=== PATIENT | male | born 1980 | race Caucasian/White ===

== ENCOUNTER 2021-11-03 15:50 | Outpatient (CLI) | payer MEDICAID, SELFPAY ==
[2021-11-03 17:25] LABS: Chloride* 104 mmol/L (96-114); Potassium* 3.9 mmol/L (3.6-5.1); Sodium* 137 mmol/L (135-149)
[2021-11-03 17:27] LABS: Creatinine* 0.7 mg/dL (0.5-1.5); Estimated Glomerular Filt Rate 119 ml/min
[2021-11-03 17:28] LABS: Blood Urea Nitrogen* 12 mg/dL (5-24); Calcium* 9.1 mg/dL (8.4-10.6); Carbon Dioxide* 26 mmol/L (20-32); Glucose* 99 mg/dL (60-115)
== END 2021-11-03 15:51 | disposition home or self-care (01) ==
LOC: LONREF 15:50
PROVIDERS: PCP Family Medicine; Visit Provider Family Medicine
DX: I10 Essential (primary) hypertension (principal)
CPT/HCPCS: 80048

== ENCOUNTER 2022-08-22 09:55 | Outpatient (CLI) | payer MEDICAID, SELFPAY | END 2022-08-22 09:56 | disposition home or self-care (01) | LOC: NFLDREF 08-23 07:57 | PROVIDERS: PCP Family Medicine; Referring Provider Family Medicine; Visit Provider Family Medicine | DX: R10.9 Unspecified abdominal pain (principal); R97.20 Elevated prostate specific antigen [PSA] | CPT/HCPCS: 80048; 84153 ==

== ENCOUNTER 2023-03-18 15:23 | Outpatient (CLI) | payer OTHER, SELFPAY ==
--- OUTSIDE RECORDS SUMMARY | 2023-03-18 15:28 | XMS_ITS | Clinical Summary ---
Author Name Unknown Organization [facility] Address [address] [place] [id number] Care Team Providers Care Systems Design Engineer Name Role Phone No Ref-Primary, Physician Primary Care Provider Allergies No known active allergies Medications Medication Sig Dispensed Refills Start Date End Date Status lisinopril (ZESTRIL) 40 MG tablet Take 40 mg by mouth daily 0 Active ALPRAZolam (XANAX) 0.5 MG tablet Take 0.5 mg by mouth 3 times daily as needed 0 Active testosterone cypionate (DEPOTESTOSTERONE) 200 MG/ML injection Inject 200 mg into the muscle once a week 0 Active acetaminophen (TYLENOL) 500 MG tablet Take 1,000 mg by mouth every 6 hours as needed for mild pain 0 Active ibuprofen (ADVIL/MOTRIN) 200 MG tablet Take 400 mg by mouth every 6 hours as needed for pain 0 Active nicotine (NICODERM CQ) 21 MG/24HR [address] 1 patch onto the skin every 24 hours 0 Active metoprolol succinate ER (TOPROL XL) 25 MG 24 hr tabletIndications:Nile gn essential hypertension Take 1 tablet (25 mg) by mouth daily 30 tablet 0 08/18/2022 Active amoxicillin-clavulanat e (AUGMENTIN) 875-125 MG tabletIndications:Hume vesical fistula Take 1 tablet by mouth 2 times daily 20 tablet 0 08/18/2022 Active Active Problems Problem Noted Date Diagnosed Date SBO (small bowel obstruction) 08/14/2022 Fever postop 08/14/2022 Nausea and vomiting, unspecified vomiting type 0 08/14/2022 Colovesical fistula 08/08/2022 Family History Medical History Relation Comments Colon Cancer No family hx of Social History Tobacco Use Types Packs/Day Years Used Date Smoking Tobacco: Every Day Cigarettes 1 Smokeless Tobacco: Never Tobacco Cessation:Ready to Q uit: Not Asked; Counseling Given: Not Answered Alcohol Use Standard Drinks/Week Comments Yes 0 (1 standard drink = 0.6 oz pur e alcohol) 4 per night Adolescent Education Answer Date Record ed Getting School Help Needed Not on file 11/10 Sex and Gender Information Value Date Recorded Sex Assigned at Not on file Gender Identity Not on file Sexual Orientation Not on file Last Filed Vital Signs Vital Sign Reading Time Taken Comments Blood Pressure 145/85 08/19/2022 7:32 AM CDT Pulse 92 08/19/2022 7:32 AM CDT Temperature 36.8 ??C (98.2 ??F) 08/19/2022 7:32 AM CD T Respiratory Rate 18 08/19/2022 12:03 AM CDT Oxygen Saturation 98% 08/19/2022 7:32 AM CDT Inhaled Oxygen Concentration - - Weight 102 kg (224 lb 12.8 oz) 08/19/2022 5:51 A M CDT Height 188 cm (6' 2) 08/15/2022 11:38 AM CDT Body Mass Index 28.86 08/15/2022 11:38 AM CDT Plan of Treatment Health Maintenance Due Date Last Done Comments ADVANCE CARE PLANNING 1980 ANNUAL REVIEW OF HM ORDERS 1980 CT COLONOGRAPHY 1980 FIT 1980 FLEX SIG 1980 NICOTINE/TOBACCO CESSATION COUNSELING Q 1 YR 1980 YEARLY PREVENTIVE VISIT 1980 sDNA (Cologuard) 1980 Pneumococcal Vaccine: Pediatrics (0 to 5 Years) and At-Risk Patients (6 to 64 Years) (1 of 2 - PCV) 1986 HIV SCREENING 04/12/1995 HEPATITIS C SCREENING 1998 HEPATITIS B IMMUNIZATION (4 of 4 - 4-dose series) 07/29/1998 06/03/1998, 06/03/1998, 04/16/1997, Additional history exists LIPID 2020 COVID-19 Vaccine ( season) 2022 07/25/2020, 06/28/2020 INFLUENZA VACCINE (#1) 2022 12/09/2013 PHQ-2 (once per calendar year) 2023 DTAP/TDAP/TD IMMUNIZATION (5 - Td or Tdap) 12/10/2023 12/09/2013, 05/08/2006, 05/08/2006, Additional history exists GLUCOSE 08/19/2025 08/19/2022, 07/0 09/2022, 08/18/2022, Additional history exists COLONOSCOPY 08/08/2027 08/07/2022, 08/07/2022 COLORECTAL CANCER SCREENING 08/08/2027 HPV IMMUNIZATION Aged Out No longer e ligible based on patient's age to complete this topic IPV IMMUNIZATION Aged Out No longer e ligible based on patient's age to complete this topic MENINGITIS IMMUNIZATION Aged Out No l onger eligible based on patient's age to complete this topic RSV MONOCLONAL ANTIBODY Aged Out No l onger eligible based on patient's age to complete this topic Advance Directives For more information, please contact: [phone] Latest Code Status on File Code Status Date Activated Date Inactivated Comments Full Code 08/14/2022 6:20 AM 08/19/2022 1:23 PM All bas ic and advanced life-sustaining interventions are performed as appropriate Question Answer Comments Code status determined by: Discussion with patient/ legal decision maker Code Status History Code Status Date Activated Date Inactivated Comments Full Code 08/08/2022 10:29 PM 08/12/2022 1:54 PM All b asic and advanced life-sustaining interventions are performed as appropriate Question Answer Comments Code status determined by: Discussion with patient/ legal decision maker Care Teams Systems Design Engineer Relationship Specialty Start Date End Date No Ref-Primary, Physician PCP - General 08/07/22
--- OUTSIDE RECORDS SUMMARY | 2023-03-18 15:28 | XMS_ITS | Encounter Summary ---
Author Name Unknown Organization [facility] Address [address] [place] [id number] Care Team Providers [employer] Safety Program Coordinator Name Role Phone No Ref-Primary, Physician Primary Care Provider Reason for Visit * Reason Comments Post-op Problem * Auth/Cert (Routine) Specialty Diagnoses / Procedures Referred By Luis Eduardo lao Referred To Contact Med Surg Diagnoses SBO (small bowel obstruction) (H) Fever postop Nausea and vomiting, unspecified vomiting type SBO (small bowel obstruction) (H) Fever postop Nausea and vomiting, unspecified vomiting type 5 [facility] [address] [place] [address] Referral ID Status Reason Start Date Expiration Date Visits Re quested Visits Authorized 1 1 Encounter Details Date Type Department Care Team (Late st Contact Info) Description 08/14/2022 1:27 AM CDT - 08/19/2022 11:20 AM CDT Hospital Encounter [place] [id number] [facility] [address] [place] [address] Mynor Bro MD [facility] [address] [place] [address] Vishal Smith MD, [address] [place] [id number] Tevin Kelley MD [facility] [address] [place], [place] [id number] Colovesical fistula (Primary Dx); SBO (small bowel obstruction) (H); Fever postop; Nausea and vomiting, unspecified vomiting type; Benign essential hypertension Discharge Disposition: Home or Self Care Social History Tobacco Use Types Packs/Day Years Used Date Smoking Tobacco: Every Day Cigarettes 1 Smokeless Tobacco: Never Alcohol Use Standard Drinks/Week Comments Yes 0 (1 standard drink = 0.6 oz pur e alcohol) 4 per night Sex and Gender Information Value Date Recorded Sex Assigned at Not on file Gender Identity Not on file Sexual Orientation Not on file COVID-19 Exposure Response Date Recorded In the last 10 days, have yo u been in contact with someone who was confirmed or suspected to have Coronavirus/COVID-19? No / Unsure 08/14/2022 1:21 AM CDT documented as of this encounter Last Filed Vital Signs Vital Sign Reading [...] Mass Index 28.86 08/15/2022 11:38 AM CDT documented in this encounter Discharge Summaries * Loy Dunne MD - 08/19/2022 11:20 AM CDT [facility] Hospitalist Discharge Summary Date of Admission: 08/14/2022 Date of Discharge: 08/19/2022 11:20 AM Discharging Provider: Loy Dunne MD Discharge Service: Hospitalist Service Discharge Diagnoses N/V Partial mechanical small bowel obstruction Fever Possible small anastomotic leak LGIB Acute blood loss anemia Hypokalemia Hypertension Clinically Significant Risk Factors # Overweight: Estimated body mass index is 28.86 kg/m?? as calculated from the following: Height as of this encounter: 1.88 m (6' 2). Weight as of this encounter: 102 kg (224 lb 12.8 oz). # Moderate Malnutrition: based on nutrition assessment Follow-ups Needed After Discharge Follow-up Appointments Follow-up and recommended labs and tests Follow up with colorectal surgery clinic. Discharge Disposition Discharged to home Condition at discharge: Stable Hospital Course Judith Guajardo is a 42 year old male??with PMH significant for recurrent and severe diverticulitis (requiring 2 separate intraabdominal surgeries from my understanding), hypogonadism, HTN who recently underwent robotic assisted sigmoid colectomy s/p re-anastamosis, small bowel resection &??re-anastomosis, and intraabdominal abscess drainage on 08/08/2022 and discharged on 08/12/2022. ??He reported that he was doing well at home up until when he developed N/V, hiccups. Imaging admission showspartial mechanical small bowel obstruction. NGT was placed in the emergency department and set to LIS. Patient with improvement in symptoms with this, stating that he does feel as if the blockage is i mproving. Had small bowel movement morning of 08/16/2022 and is passing flatus. NGT clamped 08/17/2022 and was later successfully removed. Successfully advanced to low fiber diet and stable to discharge home. Consultations This Hospital Stay COLORECTAL SURGERY IP CONSULT VASCULAR ACCESS ADULT IP CONSULT PHARMACY IP CONSULT PHARMACY IP CONSULT PHARMACY IP CONSULT PHARMACY/NUTRITION TO START AND MANAGE TPN PHARMACY IP CONSULT PHARMACY IP CONSULT PHARMACY IP CONSULT PHARMACY IP CONSULT Code Status Prior Time Spent on this Encounter I, Loy Dunne MD, personally saw the patient today and spent less than or equal to 30 minutes discharging this patient. Loy Dunne MD [address] SURG[facility] [address] [facility] [address] Physical Exam Vital Signs: Temp: 98.2 ??F (36.8 ??C) Temp src: Oral BP: (!) 145/85 Pulse: 92 Resp: 18 SpO2: 98 % O2 Device: None (Room air) Weight: 224 lbs 12.8 oz General: Very pleasant male resting comfortably in hospital bed. Awake, alert, interactive. SO at bedside. HEENT: Normocephalic, atraumatic. PERRL, EOMI. Conjunctiva clear, sclerae anicteric. Mucous membranes moist. Cardiac: Regular rate and rhythm without murmur, gallop, or rub. No peripheral edema. Respiratory: Normal work of breathing. Clear to auscultation bilaterally without wheezing, rales, or rhonchi. GI: Normal, active bowel sounds. : Deferred. Musculoskeletal: Moving all extremities appropriately. Skin: No rashes or abrasions on exposed skin. Neurologic: Alert and oriented x4. Cranial nerves II through XII grossly intact. Psychologic: Appropriate mood and affect. Primary Care Physician Physician No Ref-Primary Discharge Orders Reason for your hospital stay You were admitted to the hospital for post-operative obstruction or illeus, which is when the colondoes not move stool through properly. You also had a suspected leak from the surgical site in your colon. You were treated with bowel rest, nasal gastric tube decompression, and slow advancement of your diet. You also required antibiotics, which will be continued on discharge. Follow-up and recommended labs and tests Follow up with colorectal surgery clinic. Activity Your activity upon discharge: activity as tolerated Diet Follow this diet upon discharge: Orders Placed This Encounter Clear Liquid Diet Significant Results and Procedures Most Recent 3 CBC's:Recent Labs Lab Test 08/19/22 0534 08/18/22 0603 08/17/22 0624 WBC 13.4* 14.5* 14.2* HGB 9.2* 9.1* 9.6* MCV 94 94 94 PLT 651* 656* 627* Most Recent 3 BMP's:Recent Labs Lab Test 08/19/22 0534 08/18/22 2057 08/18/22 1711 08/18/22 0844 08/18/22 0603 08/17/22 1158 08/17/22 0624 NA 137 -- -- -- 138 -- 140 POTASSIUM 3.8 3.8 -- -- -- 3.7 -- 3.3* CHLORIDE 105 -- -- -- 105 -- 103 CO2 22 -- -- -- 24 -- 25 BUN 8.2 -- -- -- 10.6 -- 16.6 CR 0.73 -- -- -- 0.67 -- 0.73 ANIONGAP 10 -- -- -- 9 -- 12 GALLO 8.6 -- -- -- 8.4* -- 8.5* GLC 103* 112* 103* < > 129* < > 121* < > = values in this interval not displayed. Most Recent 2 LFT's:Recent Labs Lab Test 08/17/22 0608/14/22 0135 AST 17 18 ALT 12 15 ALKPHOS 63 51 BILITOTAL 0.3 0.4 , Results for orders placed or performed during the hospital encounter of 08/14/22 Abd/pelvis CT, IV contrast only TRAUMA / AAA Narrative EXAM: CT ABDOMEN PELVIS W CONTRAST LOCATION: [facility] DATE: 08/14/2022 INDICATION: Recent complicated surgery for colovesicular fistula. Fever, abdominal distention. Concern for ileus versus obstruction. Patient also had abscess recently drained. COMPARISON: CT pelvis cystogram 08/11/2022. TECHNIQUE: CT scan of the abdomen and pelvis was performed following injection of IV contrast. Multiplanar reformats were obtained. Dose reduction techniques were used. CONTRAST: 99 mL Isovue 370. FINDINGS: LOWER CHEST: Slight dependent atelectasis in the posterior costophrenic angles. No pleural effusionon either side. Normal cardiac size. No pericardial effusion. HEPATOBILIARY: Diffusely fatty infiltrated moderately enlarged liver, length of the right lobe measures approximately 20 cm (image 58, series 5). No discrete lesion, calcified gallstones or biliary dilatation. Patent hepatic and portal veins. PANCREAS: Normal. SPLEEN: Normal. ADRENAL GLANDS: Normal. KIDNEYS/BLADDER: No urinary tract calculi. Minor cortical simple cyst in each kidney, no specific follow-up required. Both kidneys are well perfused without hydronephrosis or hydroureter. Partially distended normal urinary bladder. BOWEL: Postoperative changes in the abdomen and pelvis. Foci of soft tissue gas in the abdomen and pelvis, likely on a postoperative basis. Sigmoid anastomotic christy with adjacent soft tissue gas and a small mesenteric hematoma measuring 3.2 x 2.0 cm (image 186, series 4; image 73, series 7; image 64, series 5). No ongoing active extravasation. Several loops of small bowel are asymmetrically distended to the level of the anastomotic christy in the left lower quadrant (images 25-45, series 5; image 164, series 4; image 92, series 7), representing partial mechanical small bowel obstruction. Stomach is distended with fluid and gas. Surgical drain in the pelvis seen previously has been removed. LYMPH NODES: No suspicious abdominopelvic adenopathy. VASCULATURE: Atherosclerotic normal caliber distal abdominal aorta measuring 1.9 x 1.9 cm (image 120, series 4). Normal caliber IVC. PELVIC ORGANS: Anastomotic christy in the mid/distal sigmoid with adjacent small foci of gas and a small mesenteric hematoma without ongoing active extravasation. Asymmetric gas and fluid distended small bowel loops to the level of the anastomotic christy in the left lower quadrant representing partial mechanical obstruction. MUSCULOSKELETAL: Postoperative changes of recent surgery with foci of soft tissue gas in the body wall. Foci of linear density in the subcutaneous fat likely representing laparoscopic access ports. Mild degenerative changes involving the spine and joints of the pelvis. Impression IMPRESSION: 1. Postoperative changes in the abdomen and pelvis, with foci of gas, more apparent in the pelvis. Sigmoid anastomotic christy with adjacent foci of soft tissue gas and a small mesenteric hematoma, without ongoing active extravasation. 2. Asymmetric gas and fluid distended small bowel loops to the level of the anastomotic christy in the left lower quadrant, representing partial mechanical small bowel obstruction. Stomach is distended with fluid and gas. Surgical drain in the pelvis seen previously has been removed. 3. Diffusely fatty infiltrated moderately enlarged liver without discrete lesion, calcified gallstones or biliary dilatation. 4. Postoperative changes of recent surgery with foci of soft tissue gas in the body wall. Foci of linear density in the subcutaneous fat likely representing laparoscopic access ports. Mild degenerative changes involving the spine and joints of the pelvis. CT Abdomen Pelvis w Contrast Narrative CT ABDOMEN AND PELVIS WITH CONTRAST 08/16/2022 12:04 PM CLINICAL HISTORY: Continued elevated white blood cell count. TECHNIQUE: CT scan of the abdomen and pelvis was performed following injection of IV contrast. Multiplanar reformats were obtained. Dose reduction techniques were used. CONTRAST: 100mL Isovue-370 COMPARISON: CT abdomen and pelvis 08/14/2022. FINDINGS: LOWER CHEST: Normal. HEPATOBILIARY: Contracted gallbladder. No acute liver abnormality. PANCREAS: Normal. SPLEEN: Normal. ADRENAL GLANDS: Normal. KIDNEYS/BLADDER: No hydronephrosis or stone. Symmetric enhancement of the kidneys. Bladder is grossly unremarkable. BOWEL: Postoperative bowel again noted with sigmoid colectomy, and small bowel postoperative changes. Bubbles of gas at the left posterior pelvis again noted, stable versus slightly smaller. Bubbles of gas in the abdominal wall, and posterior to the colonic anastomosis site at the upper pelvis series 3 image 166 also appears similar to prior with some adjacent stable small fluid that is approximately 2.8 cm series 3 image 179. The previously noted dilated small bowel at the left proximal to mid abdomen again noted, but positive oral contrast appears to extend to the colon excluding complete small bowel obstruction. There is still some mild wall thickening of the small bowel near its anastomosis at the left midabdomen level series 3 image 152 through 176. There is increased density fluid that suggests hematoma deep to the rectus musculature measuring approximately 5.4 x 3.0 cm, stable to slightly smaller series 3 image 181. A small collection of fluid at the mesentery is approximately 4.1 x 2.0 cm, stable image 143. No new focal fluid collection identified. PELVIC ORGANS: Prostate is 5.4 cm. ADDITIONAL FINDINGS: A few likely reactive mesenteric lymph nodes noted that are mildly prominent. MUSCULOSKELETAL: Unremarkable. Impression IMPRESSION: 1. Postoperative changes of the bowel again identified. A few extraluminal collections of gas and small collections of fluid appear stable versus slightly smaller as compared to 08/14/2022. There is also a probable hematoma deep to the abdominal wall that is stable versus slightly smaller. 2. Dilated small bowel loops leading to a small bowel anastomosis again noted. However, oral contrast material is demonstrated to extend to the colon, excluding complete small bowel obstruction. A partial obstruction is possible. 3. No new fluid collection identified. NICOLÁS CAMPBELL MD SYSTEM ID: [id number] Discharge Medications Discharge Medication List as of 08/19/2022 10:37 AM START taking these medications Details amoxicillin-clavulanate (AUGMENTIN) 875-125 MG tablet Take 1 tablet by mouth 2 times daily, Disp-20tablet, R-0, E-Prescribe CONTINUE these medications which have CHANGED Details metoprolol succinate ER (TOPROL XL) 25 MG 24 hr tablet Take 1 tablet (25 mg) by mouth daily, Disp-30 tablet, R-0, E-Prescribe CONTINUE these medications which have NOT CHANGED Details acetaminophen (TYLENOL) 500 MG tablet Take 1,000 mg by mouth every 6 hours as needed for mild pain,Historical ALPRAZolam (XANAX) 0.5 MG tablet Take 0.5 mg by mouth 3 times daily as needed, Historical ibuprofen (ADVIL/MOTRIN) 200 MG tablet Take 400 mg by mouth every 6 hours as needed for pain, Historical lisinopril (ZESTRIL) 40 MG tablet Take 40 mg by mouth daily, Historical nicotine (NICODERM CQ) 21 MG/24HR [address] 1 patch onto the skin every 24 hours, Historical testosterone cypionate (DEPOTESTOSTERONE) 200 MG/ML injection Inject 200 mg into the muscle once a week, Historical STOP taking these medications indapamide (LOZOL) 1.25 MG tablet Comments: Reason for Stopping: methocarbamol (ROBAXIN) 750 MG tablet Comments: Reason for Stopping: oxyCODONE (ROXICODONE) 5 MG tablet Comments: Reason for Stopping: Allergies No Known Allergies documented in this encounter Medications at Time of Discharge Medication Sig Dispensed Refills Start Date End Date acetaminophen (TYLENOL) 500 MG tablet Take 1,000 mg by mouth every 6 hours as needed for mild pain 0 ALPRAZolam (XANAX) 0.5 MG tablet Take 0.5 mg by mouth 3 times daily as needed 0 amoxicillin-clavulanate (AUGMENTIN) 875-125 MG tabletIndications:Colovesi gallo fistula Take 1 tablet by mouth 2 times daily 20 tablet 0 08/18/2022 ibuprofen (ADVIL/MOTRIN) 200 MG tablet Take 400 mg by mouth every 6 hours as needed for pain 0 lisinopril (ZESTRIL) 40 MG tablet Take 40 mg by mouth daily 0 metoprolol succinate ER (TOPROL XL) 25 MG 24 hr tabletIndications:Benign essential hypertension Take 1 tablet (25 mg) by mouth daily 30 tablet 0 08/18/2022 nicotine (NICODERM CQ) 21 MG/24HR [address] 1 patch onto the skin every 24 hours 0 testosterone cypionate (DEPOTESTOSTERONE) 200 MG/ML injection Inject 200 mg into the muscle once a week 0 documented as of this encounter Progress Notes * Jessica Villanueva RD, LD - 08/19/2022 10:38 AM CDT Clinical Nutrition Brief Note Chart check on nutrition support patient, please refer to previous RD notes for more information. Per note on 08/18: d/c TPN and fluids Plan to discontinue TPN per MD note. Spoke with PharmD Jessica Manuel. DAVINA Villanueva, EVELIN Clinical Dietitian 3rd floor/ICU: [phone] All other floors: [phone] Weekend/holiday: [phone] Office: [phone] * Loy Dunne MD - 08/18/2022 5:05 PM CDT [facility] Medicine Progress Note - Hospitalist Service Date of Admission: 08/14/2022 Assessment & Plan Judith Guajardo is a 42 year old male with PMH significant for recurrent and severe diverticulitis(requiring 2 separate intraabdominal surgeries from my understanding), hypogonadism, HTN who recently underwent robotic assisted sigmoid colectomy s/p re-anastamosis, small bowel resection & re-anastomosis, and intraabdominal abscess drainage on 08/08/2022 and discharged on 08/12/2022. He reportedthat he was doing well at home up until when he developed N/V, hiccups. N/V Partial mechanical small bowel obstruction: Recent significant intra-abdominal surgery with small bowel and large bowel resection. Patient was eating well and stooling well prior to discharge. Soon after returning home he had development of nausea vomiting of green bilious vomit. Imaging admission shows partial mechanical small bowel obstruction. NGT was placed in the emergency department and set to LIS. Patient with improvement in symptoms with this, stating that he does feel as if the blockage is improving. Had small bowel movement morning of 08/16/2022 and is passing flatus. NGT clamped 08/17/2022 and was later successfully removed. Plan to start CLD and ADAT. -CRS following, appreciate recommendations -Tolerated CLD and FLD. Advancing to low fiber this evening -Dilaudid for pain -d/c TPN and fluids Fever Possible small anastomotic leak: Recent extensive surgery to include robotic assisted sigmoid colectomy, takedown of colovesical fistula, small bowel resection and drainage of abdominal wall abscess. Patient was just discharged on 08/12. Fevers up to 103 Fahrenheit at home. CRS now at small fluid collection in area near the anastomosis concerning for possible small anastomotic leak. No obvious abscess on imaging. No obvious surgical wound infection. Fevers have since resolved. Follow up repeat CT scan. -Continue IV Zosyn -Defer duration of antibiotics to CRS LGIB Acute blood loss anemia: Patient with hemoglobin drop from 14.6-9.9 on presentation. Has since down trended to 8.7. Patient did not have hematochezia on presentation but did develop bloody stool on the a.m. of 08/15. Hemoglobin has remained stable since. -CRS already following -Recheck hemoglobin this afternoon is stable at 8.4. -Repeat hemoglobin in a.m. -Avoid anticoagulation use Hypokalemia: Likely related to recurrent emesis and tube set to suction. 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 until tolerating oral intake Diet: parenteral nutrition - Clinimix E Diet parenteral nutrition - Clinimix E Low Fiber Diet DVT Prophylaxis: Pneumatic Compression Devices Allan Catheter: Not present Lines: PRESENT PICC 08/16/22 Double Lumen Left Basilic TPN-Site Assessment: WDL Cardiac Monitoring: None Code Status: Full Code Clinically Significant Risk Factors # Hypokalemia: Lowest K = 3.3 mmol/L in last 2 days, will replace as needed # Hypocalcemia: Lowest Ca = 8.4 mg/dL in last 2 days, will monitor and replace as appropriate # Hypoalbuminemia: Lowest albumin = 3.3 g/dL at 08/17/2022 6:24 AM, will monitor as appropriate # Coagulation Defect: INR = 1.21 (Ref range: 0.85 - 1.15) and/or PTT = N/A, will monitor for bleeding # Overweight: Estimated body mass index is 29.55 kg/m?? as calculated from the following: Height as of this encounter: 1.88 m (6' 2). Weight as of this encounter: 104.4 kg (230 lb 2.6 oz). # Moderate Malnutrition: based on nutrition assessment Disposition Plan Expected Discharge Date: 08/19/2022 Likely tomorrow if tolerates low fiber diet. Loy Dunne MD Hospitalist Service [facility] Securely message with [employer] (more info) Text page via [facility] Paging/Directory Interval History Feeling better. No pain. Having bowel movements. Tolerating CLD and FLD. Eager to discharge. Physical Exam Temp: 98 ??F (36.7 ??C) Temp src: Oral BP: 129/79 Pulse: 86 Resp: 18 SpO2: 100 % O2 Device: None (Room air) Height: 188 cm (6' 2) Weight: 104.4 kg (230 lb 2.6 oz) Estimated body mass index is 29.55 kg/m?? as calculated from the following: Height as of this encounter: 1.88 m (6' 2). Weight as of this encounter: 104.4 kg (230 lb 2.6 oz). General: Very pleasant male resting comfortably in hospital bed. Awake, alert, interactive. SO at bedside. HEENT: Normocephalic, atraumatic. PERRL, EOMI. Conjunctiva clear, sclerae anicteric. Mucous membranes moist. Cardiac: Regular rate and rhythm without murmur, gallop, or rub. No peripheral edema. Respiratory: Normal work of breathing. Clear to auscultation bilaterally without wheezing, rales, or rhonchi. GI: Normal, active bowel sounds. Abdominal binder in place. NGT. : Deferred. Musculoskeletal: Moving all extremities appropriately. Skin: No rashes or abrasions on exposed skin. Neurologic: Alert and oriented x4. Cranial nerves II through XII grossly intact. Psychologic: Appropriate mood and affect. Medical Decision Making 45 MINUTES SPENT BY ME on the date of service doing chart review, history, exam, documentation & further activities per the note. Data PAST 24 HR DATA REVIEWED I have personally reviewed the following data over the past 24 hrs: 14.5 (H) \ 9.1 (L) / 656 (H) 138 105 10.6 / 131 (H) 3.7 24 0.67 \ Imaging results reviewed over the past 24 hrs: No results found for this or any previous visit (from the past 24 hour(s)). * Jessica Villanueva, RD, LD - 08/18/2022 11:24 AM CDT Clinical Nutrition Brief Note Chart check on nutrition support patient, please refer to previous RD notes for more information. NGT removed? and per CRS diet advanced to full liquids with plans to advance to low fiber this evening. Per CRS note Will ween TPN tomorrow if tolerating a diet. Per RN note on 08/18: Pt & girlfriend refused increased TPN dose. Currently infusing at 30ml/hr.Pt & girlfriend state he is discharging tomorrow, doesn't matter what the MDs tell him. Confirmed with RN that the TPN is currently running at 30 mL/hr. Labs: Labs: Electrolytes Potassium (mmol/L) Date Value 08/18/2022 3.7 08/17/2022 3.3 (L) 08/16/2022 3.5 Phosphorus (mg/dL) Date Value 08/18/2022 2.5 08/17/2022 2.6 08/16/2022 3.1 08/09/2022 3.7 Blood Glucose Glucose (mg/dL) Date Value 08/18/2022 129 (H) 08/17/2022 121 (H) GLUCOSE BY METER POCT (mg/dL) Date Value 08/18/2022 121 (H) 08/18/2022 127 (H) 08/17/2022 166 (H) 08/17/2022 103 (H) 08/17/2022 127 (H) Inflammatory Markers WBC Count (10e3/uL) Date Value 08/18/2022 14.5 (H) 08/17/2022 14.2 (H) 08/16/2022 16.7 (H) Albumin (g/dL) Date Value 08/17/2022 3.3 (L) 08/14/2022 3.5 Magnesium (mg/dL) Date Value 08/18/2022 2.1 08/17/2022 2.2 08/16/2022 2.3 Sodium (mmol/L) Date Value 08/18/2022 138 08/17/2022 140 08/16/2022 141 Renal Urea Nitrogen (mg/dL) Date Value 08/18/2022 10.6 08/17/2022 16.6 08/16/2022 19.2 Creatinine (mg/dL) Date Value 08/18/2022 0.67 08/17/2022 0.73 08/16/2022 0.72 Additional Triglycerides (mg/dL) Date Value 08/16/2022 138 Medications: ??? lidocaine 1 patch Transdermal Q24H And ??? lidocaine Transdermal Q8H TAMIKA ??? lipids plant base 250 mL Intravenous Q24H ??? metoprolol succinate ER 25 mg Oral Daily ??? nicotine 1 patch Transdermal Daily ??? nicotine Transdermal Q8H ??? pantoprazole 40 mg Intravenous Q24H ??? piperacillin-tazobactam 3.375 g Intravenous Q6H ??? 0.9% sodium chloride + KCl 20 mEq/L 70 mL/hr at 08/17/22 2212 ??? dextrose ??? parenteral nutrition - Clinimix E 30 mL/hr at 08/17/222005 ALPRAZolam, dextrose, HYDROmorphone OR HYDROmorphone, lidocaine 4%, lidocaine (viscous), lidocaine (buffered or not buffered), LORazepam, melatonin, naloxone OR naloxone OR naloxone OR naloxone, ondansetron OR ondansetron, oxyCODONE, phenol MT, prochlorperazine OR prochlorperazine OR prochlorperazine, sodium chloride (PF) Recommendations: Plan to increase to 60 mL/hr this evening as pt refused increase in rate last evening -- - Access: PICC - Frequency: Continuous - Central Clinimix (D15, AA5) at goal rate of 90 mL/hr x 24 hrs (2160 mL) w/ advancement schedule outlined below - Provides 1534 kcal, 108 g AA (1.1 g protein/kg), 324 g dextrose (GIR: 2.2), 0% kcal from fat. - Total fluids: 100 mL/hr or per MD - DW: 101 kg Day 3: Increase to 60 mL/hr x 24 hrs, discontinue lipids given diet advancement Jessica Villanueva RD, LD Clinical Dietitian 3rd floor/ICU: [phone] All other floors: [phone] Weekend/holiday: [phone] Office: [phone] * Andrzej Reagan MD - 08/18/2022 10:01 AM CDT Images from the original note were not included. COLON & RECTAL SURGERY PROGRESS NOTE August 18, 2022 Post-op Day # 10 SUBJECTIVE: Feeling well today. No nausea or vomiting. Having BM's without further bleeding. Pain is controlled. Up walking the halls. Wants food and to be off of TPN soon. OBJECTIVE: Temp: [98 ??F (36.7 ??C)-98.3 ??F (36.8 ??C)] 98.3 ??F (36.8 ??C) Pulse: [69-86] 86 Resp: [18-20] 18 BP: (123-145)/(63-84) 145/84 SpO2: [96 %-100 %] 100 % Intake/Output Summary (Last 24 hours) at 08/17/2022 0857 Last data filed at 08/17/2022 0557 Gross per 24 hour Intake 280 ml Output 2600 ml Net -2320 ml GENERAL: Awake, alert, no acute distress, sitting up in bed HEAD: Nomocephalic atraumatic SCLERA: anicteric EXTREMITIES: warm and well perfused ABDOMEN: Soft, non-tender, non-distended, no rebound or guarding, no peritoneal signs INCISION: C/d/i. Glue intact LABS: Lab Results Component Value Date WBC 14.2 08/17/2022 Lab Results Component Value Date HGB 9.6 08/17/2022 Lab Results Component Value Date HCT 29.0 08/17/2022 Lab Results Component Value Date PLT 627 08/17/2022 Last Basic Metabolic Panel: Lab Results Component Value Date NA 140 08/17/2022 Lab Results Component Value Date POTASSIUM 3.3 08/17/2022 Lab Results Component Value Date CHLORIDE 103 08/17/2022 Lab Results Component Value Date GALLO 8.5 08/17/2022 Lab Results Component Value Date CO2 25 08/17/2022 Lab Results Component Value Date BUN 16.6 08/17/2022 Lab Results Component Value Date CR 0.73 08/17/2022 Lab Results Component Value Date GLC 121 08/17/2022 GLC 127 08/17/2022 ASSESSMENT/PLAN: Hernandez is a 42 year old man who is s/p robotic assisted sigmoid colectomy, takedown of colovesical fistula, small bowel resection, and drainage of an abdominal wall abscess on 08/08.He is now admitted due to emesis and fever. CT scan revealed a partial SBO vs ileus at small bowel anastomosis and a small collection next to colorectal anastomosis concerning for a small leak. He is clinically improving, his NGT is now out and is requesting food. He is quite assertive that he wants to leave soon due to family matters to attend to. His WBC is 14, and we need to continue to monitor that as he may radiologically have a small leak or developing abscess. Clinically however, he has no symptoms. ?? - Advanced to fulls, Low Fiber tonight if feels well. \ - Will ween TPN tomorrow if tolerating a diet. - Continue IV antibiotics - Pain management as needed - Encourage ambulation - No current plans for further surgery - Dispo: pending normalization of WBC, no further clinical symptoms, and toelrating a diet. For questions/paging, please contact the CRS office at [phone]. Andrzej Reagan MD, MPH Fellow in Colon and Rectal Surgery [facility] [address] [place] [address] T: [phone] F: [phone] * Loy Dunne MD - 08/17/2022 5:49 PM CDT [facility] Medicine Progress Note - Hospitalist Service Date of Admission: 08/14/2022 Assessment & Plan Judith Guajardo is a 42 year old male with PMH significant for recurrent and severe diverticulitis(requiring 2 separate intraabdominal surgeries from my understanding), hypogonadism, HTN who recently underwent robotic assisted sigmoid colectomy s/p re-anastamosis, small bowel resection & re-anastomosis, and intraabdominal abscess drainage on 08/08/2022 and discharged on 08/12/2022. He reportedthat he was doing well at home up until when he developed N/V, hiccups. N/V Partial mechanical small bowel obstruction: Recent significant intra-abdominal surgery with small bowel and large bowel resection. Patient was eating well and stooling well prior to discharge. Soon after returning home he had development of nausea vomiting of green bilious vomit. Imaging admission shows partial mechanical small bowel obstruction. NGT was placed in the emergency department and set to LIS. Patient with improvement in symptoms with this, stating that he does feel as if the blockage is improving. Had small bowel movement morning of 08/16/2022 and is passing flatus. NGT clamped 08/17/2022 and was later successfully removed. Plan to start CLD and ADAT. -CRS following, appreciate recommendations -CLD advance as tolerated -Dilaudid for pain Fever Possible small anastomotic leak: Recent extensive surgery to include robotic assisted sigmoid colectomy, takedown of colovesical fistula, small bowel resection and drainage of abdominal wall abscess. Patient was just discharged on 08/12. Fevers up to 103 Fahrenheit at home. CRS now at small fluid collection in area near the anastomosis concerning for possible small anastomotic leak. No obvious abscess on imaging. No obvious surgical wound infection. Fevers have since resolved. Follow up repeat CT scan. -Continue IV Zosyn -Defer duration of antibiotics to CRS LGIB Acute blood loss anemia: Patient with hemoglobin drop from 14.6-9.9 on presentation. Has since down trended to 8.7. Patient did not have hematochezia on presentation but did develop bloody stool on the a.m. of 08/15. Hemoglobin has remained stable since. -CRS already following -Recheck hemoglobin this afternoon is stable at 8.4. -Repeat hemoglobin in a.m. -Avoid anticoagulation use Hypokalemia: Likely related to recurrent emesis and tube set to suction. 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 until tolerating oral intake Diet: parenteral nutrition - Clinimix E parenteral nutrition - Clinimix E Clear Liquid Diet DVT Prophylaxis: Pneumatic Compression Devices Allan Catheter: Not present Lines: PRESENT PICC 08/16/22 Double Lumen Left Basilic TPN-Site Assessment: WDL Cardiac Monitoring: None Code Status: Full Code Clinically Significant Risk Factors # Hypokalemia: Lowest K = 3.3 mmol/L in last 2 days, will replace as needed # Hypocalcemia: Lowest Ca = 8.4 mg/dL in last 2 days, will monitor and replace as appropriate # Hypoalbuminemia: Lowest albumin = 3.3 g/dL at 08/17/2022 6:24 AM, will monitor as appropriate # Coagulation Defect: INR = 1.21 (Ref range: 0.85 - 1.15) and/or PTT = N/A, will monitor for bleeding # Overweight: Estimated body mass index is 28.12 kg/m?? as calculated from the following: Height as of this encounter: 1.88 m (6' 2). Weight as of this encounter: 99.3 kg (219 lb)., PRESENT ON ADMISSION # Moderate Malnutrition: based on nutrition assessment, PRESENT ON ADMISSION Disposition Plan Expected Discharge Date: 08/19/2022 Loy Dunne MD Hospitalist Service [facility] Securely message with Nafisa (more info) Text page via [facility] Paging/Directory Interval History Nursing notes reviewed; no acute events overnight. Patient feeling somewhat improved. Eager to removed NGT and start advancing diet. Eager to discharge and plans to do so tomorrow. Physical Exam Temp: 98.2 ??F (36.8 ??C) Temp src: Oral BP: 136/81 Pulse: 86 Resp: 18 SpO2: 96 % O2 Device: None (Room air) Height: 188 cm (6' 2) Weight: 99.3 kg (219 lb) Estimated body mass index is 28.12 kg/m?? as calculated from the following: Height as of this encounter: 1.88 m (6' 2). Weight as of this encounter: 99.3 kg (219 lb). General: Very pleasant male resting comfortably in hospital bed. Awake, alert, interactive. HEENT: Normocephalic, atraumatic. PERRL, EOMI. Conjunctiva clear, sclerae anicteric. Mucous membranes moist. Cardiac: Regular rate and rhythm without murmur, gallop, or rub. No peripheral edema. Respiratory: Normal work of breathing. Clear to auscultation bilaterally without wheezing, rales, or rhonchi. GI: Normal, active bowel sounds. Abdominal binder in place. NGT. : Deferred. Musculoskeletal: Moving all extremities appropriately. Skin: No rashes or abrasions on exposed skin. Neurologic: Alert and oriented x4. Cranial nerves II through XII grossly intact. Psychologic: Appropriate mood and affect. Medical Decision Making 45 MINUTES SPENT BY ME on the date of service doing chart review, history, exam, documentation & further activities per the note. Data PAST 24 HR DATA REVIEWED I have personally reviewed the following data over the past 24 hrs: 14.2 (H) \ 9.6 (L) / 627 (H) 140 103 16.6 / 166 (H) 3.3 (L) 25 0.73 \ ALT: 12 AST: 17 AP: 63 TBILI: 0.3 ALB: 3.3 (L) TOT PROTEIN: 6.7 LIPASE: N/A INR: 1.21 (H) PTT: N/A D-dimer: N/A Fibrinogen: N/A Imaging results reviewed over the past 24 hrs: No results found for this or any previous visit (from the past 24 hour(s)). * Andrzej Reagan MD - 08/17/2022 8:57 AM CDT Images from the original note were not included. COLON & RECTAL SURGERY PROGRESS NOTE August 18, 2022 Post-op Day # 10 SUBJECTIVE: Feeling well today. No nausea or vomiting. Having BM's without further bleeding. Pain is controlled. Up walking the halls. Wants food and to be off of TPN soon. OBJECTIVE: Temp: [97.8 ??F (36.6 ??C)-98.4 ??F (36.9 ??C)] 97.8 ??F (36.6 ??C) Pulse: [82-85] 84 Resp: [12-18] 12 BP: (135-161)/(73-86) 161/86 SpO2: [96 %-98 %] 98 % Intake/Output Summary (Last 24 hours) at 08/17/2022 0857 Last data filed at 08/17/2022 0557 Gross per 24 hour Intake 280 ml Output 2600 ml Net -2320 ml GENERAL: Awake, alert, no acute distress, sitting up in bed HEAD: Nomocephalic atraumatic SCLERA: anicteric EXTREMITIES: warm and well perfused ABDOMEN: Soft, non-tender, non-distended, no rebound or guarding, no peritoneal signs INCISION: C/d/i. Glue intact LABS: Lab Results Component Value Date WBC 14.2 08/17/2022 Lab Results Component Value Date HGB 9.6 08/17/2022 Lab Results Component Value Date HCT 29.0 08/17/2022 Lab Results Component Value Date PLT 627 08/17/2022 Last Basic Metabolic Panel: Lab Results Component Value Date NA 140 08/17/2022 Lab Results Component Value Date POTASSIUM 3.3 08/17/2022 Lab Results Component Value Date CHLORIDE 103 08/17/2022 Lab Results Component Value Date GALLO 8.5 08/17/2022 Lab Results Component Value Date CO2 25 08/17/2022 Lab Results Component Value Date BUN 16.6 08/17/2022 Lab Results Component Value Date CR 0.73 08/17/2022 Lab Results Component Value Date GLC 121 08/17/2022 GLC 127 08/17/2022 ASSESSMENT/PLAN: Hernandez is a 42 year old man who is s/p robotic assisted sigmoid colectomy, takedown of colovesical fistula, small bowel resection, and drainage of an abdominal wall abscess on 08/08.He is now admitted due to emesis and fever. CT scan revealed a partial SBO vs ileus at small bowel anastomosis and a small collection next to colorectal anastomosis concerning for a small leak. He is clinically improving, his NGT is now out and is requesting food. He is quite assertive that he wants to leave soon due to family matters to attend to. His WBC is 14, and we need to continue to monitor that as he may radiologically have a small leak or developing abscess. Clinically however, he has no symptoms. ?? - Advanced to fulls, Low Fiber tonight if feels well. \ - Will ween TPN tomorrow if tolerating a diet. - Continue IV antibiotics - Pain management as needed - Encourage ambulation - No current plans for further surgery - Dispo: pending normalization of WBC, no further clinical symptoms, and toelrating a diet. For questions/paging, please contact the CRS office at [phone]. Andrzej Reagan MD, MPH Fellow in Colon and Rectal Surgery [facility] [address] [address] T: [phone] F: [phone] * Renetta Wu, RD - 08/17/2022 8:06 AM CDT CLINICAL NUTRITION SERVICES - BRIEF NOTE - Refer to previous RD notes. Chart check for nutrition support patient. - Patient initiated on central Clinimix at 30 mL/hr yesterday. - Labs from this AM reviewed: Na, magnesium, and phosphorus WNL K slightly low at 3.3 - Medications reviewed: Remains on NaCl + KCl. - Entered formal order for step 2 in regimen/rate advancement: - Access: PICC - Frequency: Continuous - Central Clinimix (D15, AA5) at goal rate of 90 mL/hr x 24 hrs (2160 mL) w/ advancement schedule outlined below + 250 mL 20% Clinolipids daily - Provides 2034 kcal (20 kcal/kg), 108 g AA (1.1 g protein/kg), 324 g dextrose (GIR: 2.2), 25% kcalfrom fat. - Total fluids: 100 mL/hr or per MD - DW: 101 kg Day 2: Increase to 60 mL/hr x 24 hrs, lipids as outlined - Discussed w/ PharmD. - Will continue following. Renetta Wu RDN, LD Clinical Dietitian 3rd floor/ICU: [phone] All other floors: [phone] Weekend/holiday: [phone] Office: [phone] * Loy Dunne MD - 08/16/2022 4:41 PM CDT [facility] Medicine Progress Note - Hospitalist Service Date of Admission: 08/14/2022 Assessment & Plan Judith Guajardo is a 42 year old male with PMH significant for recurrent and severe diverticulitis(requiring 2 separate intraabdominal surgeries from my understanding), hypogonadism, HTN who recently underwent robotic assisted sigmoid colectomy s/p re-anastamosis, small bowel resection & re-anastomosis, and intraabdominal abscess drainage on 08/08/2022 and discharged on 08/12/2022. He reportedthat he was doing well at home up until yesterday evening when he developed N/V, hiccups. N/V Partial mechanical small bowel obstruction: Recent significant intra-abdominal surgery with small bowel and large bowel resection. Patient was eating well and stooling well prior to discharge. Soon after returning home he had development of nausea vomiting of green bilious vomit. Imaging admission shows partial mechanical small bowel obstruction. NGT was placed in the emergency department and set to LIS. Patient with improvement in symptoms with this, stating that he does feel as if the blockage is improving. Had small bowel movement morning of 08/16/2022 and is passing flatus. -CRS following, appreciate recommendations -NGT to LIS PRN -N.p.o. -Dilaudid for pain Fever Possible small anastomotic leak: Recent extensive surgery to include robotic assisted sigmoid colectomy, takedown of colovesical fistula, small bowel resection and drainage of abdominal wall abscess. Patient was just discharged on 08/12. Fevers up to 103 Fahrenheit at home. CRS now at small fluid collection in area near the anastomosis concerning for possible small anastomotic leak. No obvious abscess on imaging. No obvious surgical wound infection. Fevers have since resolved. Follow up repeat CT scan. -Continue IV Zosyn -Defer duration of antibiotics to CRS LGIB Acute blood loss anemia: Patient with hemoglobin drop from 14.6-9.9 on presentation. Has since down trended to 8.7. Patient did not have hematochezia on presentation but did develop bloody stool on the a.m. of 08/15. Hemoglobin has remained stable since. -CRS already following -Recheck hemoglobin this afternoon is stable at 8.4. -Repeat hemoglobin in a.m. -Avoid anticoagulation use Hypokalemia: Likely related to recurrent emesis and tube set to suction. 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 as calculated from the following: Height as of this encounter: 1.88 m (6' 2). Weight as of this encounter: 101.3 kg (223 lb 6.4 oz)., PRESENT ON ADMISSION # Moderate Malnutrition: based on nutrition assessment, PRESENT ON ADMISSION Disposition Plan Expected Discharge Date: 08/19/2022 Loy Dunne MD Hospitalist Service [facility] Securely message with Nafisa (more info) Text page via [facility] Paging/Directory Interval History Nursing notes reviewed; no acute events overnight. Patient stating that he is starting to feel as if things are moving through. Had small BM this morning and is passing flatus. Abdominal pain improved. Physical Exam Temp: 98 ??F (36.7 ??C) Temp src: Oral BP: (!) 148/75 Pulse: 85 Resp: 20 SpO2: 97 % O2 Device: None(Room air) Height: 188 cm (6' 2) Weight: 101.3 kg (223 lb 6.4 oz) Estimated body mass index is 28.68 kg/m?? as calculated from the following: Height as of this encounter: 1.88 m (6' 2). Weight as of this encounter: 101.3 kg (223 lb 6.4 oz). General: Very pleasant male resting comfortably in hospital bed. Awake, alert, interactive. HEENT: Normocephalic, atraumatic. PERRL, EOMI. Conjunctiva clear, sclerae anicteric. Mucous membranes moist. Cardiac: Regular rate and rhythm without murmur, gallop, or rub. No peripheral edema. Respiratory: Normal work of breathing. Clear to auscultation bilaterally without wheezing, rales, or rhonchi. GI: Normal, active bowel sounds. Abdominal binder in place. NGT. : Deferred. Musculoskeletal: Moving all extremities appropriately. Skin: No rashes or abrasions on exposed skin. Neurologic: Alert and oriented x4. Cranial nerves II through XII grossly intact. Psychologic: Appropriate mood and affect. Medical Decision Making 45 MINUTES SPENT BY ME on the date of service doing chart review, history, exam, documentation & further activities per the note. Data PAST 24 HR DATA REVIEWED I have personally reviewed the following data over the past 24 hrs: 16.7 (H) \ 8.8 (L) / 548 (H) 141 104 19.2 / 85 3.5 24 0.72 \ Imaging results reviewed over the past 24 hrs: Recent Results (from the past 24 hour(s)) CT Abdomen Pelvis w Contrast Narrative CT ABDOMEN AND PELVIS WITH CONTRAST 08/16/2022 12:04 PM CLINICAL HISTORY: Continued elevated white blood cell count. TECHNIQUE: CT scan of the abdomen and pelvis was performed following injection of IV contrast. Multiplanar reformats were obtained. Dose reduction techniques were used. CONTRAST: 100mL [id number] COMPARISON: CT abdomen and pelvis 08/14/2022. FINDINGS: LOWER CHEST: Normal. HEPATOBILIARY: Contracted gallbladder. No acute liver abnormality. PANCREAS: Normal. SPLEEN: Normal. ADRENAL GLANDS: Normal. KIDNEYS/BLADDER: No hydronephrosis or stone. Symmetric enhancement of the kidneys. Bladder is grossly unremarkable. BOWEL: Postoperative bowel again noted with sigmoid colectomy, and small bowel postoperative changes. Bubbles of gas at the left posterior pelvis again noted, stable versus slightly smaller. Bubbles of gas in the abdominal wall, and posterior to the colonic anastomosis site at the upper pelvis series 3 image 166 also appears similar to prior with some adjacent stable small fluid that is approximately 2.8 cm series 3 image 179. The previously noted dilated small bowel at the left proximal to mid abdomen again noted, but positive oral contrast appears to extend to the colon excluding complete small bowel obstruction. There is still some mild wall thickening of the small bowel near its anastomosis at the left midabdomen level series 3 image 152 through 176. There is increased density fluid that suggests hematoma deep to the rectus musculature measuring approximately 5.4 x 3.0 cm, stable to slightly smaller series 3 image 181. A small collection of fluid at the mesentery is approximately 4.1 x 2.0 cm, stable image 143. No new focal fluid collection identified. PELVIC ORGANS: Prostate is 5.4 cm. ADDITIONAL FINDINGS: A few likely reactive mesenteric lymph nodes noted that are mildly prominent. MUSCULOSKELETAL: Unremarkable. Impression IMPRESSION: 1. Postoperative changes of the bowel again identified. A few extraluminal collections of gas and small collections of fluid appear stable versus slightly smaller as compared to 08/14/2022. There is also a probable hematoma deep to the abdominal wall that is stable versus slightly smaller. 2. Dilated small bowel loops leading to a small bowel anastomosis again noted. However, oral contrast material is demonstrated to extend to the colon, excluding complete small bowel obstruction. A partial obstruction is possible. 3. No new fluid collection identified. NICOLÁS CAMPBELL MD SYSTEM ID: [id number] * Freida Bennett PA-C - 08/16/2022 1:30 PM CDT COLON & RECTAL SURGERY PROGRESS NOTE August 16, 2022 Post-op Day # 8 SUBJECTIVE: Patient feels like he has been improving. Pain is controlled. No nausea or vomiting. Has had a few loose bowel movements yesterday. No further bleeding. Feels like bowels have been moving/rumbling. NGT with 1400 out overnight. OBJECTIVE: Temp: [98 ??F (36.7 ??C)-98.3 ??F (36.8 ??C)] 98 ??F (36.7 ??C) Pulse: [80-93] 85 Resp: [18-20] 20 BP: (133-161)/(59-79) 148/75 SpO2: [95 %-97 %] 97 % Intake/Output Summary (Last 24 hours) at 08/16/2022 1330 Last data filed at 08/16/2022 0328 Gross per 24 hour Intake 2356 ml Output 1200 ml Net 1156 ml GENERAL: Awake, alert, no acute distress, sitting up in bed HEAD: Nomocephalic atraumatic SCLERA: anicteric EXTREMITIES: warm and well perfused ABDOMEN: Soft, appropriately tender, non-distended, no rebound or guarding, no peritoneal signs. INCISION: C/d/i LABS: Lab Results Component Value Date WBC 16.7 08/16/2022 Lab Results Component Value Date HGB 8.8 08/16/2022 Lab Results Component Value Date HCT 27.1 08/16/2022 Lab Results Component Value Date PLT 548 08/16/2022 Last Basic Metabolic Panel: Lab Results Component Value Date NA 141 08/16/2022 Lab Results Component Value Date POTASSIUM 3.5 08/16/2022 Lab Results Component Value Date CHLORIDE 104 08/16/2022 Lab Results Component Value Date GALLO 8.4 08/16/2022 Lab Results Component Value Date CO2 24 08/16/2022 Lab Results Component Value Date BUN 19.2 08/16/2022 Lab Results Component Value Date CR 0.72 08/16/2022 Lab Results Component Value Date GLC 85 08/16/2022 GLC 113 08/11/2022 ASSESSMENT/PLAN: Hernandez is a 42 year old man who is s/p robotic assisted sigmoid colectomy, takedown of colovesical fistula, small bowel resection, and drainage of an abdominal wall abscess on 08/08.He is now admitted due to emesis and fever. CT scan revealed a partial SBO vs ileus at small bowel anastomosis and a small collection next to colorectal anastomosis concerning for a small leak. - NPO. Continue NGT - Start TPN today - CT scan of the abdomen/pelvis with oral contrast today - Continue IV antibiotics - Pain management as needed - Encourage ambulation - No current plans for further surgery. For questions/paging, please contact the CRS office at [phone]. Freida Bennett PA-C [facility] * Erick Silva, - 08/15/2022 4:05 PM CDT [facility] Medicine Progress Note - Hospitalist Service Date of Admission: 08/14/2022 Assessment & Plan Judith Guajardo is a 42 year old male with PMH significant for recurrent and severe diverticulitis(requiring 2 separate intraabdominal surgeries from my understanding), hypogonadism, HTN who recently underwent robotic assisted sigmoid colectomy s/p re-anastamosis, small bowel resection & re-anastomosis, and intraabdominal abscess drainage on 08/08/2022 and discharged on 08/12/2022. He reportedthat he was doing well at home up until yesterday evening when he developed N/V, hiccups. N/V Partial mechanical small bowel obstruction: Recent significant intra-abdominal surgery with small bowel and large bowel resection. Patient was eating well and stooling well prior to discharge. Soon after returning home he had development of nausea vomiting of green bilious vomit. Imaging admission shows partial mechanical small bowel obstruction. NGT was placed in the emergency department and set to LIS. Patient with improvement in symptoms with this. -CRS following, appreciate recommendations -Continue NGT with settings to LIS, so far with greater than 2 L output -N.p.o. -Dilaudid for pain Fever Possible small anastomotic leak: Recent extensive surgery to include robotic assisted sigmoid colectomy, takedown of colovesical fistula, small bowel resection and drainage of abdominal wall abscess. Patient was just discharged on 08/12. Fevers up to 103 Fahrenheit at home. CRS now at small fluid collection in area near the anastomosis concerning for possible small anastomotic leak. No obvious abscess on imaging. No obvious surgical wound infection. Fevers have since resolved. -Continue IV Zosyn -Defer duration of antibiotics to CRS LGIB Acute blood loss anemia: Patient with hemoglobin drop from 14.6-9.9 on presentation. Has since down trended to 8.7. Patient did not have hematochezia on presentation but did develop bloody stool on the a.m. of 08/15. Hemoglobin has remained stable since. -CRS already following -Recheck hemoglobin this afternoon is stable at 8.4. -Repeat hemoglobin in a.m. -Avoid anticoagulation use Hypokalemia: Likely related to recurrent emesis and tube set to suction. 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 until tolerating oral intake Diet: NPO for Medical/Clinical Reasons Except for: Meds DVT Prophylaxis: Pneumatic Compression Devices Allan Catheter: Not present Lines: None Cardiac Monitoring: None Code Status: Full Code Clinically Significant Risk Factors # Hypokalemia: Lowest K = 3.2 mmol/L in last 2 days, will replace as needed # Overweight: Estimated body mass index is 28.68 kg/m?? as calculated from the following: Height as of this encounter: 1.88 m (6' 2). Weight as of this encounter: 101.3 kg (223 lb 6.4 oz)., PRESENT ON ADMISSION Disposition Plan Expected Discharge Date: 08/17/2022 Erick Silva DO Hospitalist Service [facility] Securely message with [employer] (more info) Text page via [employer] Paging/Directory Interval History Bright red blood in the stool this morning. No other acute events overnight. Patient feels improved. Throat spray is helping with NG tube related pain. Physical Exam Vital Signs: Temp: 98.3 ??F (36.8 ??C) Temp src: Oral BP: (!) 141/61 Pulse: 92 Resp: 18 SpO2: 95 % O2 Device: None (Room air) Weight: 223 lbs 6.4 oz General Appearance: Sitting up in recliner. Appears well. No apparent distress. NG tube in place. Respiratory: Clear to auscultation bilaterally. Work of breathing. Cardiovascular: Regular rate and rhythm. No murmurs rubs or gallops. GI: No significant tenderness to palpation. Positive bowel sounds. Mildly distended. Skin: No rashes or lesions on exposed skin. Other: Mildly diaphoretic. No peripheral edema. Medical Decision Making 45 MINUTES SPENT BY ME on the date of service doing chart review, history, exam, documentation & further activities per the note. Data PAST 24 HR DATA REVIEWED I have personally reviewed the following data over the past 24 hrs: 16.7 (H) \ 8.4 (L) / 469 (H) 139 99 18.6 / 95 3.2 (L) 30 (H) 0.73 \ Imaging results reviewed over the past 24 hrs: No results found for this or any previous visit (from the past 24 hour(s)). * Berenice Odom MD - 08/15/2022 3:28 PM CDT Colon & Rectal Surgery Progress Note Interval History: Postop Day #: 7 seen at [address] with SBO Vs ileus an small and air and fluid near the anastomosis. NGT with 2 L output. Dark green, pain is minimal bothered by NGT, no nausea at this time. + stool with blood over night. NPO on IV ABX. Low UOP bolus just started. Medications: I have reviewed this patient's current medications Physical Exam: Blood pressure (!) 146/75, pulse 92, temperature 98.3 ??F (36.8 ??C), temperature source Oral, resp. rate 18, height 1.88 m (6' 2), weight 101.3 kg (223 lb 6.4 oz), SpO2 91 %. Intake/Output Summary (Last 24 hours) at 08/15/2022 1528 Last data filed at 08/15/2022 1406 Gross per 24 hour Intake 2158 ml Output 2825 ml Net -667 ml GEN: alert ABD: NGT functioning, abd soft, incisions CDI without signs of infection. Data: Lab Results Component Value Date NA 139 08/15/2022 Lab Results Component Value Date CHLORIDE 99 08/15/2022 Lab Results Component Value Date BUN 18.6 08/15/2022 Lab Results Component Value Date POTASSIUM 3.2 08/15/2022 Lab Results Component Value Date CO2 30 08/15/2022 Lab Results Component Value Date CR 0.73 08/15/2022 CR 0.72 08/14/2022 Lab Results Component Value Date HGB 8.4 (L) 08/15/2022 HGB 8.7 (L) 08/15/2022 Lab Results Component Value Date PLT 469 (H) 08/15/2022 PLT 407 08/14/2022 Lab Results Component Value Date WBC 16.7 (H) 08/15/2022 WBC 19.6 (H) 08/14/2022 Assessment and Plan: Stable but possible anastomotic disruption and ileus vs SBO Continue NGT, NPO, IV abx and supportive care. hbg was 14 on the 08/09 now stable near 9, may be clearing out old blood. Continue to monitor. We reviewed the CT scan findings and possible need for further surgery. Berenice Odom MD [facility] Office * Erick Silva DO - 08/14/2022 1:28 PM CDT Brief update: Judith Guajardo is a 42 year old male with PMH significant for recurrent and severe diverticulitis(requiring 2 separate intraabdominal surgeries from my understanding), hypogonadism, HTN who recently underwent robotic assisted sigmoid colectomy s/p re-anastamosis, small bowel resection & re-anastomosis, and intraabdominal abscess drainage on 08/08/2022 and discharged on 08/12/2022. He reportedthat he was doing well at home up until yesterday evening when he developed N/V, hiccups. Imaging on arrival shows various post-operative changes as well as SBO. There is concern for possible small anastomotic leak near colorectal anastomosis given small collection. He was initiated on antibiotics for fever. Plan: -Reviewed CRS plan -NPO -NGT to LIS -No indication for surgery -If any decompensation, CRS should be contacted RITO -Continue zosyn -I have ordered lidocaine and throat spray for hopeful better tolerance of NG -PPI for GI protection & hiccups Erick Silva DO documented in this encounter H&P Notes * Vishal Smith MD, - 08/14/2022 4:23 AM CDT [facility] History and Physical - Hospitalist Service Date of Admission: 08/14/2022 Assessment & Plan Judith Guajardo is a 42 year old male admitted on 08/14/2022. He has hx of hypogonadism, HTN, diverticulitis who is s/p robotic assisted sigmoid colectomy, takedown of colovesical fistula, small bowelresection and drainage of abdominal wall abscess this was accomplished on his recent hospitalization on 08 August to 12 August. He has had a fever as high as 102 last night. He is feeling bloated and has decreased appetite. He has had multiple episodes emesis which is bilious and has been passing somegas. He has also noted increased pressure on his abdomen. He denies any shortness of breath or chest pain. He is seen by Dr. Bro here in the ED and is noted to have postoperative changes in the abdomen and pelvis with foci of gas more apparent in the pelvis along with sigmoid anastomotic stapleswith adjacent foci of soft tissue gas and a small mesenteric hematoma without ongoing active extravasation. He is also noted to have fluid distended small bowel loops representing mechanical small bowel obstruction. I am asked to admit him for further evaluation. 1. Fever, abdominal pain and emesis in setting of recent extensive surgery to include robotic assisted sigmoid colectomy, takedown of colovesical fistula, small bowel resection and drainage of abdominal wall abscess. - NG to LIS. - start IV zosyn to cover gut josé miguel. - CRS consult. - NPO with IVF's. 2. ABL anemia with drop in Hb from 14.6 to 9.9 - monitor H/H. 3. Chronic medical issues. - resume meds when reconciled. Diet: DVT Prophylaxis: Pneumatic Compression Devices Allan Catheter: Not present Lines: None Cardiac Monitoring: None Code Status: Full Code. Clinically Significant Risk Factors Present on Admission # Hypokalemia: Lowest K = 3.3 mmol/L in last 2 days, will replace as needed # Hypertension: Home medication list includes antihypertensive(s) # Overweight: Estimated body mass index is 29.57 kg/m?? as calculated from the following: Height as of 08/08/22: 1.88 m (6' 2). Weight as of 08/08/22: 104.5 kg (230 lb 4.8 oz). Disposition Plan Expected Discharge Date: 08/16/2022 Belle Smith MD Hospitalist Service [facility] Securely message with [employer] (more info) Text page via [facility] Paging/Directory Chief Complaint N/V/fever. History is obtained from the patient History of Present Illness Judith Guajardo is a 42 year old male who has hx of hypogonadism, HTN, diverticulitis who is s/p robotic assisted sigmoid colectomy, takedown of colovesical fistula, small bowel resection and drainage of abdominal wall abscess this was accomplished on his recent hospitalization on 08 August to 2 ly. He has had a fever as high as 102 last night. He is feeling bloated and has decreased appetite.His emesis which is bilious and has been passing some gas. He denies any shortness of breath or chest pain. He is seen by Dr. Bro here in the ED and is noted to have postoperative changes in the abdomen and pelvis with foci of gas more apparent in the pelvis along with sigmoid anastomotic christy with adjacent foci of soft tissue gas and a small mesenteric hematoma without ongoing active extravasation. He is also noted to have fluid distended small bowel loops representing mechanical small bowel obstruction. I am asked to admit him for further evaluation. Past Medical History Past Medical History: Diagnosis Date ??? Anxiety ??? Colovesical fistula ??? Depressive disorder ??? 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 Hypertension ??? PTSD (post-traumatic stress disorder) Past Surgical History Past Surgical History: Procedure Laterality Date ??? APPENDECTOMY ??? COLONOSCOPY N/A 08/07/2022 Procedure: Colonoscopy; Surgeon: Berenice Odom MD; Location: [facility] ??? DAVINCI COLECTOMY N/A 08/08/2022 Procedure: Xi Robotic Assisted Sigmoid Colectomy, take down of colovesical fistula, mobilization ofsplenetic flexure, small bowel resection, drainage of abdominal wall abscess; Surgeon: Kylah Arndt MD; Location: [facility] OR ??? INSERT STENT URETER 08/08/2022 Procedure: Cystoscopy, insertion of bilateral ureteral stents; Surgeon: Valentin Whitaker MD; Location: [facility] OR ??? Lumbar spine surgery x 2 ??? TONSILLECTOMY ??? VASECTOMY Prior to Admission Medications Prior to Admission Medications Prescriptions Last Dose Informant Patient Reported? Taking? ALPRAZolam (XANAX) 0.5 MG tablet Yes No Sig: Take 0.5 mg by mouth as needed indapamide (LOZOL) 1.25 MG tablet Yes No Sig: Take 1.25 mg by mouth daily lisinopril (ZESTRIL) 20 MG tablet Yes No Sig: Take 40 mg by mouth daily methocarbamol (ROBAXIN) 750 MG tablet No No Sig: Take 1 tablet (750 mg) by mouth 3 times daily for 5 days metoprolol succinate ER (TOPROL XL) 50 MG 24 hr tablet Yes No Sig: Take 50 mg by mouth daily oxyCODONE (ROXICODONE) 5 MG tablet No No Sig: Take 1-2 tablets (5-10 mg) by mouth every 4 hours as needed for pain testosterone cypionate (DEPOTESTOSTERONE) 200 MG/ML injection Yes No Sig: Inject 200 mg into the muscle once a week Facility-Administered Medications: None Review of Systems The 10 point Review of Systems is negative other than noted in the HPI or here. No chest pain/SOB/urinary symptoms. Social History I have reviewed this patient's social history and updated it with pertinent information if needed. Social History Tobacco Use ??? Smoking status: Every Day Packs/day: 1.00 Types: Cigarettes ??? Smokeless tobacco: Never Vaping Use ??? Vaping Use: Never used Substance Use Topics ??? Alcohol use: Yes Comment: 4 per night ??? Drug use: Not Currently Family History Reviewed. Allergies No Known Allergies Physical Exam Vital Signs: Temp: 97.7 ??F (36.5 ??C) Temp src: Oral BP: (!) 154/92 Pulse: 108 Resp: 20 SpO2: 98 %O2 Device: None (Room air) Weight: 0 lbs 0 oz Gen - AAO x 3 in NAD. Lungs - CTA B. Heart - tachycardic, S1+S2 nml, no m/g/r. Abd - soft, minimally tender in LLQ, mild distention, + BS. Ext - no edema. Medical Decision Making 80 MINUTES SPENT BY ME on the date of service doing chart review, history, exam, documentation & further activities per the note. Data I have personally reviewed the following data over the past 24 hrs: 19.6 (H) \ 9.9 (L) / 407 136 91 (L) 13.6 / 134 (H) 3.3 (L) 30 (H) 0.72 \ ALT: 15 AST: 18 AP: 51 TBILI: 0.4 ALB: 3.5 TOT PROTEIN: 7.4 LIPASE: N/A Procal: N/A CRP: N/A Lactic Acid: 0.8 Imaging results reviewed over the past 24 hrs: Recent Results (from the past 24 hour(s)) Abd/pelvis CT, IV contrast only TRAUMA / AAA Narrative EXAM: CT ABDOMEN PELVIS W CONTRAST LOCATION: [facility] DATE: 08/14/2022 INDICATION: Recent complicated surgery for colovesicular fistula. Fever, abdominal distention. Concern for ileus versus obstruction. Patient also had abscess recently drained. COMPARISON: CT pelvis cystogram 08/11/2022. TECHNIQUE: CT scan of the abdomen and pelvis was performed following injection of IV contrast. Multiplanar reformats were obtained. Dose reduction techniques were used. CONTRAST: 99 mL Isovue 370. FINDINGS: LOWER CHEST: Slight dependent atelectasis in the posterior costophrenic angles. No pleural effusionon either side. Normal cardiac size. No pericardial effusion. HEPATOBILIARY: Diffusely fatty infiltrated moderately enlarged liver, length of the right lobe measures approximately 20 cm (image 58, series 5). No discrete lesion, calcified gallstones or biliary dilatation. Patent hepatic and portal veins. PANCREAS: Normal. SPLEEN: Normal. ADRENAL GLANDS: Normal. KIDNEYS/BLADDER: No urinary tract calculi. Minor cortical simple cyst in each kidney, no specific follow-up required. Both kidneys are well perfused without hydronephrosis or hydroureter. Partially distended normal urinary bladder. BOWEL: Postoperative changes in the abdomen and pelvis. Foci of soft tissue gas in the abdomen and pelvis, likely on a postoperative basis. Sigmoid anastomotic christy with adjacent soft tissue gas and a small mesenteric hematoma measuring 3.2 x 2.0 cm (image 186, series 4; image 73, series 7; image 64, series 5). No ongoing active extravasation. Several loops of small bowel are asymmetrically distended to the level of the anastomotic christy in the left lower quadrant (images 25-45, series 5; image 164, series 4; image 92, series 7), representing partial mechanical small bowel obstruction. Stomach is distended with fluid and gas. Surgical drain in the pelvis seen previously has been removed. LYMPH NODES: No suspicious abdominopelvic adenopathy. VASCULATURE: Atherosclerotic normal caliber distal abdominal aorta measuring 1.9 x 1.9 cm (image 120, series 4). Normal caliber IVC. PELVIC ORGANS: Anastomotic christy in the mid/distal sigmoid with adjacent small foci of gas and a small mesenteric hematoma without ongoing active extravasation. Asymmetric gas and fluid distended small bowel loops to the level of the anastomotic christy in the left lower quadrant representing partial mechanical obstruction. MUSCULOSKELETAL: Postoperative changes of recent surgery with foci of soft tissue gas in the body wall. Foci of linear density in the subcutaneous fat likely representing laparoscopic access ports. Mild degenerative changes involving the spine and joints of the pelvis. Impression IMPRESSION: 1. Postoperative changes in the abdomen and pelvis, with foci of gas, more apparent in the pelvis. Sigmoid anastomotic christy with adjacent foci of soft tissue gas and a small mesenteric hematoma, without ongoing active extravasation. 2. Asymmetric gas and fluid distended small bowel loops to the level of the anastomotic christy in the left lower quadrant, representing partial mechanical small bowel obstruction. Stomach is distended with fluid and gas. Surgical drain in the pelvis seen previously has been removed. 3. Diffusely fatty infiltrated moderately enlarged liver without discrete lesion, calcified gallstones or biliary dilatation. 4. Postoperative changes of recent surgery with foci of soft tissue gas in the body wall. Foci of linear density in the subcutaneous fat likely representing laparoscopic access ports. Mild degenerative changes involving the spine and joints of the pelvis. documented in this encounter Procedure Notes * Megan Pena RN - 08/16/2022 5:31 PM CDTAssociated Order(s): PATIENT CARE ORDER Images from the original note were not included. * Megan Pena RN - 08/16/2022 5:30 PM CDTAssociated Order(s): Double Lumen PICC Placement [facility] Double Lumen PICC Placement Date/Time: 08/16/2022 5:26 PM Performed by: Megan Pena RN Authorized by: Susie Mascorro MD Indications: vascular access UNIVERSAL PROTOCOL Site Marked: Yes Prior Images Obtained and Reviewed: Yes Required items: Required blood products, implants, devices and special equipment available Patient identity confirmed: Verbally with patient, arm band, provided demographic data and hospital-assigned identification number NA - No sedation, light sedation, or local anesthesia Confirmation Checklist: Patient's identity using two indicators, relevant allergies, procedure was appropriate and matched the consent or emergent situation and correct equipment/implants were available Time out: Immediately prior to the procedure a time out was called Hart[place]orn Protocol: the Joint Commission [place] Protocol was followed Preparation: Patient was prepped and draped in usual sterile fashion ANESTHESIA Anesthesia: Local infiltration Local Anesthetic: Lidocaine 1% without epinephrine Anesthetic Total (mL): 2 SEDATION Patient Sedated: No Preparation: skin prepped with ChloraPrep Skin prep agent: skin prep agent completely dried prior to procedure Sterile barriers: maximum sterile barriers were used: cap, mask, sterile gown, sterile gloves, and large sterile sheet Hand hygiene: hand hygiene performed prior to central venous catheter insertion Type of line used: PICC Catheter type: double lumen Lumen type: valved Lumen Identification: Purple and Red Catheter size: 5 Fr Brand: 5th Finger Lot number: [id number] Placement method: MST, venipuncture, ultrasound and tip navigation system Number of attempts: 1 Difficulty threading catheter: no Successful placement: yes Orientation: left Location: basilic vein Tip Location: SVC/RA Junction Arm circumference: adults 10 cm Extremity circumference: 32 Visible catheter length: 2 Total catheter length: 50 Dressing and securement: alcohol impregnated caps, chlorhexidine patch applied, dressing applied, gloves changed prior to final dressing, blood cleaned with CHG, blood removed, transparent dressing, subcutaneous anchor securement system, site cleansed and secure lock Post procedure assessment: blood return through all ports, free fluid flow and placement verified by 3CG technology PROCEDURE Patient Tolerance: Patient tolerated the procedure well with no immediate complications PICC ok to use as verified by 3CG technology. [place]ont PLUMMER updated Disposal: sharps and needle count correct at the end of procedure, needles and guidewire disposed in sharps container documented in this encounter Consult Notes * Renetta Wu RD - 08/16/2022 11:58 AM CDTAssociated Order(s): PHARMACY/NUTRITION TO START AND MANAGE TPN CLINICAL NUTRITION SERVICES - ASSESSMENT NOTE Recommendations: - Diet per CRS team. - Initiation of PN per CRS/MD order: - Access: PICC pending - Frequency: Continuous - Central Clinimix (D15, AA5) at goal rate of 90 mL/hr x 24 hrs (2160 mL) w/ advancement schedule outlined below + 250 mL 20% Clinolipids daily - Provides 2034 kcal (20 kcal/kg), 108 g AA (1.1 g protein/kg), 324 g dextrose (GIR: 2.2), 25% kcalfrom fat. - Total fluids: 100 mL/hr or per MD - DW: 101 kg Day 1: Initiate at 30 mL/hr x 24 hrs, lipids as outlined Day 2: Increase to 60 mL/hr x 24 hrs, lipids as outlined Day 3: Increase to goal rate of 90 mL/hr x 24 hrs, lipids as outlined - Magnesium currently in process, added on phosphorus and TG. Will need daily electrolyte checks while advancing to goal rate. MALNUTRITION: % Weight Loss: Up to 1-2% in 1 week (moderate malnutrition) % Intake: <75% for > 7 days (moderate malnutrition) Subcutaneous Fat Loss: None observed Muscle Loss: None observed Fluid Retention: None documented or observed Malnutrition Diagnosis: Moderate malnutrition In Context of: Acute illness or injury REASON FOR ASSESSMENT Judith Guajardo is a 42 year old male seen by Registered Dietitian for Pharmacy/Nutrition to Startand Manage PN. PMH of: Diverticulitis w/ colectomy, fistula takedown, small bowel resection, drainage of abdominalwall during recent admit (discharged 08/12/22). Admit 2: Abdominal pain, vomiting, partial SBO. NUTRITION HISTORY - Information obtained from patient, family in room, and chart. - Reviewed chart from recent admit, RD not following at that time. Diet was advanced to solids/low fiber on 08/10 and patient was consuming 25-75% of meals prior to discharge. - Diet at home: Patient confirms following low fiber at home but really not able to eat much in thedays after discharge. Became limited by low appetite then N/V. - At baseline he is described as a good eater. He had a colonoscopy/bowel prep prior to last admit, but other than this, feels he was eating at baseline. So now it has been a few weeks. - In terms of oral supplements he was trying to take Muscle Milk as able at home. - Allergies: NKFA. CURRENT NUTRITION ORDERS Diet Order: NPO Current Intake/Tolerance: NPO since admit w/ NGT. Obtained from Chart/Interdisciplinary Team: - NGT output reviewed, >3 L yesterday - No documentation of PI - Stooling patterns reviewed ANTHROPOMETRICS Height: 6' 2 Weight: 223 lbs 6.4 oz Body mass index is 28.68 kg/m??. Weight Status: Overweight BMI 25-29.9 Weight History: Wt Readings from Last 10 Encounters: 08/15/22 101.3 kg (223 lb 6.4 oz) 08/08/22 104.5 kg (230 lb 4.8 oz) 08/07/22 104.3 kg (230 lb) - Noted patient 230# at recent admit and no documentation of fluid at that time. No care everywherewt trending available. - Wt this admit was taken via standing scale and no current documentation of edema. - Patient himself reports he weighs 230# and feels he lost from this weight in the past few weeks. Would indicate 3% in 1-2 weeks. LABS Labs reviewed: - Na, K WNL this AM - No phosphorus or magnesium today MEDICATIONS Medications reviewed: - On NaCl + KCl at 100 mL/hr ASSESSED NUTRITION NEEDS PER APPROVED PRACTICE GUIDELINES: Dosing Weight 101 kg - standing scale wt Estimated Energy Needs: >/=2020 kcals - 15-20 Kcal/Kg Justification: minimum maintenance w/ consideration of PN use Estimated Protein Needs: >/=101 grams protein - >/=1 g pro/Kg Justification: preservation of lean body mass, recent post-op Estimated Fluid Needs: per MD NUTRITION DIAGNOSIS: Inadequate protein-energy intake related to recent acute admit w/ slow diet advancement, altered GIfunction in the interim and now again NPO as evidenced by meeting <75% nutrition needs over the past 1-2 weeks, reported wt loss. NUTRITION INTERVENTIONS Recommendations / Nutrition Prescription See above. Implementation Nutrition education: Provided education on IV nutrition start per CRS team, RD following for ordersand nutrition hx. PN Composition and PN Schedule: As above. Nutrition Goals PN to reach goal rate w/in 72 hrs of initiation. PN at goal to meet 90-100% daily nutrition needs. MONITORING AND EVALUATION: Progress towards goals will be monitored and evaluated per protocol and Practice Guidelines Renetta Wu RDN, LD Clinical Dietitian 3rd floor/ICU: [phone] All other floors: [phone] Weekend/holiday: [phone] Office: [phone] * Susie Mascorro MD - 08/14/2022 12:04 PM CDTAssociated Order(s): COLORECTAL SURGERY IP CONSULT Images from the original note were not included. [facility] Colon and Rectal Surgery Consult Note Name: Judith Guajardo Date of : 1980 Age: [id number] year old Date of admission: 08/14/2022 Primary care provider: No Ref-Primary, Physician Requesting Physician: Luis Reason for consult: Fevers, SBO History of Present Illness: Judith Guajardo is a 42 year old male, seen at the request of Dr. Smith, who presents with emesisand fever. He underwent robotic assisted sigmoid colectomy, takedown of colovesical fistula, small bowel resection and drainage of abdominal wall abscess on 08/08/[address] Arndt. patient's hospital course was remarkable for poorly controlled pain initially, which improved with pain meds optimization. He was tolerating a low fiber diet with return of bowel function. He also received antibioticsfor 4 days given intra-operative findings of abdominal wall abscess. CT cystogram was completed on POD#3, which was negative and his allan and surgical drain were removed. He was discharged on POD#4. However, evening of POD#4, he became experiencing fevers to 101-102F, which he contacted the CRS office for. He was informed that if fever persisted, to present to ED for evaluation. Fever had resolved by morning of POD#5 but he developed large volume emesis by the evening, along with abdominal pain and feeling unwell. He was passing flatus and had a small BM yesterday. He reports urinating without issues. He hasnt had anymore fevers since POD#4. 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 IN the ED, he was tachy to low 100s with stable BP and was afebrile. Workup was significant for WBCof 19, H/H down to 10 from 14.6 post-op. His cr was normal. CT A/P Postoperative changes in the abdomen and pelvis, with foci of gas, more apparent in the pelvis. Sigmoid anastomotic christy with adjacent foci of soft tissue gas and a small mesenteric hematoma, without ongoing active extravasation.Asymmetric gas and fluid distended small bowel loops to the level of the anastomotic christy in theleft lower quadrant, representing partial mechanical small bowel obstruction. Patient was admitted to medicine, NGT placed and started on abx. Patient reports that he is feeling a lot better since NGT decompression. Still passing flatus. Denied abdominal pain now, rectal pain or pelvic pressure. Colonoscopy History: 07/2022 Past abdominal surgery: as above Past Medical History: Past Medical History: Diagnosis Date ??? Anxiety ??? Colovesical fistula ??? Depressive disorder ??? 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 Hypertension ??? PTSD (post-traumatic stress disorder) Past Surgical History: Past Surgical History: Procedure Laterality Date ??? APPENDECTOMY ??? COLONOSCOPY N/A 08/07/2022 Procedure: Colonoscopy; Surgeon: Berenice Odom MD; Location: [facility] ??? DAVINCI COLECTOMY N/A 08/08/2022 Procedure: Xi Robotic Assisted Sigmoid Colectomy, take down of colovesical fistula, mobilization ofsplenetic flexure, small bowel resection, drainage of abdominal wall abscess; Surgeon: Kylah Arndt MD; Location: [facility] ??? INSERT STENT URETER 08/08/2022 Procedure: Cystoscopy, insertion of bilateral ureteral stents; Surgeon: Valentin Whitaker MD; Location: [facility] OR ??? Lumbar spine surgery x 2 ??? TONSILLECTOMY ??? VASECTOMY Social History: Social History Tobacco Use ??? Smoking status: Every Day Packs/day: 1.00 Types: Cigarettes ??? Smokeless tobacco: Never Substance Use Topics ??? Alcohol use: Yes Comment: 4 per night Family History: Family History Problem Relation Age of Onset ??? Colon Cancer No family hx of Allergies: No Known Allergies Medications: ??? methocarbamol 1,000 mg Intravenous Q8H ??? metoprolol 5 mg Intravenous Q6H ??? nicotine 1 patch Transdermal Daily ??? nicotine Transdermal Q8H ??? piperacillin-tazobactam 3.375 g Intravenous Q6H ??? sodium chloride (PF) 3 mL Intracatheter Q8H Review of Systems: A comprehensive greater than 10 system review of systems was carried out. Pertinent positives and negatives are noted above. Otherwise negative for contributory info. Physical Exam: Blood pressure (!) 154/67, pulse 108, temperature 98.1 ??F (36.7 ??C), temperature source Oral, resp. rate 18, SpO2 93 %. Intake/Output Summary (Last 24 hours) at 08/14/2022 1139 Last data filed at 08/14/2022 0427 Gross per 24 hour Intake 1300 ml Output -- Net 1300 ml Exam: General - Awake alert and oriented, appears stated age Pulm - Non-labored breathing with normal respiratory effort CVS - reg rate and rhythm, no peripheral edema Abd - Soft, non distended, minimal ttp. No guarding, rigidity or peritoneal signs. Incision sites -c/d/i Data Reviewed: Recent Results (from the past 24 hour(s)) Abd/pelvis CT, IV contrast only TRAUMA / AAA Narrative EXAM: CT ABDOMEN PELVIS W CONTRAST LOCATION: [facility] DATE: 08/14/2022 INDICATION: Recent complicated surgery for colovesicular fistula. Fever, abdominal distention. Concern for ileus versus obstruction. Patient also had abscess recently drained. COMPARISON: CT pelvis cystogram 08/11/2022. TECHNIQUE: CT scan of the abdomen and pelvis was performed following injection of IV contrast. Multiplanar reformats were obtained. Dose reduction techniques were used. CONTRAST: 99 mL Isovue 370. FINDINGS: LOWER CHEST: Slight dependent atelectasis in the posterior costophrenic angles. No pleural effusionon either side. Normal cardiac size. No pericardial effusion. HEPATOBILIARY: Diffusely fatty infiltrated moderately enlarged liver, length of the right lobe measures approximately 20 cm (image 58, series 5). No discrete lesion, calcified gallstones or biliary dilatation. Patent hepatic and portal veins. PANCREAS: Normal. SPLEEN: Normal. ADRENAL GLANDS: Normal. KIDNEYS/BLADDER: No urinary tract calculi. Minor cortical simple cyst in each kidney, no specific follow-up required. Both kidneys are well perfused without hydronephrosis or hydroureter. Partially distended normal urinary bladder. BOWEL: Postoperative changes in the abdomen and pelvis. Foci of soft tissue gas in the abdomen and pelvis, likely on a postoperative basis. Sigmoid anastomotic christy with adjacent soft tissue gas and a small mesenteric hematoma measuring 3.2 x 2.0 cm (image 186, series 4; image 73, series 7; image 64, series 5). No ongoing active extravasation. Several loops of small bowel are asymmetrically distended to the level of the anastomotic christy in the left lower quadrant (images 25-45, series 5; image 164, series 4; image 92, series 7), representing partial mechanical small bowel obstruction. Stomach is distended with fluid and gas. Surgical drain in the pelvis seen previously has been removed. LYMPH NODES: No suspicious abdominopelvic adenopathy. VASCULATURE: Atherosclerotic normal caliber distal abdominal aorta measuring 1.9 x 1.9 cm (image 120, series 4). Normal caliber IVC. PELVIC ORGANS: Anastomotic christy in the mid/distal sigmoid with adjacent small foci of gas and a small mesenteric hematoma without ongoing active extravasation. Asymmetric gas and fluid distended small bowel loops to the level of the anastomotic christy in the left lower quadrant representing partial mechanical obstruction. MUSCULOSKELETAL: Postoperative changes of recent surgery with foci of soft tissue gas in the body wall. Foci of linear density in the subcutaneous fat likely representing laparoscopic access ports. Mild degenerative changes involving the spine and joints of the pelvis. Impression IMPRESSION: 1. Postoperative changes in the abdomen and pelvis, with foci of gas, more apparent in the pelvis. Sigmoid anastomotic christy with adjacent foci of soft tissue gas and a small mesenteric hematoma, without ongoing active extravasation. 2. Asymmetric gas and fluid distended small bowel loops to the level of the anastomotic christy in the left lower quadrant, representing partial mechanical small bowel obstruction. Stomach is distended with fluid and gas. Surgical drain in the pelvis seen previously has been removed. 3. Diffusely fatty infiltrated moderately enlarged liver without discrete lesion, calcified gallstones or biliary dilatation. 4. Postoperative changes of recent surgery with foci of soft tissue gas in the body wall. Foci of linear density in the subcutaneous fat likely representing laparoscopic access ports. Mild degenerative changes involving the spine and joints of the pelvis. Recent Labs Lab 08/14/22 0135 08/12/22 0712 08/09/22 0637 WBC 19.6* -- 14.0* HGB 9.9* -- 14.6 HCT 29.3* -- 42.5 MCV 92 -- 90 PLT 407 284 328 Lab Results Component Value Date NA 136 08/14/2022 NA 133 08/09/2022 Lab Results Component Value Date CHLORIDE 91 08/14/2022 CHLORIDE 98 08/09/2022 Lab Results Component Value Date BUN 13.6 08/14/2022 BUN 14.6 08/09/2022 Lab Results Component Value Date POTASSIUM 3.3 08/14/2022 POTASSIUM 3.6 08/09/2022 Lab Results Component Value Date CO2 30 08/14/2022 CO2 21 08/09/2022 Lab Results Component Value Date CR 0.72 08/14/2022 CR 1.14 08/10/2022 CR 1.00 08/09/2022 Assessment and Plan: 42 y/o man s/p robotic assisted sigmoid colectomy, takedown of colovesical fistula, small bowel resection and drainage of abdominal wall abscess on 08/08/2022. He is now readmitted with a partial SBO at small bowel anastomosis and small collection next to colorectal anastomosis concerning for a small leak. Patient's symptoms are already improving and appears clinically well, will manage conservatively with NGT decompression for small bowel and abx for possible leak. If patient clinically decompensates (fevers, tachy, change in hemodynamics or abd exam), please notify the colorectal team rito as he will need intervention at that point Plan: 1. Admit to Medicine 2. Surgery: No indication for urgent surgery at this time. 3. Diet: NPO/ NGT to LIS 4. IV Fluids: Requires resuscitation. Cont IVF at 100cc. If requires NGT for >24hrs, will consider PICC/TPN at that point 5. Antibiotics: Zosyn 6. Medications: Cont home metoprolol- 5mg q6hrs IV. IV formulation as likely will not absorb by enteral route. Patient advised to minimize use of narcotics. Avoid NSAIDs for now 7. I&O? s: strict I&O? s 8. Labs: - Reviewed: Yes. If repeat hgb stable, can just repeat in am with rest of the labs. No need to trend q6hrs 9. Imaging: - Dr. Short and myself have personally viewed: CT abd/pelvis 10. Activity: OOB, ambulate as able 11. DVT prophylaxis: SCD???s, if hgb stable, start lovenox for DVT ppx 12. This plan has been discussed with Dr. Short Patient specific identified risk factors considered as part of today???s evaluation include: Recentsurgery, obesity, possible anastomotic leak. Additional history obtained from patient. Time spent on consultation: 45 minutes, greater than 50% spent on counseling and/or coordination of care. Susie Mascorro MD Colon and Rectal Surgery Fellow Please page the colon and rectal Surgery provider rn practitioner if further questions. [facility] [address] [address] T: [phone] F: [phone] Associated attestation - Gustabo Short MD - 08/17/2022 2:11 PM CDT Physician Attestation I agree with the information in this note. Discussed with Dr. Mascorro. Imaging reviewed. Gustabo Short MD documented in this encounter ED Notes * Marla Florian RN - 08/14/2022 5:43 AM CDT [facility] ED Nurse Handoff Report ED Chief complaint: Post-op Problem . ED Diagnosis: Final diagnoses: SBO (small bowel obstruction) (H) Fever postop Nausea and vomiting, unspecified vomiting type Allergies: No Known Allergies Code Status: Full Code Activity level - Baseline/Home: independent. Activity Level - Current: assist of 1. Lift room needed: No. Bariatric: No Campus Safety Officer Needed: No Isolation: No. Infection: Not Applicable. Respiratory status: Room air Vital Signs (within 30 minutes): Vitals: 08/14/22 0539 08/14/22 0540 08/14/22 0541 08/14/22 0542 BP: Pulse: Resp: Temp: TempSrc: SpO2: 94% 93% 96% 97% Cardiac Rhythm: , Pain level: Patient confused: No. Patient Falls Risk: patient and family education. Elimination Status: Has voided Patient Report - Initial Complaint: Post-op problem. Focused Assessment: Chief Complaint: Post-op Problem SOPHIA Guajardo is a 42 year old male who presents with a fever which onset last night around 1700as high as 102. His fever broke after sleeping, but today he is feeling bloated and poor. He has low appetite and has not eaten much. He has been able to tolerate fluids well however. He also has been vomiting dark, green, bilious vomiting. He has been passing some gas. He is urinating normal. He had a colon resection on 08/08 for diverticulitis and a colovesical fistula and an abscess drainage. He was given Zosyn but is no longer taking any antibiotics. He no longer has a Allan catheter or drain in place. No shortness of breath. He did take some Zofran GMAT INSTRUCTOR which has helped his nausea. Abnormal Results: Labs Ordered and Resulted from Time of ED Arrival to Time of ED Departure COMPREHENSIVE METABOLIC PANEL - Abnormal Result Value Sodium 136 Potassium 3.3 (*) Chloride 91 (*) Carbon Dioxide (CO2) 30 (*) Anion Gap 15 Urea Nitrogen 13.6 Creatinine 0.72 Calcium 9.6 Glucose 134 (*) Alkaline Phosphatase 51 AST 18 ALT 15 Protein Total 7.4 Albumin 3.5 Bilirubin Total 0.4 GFR Estimate >90 CBC WITH PLATELETS AND DIFFERENTIAL - Abnormal WBC Count 19.6 (*) RBC Count 3.18 (*) Hemoglobin 9.9 (*) Hematocrit 29.3 (*) MCV 92 MCH 31.1 MCHC 33.8 RDW 13.4 Platelet Count 407 % Neutrophils 85 % Lymphocytes 6 % Monocytes 7 % Eosinophils 1 % Basophils 0 % Immature Granulocytes 1 NRBCs per 100 WBC 0 Absolute Neutrophils 16.7 (*) Absolute Lymphocytes 1.1 Absolute Monocytes 1.4 (*) Absolute Eosinophils 0.2 Absolute Basophils 0.1 Absolute Immature Granulocytes 0.1 Absolute NRBCs 0.0 LACTIC ACID WHOLE BLOOD - Normal Lactic Acid 0.8 ROUTINE UA WITH MICROSCOPIC BLOOD CULTURE BLOOD CULTURE Abd/pelvis CT, IV contrast only TRAUMA / AAA Final Result IMPRESSION: 1. Postoperative changes in the abdomen and pelvis, with foci of gas, more apparent in the pelvis. Sigmoid anastomotic christy with adjacent foci of soft tissue gas and a small mesenteric hematoma, without ongoing active extravasation. 2. Asymmetric gas and fluid distended small bowel loops to the level of the anastomotic christy in the left lower quadrant, representing partial mechanical small bowel obstruction. Stomach is distended with fluid and gas. Surgical drain in the pelvis seen previously has been removed. 3. Diffusely fatty infiltrated moderately enlarged liver without discrete lesion, calcified gallstones or biliary dilatation. 4. Postoperative changes of recent surgery with foci of soft tissue gas in the body wall. Foci of linear density in the subcutaneous fat likely representing laparoscopic access ports. Mild degenerative changes involving the spine and joints of the pelvis. Treatments provided: See MAR. NG tube placed for decompression. Frequent monitoring of pt. Family Comments: present at bedside. Involved and supportive in pt plan of care. OBS brochure/video discussed/provided to patient: No ED Medications: Medications HYDROmorphone (PF) (DILAUDID) injection 0.5 mg (0.5 mg Intravenous $Given 08/14/22 0407) 0.9% sodium chloride BOLUS (0 mLs Intravenous Stopped 08/14/22 0401) ondansetron (ZOFRAN) injection 4 mg (4 mg Intravenous $Given 08/14/22 0218) sodium chloride (PF) 0.9% PF flush 100 mL (65 mLs Intravenous $Given 08/14/22 0307) iopamidol (ISOVUE-370) solution 500 mL (99 mLs Intravenous $Given 08/14/22 0307) ketorolac (TORADOL) injection 15 mg (15 mg Intravenous $Given 08/14/22 0406) benzocaine 20% (HURRICAINE/TOPEX) 20 % spray 1 mL (1 mL Mouth/Throat $Given 08/14/22 0424) Drips infusing: No For the majority of the shift this patient was Green. Interventions performed were N/a. Sepsis treatment initiated: No Cares/treatment/interventions/medications to be completed following ED care: N/a ED Nurse Name: Anais Butcher RN 5:43 AM RECEIVING UNIT ED HANDOFF REVIEW Above ED Nurse Handoff Report was reviewed: Yes Reviewed by: Marla Florian RN on August 14, 2022 at 9:06 AM * Nohemi Resendez RN - 08/14/2022 1:23 AM CDT 08/08 colon resection Fever last night, was told to wait at home. Pt now vomiting as well. ER presentation for SBO rule out. Triage Assessment Row Name 08/14/22 0123 Triage Assessment (Adult) Airway WDL WDL Cognitive/Neuro/Behavioral WDL Cognitive/Neuro/Behavioral WDL WDL * Mynor Bro MD - 08/14/2022 1:21 AM CDT History Chief Complaint: Post-op Problem SOPHIA Guajardo is a 42 year old male who presents with a fever which onset last night around 1700as high as 102. His fever broke after sleeping, but today he is feeling bloated and poor. He has low appetite and has not eaten much. He has been able to tolerate fluids well however. He also has been vomiting dark, green, bilious vomiting. He has been passing some gas. He is urinating normal. He had a colon resection on 08/08 for diverticulitis and a colovesical fistula and an abscess drainage. He was given Zosyn but is no longer taking any antibiotics. He no longer has a Allan catheter or drain in place. No shortness of breath. He did take some Zofran GMAT INSTRUCTOR which has helped his nausea. Independent Historian: None - Patient Only Review of External Notes: Care everywhere reviewed in [facility] updated. Operative note from 08/08 reviewed Medications: ALPRAZolam (XANAX) 0.5 MG tablet indapamide (LOZOL) 1.25 MG tablet lisinopril (ZESTRIL) 20 MG tablet methocarbamol (ROBAXIN) 750 MG tablet metoprolol succinate ER (TOPROL XL) 50 MG 24 hr tablet oxyCODONE (ROXICODONE) 5 MG tablet testosterone cypionate (DEPOTESTOSTERONE) 200 MG/ML injection Past Medical History: Past Medical History: Diagnosis Date ??? Anxiety ??? Colovesical fistula ??? Depressive disorder ??? Diverticulitis of colon 07/2022 ??? Hypertension ??? PTSD (post-traumatic stress disorder) Past Surgical History: Past Surgical History: Procedure Laterality Date ??? APPENDECTOMY ??? COLONOSCOPY N/A 08/07/2022 Procedure: Colonoscopy; Surgeon: Berenice Odom MD; Location: [facility] ??? DAVINCI COLECTOMY N/A 08/08/2022 Procedure: Xi Robotic Assisted Sigmoid Colectomy, take down of colovesical fistula, mobilization ofsplenetic flexure, small bowel resection, drainage of abdominal wall abscess; Surgeon: Kylah Arndt MD; Location: [facility] OR ??? INSERT STENT URETER 08/08/2022 Procedure: Cystoscopy, insertion of bilateral ureteral stents; Surgeon: Valentin Whitaker MD; Location: [facility] OR ??? Lumbar spine surgery x 2 ??? TONSILLECTOMY ??? VASECTOMY Physical Exam Patient Vitals for the past 24 hrs: BP Temp Temp src Pulse Resp SpO2 08/14/22 0126 -- 97.7 ??F (36.5 ??C) Oral -- -- -- 08/14/22 0125 154/92 -- -- 108 20 98 % Physical Exam Nursing note and vitals reviewed. Constitutional: Cooperative. Uncomfortable appearing HENT: Mouth/Throat: Mucous membranes are normal. Cardiovascular: Tachycardic rate, regular rhythm and normal heart sounds. No murmur. Pulmonary/Chest: Effort normal and breath sounds normal. No respiratory distress. No wheezes. No rales. Abdominal: . Diffuse abdomen distension and tenderness. Neurological: Alert. Oriented x3 Skin: Skin is warm and dry. Surgical incisions and drainage tube incision clean, dry and intact without evidence of infection. Psychiatric: Normal mood and affect. Emergency Department Course Imaging: Abd/pelvis CT, IV contrast only TRAUMA / AAA Final Result IMPRESSION: 1. Postoperative changes in the abdomen and pelvis, with foci of gas, more apparent in the pelvis. Sigmoid anastomotic christy with adjacent foci of soft tissue gas and a small mesenteric hematoma, without ongoing active extravasation. 2. Asymmetric gas and fluid distended small bowel loops to the level of the anastomotic christy in the left lower quadrant, representing partial mechanical small bowel obstruction. Stomach is distended with fluid and gas. Surgical drain in the pelvis seen previously has been removed. 3. Diffusely fatty infiltrated moderately enlarged liver without discrete lesion, calcified gallstones or biliary dilatation. 4. Postoperative changes of recent surgery with foci of soft tissue gas in the body wall. Foci of linear density in the subcutaneous fat likely representing laparoscopic access ports. Mild degenerative changes involving the spine and joints of the pelvis. Report per radiology Laboratory: Labs Ordered and Resulted from Time of ED Arrival to Time of ED Departure COMPREHENSIVE METABOLIC PANEL - Abnormal Result Value Sodium 136 Potassium 3.3 (*) Chloride 91 (*) Carbon Dioxide (CO2) 30 (*) Anion Gap 15 Urea Nitrogen 13.6 Creatinine 0.72 Calcium 9.6 Glucose 134 (*) Alkaline Phosphatase 51 AST 18 ALT 15 Protein Total 7.4 Albumin 3.5 Bilirubin Total 0.4 GFR Estimate >90 CBC WITH PLATELETS AND DIFFERENTIAL - Abnormal WBC Count 19.6 (*) RBC Count 3.18 (*) Hemoglobin 9.9 (*) Hematocrit 29.3 (*) MCV 92 MCH 31.1 MCHC 33.8 RDW 13.4 Platelet Count 407 % Neutrophils 85 % Lymphocytes 6 % Monocytes 7 % Eosinophils 1 % Basophils 0 % Immature Granulocytes 1 NRBCs per 100 WBC 0 Absolute Neutrophils 16.7 (*) Absolute Lymphocytes 1.1 Absolute Monocytes 1.4 (*) Absolute Eosinophils 0.2 Absolute Basophils 0.1 Absolute Immature Granulocytes 0.1 Absolute NRBCs 0.0 LACTIC ACID WHOLE BLOOD - Normal Lactic Acid 0.8 ROUTINE UA WITH MICROSCOPIC: Pending collection BLOOD CULTURE: Pending BLOOD CULTURE: Pending Interventions: Medications HYDROmorphone (PF) (DILAUDID) injection 0.5 mg (0.5 mg Intravenous $Given 08/14/22217) ketorolac (TORADOL) injection 15 mg (has no administration in time range) 0.9% sodium chloride BOLUS (1000 mLs Intravenous Stopped 08/14/22400) ondansetron (ZOFRAN) injection 4 mg (4 mg Intravenous $Given 08/14/22217) Assessments: 0200 I obtained the history and examined the patient as noted above. 0351 I rechecked the patient and findings and plan for admission. Plan for nursing to place nasogastric tube for decompression Independent Interpretation (X-rays, CTs, rhythm strip): None Consultations/Discussion of Management or Tests: 0406 I spoke with the hospitalist Dr. Smith regarding admission. Social Determinants of Health affecting care: None Disposition: The patient was admitted to the hospital under the care of Dr. Smith. Impression & Plan Medical Decision Makin-year-old gentleman postoperative day 6 from colon resection with drainage of abscess related to colovesicular fistula. He presents with abdominal distention and vomiting. CT scan shows a bowel obstruction near the anastomosis. There is a small hematoma near the anastomosis but no active extravasation. His lactic acid is reassuring speaking against bowel ischemia. His pain is well controlled with the above measures. Nasogastric tube will be placed for proximal decompression. Plan for admission for bowel rest, medical management and colorectal consultation Diagnosis: ICD-10-CM 1. SBO (small bowel obstruction) (H) K56.609 2. Fever postop R50.82 3. Nausea and vomiting, unspecified vomiting type R11.2 Scribe Disclosure: Reginald Gee, am serving as a scribe at 2:00 AM on 08/14/2022 to document services personally performed by Mynor Bro MD based on my observations and the provider's statements to me. 08/14/2022 Mynor Bro MD Amdahl, John, MD 08/14/22 0411 documented in this encounter Miscellaneous Notes * Plan of Care - Perri Linda RN - 08/19/2022 10:54 AM CDT Patient's After Visit Summary was reviewed with patient and/or significant other. Patient verbalized understanding of After Visit Summary, recommended follow up and was given an opportunity to ask questions. Discharge medications sent home with patient/family: YES, Sent to pt's preferred pharmacy Discharged with significant other * Plan of Care - Jeanne Hall RN - 08/19/2022 6:45 AM CDT Pertinent assessments: A&Ox4. Up ind. VSS. RA. Denies pain/nausea. Only some abd pain with movement. Passing gas & stool. Tolerating low fiber diet. PICC saline locked. BGs stable Major Shift Events: Diet advanced to low fiber. TPN & IVF stopped her Dr Dunne. Treatment Plan: TPN, PICC line, pain management, nausea management, IV Zosyn, and discharge pending. Bedside Nurse: Jeanne Hall RN * Plan of Care - Ana Tony RN - 08/18/2022 2:43 PM CDT Goal Outcome Evaluation: Plan of Care Reviewed With: patient End of Shift Summary For vital signs and complete assessments, please see documentation flowsheets. Pertinent assessments: A&Ox4. Up ind. VSS. RA. Denies pain/nausea. Only some abd pain with movement. Pt reported tolerating full liquids and wants to move up to low fiber, BS audible, Bm x2, withno blood. Went outside with Girlfriend for a walk. Lipids discontinues for tonight. TPN wean by tomorrow if tolerating diet. Major Shift Events: pt & girlfriend requesting to go on to low fiber diet now Treatment Plan: TPN, PICC line, pain management, nausea management, IV Zosyn, and discharge pending. * Plan of Care - Jeanne Hall RN - 08/18/2022 5:55 AM CDT Pertinent assessments: A&Ox4. Up ind. VSS. RA. Denies pain/nausea. Only some abd pain with movement. Oxy given x1. Tolerating clear. BS hyper, passing gas & stool, no bleeding. Up walking thehalls. Girlfriend at bedside. Major Shift Events: Pt & girlfriend refused increased TPN dose. Currently infusing at 30ml/hr. Pt & girlfriend state he is discharging tomorrow, doesn't matter what the MDs tell him. Treatment Plan: TPN + lipids, PICC line, NGT, pain management, nausea management, IV Zosyn, and discharge pending. Bedside Nurse: Jeanne Hall RN * Plan of Care - Ana Tony RN - 08/17/2022 3:39 PM CDT Goal Outcome Evaluation: Plan of Care Reviewed With: patient For vital signs and complete assessments, please see documentation flowsheets. Pertinent assessments: VSS on room air. A&Ox4. Up independently. Advanced diet to clear liquids, PRN IV Dilaudid given 2x, nicotine patches in place. Had 1Bm this shift no blood,pt is going outside to get fresh air with his girlfriend, notified the MD, doctor is ok with him going outside. Major Shift Events: NG tube out Treatment Plan: TPN + lipids, PICC line, NGT, pain management, nausea management, IV Zosyn, and discharge pending. * Plan of Care - Patricio Medrano RN - 08/16/2022 10:34 PM CDT Pertinent assessments: VSS on room air. Afebrile. A&Ox4. Up independently. NGT to LIWS, green colored output. NPO except ice chips. PRN IV Dilaudid given. Lidocaine and nicotine patches in place. Major Shift Events: PICC placed. Treatment Plan: TPN + lipids, PICC line, NGT, pain management, nausea management, IV Zosyn, and discharge pending. Bedside Nurse: Patricio Medrano RN * Plan of Care - Ana Tony RN - 08/16/2022 4:12 PM CDT Goal Outcome Evaluation: Plan of Care Reviewed With: patient End of Shift Summary For vital signs and complete assessments, please see documentation flowsheets. Pertinent assessments: alert & oriented x4, on room air, complained of nausea & pain, gave dilaudid & Zofran, Ng to low intermediate suctioning 650 out, GI ask to pull back NG tube 8 to 10 cm, pt refused while I was in the middle of pulling out, He also refused PICC line, the nurses will try again, pt had Bm twice. Major Shift Events: None Treatment Plan: Zosyn, IVF, pain control * Plan of Care - Jackelyn Leos RN - 08/16/2022 7:05 AM CDT For vital signs and complete assessments, please see documentation flowsheets. Pertinent assessments: Clear lung sounds VSS, afebrile on RA. C/o moderate pain in lower abd, scheduled Robaxin & IV dilaudid x3 with adequate pain control and Ativan given x1 for anxiety. BS audible, No bleeding & loose on this shift, Voiding adequately. Denies nausea and vomiting. NG [id number] bright green output this shift. Abd incisions open to air. clean dry and intact Major Shift Events: K replaced per protocol, lab result for K has improved to 3.5 Treatment Plan: Maria Gsyluther, IVF, pain control Bedside Nurse: Jackelyn Leos RN * Plan of Care - Paige Kelsey RN - 08/15/2022 7:55 PM CDT Goal Outcome Evaluation: End of Shift Summary For vital signs and complete assessments, please see documentation flowsheets. Pertinent assessments: VSS, afebrile & sats maintained on RA. C/o moderate pain in lower abd, scheduled Robaxin & IV dilaudid x2 with adequate pain control. BS hypo, +gas & loose, bloody BM x4 this shift - MDs aware. Voiding adequately. Minimal complaints on nausea, zofran x1. NG with 1800cc bright green output this shift. Abd incisions FRANCIS. Major Shift Events: K replaced per protocol, recheck on following shift. Treatment Plan: Zosyn, IVF, pain control Bedside Nurse: Paige Kelsey RN * Provider Notification - Paige Kelsey RN - 08/15/2022 6:56 AM CDT Notified provider of new onset of bloody stool. Addendum: Received a return call from PA. Above information re-paged to Dr. Silva. Addendum: Hgb recheck ordered for 2pm today by Dr. Silva. Bloody stool addressed with Dr. Odom during bedside rounding. Will continue to monitor. * Plan of Care - Janae Ward RN - 08/15/2022 1:36 AM CDT Plan of care reviewed with: Patient Overall patient progress: progressing Assumed care of patient around 11pm Isolation: none Orientation: A&Ox4 Pain: 04/20, maintained with PRN dilaudid Diet: NPO Activity: SBA, pt remained in bed during shift LDA's: Infusing NS@100mL/hr GI/: Ambulated to bathroom, blood present in stool Resp: Stable on RA Labs: K+ 3.2, replaced with oral meds, Hemoglobin 8.6 Current plan of care: NG to LIS, pain management, IV Abx therapy BP 139/72 (BP Location: Left arm) Pulse 96 Temp 98.6 ??F (37 ??C) (Oral) Resp 18 SpO2 93% * Plan of Care - Wendi Monsivais RN - 08/14/2022 11:20 PM CDT Goal Outcome Evaluation: End of Shift Summary For vital signs and complete assessments, please see documentation flowsheets. Pertinent assessments: Pt A&OX4. Vss and on RA. Ls clear and no sob noted. Had abd pain and dilaudid given x3. Ambulated to the BR and hallway. NG to LIS with 400ml green output. K replaced and recheck for 0040. Abd non distended and had a formed BM this shift. Major Shift Events :Admitted to the unit Treatment Plan: Pain management, IVF, IV zosyn, NG LIS. * Plan of Care - Marla Florian RN - 08/14/2022 3:47 PM CDT To Do: End of Shift Summary For vital signs and complete assessments, please see documentation flowsheets. Pertinent assessments: A/Ox4, VSS, on RA. NPO. Pain 8/10 in his abdomen. Dilaudid x2, ativan w/ effect. NG to low intermittent suction. Green output= 675 ml. SBA. Major Shift Events: none Treatment Plan: Low intermitted suction, pain control, IV abx Bedside Nurse: Marla Florian RN * Pharmacy-Admission Medication History - Ayse Johns RPH - 08/14/2022 12:23 PM CDT Pharmacist Admission Medication History Admission medication history is complete. The information provided in this note is only as accurateas the sources available at the time of the update. Medication reconciliation/reorder completed by provider prior to medication history? No Information Source(s): Patient, Family member and CareEverywhere/SureScripts via in-person Pertinent Information: Patient states that he was told to hold indapamide after surgery and he hasn't restarted it yet. The patient is not sure if he is supposed to restart the indapamide. Changes made to [employer] medication list: ??? Added: nicotine patch, Tylenol and ibuprofen ??? Deleted: None ??? Changed: Xanax Medication Affordability: Not including over the counter (OTC) medications, was there a time in the past 3 months when you did not take your medications as prescribed because of cost?: No Allergies reviewed with patient and updates made in EHR: yes Medication History Completed By: Ayse Johns RPH 08/14/2022 12:23 PM Prior to Admission medications Medication Sig Last Dose Taking? Auth Provider [facility] Date acetaminophen (TYLENOL) 500 MG tablet Take 1,000 mg by mouth every 6 hours as needed for mild pain prn at prn Yes Unknown, Entered By History ALPRAZolam (XANAX) 0.5 MG tablet Take 0.5 mg by mouth 3 times daily as needed prn at prn Yes Reported, Patient ibuprofen (ADVIL/MOTRIN) 200 MG tablet Take 400 mg by mouth every 6 hours as needed for pain prn atprn Yes Unknown, Entered By History lisinopril (ZESTRIL) 40 MG tablet Take 40 mg by mouth daily 08/13/2022 Yes Reported, Patient Yes methocarbamol (ROBAXIN) 750 MG tablet Take 1 tablet (750 mg) by mouth 3 times daily for 5 days 08/13/2022 Yes Susie Mascorro MD 08/17/22 metoprolol succinate ER (TOPROL XL) 50 MG 24 hr tablet Take 50 mg by mouth daily 08/13/2022 Yes Reported, Patient Yes nicotine (NICODERM CQ) 21 MG/24HR [address] 1 patch onto the skin every 24 hours Yes Unknown, Entered By History oxyCODONE (ROXICODONE) 5 MG tablet Take 1-2 tablets (5-10 mg) by mouth every 4 hours as needed for pain prn at prn Yes Susie Mascorro MD 08/17/22 testosterone cypionate (DEPOTESTOSTERONE) 200 MG/ML injection Inject 200 mg into the muscle once a week 08/05/2022 Yes Reported, Patient Yes indapamide (LOZOL) 1.25 MG tablet Take 1.25 mg by mouth daily Patient not taking: Reported on 08/14/2022 Not Taking Reported, Patient Yes documented in this encounter Plan of Treatment Not on file documented as of this encounter Procedures Procedure Name Priority Date/Time Associated Diagnosis Comments CBC WITH PLATELETS AND DIFFERENTIAL Routine 08/19/2022 5:34 AM CDT CBC WITH PLATELETS & DIFFERENTIAL Routine 08/19/2022 5:34 AM CDT POTASSIUM Timed 08/19/2022 5:34 AM CDT PHOSPHORUS Routine 08/19/2022 5:34 AM CDT MAGNESIUM Routine 08/19/2022 5:34 AM CDT DIFFERENTIAL Routine 08/19/2022 5:34 AM CDT BASIC METABOLIC PANEL Routine 08/19/2022 5:34 AM CDT GLUCOSE BY METER Routine 08/18/2022 8:57 PM CDT GLUCOSE BY METER Routine 08/18/2022 5:11 PM CDT GLUCOSE BY METER Routine 08/18/2022 12:1 2 PM CDT GLUCOSE BY METER Routine 08/18/2022 8:44 AM CDT PHOSPHORUS Routine 08/18/2022 6:03 AM CDT MAGNESIUM Routine 08/18/2022 6:03 AM CDT BASIC METABOLIC PANEL Routine 08/18/2022 6:03 AM CDT CBC WITH PLATELETS Routine 08/18/2022 6: 03 AM CDT GLUCOSE BY METER Routine 08/18/2022 12:4 1 AM CDT GLUCOSE BY METER Routine 08/17/2022 5:22 PM CDT GLUCOSE BY METER Routine 08/17/2022 11:5 8 AM CDT INR Routine 08/17/2022 6:24 AM CDT PREALBUMIN Routine 08/17/2022 6:24 AM CDT PHOSPHORUS Routine 08/17/2022 6:24 AM CDT MAGNESIUM Routine 08/17/2022 6:24 AM CDT COMPREHENSIVE METABOLIC PANEL Routine 08/17/2022 6:24 AM CDT BILIRUBIN DIRECT Routine 08/17/2022 6:24 AM CDT CBC WITH PLATELETS Routine 08/17/2022 6: 24 AM CDT GLUCOSE BY METER Routine 08/17/2022 6:22 AM CDT GLUCOSE BY METER Routine 08/17/2022 1:43 AM CDT PATIENT CARE ORDER Routine 08/16/2022 5: 31 PM CDT PICC DOUBLE LUMEN PLACEMENT Routine 08/16/2022 5:[address] ABDOMEN PELVIS W CONTRAST Routine 08/16/2022 12:04 PM CDT TRIGLYCERIDES Add-On 08/16/2022 6:34 AM CDT PHOSPHORUS Add-On 08/16/2022 6:34 AM CDT MAGNESIUM Routine 08/16/2022 6:34 AM CDT BASIC METABOLIC PANEL Routine 08/16/2022 6:34 AM CDT CBC WITH PLATELETS Routine 08/16/2022 6: 34 AM CDT POTASSIUM Timed 08/15/2022 10:44 PM CDT HEMOGLOBIN Timed 08/15/2022 2:13 PM CDT POTASSIUM Timed 08/15/2022 9:57 AM CDT CBC WITH PLATELETS AND DIFFERENTIAL STAT 08/15/2022 5:58 AM CDT CBC WITH PLATELETS & DIFFERENTIAL STAT 08/15/2022 5:58 AM CDT MAGNESIUM Add-On 08/15/2022 5:58 AM CDT BASIC METABOLIC PANEL Routine 08/15/2022 5:58 AM CDT POTASSIUM Timed 08/15/2022 3:49 AM CDT HEMOGLOBIN Timed 08/15/2022 3:49 AM CDT HEMOGLOBIN Timed 08/14/2022 1:57 PM CDT COVID-19 VIRUS (CORONAVIRUS) BY PCR STAT 08/14/2022 1:[address] ABDOMEN PELVIS W CONTRAST STAT 08/14/2022 3:11 AM CDT BLOOD CULTURE STAT 08/14/2022 2:49 AM CDT LACTIC ACID WHOLE BLOOD STAT 08/14/2022 2:17 AM CDT BLOOD CULTURE STAT 08/14/2022 2:17 AM CDT EXTRA TUBE STAT 08/14/2022 1:35 AM CDT EXTRA RED TOP TUBE STAT 08/14/2022 1: 35 AM CDT EXTRA BLUE TOP TUBE STAT 08/14/2022 1 :35 AM CDT CBC WITH PLATELETS AND DIFFERENTIAL STAT 08/14/2022 1:35 AM CDT CBC WITH PLATELETS & DIFFERENTIAL STAT 08/14/2022 1:35 AM CDT MAGNESIUM Add-On 08/14/2022 1:35 AM CDT COMPREHENSIVE METABOLIC PANEL STAT 08/14/2022 1:35 AM CDT documented in this encounter Results * (ABNORMAL) Manual Differential (08/19/2022 5:34 AM CDT) % Neutrophils 55 % 08/19/2022 6:38 AM CDT [facility] % Lymphocytes 29 % 08/19/2022 6:38 AM CDT [facility] % Monocytes 12 % 08/19/2022 6:38 AM CDT [facility] % Eosinophils 4 % 08/19/2022 6:38 AM CDT [facility] % Basophils 0 % 08/19/2022 6:38 AM CDT [facility] Absolute Neutrophils 7.4 1.6 - 8.3 10e3/uL 08/19/2022 6:38 AM CDT [facility] Absolute Lymphocytes 3.9 0.8 - 5.3 10e3/uL 08/19/2022 6:38 AM CDT [facility] Absolute Monocytes 1.6(H) 0.0 - 1.3 10e3/uL 08/19/2022 6:38 AM CDT [facility] Absolute Eosinophils 0.5 0.0 - 0.7 10e3/uL 08/19/2022 6:38 AM CDT [facility] Absolute Basophils 0.0 0.0 - 0.2 10e3/uL 08/19/2022 6:38 AM CDT [facility] RBC Morphology Confirmed RBC Indices 08/19/2022 6:38 AM CDT [facility] Platelet Assessment Automated Count Confirmed. Platelet morphology is normal. Automated Count Confirmed. Platelet morphology is normal. 08/19/2022 6:38 AM CDT [facility] Blood CENTRAL VENOUS CATHETER / Unknown Venipuncture / Unknown 08/19/2022 5:34 AM CDT 08/19/2022 5:52 AM CDT Andrzej Reagan MD LAB - BLOOD ORDERAB LES [facility] [address] Lab (1st floor, no room number) [place] [address], [facility] [phone] * (ABNORMAL) CBC with platelets and differential (08/19/2022 5:34 AM CDT) WBC Count 13.4(H) 4.0 - 11.0 10e3/uL 08/19/2022 6:38 AM CDT [facility] RBC Count 2.95(L) 4.40 - 5.90 10e6/uL 08/19/2022 6:38 AM CDT [facility] Hemoglobin 9.2(L) 13.3 - 17.7 g/dL 08/19/2022 6:38 AM CDT [facility] Hematocrit 27.8(L) 40.0 - 53.0 % 08/19/2022 6:38 AM CDT [facility] MCV 94 78 - 100 fL 08/19/2022 6:38 AM CDT [facility] MCH 31.2 26.5 - 33.0 pg 08/19/2022 6:38 AM CDT [facility] MCHC 33.1 31.5 - 36.5 g/dL 08/19/2022 6:38 AM CDT [facility] RDW 14.1 10.0 - 15.0 % 08/19/2022 6:38 AM CDT [facility] Platelet Count 651(H) 150 - 450 10e3/uL 08/19/2022 6:38 AM CDT [facility] Blood CENTRAL VENOUS CATHETER / Unknown Venipuncture / Unknown 08/19/2022 5:34 AM CDT 08/19/2022 5:52 AM CDT Andrzej Reagan MD LAB - BLOOD ORDERAB LES [facility] [address] Lab (1st floor, no room number) [place] [address], [facility] [phone] * Potassium (08/19/2022 5:34 AM CDT) Potassium 3.8 3.4 - 5.3 mmol/L 08/19/2022 6:11 AM CDT [facility] Blood CENTRAL VENOUS CATHETER / Unknown Venipuncture / Unknown 08/19/2022 5:34 AM CDT 08/19/2022 5:52 AM CDT Loy Dunne MD LAB - BLOOD ORDERABL ES [facility] [address] Lab (1st floor, no room number) [place] [address], [facility] [phone] * Phosphorus (08/19/2022 5:34 AM CDT) Phosphorus 3.5 2.5 - 4.5 mg/dL 08/19/2022 6:11 AM CDT [facility] Blood CENTRAL VENOUS CATHETER / Unknown Venipuncture / Unknown 08/19/2022 5:34 AM CDT 08/19/2022 5:52 AM CDT Susie Mascorro MD LAB - BLOOD ORDERABL ES LABORATORY [facility] Lab [address] Lab (1st floor, no room number) [place] [phone], [facility] [phone] * Magnesium (08/19/2022 5:34 AM CDT) Pathologist [facility] Magnesium 2.1 1.7 - 2.3 mg/dL 08/19/2022 6:11 AM CDT [facility] Blood CENTRAL VENOUS CATHETER / Unknown Venipuncture / Unknown 08/19/2022 5:34 AM CDT 08/19/2022 5:52 AM CDT Susie Mascorro MD LAB - BLOOD ORDERABL ES LABORATORY [facility] [address] Lab (1st floor, no room number) [place] [address], [facility] [phone] * (ABNORMAL) Basic metabolic panel (08/19/2022 5:34 AM CDT) Sodium 137 136 - 145 mmol/L 08/19/2022 6:11 AM CDT LABORATORY Potassium 3.8 3.4 - 5.3 mmol/L 08/19/2022 6:11 AM CDT LABORATORY Chloride 105 98 - 107 mmol/L 08/19/2022 6:11 AM CDT LABORATORY Carbon Dioxide (CO2) 22 22 - 29 mmol/L 08/19/2022 6:11 AM CDT [facility] Anion Gap 10 7 - 15 mmol/L 08/19/2022 6:11 AM CDT LABORATORY Urea Nitrogen 8.2 6.0 - 20.0 mg/dL 08/19/2022 6:11 AM CDT LABORATORY Creatinine 0.73 0.67 - 1.17 mg/dL 08/19/2022 6:11 AM CDT LABORATORY Calcium 8.6 8.6 - 10.0 mg/dL 08/19/2022 6:11 AM CDT LABORATORY Glucose 103(H) 70 - 99 mg/dL 08/19/2022 6:11 AM CDT LABORATORY GFR Estimate >90 >60 mL/min/1.7 3m2 08/19/2022 6:11 AM CDT LABORATORY Blood CENTRAL VENOUS CATHETER / Unknown Venipuncture / Unknown 08/19/2022 5:34 AM CDT 08/19/2022 5:52 AM CDT Susie Mascorro MD LAB - BLOOD ORDERABL ES LABORATORY [facility] Lab [address] Lab (1st floor, no room number) [place] [address], [facility] [phone] * (ABNORMAL) Glucose by meter (08/18/2022 8:57 PM CDT) [facility] Signature GLUCOSE BY METER POCT 112(H) 70 - 99 mg/dL 08/18/2022 9:06 PM CDT [facility] POC Comment:Dr/RN Notified Blood, Capillary BLOOD SPECIMEN / Unknown 08/18/2022 8:57 PM CDT 08/18/2022 9:06 PM CDT Tevin Kelley MD LAB - BEAKER POCT [facility] POC [facility] Lab [address] Lab (1st floor, no room number) [place] [address], [place] [phone] * (ABNORMAL) Glucose by meter (08/18/2022 5:11 PM CDT) GLUCOSE BY METER POCT 103(H) 70 - 99 mg/dL 08/18/2022 5:35 PM CDT LABORATORY POC Blood, Capillary BLOOD SPECIMEN / Unknown 08/18/2022 5:11 PM CDT 08/18/2022 5:35 PM CDT Tevin Kelley MD LAB - BEAKER POCT LABORATORY [facility] Lab [address] Lab (1st floor, no room number) [place] [address], [facility] [phone] * (ABNORMAL) Glucose by meter (08/18/2022 12:12 PM CDT) GLUCOSE BY METER POCT 131(H) 70 - 99 mg/dL 08/18/2022 12:19 PM CDT LABORATORY POC Blood, Capillary BLOOD SPECIMEN / Unknown 08/18/2022 12:12 PM CDT 08/18/2022 12:19 PM CDT Tevin Kelley MD LAB - BEAKER POCT LABORATORY [facility] Lab [address] Lab (1st floor, no room number) [place] [address], [place] [phone] * (ABNORMAL) Glucose by meter (08/18/2022 8:44 AM CDT) GLUCOSE BY METER POCT 121(H) 70 - 99 mg/dL 08/18/2022 8:50 AM CDT LABORATORY POC Blood, Capillary BLOOD SPECIMEN / Unknown 08/18/2022 8:44 AM CDT 08/18/2022 8:50 AM CDT Tevin Kelley MD LAB - BEAKER POCT [facility] POC [facility] [address] Lab (1st floor, no room number) [place] [address], [facility] [phone] * (ABNORMAL) CBC with platelets (08/18/2022 6:03 AM CDT) WBC Count 14.5(H) 4.0 - 11.0 10e3/uL 08/18/2022 6:21 AM CDT [facility] RBC Count 2.99(L) 4.40 - 5.90 10e6/uL 08/18/2022 6:21 AM CDT [facility] Hemoglobin 9.1(L) 13.3 - 17.7 g/dL 08/18/2022 6:21 AM CDT [facility] Hematocrit 28.1(L) 40.0 - 53.0 % 08/18/2022 6:21 AM CDT [facility] MCV 94 78 - 100 fL 08/18/2022 6:21 AM CDT [facility] MCH 30.4 26.5 - 33.0 pg 08/18/2022 6:21 AM CDT [facility] MCHC 32.4 31.5 - 36.5 g/dL 08/18/2022 6:21 AM CDT [facility] RDW 13.9 10.0 - 15.0 % 08/18/2022 6:21 AM CDT [facility] Platelet Count 656(H) 150 - 450 10e3/uL 08/18/2022 6:21 AM CDT [facility] Blood CENTRAL VENOUS CATHETER / Unknown Venipuncture / Unknown 08/18/2022 6:03 AM CDT 08/18/2022 6:18 AM CDT Loy Dunne MD LAB - BLOOD ORDERABL ES [facility] [address] Lab (1st floor, no room number) [place] [address], [facility] [phone] * Phosphorus (08/18/2022 6:03 AM CDT) Phosphorus 2.5 2.5 - 4.5 mg/dL 08/18/2022 6:40 AM CDT [facility] Blood CENTRAL VENOUS CATHETER / Unknown Venipuncture / Unknown 08/18/2022 6:03 AM CDT 08/18/2022 6:18 AM CDT Susie Mascorro MD LAB - BLOOD ORDERABL ES LABORATORY [facility] [address] Lab (1st floor, no room number) [place] [address], [place] [phone] * Magnesium (08/18/2022 6:03 AM CDT) Magnesium 2.1 1.7 - 2.3 mg/dL 08/18/2022 6:40 AM CDT [facility] Blood CENTRAL VENOUS CATHETER / Unknown Venipuncture / Unknown 08/18/2022 6:03 AM CDT 08/18/2022 6:18 AM CDT Susie Mascorro MD LAB - BLOOD ORDERABL ES LABORATORY [facility] [address] Lab (1st floor, no room number) [place] [address], [place] [phone] * (ABNORMAL) Basic metabolic panel (08/18/2022 6:03 AM CDT) Sodium 138 136 - 145 mmol/L 08/18/2022 6:40 AM CDT [facility] Potassium 3.7 3.4 - 5.3 mmol/L 08/18/2022 6:40 AM CDT [facility] Chloride 105 98 - 107 mmol/L 08/18/2022 6:40 AM CDT [facility] Carbon Dioxide (CO2) 24 22 - 29 mmol/L 08/18/2022 6:40 AM CDT [facility] Anion Gap 9 7 - 15 mmol/L 08/18/2022 6:40 AM CDT [facility] Urea Nitrogen 10.6 6.0 - 20.0 mg/dL 08/18/2022 6:40 AM CDT LABORATORY Creatinine 0.67 0.67 - 1.17 mg/dL 08/18/2022 6:40 AM CDT LABORATORY Calcium 8.4(L) 8.6 - 10.0 mg/dL 08/18/2022 6:40 AM CDT LABORATORY Glucose 129(H) 70 - 99 mg/dL 08/18/2022 6:40 AM CDT LABORATORY GFR Estimate >90 >60 mL/min/1.7 3m2 08/18/2022 6:40 AM CDT [facility] Blood CENTRAL VENOUS CATHETER / Unknown Venipuncture / Unknown 08/18/2022 6:03 AM CDT 08/18/2022 6:18 AM CDT Susie Mascorro MD LAB - BLOOD ORDERABL ES [facility] Lab [address] Lab (1st floor, no room number) [place] [phone], [place] [phone] * (ABNORMAL) Glucose by meter (08/18/2022 12:41 AM CDT) GLUCOSE BY METER POCT 127(H) 70 - 99 mg/dL 08/18/2022 12:48 AM CDT LABORATORY POC Blood, Capillary BLOOD SPECIMEN / Unknown 08/18/2022 12:41 AM CDT 08/18/2022 12:48 AM CDT Tevin Kelley MD LAB - BEAKER POCT [facility] Lab [address] Lab (1st floor, no room number) [place] [address], [place] [phone] * (ABNORMAL) Glucose by meter (08/17/2022 5:22 PM CDT) GLUCOSE BY METER POCT 166(H) 70 - 99 mg/dL 08/17/2022 5:29 PM CDT [facility] POC Blood, Capillary BLOOD SPECIMEN / Unknown 08/17/2022 5:22 PM CDT 08/17/2022 5:29 PM CDT Tevin Kelley MD LAB - [facility] POCT [facility] Lab [address] Lab (1st floor, no room number) [place] [address], [facility] [phone] * (ABNORMAL) Glucose by meter (08/17/2022 11:58 AM CDT) GLUCOSE BY METER POCT 103(H) 70 - 99 mg/dL 08/17/2022 12:05 PM CDT [facility] POC Blood, Capillary BLOOD SPECIMEN / Unknown 08/17/2022 11:58 AM CDT 08/17/2022 12:05 PM CDT Tevin Kelley MD LAB - [facility] POCT Performing Organization Address City/[facility]/ZIP Co de Phone Number LABORATORY [facility] Lab [address] Lab (1st floor, no room number) [place] [phone], [facility] [phone] * (ABNORMAL) CBC with platelets (08/17/2022 6:24 AM CDT) WBC Count 14.2(H) 4.0 - 11.0 10e3/uL 08/17/2022 6:43 AM CDT [facility] RBC Count 3.08(L) 4.40 - 5.90 10e6/uL 08/17/2022 6:43 AM CDT [facility] Hemoglobin 9.6(L) 13.3 - 17.7 g/dL 08/17/2022 6:43 AM CDT [facility] Hematocrit 29.0(L) 40.0 - 53.0 % 08/17/2022 6:43 AM CDT [facility] MCV 94 78 - 100 fL 08/17/2022 6:43 AM CDT [facility] MCH 31.2 26.5 - 33.0 pg 08/17/2022 6:43 AM CDT [facility] MCHC 33.1 31.5 - 36.5 g/dL 08/17/2022 6:43 AM CDT [facility] RDW 13.9 10.0 - 15.0 % 08/17/2022 6:43 AM CDT [facility] Platelet Count 627(H) 150 - 450 10e3/uL 08/17/2022 6:43 AM CDT [facility] Blood BLOOD SPECIMEN / Unknown Venipuncture / Unknown 08/17/2022 6:24 AM CDT 08/17/2022 6:33 AM CDT Kylah Arndt MD LAB - BLOOD ORDER [place] LAB[facility]AT[facility] Lab [address] Lab (1st floor, no room number) [place] [phone], [facility] [phone] * Bilirubin direct (08/17/2022 6:24 AM CDT) Bilirubin Direct <0.20 0.00 - 0.30 mg/dL 08/17/2022 6:58 AM CDT LABORATORY Blood BLOOD SPECIMEN / Unknown Venipuncture / Unknown 08/17/2022 6:24 AM CDT 08/17/2022 6:33 AM CDT Susie Mascorro MD LAB - BLOOD ORDERABL ES LAB[facility]AT[facility] [address] Lab (1st floor, no room number) [place] [address], [facility] [phone] * (ABNORMAL) Prealbumin (08/17/2022 6:24 AM CDT) Prealbumin 13(L) 15 - 45 mg/dL 08/17/2022 12:49 PM CDT SPECIALTY CORE/PROT/ENDO Blood BLOOD SPECIMEN / Unknown Venipuncture / Unknown 08/17/2022 6:24 AM CDT 08/17/2022 6:33 AM CDT Susie Mascorro MD LAB - BLOOD ORDERABL ES [facility] SPECIALTY CORE/PROT/ENDO [facility] Specialty Core/Prot/Endo [address] [facility] [address] [facility], Room [address] [place] [address] * (ABNORMAL) INR (08/17/2022 6:24 AM CDT) INR 1.21(H) 0.85 - 1.15 08/17/2022 6:47 AM CDT [facility] Blood BLOOD SPECIMEN / Unknown Venipuncture / Unknown 08/17/2022 6:24 AM CDT 08/17/2022 6:33 AM CDT Susie Mascorro MD LAB - BLOOD ORDERABL ES [facility] [address] Lab (1st floor, no room number) [place] [address], [facility] [phone] * Phosphorus (08/17/2022 6:24 AM CDT) Phosphorus 2.6 2.5 - 4.5 mg/dL 08/17/2022 6:58 AM CDT [facility] Blood BLOOD SPECIMEN / Unknown Venipuncture / Unknown 08/17/2022 6:24 AM CDT 08/17/2022 6:33 AM CDT Susie Mascorro MD LAB - BLOOD ORDERABL ES [facility] [address] Lab (1st floor, no room number) [place] [address], [facility] [phone] * Magnesium (08/17/2022 6:24 AM CDT) Magnesium 2.2 1.7 - 2.3 mg/dL 08/17/2022 6:58 AM CDT LABORATORY Blood BLOOD SPECIMEN / Unknown Venipuncture / Unknown 08/17/2022 6:24 AM CDT 08/17/2022 6:33 AM CDT Susie Mascorro MD LAB - BLOOD ORDERABL ES LABORATORY [facility] [address] [facility] Lab (1st floor, no room number) [place] [address], [facility] [phone] * (ABNORMAL) Comprehensive metabolic panel (08/17/2022 6:24 AM CDT) Sodium 140 136 - 145 mmol/L 08/17/2022 6:58 AM CDT LABORATORY Potassium 3.3(L) 3.4 - 5.3 mmol/L 08/17/2022 6:58 AM CDT LABORATORY Chloride 103 98 - 107 mmol/L 08/17/2022 6:58 AM CDT LABORATORY Carbon Dioxide (CO2) 25 22 - 29 mmol/L 08/17/2022 6:58 AM CDT LABORATORY Anion Gap 12 7 - 15 mmol/L 08/17/2022 6:58 AM CDT LABORATORY Urea Nitrogen 16.6 6.0 - 20.0 mg/dL 08/17/2022 6:58 AM CDT LABORATORY Creatinine 0.73 0.67 - 1.17 mg/dL 08/17/2022 6:58 AM CDT LABORATORY Calcium 8.5(L) 8.6 - 10.0 mg/dL 08/17/2022 6:58 AM CDT LABORATORY Glucose 121(H) 70 - 99 mg/dL 08/17/2022 6:58 AM CDT LABORATORY Alkaline Phosphatase 63 40 - 129 U/L 08/17/2022 6:58 AM CDT LABORATORY AST 17 0 - 45 U/L 08/17/2022 6:58 AM CDT LABORATORY Comment:Reference intervals for this test were updated on 07/23/2022 to more accurately reflect our healthy population. There may be differences in the flagging of prior results with similar values performed with this method. Interpretation of those prior results can be made in the context of the updated reference intervals. ALT 12 0 - 70 U/L 08/17/2022 6:58 AM CDT [facility] LABORATORY Comment:Reference intervals for this test were updated on 07/23/2022 to more accurately reflect our healthy population. There may be differences in the flagging of prior results with similar values performed with this method. Interpretation of those prior results can be made in the context of the updated reference intervals. Protein Total 6.7 6.4 - 8.3 g/dL 08/17/2022 6:58 AM CDT [facility] LABORATORY Albumin 3.3(L) 3.5 - 5.2 g/dL 08/17/2022 6:58 AM CDT [facility] LABORATORY Bilirubin Total 0.3 <=1.2 mg/dL 08/17/2022 6:58 AM CDT [facility] LABORATORY GFR Estimate >90 >60 mL/min/1. 73m2 08/17/2022 6:58 AM CDT [facility] LABORATORY Blood BLOOD SPECIMEN / Unknown Venipuncture / Unknown 08/17/2022 6:24 AM CDT 08/17/2022 6:33 AM CDT Susie Mascorro MD LAB - BLOOD ORDERABL ES [facility] LABORATORY [facility] Lab [address] Lab (1st floor, no room number) [place] [address], [facility] [phone] * (ABNORMAL) Glucose by meter (08/17/2022 6:22 AM CDT) [facility] GLUCOSE BY METER POCT 127(H) 70 - 99 mg/dL 08/17/2022 6:29 AM CDT [facility] LABORATORY POC Blood, Capillary BLOOD SPECIMEN / Unknown 08/17/2022 6:22 AM CDT 08/17/2022 6:29 AM CDT Tevin Kelley MD LAB - BEAKER POCT LABORATORY [facility] Acute Care Lab [address] Lab (1st floor, no room number) [place] [address], [facility] [phone] * (ABNORMAL) Glucose by meter (08/17/2022 1:43 AM CDT) GLUCOSE BY METER POCT 113(H) 70 - 99 mg/dL 08/17/2022 1:50 AM CDT LABORATORY POC Blood, Capillary BLOOD SPECIMEN / Unknown 08/17/2022 1:43 AM CDT 08/17/2022 1:50 AM CDT Tevin Kelley MD LAB - [facility] POCT Performing Organization Address City/[facility]/ZIP Co de Phone Number LABORATORY [facility] Lab [address] Lab (1st floor, no room number) [place] [address], [facility] [phone] * Verification of Catheter Tip Placement (08/16/2022 5:31 PM CDT) Narrative Megan Pena RN - 08/16/2022 5:31 PM CDT Megan Pena, RN ? 08/16/2022 ??5:35 PM Susie Mascorro MD IP NURSING TREAT AND ASSESS - ONCE,INTERVALS,CONT * Double Lumen PICC Placement (08/16/2022 5:26 PM CDT) Narrative Megan Pena, RN - 08/16/2022 5:26 PM CDT Megan Pena, RN ? 08/16/2022 ??5:31 PM [facility] Double Lumen PICC Placement Date/Time: 08/16/2022 5:26 PM Performed by: Megan Pena, RN Authorized by: Susie Mascorro MD ??Indications: vascular access UNIVERSAL PROTOCOL Site Marked: Yes Prior Images Obtained and Reviewed: ??Yes Required items: Required blood products, implants, devices and special equipment available ?? Patient identity confirmed: ??Verbally with patient, arm band, provided demographic data and hospital-assigned identification number NA - No sedation, light sedation, or local anesthesia Confirmation Checklist: ??Patient's identity using two indicators, relevant allergies, procedure was appropriate and matched the consent or emergent situation and correct equipment/implants were available Time out: Immediately prior to the procedure a time out was called ?? Hartshorn Protocol: the Joint Commission Hart[place]orn Protocol was followed ?? Preparation: Patient was prepped and draped in usual sterile fashion ?? ANESTHESIA Anesthesia: Local infiltration Local Anesthetic: ??Lidocaine 1% without epinephrine Anesthetic Total (mL): ??2 SEDATION Patient Sedated: No ?? Preparation: skin prepped with ChloraPrep Skin prep agent: skin prep agent completely dried prior to procedure Sterile barriers: maximum sterile barriers were used: cap, mask, sterile gown, sterile gloves, and large sterile sheet Hand hygiene: hand hygiene performed prior to central venous catheter insertion Type of line used: PICC Catheter type: double lumen Lumen type: valved Lumen Identification: Purple and Red Catheter size: 5 Fr Brand: 5th Finger Lot number: [id number] Placement method: MST, venipuncture, ultrasound and tip navigation system Number of attempts: 1 Difficulty threading catheter: no Successful placement: yes Orientation: left Location: basilic vein Tip Location: SVC/RA Junction Arm circumference: adults 10 cm Extremity circumference: 32 Visible catheter length: 2 Total catheter length: 50 Dressing and securement: alcohol impregnated caps, chlorhexidine patch applied, dressing applied, gloves changed prior to final dressing, blood cleaned with CHG, blood removed, transparent dressing, subcutaneous anchor securement system, site cleansed and secure lock Post procedure assessment: blood return through all ports, free fluid flow and placement verified by 3CG technology PROCEDURE Patient Tolerance: ??Patient tolerated the procedure well with no immediate complications PICC ok to use as verified by 3CG technology. Lamont RN updated Disposal: sharps and needle count correct at the end of procedure, needles and guidewire disposed in sharps container Susie Mascorro MD PROCEDURE/MINOR SURG ICAL ORDERABLES * CT Abdomen Pelvis w Contrast (08/16/2022 12:04 PM CDT) Anatomical Region Laterality Modality Abdomen/Pelvis, SUBRAD CT JEFF DY, UMP CT ABDOMEN PELVIS, RAD CT Computed Tomography Impressions 08/16/2022 2:06 PM CDT IMPRESSION: 1. ??Postoperative changes of the bowel again identified. A few extraluminal collections of gas and small collections of fluid appear stable versus slightly smaller as compared to 08/14/2022. There is also a probable hematoma deep to the abdominal wall that is stable versus slightly smaller. 2. ??Dilated small bowel loops leading to a small bowel anastomosis again noted. However, oral contrast material is demonstrated to extend to the colon, excluding complete small bowel obstruction. A partial obstruction is possible. 3. ??No new fluid collection identified. NICOLÁS CAMPBELL MD SYSTEM ID: ??[id number] Narrative 08/16/2022 2:[address] ABDOMEN AND PELVIS WITH CONTRAST 08/16/2022 12:04 PM CLINICAL HISTORY: Continued elevated white blood cell count. TECHNIQUE: CT scan of the abdomen and pelvis was performed following injection of IV contrast. Multiplanar reformats were obtained. Dose reduction techniques were used. CONTRAST: 100mL Isovue-370 COMPARISON: CT abdomen and pelvis 08/14/2022. FINDINGS: LOWER CHEST: Normal. HEPATOBILIARY: Contracted gallbladder. No acute liver abnormality. PANCREAS: Normal. SPLEEN: Normal. ADRENAL GLANDS: Normal. KIDNEYS/BLADDER: No hydronephrosis or stone. Symmetric enhancement of the kidneys. Bladder is grossly unremarkable. BOWEL: Postoperative bowel again noted with sigmoid colectomy, and small bowel postoperative changes. Bubbles of gas at the left posterior pelvis again noted, stable versus slightly smaller. Bubbles of gas in the abdominal wall, and posterior to the colonic anastomosis site at the upper pelvis series 3 image 166 also appears similar to prior with some adjacent stable small fluid that is approximately 2.8 cm series 3 image 179. The previously noted dilated small bowel at the left proximal to mid abdomen again noted, but positive oral contrast appears to extend to the colon excluding complete small bowel obstruction. There is still some mild wall thickening of the small bowel near its anastomosis at the left midabdomen level series 3 image 152 through 176. There is increased density fluid that suggests hematoma deep to the rectus musculature measuring approximately 5.4 x 3.0 cm, stable to slightly smaller series 3 image 181. A small collection of fluid at the mesentery is approximately 4.1 x 2.0 cm, stable image 143. No new focal fluid collection identified. PELVIC ORGANS: Prostate is 5.4 cm. ADDITIONAL FINDINGS: A few likely reactive mesenteric lymph nodes noted that are mildly prominent. MUSCULOSKELETAL: Unremarkable. Procedure Note Nicolás Campbell MD - 08/16/2022 CT ABDOMEN AND PELVIS WITH CONTRAST 08/16/2022 12:04 PM CLINICAL HISTORY: Continued elevated white blood cell count. TECHNIQUE: CT scan of the abdomen and pelvis was performed following injection of IV contrast. Multiplanar reformats were obtained. Dose reduction techniques were used. CONTRAST: 100mL Isovue-370 COMPARISON: CT abdomen and pelvis 08/14/2022. FINDINGS: LOWER CHEST: Normal. HEPATOBILIARY: Contracted gallbladder. No acute liver abnormality. PANCREAS: Normal. SPLEEN: Normal. ADRENAL GLANDS: Normal. KIDNEYS/BLADDER: No hydronephrosis or stone. Symmetric enhancement of the kidneys. Bladder is grossly unremarkable. BOWEL: Postoperative bowel again noted with sigmoid colectomy, and small bowel postoperative changes. Bubbles of gas at the left posterior pelvis again noted, stable versus slightly smaller. Bubbles of gas in the abdominal wall, and posterior to the colonic anastomosis site at the upper pelvis series 3 image 166 also appears similar to prior with some adjacent stable small fluid that is approximately 2.8 cm series 3 image 179. The previously noted dilated small bowel at the left proximal to mid abdomen again noted, but positive oral contrast appears to extend to the colon excluding complete small bowel obstruction. There is still some mild wall thickening of the small bowel near its anastomosis at the left midabdomen level series 3 image 152 through 176. There is increased density fluid that suggests hematoma deep to the rectus musculature measuring approximately 5.4 x 3.0 cm, stable to slightly smaller series 3 image 181. A small collection of fluid at the mesentery is approximately 4.1 x 2.0 cm, stable image 143. No new focal fluid collection identified. PELVIC ORGANS: Prostate is 5.4 cm. ADDITIONAL FINDINGS: A few likely reactive mesenteric lymph nodes noted that are mildly prominent. MUSCULOSKELETAL: Unremarkable. IMPRESSION: 1. Postoperative changes of the bowel again identified. A few extraluminal collections of gas and small collections of fluid appear stable versus slightly smaller as compared to 08/14/2022. There is also a probable hematoma deep to the abdominal wall that is stable versus slightly smaller. 2. Dilated small bowel loops leading to a small bowel anastomosis again noted. However, oral contrast material is demonstrated to extend to the colon, excluding complete small bowel obstruction. A partial obstruction is possible. 3. No new fluid collection identified. NICOLÁS CAMPBELL MD SYSTEM ID: [id number] PA-C IMG CT ORDERABLES * Triglycerides (08/16/2022 6:34 AM CDT) Triglycerides 138 <150 mg/dL 08/16/2022 8:58 PM CDT [facility] LAB[facility]ATORY Comment: 2-9 years: Normal: ?Less than 75 mg/dL Borderline high: ??75-99 mg/dL High: ? Greater than or equal to 100 mg/dL 9-19 years: Normal: ?Less than 90 mg/dL Borderline high: ??90-129 mg/dL High: ? Greater than or equal to 130 mg/dL 20 years and older: Normal: ?Less than 150 mg/dL Borderline high: ??150-199 mg/dL High: ? 200-499 mg/dL Very high: ?? Greater than or equal to 500 mg/dL Blood STRUCTURE OF LEFT UPPER LIMB / Unknown Venipuncture / Unknown 08/16/2022 6:34 AM CDT 08/16/2022 6:43 AM CDT Loy Dunne MD LAB - BLOOD ORDERABL ES [facility] LABORATORY [facility] [address] [facility], Room [address] [place] [address], [facility] [phone] * Phosphorus (08/16/2022 6:34 AM CDT) Phosphorus 3.1 2.5 - 4.5 mg/dL 08/16/2022 12:24 PM CDT LABORATORY Blood STRUCTURE OF LEFT UPPER LIMB / Unknown Venipuncture / Unknown 08/16/2022 6:34 AM CDT 08/16/2022 6:43 AM CDT Loy Dunne MD LAB - BLOOD ORDERABL ES LABORATORY [facility] [address] Lab (1st floor, no room number) [place] [address], [facility] [phone] * Magnesium (08/16/2022 6:34 AM CDT) Magnesium 2.3 1.7 - 2.3 mg/dL 08/16/2022 11:56 AM CDT RH LABORATORY Blood STRUCTURE OF LEFT UPPER LIMB / Unknown Venipuncture / Unknown 08/16/2022 6:34 AM CDT 08/16/2022 6:43 AM CDT Loy Dunne MD LAB - BLOOD ORDERABL ES Performing Organization Address City/[facility]/ZIP Co de Phone Number LABORATORY [facility] [address] Lab (1st floor, no room number) [place] [address], [facility] [phone] * (ABNORMAL) CBC with platelets (08/16/2022 6:34 AM CDT) WBC Count 16.7(H) 4.0 - 11.0 10e3/uL 08/16/2022 6:48 AM CDT [facility] LABORATORY RBC Count 2.84(L) 4.40 - 5.90 10e6/uL 08/16/2022 6:48 AM CDT [facility] LABORATORY Hemoglobin 8.8(L) 13.3 - 17.7 g/dL 08/16/2022 6:48 AM CDT RH LABORATORY Hematocrit 27.1(L) 40.0 - 53.0 % 08/16/2022 6:48 AM CDT RH LABORATORY MCV 95 78 - 100 fL 08/16/2022 6:48 AM CDT RH LABORATORY MCH 31.0 26.5 - 33.0 pg 08/16/2022 6:48 AM CDT RH LABORATORY MCHC 32.5 31.5 - 36.5 g/dL 08/16/2022 6:48 AM CDT [facility] LABORATORY RDW 14.1 10.0 - 15.0 % 08/16/2022 6:48 AM CDT LABORATORY Platelet Count 548(H) 150 - 450 10e3/uL 08/16/2022 6:48 AM CDT LABORATORY Blood STRUCTURE OF LEFT UPPER LIMB / Unknown Venipuncture / Unknown 08/16/2022 6:34 AM CDT 08/16/2022 6:43 AM CDT Erick Silva DO LAB - BLOOD ORDERABL ES LABORATORY [facility] [address] [facility] Lab (1st floor, no room number) [place] [address], [facility] [phone] * (ABNORMAL) Basic metabolic panel (08/16/2022 6:34 AM CDT) Sodium 141 136 - 145 mmol/L 08/16/2022 7:12 AM CDT LABORATORY Potassium 3.5 3.4 - 5.3 mmol/L 08/16/2022 7:12 AM CDT LABORATORY Chloride 104 98 - 107 mmol/L 08/16/2022 7:12 AM CDT LABORATORY Carbon Dioxide (CO2) 24 22 - 29 mmol/L 08/16/2022 7:12 AM CDT LABORATORY Anion Gap 13 7 - 15 mmol/L 08/16/2022 7:12 AM CDT LABORATORY Urea Nitrogen 19.2 6.0 - 20.0 mg/dL 08/16/2022 7:12 AM CDT LABORATORY Creatinine 0.72 0.67 - 1.17 mg/dL 08/16/2022 7:12 AM CDT LABORATORY Calcium 8.4(L) 8.6 - 10.0 mg/dL 08/16/2022 7:12 AM CDT LABORATORY Glucose 85 70 - 99 mg/dL 08/16/2022 7:12 AM CDT LABORATORY GFR Estimate >90 >60 mL/min/1.7 3m2 08/16/2022 7:12 AM CDT LABORATORY Blood STRUCTURE OF LEFT UPPER LIMB / Unknown Venipuncture / Unknown 08/16/2022 6:34 AM CDT 08/16/2022 6:43 AM CDT Erick Silva DO LAB - BLOOD ORDERABL ES [facility] Lab [address] Lab (1st floor, no room number) [place] [address], [facility] [phone] * Potassium (08/15/2022 10:44 PM CDT) Potassium 3.5 3.4 - 5.3 mmol/L 08/15/2022 11:09 PM CDT RH LABORATORY Blood STRUCTURE OF LEFT UPPER LIMB / Unknown Venipuncture / Unknown 08/15/2022 10:44 PM CDT 08/15/2022 10:47 PM CDT Erick Silva DO LAB - BLOOD ORDERABL ES Performing Organization Address City/[facility]/ZIP Co de Phone Number [facility] Lab [address] Lab (1st floor, no room number) [place] [address], [facility] [phone] * (ABNORMAL) Hemoglobin (08/15/2022 2:13 PM CDT) Hemoglobin 8.4(L) 13.3 - 17.7 g/dL 08/15/2022 2:23 PM CDT [facility] LABORATORY Blood STRUCTURE OF LEFT HAND / Unknown Venipuncture / Unknown 08/15/2022 2:13 PM CDT 08/15/2022 2:20 PM CDT Erick Silva DO LAB - BLOOD ORDERABL ES [facility] Lab [address] Lab (1st floor, no room number) [place] [address], [facility] [phone] * (ABNORMAL) Potassium (08/15/2022 9:57 AM CDT) Potassium 3.2(L) 3.4 - 5.3 mmol/L 08/15/2022 10:26 AM CDT RH LABORATORY Blood STRUCTURE OF RIGHT HAND / Unknown Venipuncture / Unknown 08/15/2022 9:57 AM CDT 08/15/2022 10:02 AM CDT Erick Silva DO LAB - BLOOD ORDERABL ES LABORATORY [facility] Lab [address] Lab (1st floor, no room number) [place] [phone], [facility] [phone] * Magnesium (08/15/2022 5:58 AM CDT) Magnesium 2.1 1.7 - 2.3 mg/dL 08/15/2022 8:44 AM CDT RH LABORATORY Blood STRUCTURE OF LEFT UPPER LIMB / Unknown Venipuncture / Unknown 08/15/2022 5:58 AM CDT 08/15/2022 6:13 AM CDT Erick Silva DO LAB - BLOOD ORDERABL ES Performing Organization Address City/[facility]/ZIP Co de Phone Number [facility] [address] Lab (1st floor, no room number) [place] [phone], [facility] [phone] * (ABNORMAL) CBC with platelets and differential (08/15/2022 5:58 AM CDT) WBC Count 16.7(H) 4.0 - 11.0 10e3/uL 08/15/2022 6:19 AM CDT [facility] LABORATORY RBC Count 2.79(L) 4.40 - 5.90 10e6/uL 08/15/2022 6:19 AM CDT [facility] LABORATORY Hemoglobin 8.7(L) 13.3 - 17.7 g/dL 08/15/2022 6:19 AM CDT [facility] LABORATORY Hematocrit 26.3(L) 40.0 - 53.0 % 08/15/2022 6:19 AM CDT RH LABORATORY MCV 94 78 - 100 fL 08/15/2022 6:19 AM CDT RH LABORATORY MCH 31.2 26.5 - 33.0 pg 08/15/2022 6:19 AM CDT [facility] LABORATORY MCHC 33.1 31.5 - 36.5 g/dL 08/15/2022 6:19 AM CDT [facility] LABORATORY RDW 13.9 10.0 - 15.0 % 08/15/2022 6:19 AM CDT [facility] LAB[facility]ATORY Platelet Count 469(H) 150 - 450 10e3/uL 08/15/2022 6:19 AM CDT [facility] LAB[facility]AT[facility] % Neutrophils 74 % 08/15/2022 6:19 AM CDT [facility] LAB[facility] % Lymphocytes 11 % 08/15/2022 6:19 AM CDT [facility] LAB[facility] % Monocytes 9 % 08/15/2022 6:19 AM CDT [facility] LAB[facility] % Eosinophils 4 % 08/15/2022 6:19 AM CDT [facility] LAB[facility]AT[facility] % Basophils 1 % 08/15/2022 6:19 AM CDT [facility] LAB[facility]AT[facility] % Immature Granulocytes 1 % 08/15/2022 6:19 AM CDT RH LABORATORY NRBCs per 100 WBC 0 <1 /100 023 6:19 AM CDT [facility] LABORATORY Absolute Neutrophils 12.5(H) 1.6 - 8.3 10e3/uL 08/15/2022 6:19 AM CDT [facility] LABORATORY Absolute Lymphocytes 1.9 0.8 - 5.3 10e3/uL 08/15/2022 6:19 AM CDT [facility] LABORATORY Absolute Monocytes 1.5(H) 0.0 - 1.3 10e3/uL 08/15/2022 6:19 AM CDT [facility] LABORATORY Absolute Eosinophils 0.6 0.0 - 0.7 10e3/uL 08/15/2022 6:19 AM CDT [facility] LABORATORY Absolute Basophils 0.1 0.0 - 0.2 10e3/uL 08/15/2022 6:19 AM CDT [facility] LABORATORY Absolute Immature Granulocytes 0.1 <=0.4 10e3/uL 08/15/2022 6:19 AM CDT [facility] LABORATORY Absolute NRBCs 0.0 10e3/uL 08/15/2022 6:19 AM CDT [facility] LABORATORY Blood STRUCTURE OF LEFT UPPER LIMB / Unknown Venipuncture / Unknown 08/15/2022 5:58 AM CDT 08/15/2022 6:13 AM CDT Vishal Smith MD, MD LAB - BLOOD ORDERA BLES LABORATORY [facility] Lab [address] Lab (1st floor, no room number) [place] [address], [facility] [phone] * (ABNORMAL) Basic metabolic panel (08/15/2022 5:58 AM CDT) [facility] Sodium 139 136 - 145 mmol/L 08/15/2022 6:37 AM CDT LABORATORY Potassium 3.2(L) 3.4 - 5.3 mmol/L 08/15/2022 6:37 AM CDT LABORATORY Chloride 99 98 - 107 mmol/L 08/15/2022 6:37 AM CDT LABORATORY Carbon Dioxide (CO2) 30(H) 22 - 29 mmol/L 08/15/2022 6:37 AM CDT LABORATORY Anion Gap 10 7 - 15 mmol/L 08/15/2022 6:37 AM CDT LABORATORY Urea Nitrogen 18.6 6.0 - 20.0 mg/dL 08/15/2022 6:37 AM CDT LABORATORY Creatinine 0.73 0.67 - 1.17 mg/dL 08/15/2022 6:37 AM CDT LABORATORY Calcium 8.8 8.6 - 10.0 mg/dL 08/15/2022 6:37 AM CDT LABORATORY Glucose 95 70 - 99 mg/dL 08/15/2022 6:37 AM CDT LABORATORY GFR Estimate >90 >60 mL/min/1.7 3m2 08/15/2022 6:37 AM CDT LABORATORY Blood STRUCTURE OF LEFT UPPER LIMB / Unknown Venipuncture / Unknown 08/15/2022 5:58 AM CDT 08/15/2022 6:13 AM CDT Vishal Smith MD, MD LAB - BLOOD ORDERA BLES LABORATORY [facility] Lab [address] Lab (1st floor, no room number) [place] [phone], [facility] [phone] * (ABNORMAL) Potassium (08/15/2022 3:49 AM CDT) Potassium 3.2(L) 3.4 - 5.3 mmol/L 08/15/2022 4:22 AM CDT [facility] LABORATORY Blood STRUCTURE OF LEFT UPPER LIMB / Unknown Venipuncture / Unknown 08/15/2022 3:49 AM CDT 08/15/2022 4:02 AM CDT Anatoliy Bryson DO LAB - BLOOD ORDERABL ES [facility] [address] Lab (1st floor, no room number) [place] [phone], [facility] [phone] * (ABNORMAL) Hemoglobin (08/15/2022 3:49 AM CDT) Hemoglobin 8.6(L) 13.3 - 17.7 g/dL 08/15/2022 4:04 AM CDT [facility] LABORATORY Blood STRUCTURE OF LEFT UPPER LIMB / Unknown Venipuncture / Unknown 08/15/2022 3:49 AM CDT 08/15/2022 4:02 AM CDT Vishal Smith MD, MD LAB - BLOOD ORDERA BLES [facility] [address] Lab (1st floor, no room number) [place] [address], [facility] [phone] * (ABNORMAL) Hemoglobin (08/14/2022 1:57 PM CDT) Hemoglobin 9.1(L) 13.3 - 17.7 g/dL 08/14/2022 2:12 PM CDT [facility] LABORATORY Blood STRUCTURE OF LEFT UPPER LIMB / Unknown Venipuncture / Unknown 08/14/2022 1:57 PM CDT 08/14/2022 2:07 PM CDT Vishal Smith MD, MD LAB - BLOOD ORDERA BLES LABORATORY [facility] [address] Lab (1st floor, no room number) [place] [address], [facility] [phone] * Asymptomatic COVID-19 Virus (Coronavirus) by PCR Nasopharyngeal (08/14/2022 1:31 PM CDT) Pathologist [facility] SARS CoV2 PCR Negative Negative 08/14/2022 2:09 PM CDT LABORATORY Comment:NEGATIVE: SARS-CoV-2 (COVID-19) RNA not detected, presumed negative. Swab NASOPHARYNGEAL STRUCTURE / Unknown Non-blood Collection / Unknown 08/14/2022 1:31 PM CDT 08/14/2022 1:47 PM CDT Narrative LABORATORY - 08/14/2022 2:09 PM CDT Testing was performed using the Xpert Xpress SARS-CoV-2 Assay on the [employer]. Additional information about this Emergency Use Authorization (EUA) assay can be found via the Lab Guide. This test should be ordered for the detection of SARS-CoV-2 in individuals who meet SARS-CoV-2 clinical and/or epidemiological criteria as well as from individuals without symptoms or other reasons to suspect COVID-19. Test performance for asymptomatic patients has only been established in anterior nasal swab specimens. This test is for in vitro diagnostic use under the FDA EUA for laboratories certified under CLIA to perform high complexity testing. This test has not been FDA cleared or approved. A negative result does not rule out the presence of PCR inhibitors in the specimen or target RNA concentration below the limit of detection for the assay. The possibility of a false negative should be considered if the patient's recent exposure or clinical presentation suggests COVID-19. This test was validated by the [facility]. This laboratory is certified under the Clinical Laboratory Improvement Amendments (CLIA) as qualified to perform high complexity laboratory testing. Vishal Smith MD, MD LAB - MICRO GENERA L ORDERABLES [facility] Lab [address] [facility] Lab (1st floor, no room number) [place] [address], [facility] [phone] * Abd/pelvis CT, IV contrast only TRAUMA / AAA (08/14/2022 3:11 AM CDT) Anatomical Region Laterality Modality Abdomen/Pelvis, SUBRAD CT JEFF DY, UMP CT ABDOMEN PELVIS, RAD CT Computed Tomography 08/14/2022 3:11 AM CDT Impressions 08/14/2022 4:00 AM CDT IMPRESSION: 1. ??Postoperative changes in the abdomen and pelvis, with foci of gas, more apparent in the pelvis. Sigmoid anastomotic christy with adjacent foci of soft tissue gas and a small mesenteric hematoma, without ongoing active extravasation. 2. ??Asymmetric gas and fluid distended small bowel loops to the level of the anastomotic christy in the left lower quadrant, representing partial mechanical small bowel obstruction. Stomach is distended with fluid and gas. Surgical drain in the pelvis seen previously has been removed. 3. ??Diffusely fatty infiltrated moderately enlarged liver without discrete lesion, calcified gallstones or biliary dilatation. 4. ??Postoperative changes of recent surgery with foci of soft tissue gas in the body wall. Foci of linear density in the subcutaneous fat likely representing laparoscopic access ports. Mild degenerative changes involving the spine and joints of the pelvis. Narrative 08/14/2022 4:00 AM CDT EXAM: CT ABDOMEN PELVIS W CONTRAST LOCATION: [facility] DATE: 08/14/2022 INDICATION: Recent complicated surgery for colovesicular fistula. Fever, abdominal distention. Concern for ileus versus obstruction. Patient also had abscess recently drained. COMPARISON: CT pelvis cystogram 08/11/2022. TECHNIQUE: CT scan of the abdomen and pelvis was performed following injection of IV contrast. Multiplanar reformats were obtained. Dose reduction techniques were used. CONTRAST: 99 mL Isovue 370. FINDINGS: LOWER CHEST: Slight dependent atelectasis in the posterior costophrenic angles. No pleural effusion on either side. Normal cardiac size. No pericardial effusion. HEPATOBILIARY: Diffusely fatty infiltrated moderately enlarged liver, length of the right lobe measures approximately 20 cm (image 58, series 5). No discrete lesion, calcified gallstones or biliary dilatation. Patent hepatic and portal veins. PANCREAS: Normal. SPLEEN: Normal. ADRENAL GLANDS: Normal. KIDNEYS/BLADDER: No urinary tract calculi. Minor cortical simple cyst in each kidney, no specific follow-up required. Both kidneys are well perfused without hydronephrosis or hydroureter. Partially distended normal urinary bladder. BOWEL: Postoperative changes in the abdomen and pelvis. Foci of soft tissue gas in the abdomen and pelvis, likely on a postoperative basis. Sigmoid anastomotic christy with adjacent soft tissue gas and a small mesenteric hematoma measuring 3.2 x 2.0 cm (image 186, series 4; image 73, series 7; image 64, series 5). No ongoing active extravasation. Several loops of small bowel are asymmetrically distended to the level of the anastomotic christy in the left lower quadrant (images 25-45, series 5; image 164, series 4; image 92, series 7), representing partial mechanical small bowel obstruction. Stomach is distended with fluid and gas. Surgical drain in the pelvis seen previously has been removed. LYMPH NODES: No suspicious abdominopelvic adenopathy. VASCULATURE: Atherosclerotic normal caliber distal abdominal aorta measuring 1.9 x 1.9 cm (image 120, series 4). Normal caliber IVC. PELVIC ORGANS: Anastomotic christy in the mid/distal sigmoid with adjacent small foci of gas and a small mesenteric hematoma without ongoing active extravasation. Asymmetric gas and fluid distended small bowel loops to the level of the anastomotic christy in the left lower quadrant representing partial mechanical obstruction. MUSCULOSKELETAL: Postoperative changes of recent surgery with foci of soft tissue gas in the body wall. Foci of linear density in the subcutaneous fat likely representing laparoscopic access ports. Mild degenerative changes involving the spine and joints of the pelvis. Procedure Note Torsten Williamson MD - 08/14/2022 EXAM: CT ABDOMEN PELVIS W CONTRAST LOCATION: [facility] DATE: 08/14/2022 INDICATION: Recent complicated surgery for colovesicular fistula. Fever,abdominal distention. Concern for ileus versus obstruction. Patient alsohad abscess recently drained. COMPARISON: CT pelvis cystogram 08/11/2022. TECHNIQUE: CT scan of the abdomen and pelvis was performed followinginjection of IV contrast. Multiplanar reformats were obtained. Dosereduction techniques were used. CONTRAST: 99 mL Isovue 370. FINDINGS: LOWER CHEST: Slight dependent atelectasis in the posterior costophrenicangles. No pleural effusion on either side. Normal cardiac size. Nopericardial effusion. HEPATOBILIARY: Diffusely fatty infiltrated moderately enlarged liver,length of the right lobe measures approximately 20 cm (image 58, series5). No discrete lesion, calcified gallstones or biliary dilatation. Patenthepatic and portal veins. PANCREAS: Normal. SPLEEN: Normal. ADRENAL GLANDS: Normal. KIDNEYS/BLADDER: No urinary tract calculi. Minor cortical simple cyst ineach kidney, no specific follow-up required. Both kidneys are wellperfused without hydronephrosis or hydroureter. Partially distended normalurinary bladder. BOWEL: Postoperative changes in the abdomen and pelvis. Foci of softtissue gas in the abdomen and pelvis, likely on a postoperative basis.Sigmoid anastomotic christy with adjacent soft tissue gas and a smallmesenteric hematoma measuring 3.2 x 2.0 cm (image 186, series 4; image 73, series 7; image 64, series 5). No ongoingactive extravasation. Several loops of small bowel are asymmetricallydistended to the level of the anastomotic christy in the left lowerquadrant (images 25-45, series 5; image 164, series 4; image 92, series 7), representing partial mechanical smallbowel obstruction. Stomach is distended with fluid and gas. Surgical drainin the pelvis seen previously has been removed. LYMPH NODES: No suspicious abdominopelvic adenopathy. VASCULATURE: Atherosclerotic normal caliber distal abdominal aortameasuring 1.9 x 1.9 cm (image 120, series 4). Normal caliber IVC. PELVIC ORGANS: Anastomotic christy in the mid/distal sigmoid with adjacentsmall foci of gas and a small mesenteric hematoma without ongoing activeextravasation. Asymmetric gas and fluid distended small bowel loops to thelevel of the anastomotic christy in the left lower quadrant representing partial mechanicalobstruction. MUSCULOSKELETAL: Postoperative changes of recent surgery with foci of softtissue gas in the body wall. Foci of linear density in the subcutaneousfat likely representing laparoscopic access ports. Mild degenerativechanges involving the spine and joints of the pelvis. IMPRESSION: 1. Postoperative changes in the abdomen and pelvis, with foci of gas,more apparent in the pelvis. Sigmoid anastomotic christy with adjacentfoci of soft tissue gas and a small mesenteric hematoma, without ongoingactive extravasation. 2. Asymmetric gas and fluid distended small bowel loops to the level ofthe anastomotic christy in the left lower quadrant, representing partialmechanical small bowel obstruction. Stomach is distended with fluid andgas. Surgical drain in the pelvis seen previously has been removed. 3. Diffusely fatty infiltrated moderately enlarged liver without discretelesion, calcified gallstones or biliary dilatation. 4. Postoperative changes of recent surgery with foci of soft tissue gasin the body wall. Foci of linear density in the subcutaneous fat likelyrepresenting laparoscopic access ports. Mild degenerative changesinvolving the spine and joints of the pelvis. Mynor Bro MD IMG CT ORDERABLES * Blood Culture Arm, Left (08/14/2022 2:49 AM CDT) Culture No Growth 08/19/2022 5:16 AM CDT [facility] Blood STRUCTURE OF LEFT UPPER LIMB / Unknown Venipuncture / Unknown 08/14/2022 2:49 AM CDT 08/14/2022 2:53 AM CDT Mynor Bro MD LAB - MICRO GENERAL ORDERABLES [facility] Inf. Diseases Diag. Lab [address] [facility] [place] [address], [facility] [phone] * Lactic acid whole blood (08/14/2022 2:17 AM CDT) Lactic Acid 0.8 0.7 - 2.0 mmol/L 08/14/2022 2:32 AM CDT LABORATORY Blood BLOOD SPECIMEN / Unknown Venipuncture / Unknown 08/14/2022 2:17 AM CDT 08/14/2022 2:29 AM CDT Mynro Bro MD LAB - BLOOD ORDERABL [facility]AT[facility] Lab [address] [facility] Lab (1st floor, no room number) [place] [address], [facility] [phone] * Blood Culture Peripheral Blood (08/14/2022 2:17 AM CDT) Culture No Growth 08/19/2022 5:16 AM CDT [facility] Blood BLOOD SPECIMEN / Unknown Venipuncture / Unknown 08/14/2022 2:17 AM CDT 08/14/2022 2:34 AM CDT Mynor Bro MD LAB - MICRO GENERAL ORDERABLES [facility] Inf. Diseases Diag. Lab [address] [facility], [address] [place] [address], [facility] [phone] * Magnesium (08/14/2022 1:35 AM CDT) Magnesium 2.0 1.7 - 2.3 mg/dL 08/14/2022 4:29 PM CDT [facility] Blood BLOOD SPECIMEN / Unknown Venipuncture / Unknown 08/14/2022 1:35 AM CDT 08/14/2022 1:40 AM CDT Erick Silva DO LAB - BLOOD ORDERABL ES [facility] [address] Lab (1st floor, no room number) [place] [address], [facility] [phone] * Extra Red Top Tube (08/14/2022 1:35 AM CDT) Hold Specimen JIC 08/14/2022 2:46 AM CDT [facility] Blood STRUCTURE OF LEFT UPPER LIMB / Unknown Venipuncture / Unknown 08/14/2022 1:35 AM CDT 08/14/2022 1:40 AM CDT Mynor Bro MD LAB - BLOOD ORDERABL ES [facility] [address] Lab (1st floor, no room number) [place] [address], [facility] [phone] * Extra Blue Top Tube (08/14/2022 1:35 AM CDT) Hold Specimen JIC 08/14/2022 2:46 AM CDT [facility] Blood STRUCTURE OF LEFT UPPER LIMB / Unknown Venipuncture / Unknown 08/14/2022 1:35 AM CDT 08/14/2022 1:39 AM CDT Mynor Bro MD LAB - BLOOD ORDERABL ES [facility]AT[facility] [address] Lab (1st floor, no room number) [place] [address], [facility] [phone] * (ABNORMAL) CBC with platelets and differential (08/14/2022 1:35 AM CDT) [facility] Signature WBC Count 19.6(H) 4.0 - 11.0 10e3/uL 08/14/2022 1:45 AM CDT [facility] RBC Count 3.18(L) 4.40 - 5.90 10e6/uL 08/14/2022 1:45 AM CDT [facility] Hemoglobin 9.9(L) 13.3 - 17.7 g/dL 08/14/2022 1:45 AM CDT [facility] Hematocrit 29.3(L) 40.0 - 53.0 % 08/14/2022 1:45 AM CDT [facility] MCV 92 78 - 100 fL 08/14/2022 1:45 AM CDT [facility] MCH 31.1 26.5 - 33.0 pg 08/14/2022 1:45 AM CDT [facility] MCHC 33.8 31.5 - 36.5 g/dL 08/14/2022 1:45 AM CDT [facility] RDW 13.4 10.0 - 15.0 % 08/14/2022 1:45 AM CDT [facility] Platelet Count 407 150 - 450 10e3/uL 08/14/2022 1:45 AM CDT [facility] % Neutrophils 85 % 08/14/2022 1:45 AM CDT [facility] % Lymphocytes 6 % 08/14/2022 1:45 AM CDT [facility] % Monocytes 7 % 08/14/2022 1:45 AM CDT [facility] % Eosinophils 1 % 08/14/2022 1:45 AM CDT [facility] % Basophils 0 % 08/14/2022 1:45 AM CDT [facility] % Immature Granulocytes 1 % 08/14/2022 1:45 AM CDT [facility] NRBCs per 100 WBC 0 <1 /100 023 1:45 AM CDT [facility] Absolute Neutrophils 16.7(H) 1.6 - 8.3 10e3/uL 08/14/2022 1:45 AM CDT [facility] Absolute Lymphocytes 1.1 0.8 - 5.3 10e3/uL 08/14/2022 1:45 AM CDT [facility] Absolute Monocytes 1.4(H) 0.0 - 1.3 10e3/uL 08/14/2022 1:45 AM CDT [facility] Absolute Eosinophils 0.2 0.0 - 0.7 10e3/uL 08/14/2022 1:45 AM CDT [facility] Absolute Basophils 0.1 0.0 - 0.2 10e3/uL 08/14/2022 1:45 AM CDT [facility] Absolute Immature Granulocytes 0.1 <=0.4 10e3/uL 08/14/2022 1:45 AM CDT [facility] Absolute NRBCs 0.0 10e3/uL 08/14/2022 1:45 AM CDT [facility] Blood BLOOD SPECIMEN / Unknown Venipuncture / Unknown 08/14/2022 1:35 AM CDT 08/14/2022 1:39 AM CDT Mynor Bro MD LAB - BLOOD ORDERABL ES [facility] [address] Lab (1st floor, no room number) [place] [address], [facility] [phone] * (ABNORMAL) Comprehensive metabolic panel (08/14/2022 1:35 AM CDT) Sodium 136 136 - 145 mmol/L 08/14/2022 1:58 AM CDT [facility] Potassium 3.3(L) 3.4 - 5.3 mmol/L 08/14/2022 1:58 AM CDT [facility] Chloride 91(L) 98 - 107 mmol/L 08/14/2022 1:58 AM CDT [facility] Carbon Dioxide (CO2) 30(H) 22 - 29 mmol/L 08/14/2022 1:58 AM CDT [facility] Anion Gap 15 7 - 15 mmol/L 08/14/2022 1:58 AM CDT [facility] Urea Nitrogen 13.6 6.0 - 20.0 mg/dL 08/14/2022 1:58 AM CDT [facility] Creatinine 0.72 0.67 - 1.17 mg/dL 08/14/2022 1:58 AM CDT [facility] Calcium 9.6 8.6 - 10.0 mg/dL 08/14/2022 1:58 AM CDT [facility] Glucose 134(H) 70 - 99 mg/dL 08/14/2022 1:58 AM CDT [facility] Alkaline Phosphatase 51 40 - 129 U/L 08/14/2022 1:58 AM CDT [facility] AST 18 0 - 45 U/L 08/14/2022 1:58 AM CDT [facility] Comment:Reference intervals for this test were updated on 07/23/2022 to more accurately reflect our healthy population. There may be differences in the flagging of prior results with similar values performed with this method. Interpretation of those prior results can be made in the context of the updated reference intervals. ALT 15 0 - 70 U/L 08/14/2022 1:58 AM CDT [facility] Comment:Reference intervals for this test were updated on 07/23/2022 to more accurately reflect our healthy population. There may be differences in the flagging of prior results with similar values performed with this method. Interpretation of those prior results can be made in the context of the updated reference intervals. Protein Total 7.4 6.4 - 8.3 g/dL 08/14/2022 1:58 AM CDT [facility] Albumin 3.5 3.5 - 5.2 g/dL 08/14/2022 1:58 AM CDT [facility] Bilirubin Total 0.4 <=1.2 mg/dL 08/14/2022 1:58 AM CDT [facility] GFR Estimate >90 >60 mL/min/1. 73m2 08/14/2022 1:58 AM CDT [facility] Blood BLOOD SPECIMEN / Unknown Venipuncture / Unknown 08/14/2022 1:35 AM CDT 08/14/2022 1:40 AM CDT Mynor Bro MD LAB - BLOOD ORDERABL ES LAB[facility] [address] [facility] Lab (1st floor, no room number) [place] [address], [facility] [phone] documented in this encounter Visit Diagnoses Diagnosis Nausea and vomiting, unspecified vomiting type- Primary SBO (small bowel obstruction) (H) Unspecified intestinal obstruction Fever postop Postprocedural fever Nausea and vomiting, unspecified vomiting type Colovesical fistula Intestinovesical fistula Benign essential hypertension Essential hypertension, benign SBO (small bowel obstruction) (H) Unspecified intestinal obstruction Fever postop Postprocedural fever documented in this encounter Admitting Diagnoses Diagnosis Nausea and vomiting, unspecified vomiting type documented in this encounter Administered Medications Inactive Administered Medications - up to 3 most recent administrations Medication Order MAR Action Action Date Dose Rate Site 0.9% sodium chloride + KCl 20 mEq/L infusion at 0-100 mL/hr, Intravenous, CONTINUOUS, Titrate to Total fluids (IV + TPN): 100 mL/hr when TPN is started. Do not refrigerate., Starting on Sat08/15/22 at 1300, Until Sat08/19/22 at 1323 $New Bag 08/18/2022 3:13 PM CDT 70 mL/hr Rate/Dose Verify 08/18/2022 11:48 AM CDT 70 mL/ hr $New Bag 08/17/2022 10:12 PM CDT 70 mL/hr 0.9% sodium chloride BOLUS Intravenous, 1,000 mL, ONCE, at 1,000 mL/hr, Administer over 1 Hours, On Sat08/14/22 at 0210, For 1 dose $New Bag 08/14/2022 2:18 AM CDT 1,000 mLs 1000 mL/hr 0.9% sodium chloride BOLUS Intravenous, 1,000 mL, ONCE, at 250 mL/hr, Administer over 4 Hours, On Sat08/15/22 at 0830, For 1 dose $New Bag 08/15/2022 8:42 AM CDT 1,000 mLs 250 mL/hr 0.9% sodium chloride BOLUS Intravenous, 100 mL, ONCE, On Sat08/16/22 at 1200, For 1 dose $New Bag 08/16/2022 11:59 AM CDT 65 mLs ALPRAZolam (XANAX) tablet 0.5 mg 0.5 mg, Oral, DAILY PRN, anxiety, Starting on Sat08/14/22 at 1057, Avoid taking with grapefruit juice benzocaine 20% (HURRICAINE/TOPEX) 20 % spray 1 mL 1 mL (2 spray), Mouth/Throat, ONCE, On Sat08/14/22 at 0425, For 1 dose $Given 08/14/2022 4:24 AM CDT 1 mL benzocaine 20% (HURRICAINE/TOPEX) 20 % spray 1 mL 1 mL (2 spray), Mouth/Throat, ONCE, On Sat08/14/22 at 0745, For 1 dose $Given 08/14/2022 7:43 AM CDT 0.5 mLs dextrose 10% infusion Intravenous, CONTINUOUS PRN, low blood sugar, Starting on Sat08/16/22 at 1054, For hypoglycemia prevention for patients on long-acting subcutaneous basal insulin (Glargine, Degludec, Detemir, NPH) or continuous insulin infusion. Whenever nutrition support is held or interrupted: 1) Infuse IV D10W at nutrition support rate 2) Notify provider for further instructions HYDROmorphone (DILAUDID) injection 0.2 mg 0.2 mg, Intravenous, EVERY 2 HOURS PRN, moderate pain, IF patient cannot take oral opioid OR IF pain not managed with non-pharmacological, non-opioid, or oral opioid interventions if ordered, Starting on Sat08/14/22 at 0620, May use concomitant with non-opioid analgesics. $Given 08/14/2022 10:18 AM CDT 0.2 mg HYDROmorphone (DILAUDID) injection 0.2 mg 0.2 mg, Intravenous, EVERY 3 HOURS PRN, moderate pain, Starting on Sat08/14/22 at 1055 $Given 08/16/2022 4:14 PM CDT 0.2 mg $Given 08/16/2022 1:06 PM CDT 0.2 mg $Given 08/16/2022 9:59 AM CDT 0.2 mg HYDROmorphone (DILAUDID) injection 0.4 mg 0.4 mg, Intravenous, EVERY 3 HOURS PRN, severe pain, Starting on Sat08/14/22 at 1055 $Given 08/17/2022 2:18 PM CDT 0.4 mg $Given 08/17/2022 9:56 AM CDT 0.4 mg $Given 08/17/2022 4:16 AM CDT 0.4 mg HYDROmorphone (PF) (DILAUDID) injection 0.5 mg 0.5 mg, Intravenous, EVERY 1 HOUR PRN, severe pain, Starting on Sat08/14/22 at 0205 $Given 08/14/2022 4:07 AM CDT 0.5 mg $Given 08/14/2022 2:18 AM CDT 0.5 mg iohexol (OMNIPAQUE) 140 MG/ML solution for oral use 50 mL 50 mL, Oral, ONCE, On [facility] 08/16/22 at 1200, For 1 dose $Given 08/16/2022 12:00 PM CDT 50 mLs iopamidol (ISOVUE-370) solution 500 mL 500 mL, Intravenous, ONCE, On Sat08/14/22 at 0310, For 1 dose $Given 08/14/2022 3:07 AM CDT 99 mLs iopamidol (ISOVUE-370) solution 500 mL 500 mL, Intravenous, ONCE, On [facility] 08/16/22 at 1200, For 1 dose $Given 08/16/2022 11:59 AM CDT 100 mLs ketorolac (TORADOL) injection 15 mg 15 mg, Intravenous, ONCE, On Sat08/14/22 at 0400, For 1 dose, Can cause pain on injection. If ordered intravenously (IV) : administer through a running maintenance fluid over 1 minute followed by a flush. If patient complains of pain on injection, may dilute 15-30 mg in 5 mL and push over 1 to 2 minutes. $Given 08/14/2022 4:06 AM CDT 15 mg Lidocaine (LIDOCARE) 4 % Patch 1 patch 1 patch, Transdermal, EVERY 24 HOURS 1700, Administer over 12 Hours, First dose on Sat08/15/22 at 1700, Apply patch(s) to back pain. To prevent lidocaine toxicity, patient should be patch free for 12 hrs daily. Patches may be cut to smaller size prior to removing release liner. Reminder: Remove previous patch before applying new patch. NEVER APPLY HEAT OVER PATCH which increases absorption and may lead to local anesthetic toxicity. Do not apply over area where liposomal bupivacaine was injected for 96 hours post injection. $Patch/Med Applied 08/18/2022 10:06 PM CDT 1 patch Other (see comments) $Patch/Med Applied 08/17/2022 8:09 PM CDT 1 patch Other (see comments) $Patch/Med Applied 08/16/2022 7:39 PM CDT 1 patch Other (see comments) lidocaine (viscous) (XYLOCAINE) 2 % solution 5 mL 5 mL, Mouth/Throat, EVERY 2 HOURS PRN, sore throat, Starting on Sat08/14/22 at [address] First dose on Sat08/15/22 at 2200, Chart every shift, confirming that patch is still in place on patient (no barcode scan needed). See patch order for dose information. NEVER APPLY HEAT OVER PATCH which will increase absorption and may lead to risk of local anesthetic toxicity. Do not apply over area where liposomal bupivacaine injected for 96 hours. lipids plant base (CLINOLIPID) 20 % infusion 250 mL Intravenous, 250 mL, EVERY 24 HOURS, at 20.8 mL/hr, Administer over 12 Hours, First dose on Sat08/16/22 at 2000, Administer through a 1.2 micron filter. Requires container change and tubing change every 12 hours. $New Bag 08/17/2022 8:06 PM CDT 250 mLs 20.8 mL/hr $New Bag 08/16/2022 8:15 PM CDT 250 mLs 20.8 mL/hr LORazepam (ATIVAN) injection 0.5 mg 0.5 mg, Intravenous, EVERY 12 HOURS PRN, anxiety, Starting on Sat08/14/22 at 1247, This drug may cause significant respiratory depression. Monitor respiratory status and vital signs carefully for 1 hour after each dose. $Given 08/17/2022 6:43 AM CDT 0.5 mg $Given 08/16/2022 3:01 PM CDT 0.5 mg $Given 08/15/2022 8:37 PM CDT 0.5 mg melatonin tablet 1 mg 1 mg, Oral, AT BEDTIME PRN, sleep, Starting on Sat08/14/22 at 0620, Do not give unless at least 6 hours of uninterrupted sleep is expected. $Given 08/18/2022 10:08 PM CDT 1 mg $Given 08/17/2022 10:12 PM CDT 1 mg methocarbamol (ROBAXIN) injection 1,000 mg 1,000 mg, Intravenous, EVERY 8 HOURS, First dose on Sat08/14/22 at 1100, For 3 days, Do not refrigerate. $Given 08/17/2022 4:17 AM CDT 1,000 mg $Given 08/16/2022 7:33 PM CDT 1,000 mg $Given 08/16/2022 11:19 AM CDT 1,000 mg metoprolol (LOPRESSOR) injection 5 mg 5 mg, Intravenous, EVERY 6 HOURS, Administer over 5-10 Minutes, First dose on Sat08/14/22 at 1100 $Given 08/17/2022 10:00 AM CDT 5 mg $Given 08/17/2022 4:16 AM CDT 5 mg $Given 08/17/2022 12:23 AM CDT 5 mg metoprolol succinate ER (TOPROL XL) 24 hr tablet 25 mg 25 mg, Oral, DAILY, First dose on Sat08/17/22 at 1730, DO NOT CRUSH. Tablet may be split in half along score line. $Given 08/19/2022 8:03 AM CDT 25 mg $Given 08/18/2022 10:46 AM CDT 25 mg $Given 08/17/2022 5:23 PM CDT 25 mg naloxone (NARCAN) injection 0.2 mg 0.2 mg, Intravenous, EVERY 2 MIN PRN, opioid reversal, Starting on Sat08/14/22 at 1115, Administer intravenous route when available and notify provider when administered. For unintended sedation or respiratory depression if all of the below criteria are met: ~ respiratory rate LESS than or EQUAL to 8. ~SaO2 less than 92% and or/end-tidal CO2 is greater than 50. ~ the patient is receiving an opioid, has unintended sedations assessed as RASS (-3), and is currently not on mechanical ventilation. RASS scale moderate (-3) is movement or eye opening to voice but no eye contact. Patient Monitoring Once the patient has demonstrated a response to the naloxone, continue to monitor respiratory rate, depth, oxygen saturation and end-tidal CO2 (if available) every 15 minutes x 2, then every 30 minutes x 2, then every 1 hour x 1 after each naloxone dose. Consider transfer to ICU if patient respiratory parameters have not improved after 4 naloxone doses. naloxone (NARCAN) injection 0.2 mg 0.2 mg, Intramuscular, EVERY 2 MIN PRN, opioid reversal, Starting on Sat08/14/22 at 1115, Administer intramuscular if an intravenous route is not available and notify provider when administered. For unintended sedation or respiratory depression if all of the below criteria are met: ~ respiratory rate LESS than or EQUAL to 8. ~SaO2 less than 92% and or/end-tidal CO2 is greater than 50. ~ the patient is receiving an opioid, has unintended sedations assessed as RASS (-3), and is currently not on mechanical ventilation. RASS scale moderate (-3) is movement or eye opening to voice but no eye contact. Patient Monitoring Once the patient has demonstrated a response to the naloxone, continue to monitor respiratory rate, depth, oxygen saturation and end-tidal CO2 (if available) every 15 minutes x 2, then every 30 minutes x 2, then every 1 hour x 1 after each naloxone dose. Consider transfer to ICU if patient respiratory parameters have not improved after 4 naloxone doses. naloxone (NARCAN) injection 0.4 mg 0.4 mg, Intravenous, EVERY 2 MIN PRN, opioid reversal, Starting on Sat08/14/22 at 1115, Administer intravenous route when available and notify provider when administered. For unintended sedation or respiratory depression if all of the below criteria are met: ~ respiratory rate LESS than or EQUAL to 8. ~ SaO2 less than 92% and or/end-tidal CO2 is greater than 50. ~ the patient is receiving an opioid, has unintended sedation assessed as RASS (-4) or (-5) and patient is currently not on mechanical ventilation. RASS scale (-4) is deep sedation with no response to voice but movement or eye opening to physical stimulation. RASS scale (-5) is unarousable. Patient Monitoring Once the patient has demonstrated a response to the naloxone, continue to monitor respiratory rate, depth, oxygen saturation and end-tidal CO2 (if available) every 15 minutes x 2, then every 30 minutes x 2, then every 1 hour x 1 after each naloxone dose. Consider transfer to ICU if patient respiratory parameters have not improved after 4 naloxone doses. naloxone (NARCAN) injection 0.4 mg 0.4 mg, Intramuscular, EVERY 2 MIN PRN, opioid reversal, Starting on Sat08/14/22 at 1115, Administer intramuscular if an intravenous route is not available and notify provider when administered. For unintended sedation or respiratory depression if all of the below criteria are met: ~ respiratory rate LESS than or EQUAL to 8. ~ SaO2 less than 92% and or/end-tidal CO2 is greater than 50. ~ the patient is receiving an opioid, has unintended sedation assessed as RASS (-4) or (-5) and patient is currently not on mechanical ventilation. RASS scale (-4) is deep sedation with no response to voice but movement or eye opening to physical stimulation. RASS scale (-5) is unarousable. Patient Monitoring Once the patient has demonstrated a response to the naloxone, continue to monitor respiratory rate, depth, oxygen saturation and end-tidal CO2 (if available) every 15 minutes x 2, then every 30 minutes x 2, then every 1 hour x 1 after each naloxone dose. Consider transfer to ICU if patient respiratory parameters have not improved after 4 naloxone doses. nicotine (NICODERM CQ) 21 MG/24HR 24 hr patch 1 patch 1 patch, Transdermal, DAILY, Administer over 24 Hours, First dose on Sat08/14/22 at 1200, Reminder: Remove previous patch before applying new patch. $Patch/Med Applied 08/19/2022 5:44 AM CDT 1 patch Left Arm $Patch/Med Applied 08/18/2022 10:47 AM CDT 1 patch Right Arm $Patch/Med Applied 08/17/2022 10:01 AM CDT 1 patch Right Shoulder nicotine (NICODERM CQ) 7 MG/24HR 24 hr patch 1 patch 1 patch, Transdermal, DAILY, Administer over 24 Hours, First dose on Sat08/14/22 at 1100, Reminder: Remove previous patch before applying new patch. $Patch/Med Applied 08/14/2022 11:37 AM CDT 1 patch Left Shoulder nicotine Patch in Place First dose on Sat08/14/22 at 1200, Chart every shift, confirming that patch is still in place on patient (no barcode scan needed). See patch order for dose information. ondansetron (ZOFRAN ODT) ODT tab 4 mg 4 mg, Oral, EVERY 6 HOURS PRN, nausea, vomiting, Starting on Sat08/14/22 at 0620, This is Step 1 of nausea and vomiting management. If nausea not resolved in 15 minutes, go to Step 2 prochlorperazine (COMPAZINE). With dry hands, peel back foil backing and gently remove tablet. Do not push oral disintegrating tablet through foil backing. Administer immediately on tongue and oral disintegrating tablet dissolves in seconds, then swallow with saliva. Liquid not required. ondansetron (ZOFRAN) injection 4 mg 4 mg, Intravenous, ONCE, Administer over 2-5 Minutes, On Sat08/14/22 at 0210, For 1 dose, Irritant. $Given 08/14/2022 2:18 AM CDT 4 mg ondansetron (ZOFRAN) injection 4 mg 4 mg, Intravenous, EVERY 6 HOURS PRN, nausea, vomiting, Administer over 2-5 Minutes, Starting on Sat08/14/22 at 0620, Give IF patient unable to tolerate oral medication. This is Step 1 of nausea and vomiting management. If nausea not resolved in 15 minutes, go to Step 2 prochlorperazine (COMPAZINE). Irritant. $Given 08/16/2022 2:56 PM CDT 4 mg $Given 08/15/2022 4:46 PM CDT 4 mg oxyCODONE (ROXICODONE) tablet 5 mg 5 mg, Oral, EVERY 4 HOURS PRN, moderate pain, Starting on Sat08/17/22 at 2155 $Given 08/18/2022 10:07 PM CDT 5 mg $Given 08/17/2022 10:12 PM CDT 5 mg pantoprazole (PROTONIX) IV push injection 40 mg 40 mg, Intravenous, EVERY 24 HOURS, First dose (after last modification) on Sat08/14/22 at 1400, Irritant. $Given 08/18/2022 1:35 PM CDT 40 mg $Given 08/17/2022 2:18 PM CDT 40 mg $Given 08/16/2022 1:05 PM CDT 40 mg parenteral nutrition - Clinimix E CENTRAL LINE IV, at 30 mL/hr, Administer over 24 Hours, TPN CONTINUOUS, Starting on Sat08/16/22 at 2000, For 24 hours, Infuse using a 0.22 micron filter. Nurse Instructions: When TPN is discontinued, decrease rate to ?? of current rate for 1 hour. Rate/Dose Verify 08/17/2022 10:14 AM CDT 30 mL/hr $New Bag 08/16/2022 8:08 PM CDT 30 mL/hr parenteral nutrition - Clinimix E CENTRAL LINE IV, at 60 mL/hr, Administer over 24 Hours, TPN CONTINUOUS, Starting on Sat08/17/22 at 2000, For 24 hours, Infuse using a 0.22 micron filter. Nurse Instructions: When TPN is discontinued, decrease rate to ?? of current rate for 1 hour. $New Bag 08/17/2022 8:06 PM CDT 30 mL/ hr parenteral nutrition - Clinimix E CENTRAL LINE IV, at 60 mL/hr, Administer over 24 Hours, TPN CONTINUOUS, Starting on Sat08/18/22 at 2000, For 24 hours, Infuse using a 0.22 micron filter. Nurse Instructions: When TPN is discontinued, decrease rate to ?? of current rate for 1 hour. Total fluids: 100 mL/hr or per phenol (CHLORASEPTIC) 1.4 % spray 1 mL 1 mL (1 spray), Mouth/Throat, EVERY 1 HOUR PRN, sore throat, Starting on Sat08/14/22 at 1100 $Given 08/15/2022 4:51 PM CDT 1 mL $Given 08/15/2022 3:59 PM CDT 1 mL $Given 08/15/2022 11:55 AM CDT 1 mL piperacillin-tazobactam (ZOSYN) intermittent infusion 3.375 g Routine, 3.375 g, Intravenous, EVERY 6 HOURS, First dose on Sat08/14/22 at 0630, Indications: Intra-Abdominal Infection $New Bag 08/19/2022 5:38 AM CDT 3.375 g 100 m L/hr $New Bag 08/19/2022 12:40 AM CDT 3.375 g 100 mL/hr $New Bag 08/18/2022 6:17 PM CDT 3.375 g 100 mL/hr potassium chloride (KLOR-CON) Packet 40 mEq 40 mEq, Oral or Feeding Tube, ONCE, On Sat08/17/22 at 1030, For 1 dose, Potassium level 3.1 - 3.4 mmol/L Ordered from the Potassium replacement order set. Dissolve packet contents in 4-8 ounces of cold water or juice., Potassium Replacement: Potassium level 3.1-3.4 mmol/L, Recheck: Potassium level 4 hours AFTER last oral or feeding tube dose $Given 08/17/2022 11:49 AM CDT 40 mEq potassium chloride 10 mEq in 100 mL sterile water infusion 10 mEq, Intravenous, Administer over 60 Minutes, at 100 mL/hr, ONCE, On Sat08/14/22 at 0625, For 1 dose $New Bag 08/14/2022 6:37 AM CDT 10 mEq 100 mL/hr potassium chloride 10 mEq in 100 mL sterile water infusion 10 mEq, Intravenous, Administer over 60 Minutes, at 100 mL/hr, EVERY HOUR, First dose on Sat08/14/22 at 1800, For 4 doses, Infuse via PERIPHERAL or CENTRAL LINE. Potassium level 3.1 - 3.4 mmol/L Administer 10 mEq potassium chloride IV x 4 doses and recheck potassium level 1-2 hours after last IV dose. Ordered from the Potassium replacement order set. $New Bag 08/14/2022 10:36 PM CDT 10 mEq 100 mL/hr $New Bag 08/14/2022 9:24 PM CDT 10 mEq 100 mL/hr $New 08/14/2022 8:12 PM CDT 10 mEq 100 mL/hr potassium chloride 10 mEq in 100 mL sterile water infusion 10 mEq, Intravenous, Administer over 60 Minutes, at 100 mL/hr, EVERY HOUR, First dose on Sat08/15/22 at 1300, For 4 doses $New Bag 08/15/2022 7:46 PM CDT 10 mEq 100 mL/hr $New Bag 08/15/2022 5:36 PM CDT 10 mEq 100 mL/hr $New 08/15/2022 3:58 PM CDT 10 mEq 100 mL/hr potassium chloride ER (KLOR-CON M) CR tablet 40 mEq 40 mEq, Oral, ONCE, On Sat08/15/22 at 0530, For 1 dose, Potassium level 3.1 - 3.4 mmol/L Ordered from the Potassium replacement order set. DO NOT CRUSH, Potassium Replacement: Potassium level 3.1-3.4 mmol/L, Recheck: Potassium level 4 hours AFTER last oral dose $Given 08/15/2022 6:08 AM CDT 40 mEq prochlorperazine (COMPAZINE) injection 10 mg 10 mg, Intravenous, EVERY 6 HOURS PRN, nausea, vomiting, Administer over 1-2 Minutes, Starting on Sat08/14/22 at 0620, IF patient unable to tolerate oral medication. This is Step 2 of nausea and vomiting management. Give if nausea not resolved 15 minutes after giving ondansetron (ZOFRAN). prochlorperazine (COMPAZINE) suppository 25 mg 25 mg, Rectal, EVERY 12 HOURS PRN, nausea, vomiting, Starting on Sat08/14/22 at 0620, This is Step 2 of nausea and vomiting management. Give if nausea not resolved 15 minutes after giving ondansetron (ZOFRAN). prochlorperazine (COMPAZINE) tablet 10 mg 10 mg, Oral, EVERY 6 HOURS PRN, vomiting, Starting on Sat08/14/22 at 0620, This is Step 2 of nausea and vomiting management. Give if nausea not resolved 15 minutes after giving ondansetron (ZOFRAN). sodium chloride (PF) 0.9% PF flush 10-40 mL 10-40 mL, Intracatheter, ONCE PRN, line flush, to flush each lumen with line placement, Starting on Donna 08/16/22 at 1053, For 1 dose, MAX: 10 mL per lumen. May repeat x 1 sodium chloride (PF) 0.9% PF flush 100 mL 100 mL, Intravenous, ONCE, On Sat08/14/22 at 0310, For 1 dose $Given 08/14/2022 3:07 AM CDT 65 mLs sodium chloride (PF) 0.9% PF flush 3 mL 3 mL, Intracatheter, EVERY 8 HOURS, First dose on Sat08/14/22 at 0625, to lock peripheral IV dormant line $Given 08/17/2022 2:18 PM CDT 3 mLs $Given 08/16/2022 9:16 PM CDT 3 mLs $Given 08/16/2022 2:56 PM CDT 3 mLs sodium chloride (PF) 0.9% PF flush 3 mL 3 mL, Intracatheter, EVERY 1 MIN PRN, line flush, other, to ensure patency or to lock dormant line, Starting on Sat08/14/22 at 0620 $Given 08/16/2022 5:32 AM CDT 3 mLs $Given 08/16/2022 3:15 AM CDT 3 mLs $Given 08/15/2022 8:48 PM CDT 3 mLs sodium chloride 0.9% infusion at 100 mL/hr, Intravenous, CONTINUOUS, Starting on Sat08/14/22 at 0625, Until Sat08/15/22 at 1244 $New Bag 08/14/2022 10:23 AM CDT 100 mL/hr documented in this encounter Active and Recently Administered Medications Times are shown in CDT. Scheduled Medication Order 08/17/2022 08/18/2022 08/19/2022 Lidocaine (LIDOCARE) 4 % Patch 1 patch(Linked Group 1) 1 patch, Transdermal, EVERY 24 HOURS 1700, Administer over 12 Hours, First dose on Sat08/15/22 at 1700, Apply patch(s) to back pain. To prevent lidocaine toxicity, patient should be patch free for 12 hrs daily. Patches may be cut to smaller size prior to removing release liner. Reminder: Remove previous patch before applying new patch. NEVER APPLY HEAT OVER PATCH which increases absorption and may lead to local anesthetic toxicity. Do not apply over area where liposomal bupivacaine was injected for 96 hours post injection. 0957 (Patch/Med Removed - Provider: Ana Tony RN)2008 ($Patch/Med Applied - Provider: Jeanne Hall RN - Comment: back) 0809 (Patch/Med Removed - Provider: Ana Tony RN)2205 ($Patch/Med Applied - Provider: Jeanne Hall RN - Comment: back) 0950 (Patch/Med Removed - Provider: Perri Linda RN) lidocaine patch in PLACE(Linked Group 1) First dose on Sat08/15/22 at 2200, Chart every shift, confirming that patch is still in place on patient (no barcode scan needed). See patch order for dose information. NEVER APPLY HEAT OVER PATCH which will increase absorption and may lead to risk of local anesthetic toxicity. Do not apply over area where liposomal bupivacaine injected for 96 hours. 0556 (Patch in Place - Provider: Edwar Flores RN)1304 (Patch in Place - Provider: Ana Tony RN)2127 (Patch in Place - Provider: Jeanne Hall RN) 0600 (Patch in Place - Provider: Jeanne Hall RN)1335 (Patch Free Period - Provider: Ana Tony RN - Comment: pt took off this morning)2208 (Patch in Place - Provider: Jeanne Hall RN) 0532 (Patch in Place - Provider: Jeanne Hall RN) lipids plant base (CLINOLIPID) 20 % infusion 250 mL (CANCELED) Intravenous, 250 mL, EVERY 24 HOURS, at 20.8 mL/hr, Administer over 12 Hours, First dose on Sat08/16/22 at 2000, Administer through a 1.2 micron filter. Requires container change and tubing change every 12 hours. 2005 ($New Bag - Provider: Jeanne Hall RN) methocarbamol (ROBAXIN) injection 1,000 mg (COMPLETED) 1,000 mg, Intravenous, EVERY 8 HOURS, First dose on Sat08/14/22 at 1100, For 3 days, Do not refrigerate. 0417 ($Given - Provider: Edwar Flores RN) metoprolol (LOPRESSOR) injection 5 mg (CANCELED) 5 mg, Intravenous, EVERY 6 HOURS, Administer over 5-10 Minutes, First dose on Sat08/14/22 at 1100 0023 ($Given - Provider: Edwar Flores RN)0416 ($Given - Provider: Edwar Flores RN)1000 ($Given - Provider: Ana Tony RN)1729 (Canceled Entry - Provider: Jeanne Hall RN) metoprolol succinate ER (TOPROL XL) 24 hr tablet 25 mg 25 mg, Oral, DAILY, First dose on Sat08/17/22 at 1730, DO NOT CRUSH. Tablet may be split in half along score line. 1723 ($Given - Provider: Jeanne Hall RN) 1046 ($Given - Provider: Ana Tony, ELIAN) 0803 ($Given - Provider: Perri Linda RN) nicotine (NICODERM CQ) 21 MG/24HR 24 hr patch 1 patch 1 patch, Transdermal, DAILY, Administer over 24 Hours, First dose on Sat08/14/22 at 1200, Reminder: Remove previous patch before applying new patch. 0849 (Patch/Med Removed - Provider: Ana Tony RN)1001 ($Patch/Med Applied - Provider: Ana Tony RN) 0849 (Patch/Med Removed - Provider: Ana Tony RN)1047 ($Patch/Med Applied - Provider: Ana Tony RN) 0544 ($Patch/Med Applied - Provider: Jeanne Hall RN)0804 (Not Given - Provider: Perri Linda RN - Reason: Other - Comment: New patch in place)0859 (Canceled Entry - Provider: Jeanne Hall RN) nicotine Patch in Place First dose on Sat08/14/22 at 1200, Chart every shift, confirming that patch is still in place on patient (no barcode scan needed). See patch order for dose information. 0417 (Patch in Place - Provider: Edwar Flores RN)1149 (Patch in Place - Provider: Ana Tony RN)2000 (Patch in Place - Provider: Jeanne Hall RN) 0400 (Patch in Place - Provider: Jeanne Hall RN)1147 (Patch in Place - Provider: Ana Tony RN)2208 (Patch in Place - Provider: Jeanne Hall RN) 0532 (Patch Free Period - Provider: Jeanne Hall RN)1200 (Canceled Entry - Provider: Orders Generic Provider - Comment: Automatically canceled at discontinue of medication order) pantoprazole (PROTONIX) IV push injection 40 mg 40 mg, Intravenous, EVERY 24 HOURS, First dose (after last modification) on Sat08/14/22 at 1400, Irritant. 1418 ($Given - Provider: Ana Tony RN) 1335 ($Given - Provider: Ana Tony RN) piperacillin-tazobacta m (ZOSYN) intermittent infusion 3.375 g Routine, 3.375 g, Intravenous, EVERY 6 HOURS, First dose on Sat08/14/22 at 0630, Indications: Intra-Abdominal Infection 0023 ($New Bag - Provider: Edwar Flores RN)0553 ($New Bag - Provider: Edwar Flores RN)1149 ($New Bag - Provider: Ana Tony RN)1722 ($New Bag - Provider: Jeanne Hall, ELIAN)2321 ($New Bag - Provider: Jeanne Hall, RN) 0527 ($New Bag - Provider: Jeanne Hall, ELIAN)1147 ($New Bag - Provider: Ana Tony RN)1817 ($New Bag - Provider: Jeanne Hall RN) 0040 ($New Bag - Provider: Jeanne Hall, ELIAN)0538 ($New Bag - Provider: Jeanne Hall RN)1200 (Canceled Entry - Provider: Orders Generic Provider - Comment: Automatically canceled at discontinue of medication order) potassium chloride (KLOR-CON) Packet 40 mEq (COMPLETED) 40 mEq, Oral or Feeding Tube, ONCE, On Sat08/17/22 at 1030, For 1 dose, Potassium level 3.1 - 3.4 mmol/L Ordered from the Potassium replacement order set. Dissolve packet contents in 4-8 ounces of cold water or juice., Potassium Replacement: Potassium level 3.1-3.4 mmol/L, Recheck: Potassium level 4 hours AFTER last oral or feeding tube dose 1149 ($Given - Provider: Ana Tony RN) sodium chloride (PF) 0.9% PF flush 3 mL (CANCELED) 3 mL, Intracatheter, EVERY 8 HOURS, First dose on Sat08/14/22 at 0625, to lock peripheral IV dormant line 0556 (Not Given - Provider: Edwar Flores RN - Reason: IV Infusing)1418 ($Given - Provider: Ana Tony RN)2127 (Canceled Entry - Provider: Jeanne Hall RN) 0625 (Canceled Entry - Provider: Mason Gatica [facility] - Comment: Automatically canceled at discontinue of medication order) Continuous Medication Order 08/17/2022 08/18/2022 08/19/2022 0.9% sodium chloride + KCl 20 mEq/L infusion at 0-100 mL/hr, Intravenous, CONTINUOUS, Titrate to Total fluids (IV + TPN): 100 mL/hr when TPN is started. Do not refrigerate., Starting on Sat08/15/22 at 1300, Until Sat08/19/22 at 1323 1014 (Rate/Dose Change - Provider: Ana Tony RN)2212 ($New Bag - Provider: Jeanne Hall RN) 1148 (Rate/Dose Verify - Provider: Ana Tony RN)1513 ($New Bag - Provider: Ana Tony RN) parenteral nutrition - Clinimix E () CENTRAL LINE IV, at 30 mL/hr, Administer over 24 Hours, TPN CONTINUOUS, Starting on Donna 08/16/22 at 2000, For 24 hours, Infuse using a 0.22 micron filter. Nurse Instructions: When TPN is discontinued, decrease rate to ?? of current rate for 1 hour. 1014 (Rate/Dose Verify - Provider: Ana Tony RN) parenteral nutrition - Clinimix E () CENTRAL LINE IV, at 60 mL/hr, Administer over 24 Hours, TPN CONTINUOUS, Starting on Sat08/17/22 at 2000, For 24 hours, Infuse using a 0.22 micron filter. Nurse Instructions: When TPN is discontinued, decrease rate to ?? of current rate for 1 hour. 2005 ($New Bag - Provider: Jeanne Hall RN - Comment: pt refusing increased rate) parenteral nutrition - Clinimix E CENTRAL LINE IV, at 60 mL/hr, Administer over 24 Hours, TPN CONTINUOUS, Starting on 08/18/22 at 2000, For 24 hours, Infuse using a 0.22 micron filter. Nurse Instructions: When TPN is discontinued, decrease rate to ?? of current rate for 1 hour. Total fluids: 100 mL/hr or per 2216 (Not Given - Provider: Jeanne Hall RN - Reason: Other - Comment: Ok to be discontinued per Dr Dunne.) PRN Medication Order 08/17/2022 08/18/2022 08/19/2022 ALPRAZolam (XANAX) tablet 0.5 mg 0.5 mg, Oral, DAILY PRN, anxiety, Starting on Sat08/14/22 at 1057, Avoid taking with grapefruit juice dextrose 10% infusion Intravenous, CONTINUOUS PRN, low blood sugar, Starting on Sat08/16/22 at 1054, For hypoglycemia prevention for patients on long-acting subcutaneous basal insulin (Glargine, Degludec, Detemir, NPH) or continuous insulin infusion. Whenever nutrition support is held or interrupted: 1) Infuse IV D10W at nutrition support rate 2) Notify provider for further instructions HYDROmorphone (DILAUDID) injection 0.2 mg(Linked Group 2) 0.2 mg, Intravenous, EVERY 3 HOURS PRN, moderate pain, Starting on Sat08/14/22 at 1055 0029 (See Alternative - Provider: Edwar Flores RN)0416 (See Alternative - Provider: Edwar Flores RN)0956 (See Alternative - Provider: Ana Tony RN)1418 (See Alternative - Provider: Ana Tony RN) HYDROmorphone (DILAUDID) injection 0.4 mg(Linked Group 2) 0.4 mg, Intravenous, EVERY 3 HOURS PRN, severe pain, Starting on Sat08/14/22 at 1055 0029 ($Given - Provider: Edwar Flores RN)0416 ($Given - Provider: Edwar Flores RN)0956 ($Given - Provider: Ana Tony RN)1418 ($Given - Provider: Ana Tony RN) lidocaine (LMX4) cream Topical, EVERY 1 HOUR PRN, moderate pain, with PICC insertion, Starting on Sat08/16/22 at 1053, For 72 hours, Apply at least 30 minutes prior to PICC insertion in divided doses as needed for size of site for insertion. MAX Dose: 2.5 g (?? of 5 g tube). Do NOT give if patient has a history of allergy to any local anesthetic or any gray product. Do NOT use both lidocaine intradermal/subcutaneous injection and the lidocaine cream on the same site. lidocaine (viscous) (XYLOCAINE) 2 % solution 5 mL 5 mL, Mouth/Throat, EVERY 2 HOURS PRN, sore throat, Starting on Sat08/14/22 at 1059 lidocaine 1 % 0.1-5 mL 0.1-5 mL, Other, EVERY 1 HOUR PRN, local anesthetic for pain management with PICC insertion, Starting on Donna 08/16/22 at 1053, For 72 hours, Do NOT give if patient has a history of allergy to any local anesthetic or any gray product. MAX dose 5 mL subcutaneous OR intradermal in divided doses as needed for PICC insertion. Do NOT use both lidocaine intradermal/subcutaneous injection and the lidocaine cream on the same site. LORazepam (ATIVAN) injection 0.5 mg 0.5 mg, Intravenous, EVERY 12 HOURS PRN, anxiety, Starting on Sat08/14/22 at 1247, This drug may cause significant respiratory depression. Monitor respiratory status and vital signs carefully for 1 hour after each dose. 0643 ($Given - Provider: Edwar Flores, ELIAN) melatonin tablet 1 mg 1 mg, Oral, AT BEDTIME PRN, sleep, Starting on Sat08/14/22 at 0620, Do not give unless at least 6 hours of uninterrupted sleep is expected. 2212 ($Given - Provider: Jeanne Hall RN) 2208 ($Given - Provider: Jeanne Hall RN) naloxone (NARCAN) injection 0.2 mg(Linked Group 3) 0.2 mg, Intravenous, EVERY 2 MIN PRN, opioid reversal, Starting on Sat08/14/22 at 1115, Administer intravenous route when available and notify provider when administered. For unintended sedation or respiratory depression if all of the below criteria are met: ~ respiratory rate LESS than or EQUAL to 8. ~SaO2 less than 92% and or/end-tidal CO2 is greater than 50. ~ the patient is receiving an opioid, has unintended sedations assessed as RASS (-3), and is currently not on mechanical ventilation. RASS scale moderate (-3) is movement or eye opening to voice but no eye contact. Patient Monitoring Once the patient has demonstrated a response to the naloxone, continue to monitor respiratory rate, depth, oxygen saturation and end-tidal CO2 (if available) every 15 minutes x 2, then every 30 minutes x 2, then every 1 hour x 1 after each naloxone dose. Consider transfer to ICU if patient respiratory parameters have not improved after 4 naloxone doses. naloxone (NARCAN) injection 0.2 mg(Linked Group 3) 0.2 mg, Intramuscular, EVERY 2 MIN PRN, opioid reversal, Starting on Sat08/14/22 at 1115, Administer intramuscular if an intravenous route is not available and notify provider when administered. For unintended sedation or respiratory depression if all of the below criteria are met: ~ respiratory rate LESS than or EQUAL to 8. ~SaO2 less than 92% and or/end-tidal CO2 is greater than 50. ~ the patient is receiving an opioid, has unintended sedations assessed as RASS (-3), and is currently not on mechanical ventilation. RASS scale moderate (-3) is movement or eye opening to voice but no eye contact. Patient Monitoring Once the patient has demonstrated a response to the naloxone, continue to monitor respiratory rate, depth, oxygen saturation and end-tidal CO2 (if available) every 15 minutes x 2, then every 30 minutes x 2, then every 1 hour x 1 after each naloxone dose. Consider transfer to ICU if patient respiratory parameters have not improved after 4 naloxone doses. naloxone (NARCAN) injection 0.4 mg(Linked Group 3) 0.4 mg, Intravenous, EVERY 2 MIN PRN, opioid reversal, Starting on Sat08/14/22 at 1115, Administer intravenous route when available and notify provider when administered. For unintended sedation or respiratory depression if all of the below criteria are met: ~ respiratory rate LESS than or EQUAL to 8. ~ SaO2 less than 92% and or/end-tidal CO2 is greater than 50. ~ the patient is receiving an opioid, has unintended sedation assessed as RASS (-4) or (-5) and patient is currently not on mechanical ventilation. RASS scale (-4) is deep sedation with no response to voice but movement or eye opening to physical stimulation. RASS scale (-5) is unarousable. Patient Monitoring Once the patient has demonstrated a response to the naloxone, continue to monitor respiratory rate, depth, oxygen saturation and end-tidal CO2 (if available) every 15 minutes x 2, then every 30 minutes x 2, then every 1 hour x 1 after each naloxone dose. Consider transfer to ICU if patient respiratory parameters have not improved after 4 naloxone doses. naloxone (NARCAN) injection 0.4 mg(Linked Group 3) 0.4 mg, Intramuscular, EVERY 2 MIN PRN, opioid reversal, Starting on Sat08/14/22 at 1115, Administer intramuscular if an intravenous route is not available and notify provider when administered. For unintended sedation or respiratory depression if all of the below criteria are met: ~ respiratory rate LESS than or EQUAL to 8. ~ SaO2 less than 92% and or/end-tidal CO2 is greater than 50. ~ the patient is receiving an opioid, has unintended sedation assessed as RASS (-4) or (-5) and patient is currently not on mechanical ventilation. RASS scale (-4) is deep sedation with no response to voice but movement or eye opening to physical stimulation. RASS scale (-5) is unarousable. Patient Monitoring Once the patient has demonstrated a response to the naloxone, continue to monitor respiratory rate, depth, oxygen saturation and end-tidal CO2 (if available) every 15 minutes x 2, then every 30 minutes x 2, then every 1 hour x 1 after each naloxone dose. Consider transfer to ICU if patient respiratory parameters have not improved after 4 naloxone doses. ondansetron (ZOFRAN ODT) ODT tab 4 mg(Linked Group 4) 4 mg, Oral, EVERY 6 HOURS PRN, nausea, vomiting, Starting on Sat08/14/22 at 0620, This is Step 1 of nausea and vomiting management. If nausea not resolved in 15 minutes, go to Step 2 prochlorperazine (COMPAZINE). With dry hands, peel back foil backing and gently remove tablet. Do not push oral disintegrating tablet through foil backing. Administer immediately on tongue and oral disintegrating tablet dissolves in seconds, then swallow with saliva. Liquid not required. ondansetron (ZOFRAN) injection 4 mg(Linked Group 4) 4 mg, Intravenous, EVERY 6 HOURS PRN, nausea, vomiting, Administer over 2-5 Minutes, Starting on Sat08/14/22 at 0620, Give IF patient unable to tolerate oral medication. This is Step 1 of nausea and vomiting management. If nausea not resolved in 15 minutes, go to Step 2 prochlorperazine (COMPAZINE). Irritant. oxyCODONE (ROXICODONE) tablet 5 mg 5 mg, Oral, EVERY 4 HOURS PRN, moderate pain, Starting on Sat08/17/22 at 2155 2212 ($Given - Provider: Jeanne Hall RN) 0659 (Not Given - Provider: Jeanne Hall RN - Reason: Patient/family refused)2207 ($Given - Provider: Jeanne Hall RN) phenol (CHLORASEPTIC) 1.4 % spray 1 mL 1 mL (1 spray), Mouth/Throat, EVERY 1 HOUR PRN, sore throat, Starting on Sat08/14/22 at 1100 prochlorperazine (COMPAZINE) injection 10 mg(Linked Group 5) 10 mg, Intravenous, EVERY 6 HOURS PRN, nausea, vomiting, Administer over 1-2 Minutes, Starting on Sat08/14/22 at 0620, IF patient unable to tolerate oral medication. This is Step 2 of nausea and vomiting management. Give if nausea not resolved 15 minutes after giving ondansetron (ZOFRAN). prochlorperazine (COMPAZINE) suppository 25 mg(Linked Group 5) 25 mg, Rectal, EVERY 12 HOURS PRN, nausea, vomiting, Starting on Sat08/14/22 at 0620, This is Step 2 of nausea and vomiting management. Give if nausea not resolved 15 minutes after giving ondansetron (ZOFRAN). prochlorperazine (COMPAZINE) tablet 10 mg(Linked Group 5) 10 mg, Oral, EVERY 6 HOURS PRN, vomiting, Starting on Sat08/14/22 at 0620, This is Step 2 of nausea and vomiting management. Give if nausea not resolved 15 minutes after giving ondansetron (ZOFRAN). sodium chloride (PF) 0.9% PF flush 10-40 mL 10-40 mL, Intracatheter, ONCE PRN, line flush, to flush each lumen with line placement, Starting on Sat08/16/22 at 1053, For 1 dose, MAX: 10 mL per lumen. May repeat x 1 Linked Groups Order Group 1: Lidocaine (LIDOCARE) 4 % Patch 1 patchJump to med 1 patch, Transdermal, EVERY 24 HOURS 1700, Administer over 12 Hours, First dose on Sat08/15/22 at 1700, Apply patch(s) to back pain. To prevent lidocaine toxicity, patient should be patch free for 12 hrs daily. Patches may be cut to smaller size prior to removing release liner. Reminder: Remove previous patch before applying new patch. NEVER APPLY HEAT OVER PATCH which increases absorption and may lead to local anesthetic toxicity. Do not apply over area where liposomal bupivacaine was injected for 96 hours post injection. And lidocaine patch in PLACEJump to med First dose on Sat08/15/22 at 2200, Chart every shift, confirming that patch is still in place on patient (no barcode scan needed). See patch order for dose information. NEVER APPLY HEAT OVER PATCH which will increase absorption and may lead to risk of local anesthetic toxicity. Do not apply over area where liposomal bupivacaine injected for 96 hours. Group 2: HYDROmorphone (DILAUDID) injection 0.2 mgJump to med 0.2 mg, Intravenous, EVERY 3 HOURS PRN, moderate pain, Starting on Sat08/14/22 at 1055 Or HYDROmorphone (DILAUDID) injection 0.4 mgJump to med 0.4 mg, Intravenous, EVERY 3 HOURS PRN, severe pain, Starting on Sat08/14/22 at 1055 Group 3: naloxone (NARCAN) injection 0.2 mgJump to med 0.2 mg, Intravenous, EVERY 2 MIN PRN, opioid reversal, Starting on Sat08/14/22 at 1115, Administer intravenous route when available and notify provider when administered. For unintended sedation or respiratory depression if all of the below criteria are met: ~ respiratory rate LESS than or EQUAL to 8. ~SaO2 less than 92% and or/end-tidal CO2 is greater than 50. ~ the patient is receiving an opioid, has unintended sedations assessed as RASS (-3), and is currently not on mechanical ventilation. RASS scale moderate (-3) is movement or eye opening to voice but no eye contact. Patient Monitoring Once the patient has demonstrated a response to the naloxone, continue to monitor respiratory rate, depth, oxygen saturation and end-tidal CO2 (if available) every 15 minutes x 2, then every 30 minutes x 2, then every 1 hour x 1 after each naloxone dose. Consider transfer to ICU if patient respiratory parameters have not improved after 4 naloxone doses. Or naloxone (NARCAN) injection 0.4 mgJump to med 0.4 mg, Intravenous, EVERY 2 MIN PRN, opioid reversal, Starting on Sat08/14/22 at 1115, Administer intravenous route when available and notify provider when administered. For unintended sedation or respiratory depression if all of the below criteria are met: ~ respiratory rate LESS than or EQUAL to 8. ~ SaO2 less than 92% and or/end-tidal CO2 is greater than 50. ~ the patient is receiving an opioid, has unintended sedation assessed as RASS (-4) or (-5) and patient is currently not on mechanical ventilation. RASS scale (-4) is deep sedation with no response to voice but movement or eye opening to physical stimulation. RASS scale (-5) is unarousable. Patient Monitoring Once the patient has demonstrated a response to the naloxone, continue to monitor respiratory rate, depth, oxygen saturation and end-tidal CO2 (if available) every 15 minutes x 2, then every 30 minutes x 2, then every 1 hour x 1 after each naloxone dose. Consider transfer to ICU if patient respiratory parameters have not improved after 4 naloxone doses. Or naloxone (NARCAN) injection 0.2 mgJump to med 0.2 mg, Intramuscular, EVERY 2 MIN PRN, opioid reversal, Starting on Sat08/14/22 at 1115, Administer intramuscular if an intravenous route is not available and notify provider when administered. For unintended sedation or respiratory depression if all of the below criteria are met: ~ respiratory rate LESS than or EQUAL to 8. ~SaO2 less than 92% and or/end-tidal CO2 is greater than 50. ~ the patient is receiving an opioid, has unintended sedations assessed as RASS (-3), and is currently not on mechanical ventilation. RASS scale moderate (-3) is movement or eye opening to voice but no eye contact. Patient Monitoring Once the patient has demonstrated a response to the naloxone, continue to monitor respiratory rate, depth, oxygen saturation and end-tidal CO2 (if available) every 15 minutes x 2, then every 30 minutes x 2, then every 1 hour x 1 after each naloxone dose. Consider transfer to ICU if patient respiratory parameters have not improved after 4 naloxone doses. Or naloxone (NARCAN) injection 0.4 mgJump to med 0.4 mg, Intramuscular, EVERY 2 MIN PRN, opioid reversal, Starting on Sat08/14/22 at 1115, Administer intramuscular if an intravenous route is not available and notify provider when administered. For unintended sedation or respiratory depression if all of the below criteria are met: ~ respiratory rate LESS than or EQUAL to 8. ~ SaO2 less than 92% and or/end-tidal CO2 is greater than 50. ~ the patient is receiving an opioid, has unintended sedation assessed as RASS (-4) or (-5) and patient is currently not on mechanical ventilation. RASS scale (-4) is deep sedation with no response to voice but movement or eye opening to physical stimulation. RASS scale (-5) is unarousable. Patient Monitoring Once the patient has demonstrated a response to the naloxone, continue to monitor respiratory rate, depth, oxygen saturation and end-tidal CO2 (if available) every 15 minutes x 2, then every 30 minutes x 2, then every 1 hour x 1 after each naloxone dose. Consider transfer to ICU if patient respiratory parameters have not improved after 4 naloxone doses. Group 4: ondansetron (ZOFRAN ODT) ODT tab 4 mgJump to med 4 mg, Oral, EVERY 6 HOURS PRN, nausea, vomiting, Starting on Sat08/14/22 at 0620, This is Step 1 of nausea and vomiting management. If nausea not resolved in 15 minutes, go to Step 2 prochlorperazine (COMPAZINE). With dry hands, peel back foil backing and gently remove tablet. Do not push oral disintegrating tablet through foil backing. Administer immediately on tongue and oral disintegrating tablet dissolves in seconds, then swallow with saliva. Liquid not required. Or ondansetron (ZOFRAN) injection 4 mgJump to med 4 mg, Intravenous, EVERY 6 HOURS PRN, nausea, vomiting, Administer over 2-5 Minutes, Starting on Sat08/14/22 at 0620, Give IF patient unable to tolerate oral medication. This is Step 1 of nausea and vomiting management. If nausea not resolved in 15 minutes, go to Step 2 prochlorperazine (COMPAZINE). Irritant. Group 5: prochlorperazine (COMPAZINE) injection 10 mgJump to med 10 mg, Intravenous, EVERY 6 HOURS PRN, nausea, vomiting, Administer over 1-2 Minutes, Starting on Sat08/14/22 at 0620, IF patient unable to tolerate oral medication. This is Step 2 of nausea and vomiting management. Give if nausea not resolved 15 minutes after giving ondansetron (ZOFRAN). Or prochlorperazine (COMPAZINE) tablet 10 mgJump to med 10 mg, Oral, EVERY 6 HOURS PRN, vomiting, Starting on Sat08/14/22 at 0620, This is Step 2 of nausea and vomiting management. Give if nausea not resolved 15 minutes after giving ondansetron (ZOFRAN). Or prochlorperazine (COMPAZINE) suppository 25 mgJump to med 25 mg, Rectal, EVERY 12 HOURS PRN, nausea, vomiting, Starting on Sat08/14/22 at 0620, This is Step 2 of nausea and vomiting management. Give if nausea not resolved 15 minutes after giving ondansetron (ZOFRAN). documented in this encounter Care Teams [employer] Safety Program Coordinator Relationship Specialty Start Date End Date No Ref-Primary, Physician PCP - General 08/07/22 documented as of this encounter
--- OUTSIDE RECORDS SUMMARY | 2023-03-18 15:28 | XMS_ITS | Referral Summary ---
Author Name Unknown Organization [facility] Address [address] [place] [id number] Care Team Providers Care Vocational Rehabilitation Supervisor Name Role Phone No Ref-Primary, Physician Primary [...] 08/18/2022 Active amoxicillin-clavulanat e (AUGMENTIN) 875-125 MG tabletIndications:[place] vesical fistula Take 1 tablet by mouth 2 times daily 20 tablet 0 08/18/2022 Active Active Problems Problem Noted Date Diagnosed Date SBO (small bowel obstruction) 08/14/2022 Fever postop 08/14/2022 Nausea and vomiting, unspecified vomiting type 0 08/14/2022 Colovesical fistula 08/08/2022 Social History Tobacco Use Types Packs/Day Years [...] 08/15/2022 11:38 AM CDT Plan of Treatment Not on file Advance Directives For more information, please contact: [phone] Latest Code Status on File Code Status [...] with patient/ legal decision maker Care Teams Vocational Rehabilitation Supervisor Relationship Specialty Start Date End Date No Ref-Primary, Physician PCP - General 08/07/22
--- OUTSIDE RECORDS SUMMARY | 2023-03-18 15:28 | XMS_ITS | Continuity of Care Document ---
Author Name Unknown Organization [facility] Address [address] [place] [address] Phone Care Team Providers Care Retail And Promotions Coordinator Name Role Phone Juan Rowell Unavailable Unavailable Procedures Procedure Date Lami/Discectomy, Lumbar HNP - [place] 2019 Lami/Discectomy, Lumbar HNP Advance Directives Directive Yes / No Effective Date File Name No Information Encounters Encounter Description Practice Location Reason(s) For Visit Diagnoses Date Provider Providers Copied on Encounter [facility], [address], [place], [place], [id number], [place] tel:[phone] [facility] No Information Hay Martinez. [facility], [address] [place] [address], [place], [place], [id number], [place]. tel:[phone] Referring Provider: RAINER Sheppard [address] [place] [address], [address]. tel:[phone] [facility], [address], [place], [place], [id number], [place] tel:[phone] [facility] No Information Marii Gutierrez. [facility], [address] [place] [address], [place], [place], [id number], . tel:[phone] Referring Provider: RAINER Sheppard [address] [place] [address], [address]. tel:[phone] Family History Family Member Type Diagnosis Age At Onset No Information Payers Payer name Insurance type Covered democrat ID Authoriza tion(s) No Information Social History Type Description Quantity Date Captured Comments Sex Male Smoking Status No Information Chief Complaint And Reason For Visit No Information Reason For Referral Reason For Referral No Information History Of Present Illness Encounter Date Complaint History Of Prese nt Illness No Information Functional Status Date Functional Assessmen t No Information Instructions Date Instruction Additional Infor mation No Information Assessments Type Assessment Date No Information Patient Care Teams Name Effective Dates (start - stop) Status Members No Information
--- OUTSIDE RECORDS SUMMARY | 2023-03-18 15:29 | XMS_ITS | Encounter Summary ---
Author Name Unknown Organization [facility] Address [address] [place] [id number] Care Team Providers Care Wirer Maintenance Name Role Phone No Ref-Primary, Physician Primary Care Provider Encounter Details Date Type Department Care Team (Latest Contact Info) Description 08/07/2022 Travel Social History Tobacco Use Types Packs/Day Years [...] suspected to have Coronavirus/COVID-19? No / Unsure 08/07/2022 10:55 AM CDT documented as of this encounter Plan of Treatment Not on file documented as of this encounter Visit Diagnoses Not on filedocumented in this encounter Care Teams Wirer Maintenance Relationship Specialty Start Date End Date No Ref-Primary, Physician PCP - General 08/07/22 documented as of this encounter
--- OUTSIDE RECORDS SUMMARY | 2023-03-18 15:29 | XMS_ITS | Encounter Summary ---
Author Name Unknown Organization [facility] Address [address] [place] [address] Care Team Providers Care Qlikview Developer Name Role Phone No Ref-Primary, Physician Primary Care Provider Encounter Details Date Type Department Care Team (Latest Contact Info) Description 08/14/2022 Travel Social History Tobacco Use Types Packs/Day [...] on filedocumented in this encounter Care Teams [employer] Developer Relationship Specialty Start Date End Date No Ref-Primary, Physician PCP - General 08/07/22 documented as of this encounter
--- OUTSIDE RECORDS SUMMARY | 2023-03-18 15:29 | XMS_ITS | Encounter Summary ---
Author Name Unknown Organization [facility] Address [address] [place] [id number] Care Team Providers Care Radial Saw Operator Name Role Phone No Ref-Primary, Physician Primary Care Provider Reason for Visit * Auth/Cert (Routine) Specialty Diagnoses / Procedures Referred By Luis Eduardo lao Referred To Contact Surgery Diagnoses Colovesical fistula Colovesical fistula [N32.1] Procedures AL LAP,SURG,COLECTOMY, PARTIAL, W/ANAST AL LAP,SURG,COLECTOMY,W/REMVL TERM ILEUM AL LAP,SURG,COLECTOMY,W/END COLOST & CLOSUR AL LAP,SURG,COLECTOMY,W/ANAST AL LAP, SURG, COLECTOMY, W/ANAST, W/COLOSTOMY AL LAP,SURG,COLECTOMY,TOTAL,W/O PROCTECTOMY AL LAP,SURG,COLECTOMY,TOTAL,W/AL OCTECTOMY AL LAP,SURG,COLECT,TOT,W/PROCTEC T,W/ILEOST AL CYSTOSCOPY,INSERT URETERAL STENT ZZ UROGRAPHY, RETROGRADE W/WO KUB Xi Robotic Assisted Sigmoid Colectomy Cystoscopy, insertion of bilateral ureteral stents [facility] [address] [place] [address] Referral ID Status Reason Start Date Expiration Date Visits Re quested Visits Authorized [id number] 1 1 Encounter Details Date Type Department Care Team (Latest Contact Info) Description 08/08/2022 10:25 AM CDT - 08/12/2022 11:48 AM CDT Hospital Encounter [place] [id number] [facility] [address] [place] [address] Kylah Arndt MD [facility] [address] [place] [address] Acute post-operative pain (Primary Dx); Colovesical fistula Discharge Disposition: Home or Self Care Social History Tobacco Use Types Packs/Day Years Used Date Smoking Tobacco: Every Day Cigarettes 1 Smokeless Tobacco: Never Tobacco Cessation:Ready to Q uit: Yes; Counseling Given: Yes Alcohol Use Standard Drinks/Week Comments Yes 0 [...] suspected to have Coronavirus/COVID-19? No / Unsure 08/08/2022 10:25 AM CDT documented as of this encounter Last Filed Vital Signs Vital Sign Reading Time Taken Comments Blood Pressure 143/65 08/12/2022 8:20 AM CDT Pulse 89 08/12/2022 8:20 AM CDT Temperature 36.9 ??C (98.5 ??F) 08/12/2022 8:47 AM CD T Respiratory Rate 16 08/12/2022 8:47 AM CDT Oxygen Saturation 93% 08/12/2022 8:47 AM CDT Inhaled Oxygen Concentration - - Weight 104.5 kg (230 lb 4.8 oz) 023 10:40 AM CDT Height 188 cm (6' 2) 08/08/2022 10:40 AM CDT Body Mass Index 29.57 08/08/2022 10:40 AM CDT documented in this encounter Discharge Summaries * Susie Mascorro MD - 08/12/2022 11:02 AM CDT Images from the original note were not included. [facility] Discharge Summary Judith Guajardo Age: [id number] year old Date of : 1980 Date of Admission: 08/08/2022 Date of Discharge:: 08/12/2022 Admitting Physician: Kylah Arndt MD Discharge Physician: Berenice Odom MD PCP: No Ref-Primary, Physician Disposition: Patient discharged from [facility] to Home in stable condition. Primary Diagnosis: Diverticulitis with colovesical fistula Discharge Medications: Current Discharge Medication List START taking these medications Details methocarbamol (ROBAXIN) 750 MG tablet Take 1 tablet (750 mg) by mouth 3 times daily for 5 days Qty: 15 tablet, Refills: 0 Associated Diagnoses: Acute post-operative pain oxyCODONE (ROXICODONE) 5 MG tablet Take 1-2 tablets (5-10 mg) by mouth every 4 hours as needed for pain Qty: 35 tablet, Refills: 0 Comments: Take 1-2 tabs every 4 hours as needed for pain Associated Diagnoses: Acute post-operative pain CONTINUE these medications which have NOT CHANGED Details ALPRAZolam (XANAX) 0.5 MG tablet Take 0.5 mg by mouth as needed indapamide (LOZOL) 1.25 MG tablet Take 1.25 mg by mouth daily lisinopril (ZESTRIL) 20 MG tablet Take 40 mg by mouth daily metoprolol succinate ER (TOPROL XL) 50 MG 24 hr tablet Take 50 mg by mouth daily testosterone cypionate (DEPOTESTOSTERONE) 200 MG/ML injection Inject 200 mg into the muscle once a week ibuprofen (ADVIL/MOTRIN) 200 MG tablet Take 200-400 mg by mouth as needed STOP taking these medications ciprofloxacin (CIPRO) 500 MG tablet Comments: Reason for Stopping: Follow Up, Special Instructions: Discharge diet: Low residue Discharge activity: No heavy lifting for 4 week(s) Discharge follow-up: As instructed Wound care: Keep wound clean and dry Procedures: Procedure(s): robotic assisted sigmoid colectomy, takedown of colovesical fistula, small bowel resection and drainage of abdominal wall abscess No procedures performed during this admission Consultations: None Brief Hospital Summary: Patient is a 42 year old man who underwent robotic assisted sigmoid colectomy, takedown of colovesical fistula, small bowel resection and drainage of abdominal wall abscess on 08/08/[address] Arndt. There were no immediate complications during this procedure. Please refer to the full operative summary for details. The patient's hospital course was remarkable for poorly controlled pain initially, which improved with pain meds optimization. Pain was controlled on oral pain regimen. He was tolerating a low fiber diet. Bowel function had returned prior to discharge. He also received antibiotics for 4 days given intra-operative findings of abdominal wall abscess. CT cystogram was compelted on POD#3, which was negative and his allan and surgical drain were removed. He was able to void without issues with low post-void residuals. He recovered as anticipated and experienced no post- operative complications. Physical Exam: General: NAD, AOx3, non toxic Pulm: non labored breathing on room air Abdomen: soft, non distended, appropriately ttp. Incision c/d/i Attestation: I have reviewed today's vital signs, notes, medications, labs and imaging. Susie Mascorro MD [facility] [address] [address] T: F: [phone] ADDENDUM: Length of stay: 4 days Indicate Y or N for the following: UTI No C diff No PNA No SSI No DVT No PE No CVA No KS No Enterocutaneous fistula No Peripheral nerve injury No Abscess (not adjacent to anastomosis) No Leak No Treated with: Antibiotics N/A Drain N/A Reoperation N/A within 30 days No Reintubation No Reoperation No Procedure n/a Associated attestation - Berenice Odom MD - 08/16/2022 7:20 AM CDT Images from the original note were not included. Berenice Odom MD [facility] [address] [facility], [address] [place] [address] T: [phone] F: [phone] [email or web address] documented in this encounter Medications at Time of Discharge Medication Sig Dispensed Refills Start Date End Date ALPRAZolam (XANAX) 0.5 MG tablet Take 0.5 mg by mouth 3 times daily as needed 0 lisinopril (ZESTRIL) 40 MG tablet Take 40 mg by mouth daily 0 testosterone cypionate (DEPOTESTOSTERONE) 200 MG/ML injection Inject 200 mg into the muscle once a week 0 ibuprofen (ADVIL/MOTRIN) 200 MG tablet Take 200-400 mg by mouth as needed 0 08/14/2022 indapamide (LOZOL) 1.25 MG tablet Take 1.25 mg by mouth daily 0 08/18/2022 methocarbamol (ROBAXIN) 750 MG tabletIndications:Acute post-operative pain Take 1 tablet (750 mg) by mouth 3 times daily for 5 days 15 tablet 0 08/12/2022 08/18/2022 metoprolol succinate ER (TOPROL XL) 50 MG 24 hr tablet Take 50 mg by mouth daily 0 08/18/2022 oxyCODONE (ROXICODONE) 5 MG tabletIndications:Acute post-operative pain Take 1-2 tablets (5-10 mg) by mouth every 4 hours as needed for pain 35 tablet 0 08/12/2022 08/18/2022 documented as of this encounter Progress Notes * Berenice Odom MD - 08/11/2022 9:00 AM CDT Colon & Rectal Surgery Progress Note Interval History: Postop Day #: 3 robot sigmoid with TD CVF Pain control issues over night. Up walking. + flaut and loose stool. Good UOP sightly dark Medications: I have reviewed this patient's current medications Physical Exam: Blood pressure (!) 155/77, pulse 109, temperature 98.9 ??F (37.2 ??C), temperature source Oral, resp. rate 18, height 1.88 m (6' 2), weight 104.5 kg (230 lb 4.8 oz), SpO2 97 %. Intake/Output Summary (Last 24 hours) at 08/11/2022 0900 Last data filed at 08/10/2022 2105 Gross per 24 hour Intake 943.75 ml Output 1110 ml Net -166.25 ml GEN: alert ABD: Soft, incision CDI, JUAN with serosang Data: Lab Results Component Value Date NA 133 08/09/2022 Lab Results Component Value Date CHLORIDE 98 08/09/2022 Lab Results Component Value Date BUN 14.6 08/09/2022 Lab Results Component Value Date POTASSIUM 3.6 08/09/2022 Lab Results Component Value Date CO2 21 08/09/2022 Lab Results Component Value Date CR 1.14 08/10/2022 CR 1.00 08/09/2022 Lab Results Component Value Date HGB 14.6 08/09/2022 Lab Results Component Value Date PLT 328 08/09/2022 Lab Results Component Value Date WBC 14.0 (H) 08/09/2022 Assessment and Plan: CT Cysto today, if looks good, remove allan and JUAN Encourage ambulation Switch to oxycodone likely discharge tomorrow. Berenice Odom MD [facility] Office * Kylah Arndt MD - 08/10/2022 8:35 AM CDT Images from the original note were not included. COLON [facility] RECTAL SURGERY PROGRESS NOTE August 09, 2022 Post-op Day # 2 SUBJECTIVE: Feeling a little bit better this morning. Family at bedside. Positive flatus and loose stools. Tolerating full liquid diet without nausea or vomiting. Allan with adequate output. Minimal output from JUAN drain. OBJECTIVE: Temp: [97.4 ??F (36.3 ??C)-98.8 ??F (37.1 ??C)] 98.8 ??F (37.1 ??C) Pulse: [71-80] 80 Resp: [16-18] 16 BP: (101-129)/(41-55) 129/55 SpO2: [96 %] 96 % Intake/Output Summary (Last 24 hours) at 08/10/2022 0836 Last data filed at 08/10/2022 0600 Gross per 24 hour Intake 892 ml Output 1275 ml Net -383 ml GENERAL: Awake, alert, no acute distress EXTREMITIES: Warm and well perfused ABDOMEN: Soft, appropriately tender, non-distended. No guarding, rigidity, or peritoneal signs. Incisions clean, dry, intact. LABS: Lab Results Component Value Date WBC 14.0 08/09/2022 Lab Results Component Value Date HGB 14.6 08/09/2022 Lab Results Component Value Date HCT 42.5 08/09/2022 Lab Results Component Value Date PLT 328 08/09/2022 Last Basic Metabolic Panel: Lab Results Component Value Date NA 133 08/09/2022 Lab Results Component Value Date POTASSIUM 3.6 08/09/2022 Lab Results Component Value Date CHLORIDE 98 08/09/2022 Lab Results Component Value Date ANTHONY 8.3 08/09/2022 Lab Results Component Value Date CO2 21 08/09/2022 Lab Results Component Value Date BUN 14.6 08/09/2022 Lab Results Component Value Date CR 1.00 08/09/2022 Lab Results Component Value Date GLC 127 08/09/2022 GLC 157 08/09/2022 ASSESSMENT/PLAN: Judith Guajardo is a 42 year old male POD # 2 s/p robotic assisted sigmoid colectomy, takedown of colovesical fistula, small bowel resection and drainage of abdominal wall abscess for management of chronic perforated diverticulitis. Low fiber diet Multimodal pain control - scheduled tylenol, Toradol and Robaxin, will add lidocaine patches. As needed oral and IV Dilaudid. Continue IV fluid until adequate oral intake. Continue Allan catheter and abdominal JUAN drain given colovesical fistula. Continue IV antibiotics given intra-abdominal infection. Encourage ambulation and out of bed. SCDs and Lovenox for DVT prophylaxis while inpatient For questions/paging, please contact the CRS office at [phone]. Radha Arndt MD Colorectal Surgery [facility] [address] [address] T: [phone] F: [phone] * Nini Peng RN - 08/09/2022 1:54 PM CDT Notified provider about indwelling allan catheter discussed removal or continued need. Did provider choose to remove indwelling allan catheter? 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 YES *If there is a plan to keep allan catheter in place at discharge daily notification with provider is not necessary, but please add a notation in the treatment team sticky note that the patient will be discharging with the catheter. * Nini Walden MD - 08/09/2022 10:11 AM CDT [facility]ON [facility] RECT[facility] SURGERY PROGRESS NOTE August 09, 2022 Post-op Day # 1 SUBJECTIVE: Difficulty with pain control overnight. Good urine output. Family is at bedside. Tolerating small amounts of water. Denies nausea this morning. OBJECTIVE: Temp: [97.8 ??F (36.6 ??C)-99.4 ??F (37.4 ??C)] 98.1 ??F (36.7 ??C) Pulse: [66-97] 75 Resp: [16-20] 20 BP: (109-159)/(42-82) 137/63 SpO2: [93 %-99 %] 93 % Intake/Output Summary (Last 24 hours) at 08/09/2022 1011 Last data filed at 08/09/2022 0832 Gross per 24 hour Intake 3600 ml Output 2647 ml Net 953 ml GENERAL: Awake, alert, no acute distress EXTREMITIES: Warm and well perfused ABDOMEN: Soft, appropriately tender, non-distended. No guarding, rigidity, or peritoneal signs. LABS: Lab Results Component Value Date WBC 14.0 08/09/2022 Lab Results Component Value Date HGB 14.6 08/09/2022 Lab Results Component Value Date HCT 42.5 08/09/2022 Lab Results Component Value Date PLT 328 08/09/2022 Last Basic Metabolic Panel: Lab Results Component Value Date NA 133 08/09/2022 Lab Results Component Value Date POTASSIUM 3.6 08/09/2022 Lab Results Component Value Date CHLORIDE 98 08/09/2022 Lab Results Component Value Date ANTHONY 8.3 08/09/2022 Lab Results Component Value Date CO2 21 08/09/2022 Lab Results Component Value Date BUN 14.6 08/09/2022 Lab Results Component Value Date CR 1.00 08/09/2022 Lab Results Component Value Date GLC 127 08/09/2022 GLC 157 08/09/2022 ASSESSMENT/PLAN: Judith Guajardo is a 42 year old male POD # 1 s/p robotic assisted sigmoid colectomy, takedown of colovesical fistula, small bowel resection and drainage of abdominal wall abscess for management of chronic perforated diverticulitis. Full liquid diet Multimodal pain control - scheduled tylenol, Toradol and Robaxin, will add lidocaine patches. As needed oral and IV Dilaudid. Continue IV fluid until adequate oral intake. Continue Allan catheter and abdominal JUAN drain given colovesical fistula. Continue IV antibiotics given intra-abdominal infection. Encourage ambulation and out of bed. SCDs and Lovenox for DVT prophylaxis while inpatient For questions/paging, please contact the CRS office at [phone]. Nini Walden MD Colorectal Surgery [facility] [address] [address] T: [phone] F: [phone] documented in this encounter Miscellaneous Notes * Plan of Care - Nancie Holden, ELIAN - 08/12/2022 11:44 AM CDT Goal Outcome Evaluation: Discharge Note Patient discharged to home via private vehicle accompanied by significant other . IV: Discontinued Prescriptions filled and given to patient/family. Belongings reviewed and sent with patient. Home medications returned to patient: NA Equipment sent with: patient, N/A. patient and family verbalizes understanding of discharge instructions. AVS given to patient and family. Additional education completed? Wound Care * Plan of Care - Faith Taylor RN - 08/12/2022 3:38 AM CDT Goal Outcome Evaluation: Pertinent assessments: Assumed cares [id number]. Pt A&Ox4. C/o abdominal pain, rated 5-7/10, andtolerable with prn Oxy 10mg, Tylenol and scheduled IV Toradol. Denies nausea/vomiting. LS clear on RA. Vitals stable. Abdomen rounded, slightly distended. Bowel sounds hypoactive/audible. Patient reported having a bowel movement. Allan out on evening shift. Patient voided twice. Urine tea-color. Pos t void residuals 0ml. Up walking independently. * Plan of Care - Nancie Holden RN - 08/11/2022 7:11 PM CDT Goal Outcome Evaluation: Pertinent assessments: Assumed care of pt from [id number]. VSS. A&Ox4. Apical pulse regular. Lungs diminished. Abdominal incisions c/d/i. Bowel sounds active in all quadrants. Tolerating diet. Allan and JUAN removed, due to void. PIV SL between IV Abx. Pain managed with current regimen. Major Shift Events: JUAN and Allan removed Treatment Plan: pain management, IV Abx, awaiting void * Plan of Care - Nirmala Fernandez RN - 08/10/2022 7:00 AM CDT End of Shift Summary For vital signs and complete assessments, please see documentation flowsheets. Pertinent assessments: POD #2. VSS. Afebrile. LS clear. BS x4, pt is passing gas and has had a couple BMs. Pt reporting abdominal pain, treated with PO Dilaudid x1 and IV Dilaudid x1, also wearing abdominal binder. Denies nausea. Ax1 to ambulate. PIV - IVF. JUAN drain with 5 ml output; Allan in placewith 500 ml output. Abdominal incisions MANAGER LAUNDRY, no drainage noted. A&O, calls appropriately for assistance, at bedside. Slept well Major Shift Events: none Treatment Plan: Pain management, Zosyn, Encourage activity, Advance and tolerate diet, Discharge TBD. * Plan of Care - Daquan Hardy RN - 08/09/2022 11:36 PM CDT Assessments: A&Ox4, up with 1 assist, up to chair mostly during shift. Complains of abdominalpain, managed with oral and IV dilaudid with scheduled Toradol and Tylenol. JUAN in place and draining well. Lap sites 4x approximated with skin glue, CDI. Allan in place, will discontinue POD #3. Tolerating full liquids. Treatment Plan: pain management, encourage ambulation/mobility Bedside Nurse: Daquan Hardy RN * Plan of Care - Lissette Meléndez RN - 08/09/2022 6:43 PM CDT Pt up in chair. Reports pain 7/10 in abdomen and shoulder. Abdominal binder in place. Received PO and IV Dilaudid PRN. 30 mL of dark charlton fluid drained from JUAN drain. Incision sites CDI. Had 2 BMs - see flowchart. Bowel sounds active in all quadrants. Allan catheter draining dark tea colored urine. Makes needs known. Would like to stay on top of pain by utilizing pain medications as they are available. * Plan of Care - Nini Peng RN - 08/09/2022 3:04 PM CDT End of Shift Summary For vital signs and complete assessments, please see documentation flowsheets. Pertinent assessments: Pt A&Ox4, up with 1 assist, sitting comfortably in chair most of shift, c/o pain 7/10. IV and PO dilaudid given, IV toradol, tylenol and robaxin given. JUAN in place with sanginous output. Lap sites approximated with skin glue, CDI. Allan in place, will discontinue POD #3. Tolerating full liquids. Major Shift Events: Up to chair Treatment Plan: Continue pain management, surgery consult, encourage mobility, advance diet. * Plan of Care - Shantelle Tapia RN - 08/09/2022 5:45 AM CDT BP 159/62 Pulse 73 Temp 97.8 ??F Resp 18 SpO2 96% Patient is alert and oriented x4, has lots of pain and dilaudid IV/oral are given through out the shift, on LR at 75 mL/hr, zosyn and ancef, and Lovenox. Has not been out of bed due to all the pain, able to shift weight independently. Called oncall per patient request to get orders in for his am medications. Girlfriend stayed with patient all night. Plan is for patient to go back home in the nextcouple of days. * Provider Notification - Freida Black RN - 08/08/2022 10:51 PM CDT XC Paged: Pt has received IV Dilaudid and Oxycodone; pain is still 8-11/20. Is there anything we can add on? Thanks. * Brief Op Note - Susie Mascorro MD - 08/08/2022 8:[address] [facility] Brief Operative Note Pre-operative diagnosis: Colovesical fistula [N32.1] Post-operative diagnosis Same as pre-operative diagnosis Procedure: Procedure(s): Xi Robotic Assisted Sigmoid Colectomy, take down of colovesical fistula, mobilization of splenetic flexure, small bowel resection, drainage of abdominal wall abscess Cystoscopy, insertion of bilateral ureteral stents Surgeon: Surgeon(s) and Role: Panel 1: * Kylah Arndt MD - Primary * Paul Blackmon PA-C Panel 2: * Valentin Whitaker MD - Primary Anesthesia: General Estimated Blood Loss: 300 ml Drains: 19fr drain Specimens: ID Type Source Tests Collected by Time Destination 1 : SIGMOID COLON - staple line is distal Resection Large Intestine, Colon, Sigmoid SURGICAL PATHOLOGY EXAM Kylah Arndt MD 08/08/2022 6:16 PM 2 : ILEUM Resection Small Intestine, Ileum SURGICAL PATHOLOGY EXAM Ирина Arndt MD 08/08/2022 6:38 PM Findings: Acutely inflammed sigmoid diverticulitis with fistulizing to small bowel and to anterior abdominal wall, with ~100cc of pus drained from anterior abdominal wall. No real colovesical tract appreciated. Small bowel resection with anastomosis completed. Sigmioidectomy completed, splenic flexure mobilized, colorectal anastomosis with 29 EEA, at 16cm from AV. Rigid proctoscopy with negative leak test, One drain left in the pelvis. Bilateral ureteral stents taken out intact at the end of the case. Complications: None. Implants: * No implants in log * Condition on discharge from OR: Satisfactory Susie Mascorro MD [facility] [phone]. ADDENDUM: PATIENT DATA Indicate Y or N: Home O2 No Hemodialysis No Transplant patient No Cirrhosis No Steroids in last 30 days No Immunomodulators in last 30 days No Anticoagulation at time of surgery No List medication n/a Prior abdominal surgery Yes Pelvic irradiation No Albumin within 30 days if known n/a Hgb within 30 days if known n/a No results found for: HGB] Cr within 30 days if known n/a No results found for: CR] Body mass index is 29.57 kg/m??. OR DATA Emergent No <24 hours No <1 week No Bowel Prep Yes Antibiotics Yes DVT prophylaxis Heparin Yes SCD Yes None No Drain Yes ASA (1,2,3,4) 2 OR time (min) 381 Stents Yes Transfuse >/= 2U No Anastomosis Stapled Yes Handsewn No Leak Test Positive No Negative Yes Not done No * Op Note - Valentin Whitaker MD - 08/08/2022 1:34 PM CDT DATE OF SERVICE: 08/08/2022 PREOPERATIVE DIAGNOSIS: Diverticulitis, colovesical fistula POSTOPERATIVE DIAGNOSIS: Same PROCEDURES PERFORMED: 1. Cystourethroscopy 2. Placement of bilateral open-ended ureteral stents STAFF SURGEON: Valentin Whitaker MD ANESTHESIA: General ESTIMATED BLOOD LOSS: <1 cc DRAINS/TUBES: Bilateral 5 Fr open-ended ureteral catheters; 16 Fr Allan catheter COMPLICATIONS: None. SPECIMEN: None SIGNIFICANT FINDINGS: Stents placed bilaterally without difficulty. Debris and inflammation noted in bladder consistent with known colovesical fistula. BRIEF OPERATIVE INDICATIONS: Hernandez Guajardo is a 42 year old male with history of diverticulitis andcolovesical fistula and is undergoing colectomy with Dr. Arndt. I was asked to assist with placement of ureteral stents for intraoperative assistance with ureter identification. After a discussion of all risks, benefits, and alternatives, the patient elected to proceed with ureteral stent placement. ? DESCRIPTION OF PROCEDURE: ??After informed consent was verified, the patient was transported to theoperating room, placed supine on the table. After adequate anesthesia was induced, he was placed indorsal lithotomy and prepped and draped in the usual sterile fashion. A timeout was taken to confirm correct patient, procedure and laterality. Pre-operative IV antibiotics were administered. ?? A 22 Lithuanian rigid cystoscope was inserted per a well-lubricated urethra. The anterior urethra was unremarkable. Inflammation noted at dome of bladder, consistent with known fistula. The ureteral orifices were in orthotopic locations. Bilateral orifices were intubated with a sensor wire, and 5 Fr ure teral catheters were advanced into the proximal ureters. Scope was removed and stents were secured to a 16Fr Allan catheter with silk ties. 10cc in Allan balloon. The bladder was drained. The patient tolerated the procedure well. ??No apparent complications. Dr. Montoya then began his portion of the procedure. ? PLAN: Stents and catheter to be removed at the discretion of Dr. Arndt and the colorectal surgery team. ?? Valentin Whitaker MD Urology [facility] * Op Note - Kylah Arndt MD - 08/08/2022 1:34 PM CDT Operative Report Pre Operative Diagnosis: 1) Sigmoid Diverticulitis with colovesical fistula Post Operative Diagnosis 1) Sigmoid diverticulitis with colovesical fistula and coloenteric fistula 2) Abdominal wall abscess Surgery: 1) Robotic sigmoid colectomy 2) Takedown of colovesical fistula 3) Laparoscopic mobilization of splenic flexure 4) Small bowel resection with primary anastomosis 5) Drainage of abdominal wall abscess 6) Intraoperative fluorescence angiography 7) Colorectal anastomosis 8) Rigid proctoscopy 9) Cystoscopy and insertion of bilateral ureteral stents. Surgeon: Radha Arndt MD Co-Surgeon: Dr. Valentin Whitaker Machine Presser: Paul Blackmon PA-C Second Machine Presser: Susie Mascorro MD (colorectal surgery fellow) Anesthesia: General EBL: 300 mL Findings: Cystoscopy and bilateral ureteral catheter placement by Dr. Whitaker revealed inflammation at the dome of the bladder but no obvious evidence of a fistula. Acutely inflamed sigmoid diverticulitis with fistulization to the small bowel and anterior abdominal wall. There is an anterior abdominal wall abscess. 100 cc of pus was drained from the abdominal wall abscess. No obvious colovesical fistula tract appreciated. Small bowel resection with primary anastomosis. Sigmoid colectomy performed with colorectal anastomosis at 16 cm from the anal verge. Rigid proctoscopy with negative air leaktest. Indication: Judith Guajardo is a 42 year old male who has a history of sigmoid diverticulitis. He has unfortunately developed a colovesical fistula. He is symptomatic from this fistula with pneumaturia and fecal urea. He is on chronic antibiotics until surgery. His colovesical fistula has been confirmed by a CT cystogram. He was advised of the risks and benefits or surgery. The risks discussed include but are not limited to the risk of bleeding, anastomotic leak, wound infection, injury to adjacent structures, development of a hernia, need for further surgery including creating a stoma, and even more serious complications. We discussed expectations regarding recovery. He wishes to proceed. Description of procedure: After obtaining informed consent the patient was brought to the operatingroom after a complete bowel prep. He was placed on the operating table and general anesthesia was induced. He was intubated by the anesthesia service without difficulty. Dr. Whitaker began the case by performing cystoscopy and placement of bilateral ureteral catheters. Please see his operative reports for details Allan catheter was placed under sterile conditions. An orogastric tube was placed. The patient's arms were tucked at his side. He was secured to the table with tape across the chest. He was placed inthe low modified lithotomy position. All pressure points were inspected and padded appropriately. The abdomen was shaved prepped and draped in the usual sterile fashion. A timeout was undertaken which identified the patient and the correct procedure. We began by making a stab incision in the left upper quadrant of the abdomen. A Veres needle was used to establish pneumoperitoneum. A small incision was made in the supraumbilical position. An 8 mm robotic trocar was placed here without difficulty. We then surveyed the abdomen with 30 degree angled robotic camera. There is no evidence of injury to the underlying viscera and the Veres needle was removed. The abdomen was surveyed and there is no evidence of other pathology. We then performed a laparoscopic-assisted TAP block utilizing 30 mL of half percent Marcaine plain. This was injected in four aliquots; one for each quadrant of the abdomen. We placed 2 additional 8 mm trochars on the left side of the abdomen running in the line across theabdomen transversely. We placed an additional 12 mm robotic trocar in the right lower quadrant and a 5 mm air seal trocar in the right upper quadrant. The air seal device was used to maintain pneumoperitoneum throughout the case. We then placed the patient in steep Trendelenburg position. At this point we docked the robot over the patient's left side and centered the robot on the inferior mesenteric artery. We utilized a tip up grasper in arm #1 fenestrated bipolar in arm #2 the camera in arm #3 and a monopolar scissors in arm #4. Arm #4 was switched out to the vessel sealing device and a robotic stapler as needed. With this instrumentation we performed a mobilization of the colon. The sigmoid colon was very enlarged and indurated and plastered to the anterior abdominal wall and left pelvic sidewall. We utilized blunt and more sharp dissection to peel the colon off of the abdominal wall. At one point we did get into a fairly sizable abscess involving the anterior abdominal wall on the left. Approximately 100 cc of purulent fluid was evacuated from this abscess. On the medial aspect of the sigmoid colon there was a loop of small bowel that appears to be fistulized to the sigmoid colon. We were able to take down this fistula but the small bowel did have a larger serosal injury but no full-thickness injury. We marked this with a 3-0 Vicryl stitch to evaluate later on in the case. We then continued our lateral to medial mobilization by the utilizing the monopolar scissors to incise the lateral attachments of the colon to the pelvic sidewall incising along the white line at Toldt and elevating the colon and its mesentery off the retroperitoneum. We are initially unable to identify the left ureter. We then injected ICG into the ureteral stents and were able to visualize boththe left and right ureter with the firefly technology on the robot. The left ureter was identified and swept posteriorly and kept out of harm's way. The mobilization was taken from the sacral promontory up to the level of the splenic flexure. Once this was accomplished we incised the peritoneum medial to the inferior mesenteric artery and it was elevated off the retroperitoneum the left ureter was again identified and the inferior mesenteric artery was isolated. It was triply ligated with the vessel sealing device and transected with excellent hemostasis. The adjacent vein was similarly ligated and transected with the vessel sealing device with excellent hemostasis. The adjacent bare area of the mesentery was then transected with the vessel sealing device as well. We then turned our attention back to the pelvis. At this time a point for distal transection was chosen. The upper rectum was mobilized by incising the areolar attachments of the mesial rectum to thepresacral fascia. The peritoneum along the upper rectum was incised to allow mobilization of the upper rectum. We then incised the peritoneum of the upper mesorectum up to the level of the bowel wall at the point chosen for distal transection. The mesorectum here was then transected with the vesselsealing device to circumferentially isolate the rectum at this level. We then transected the bowel at this level with 2 firings of a 60 mm green load robotic ANISH stapler. We then took the colonic mesentery. We identified the divided inferior mesenteric artery pedicle. Just proximal to this we took the mesocolon using the vessel sealing device up to the wall of the colon. This was at the junction of the sigmoid and distal descending colon. We then evaluated our colonic conduit and noted that we would not have enough reach with colorectal anastomosis. We decided that we would have to perform a m obilization of the splenic flexure. Given how large and bulky the sigmoid colon was we elected to perform a mobilization of the splenic flexure after we had removed the specimen from the abdomen and placed the anvil into our colonic conduit. Prior to doing this we did have anesthesia injected for mL of indocyanine green. We then used the firefly technology on the robot to confirm excellent blood supply to her colonic conduit as well as to the rectal stump. At this point the robot instruments were removed and the robot was undocked. The patient was placedin a more neutral position. We used the robotic camera to identify our proximal staple line. A grasper was placed on the staple line. Pneumoperitoneum was evacuated. We made a small Pfannenstiel incision approximately 3 fingerbreadths above the pubic symphysis dissection was taken down with electrocautery the fascia was incised in a transverse fashion and then elevated off the rectus muscles superiorly and inferiorly. The muscles fibers of the rectus were spread in the midline and the peritoneum was incised with great care to avoid injury to the bladder. An Grant wound retractor was used to f acilitate exposure. This allowed us to extract the proximal staple line and the specimen through a Pfannenstiel incision. With the bowel nicely eviscerated a point for proximal transection was chosen. The bowel was then divided between Kris clamps. Specimen was sent off the field labeled as sigmoid colon staple line distal. We then prepared the proximal bowel for anastomosis. A 2-0 Prolene suture was then placed in a pursestring fashion around the cut edge of the bowel wall. The anvil of a 29 mm EEA stapler was then secured within the lumen of the bowel and the suture was tied down to bring the bowel wall type to the shaft of the anvil. Fat was cleared of the adjacent bowel wall close to the anvil and a second pursestring suture of the 2-0 Prolene was placed to secure the anvil. This was then reintroduced into theabdomen. We then turned our attention to the small bowel that had fistulized to the sigmoid colon. This was pulled up through our Pfannenstiel incision and inspected. There was no full-thickness injury but there was some minor damage to the serosa but also some compromise of the small bowel mesentery. Therefore we elected to perform a small bowel resection in the area of this fistula. The mesentery was isolated at the proposed proximal and distal points of transection. The mesentery was then divided using the LigaSure device. We then performed a Jordan technique small bowel anastomosis and excised the small bowel and passed this off the field as specimen, ileum. The small bowel anastomosis was pink and viable. The, and staple line was oversewn with 3-0 Vicryl Lembert sutures. Two 3-0 Vicryl crotch stitches were placed. We reinsufflated the abdomen and established pneumoperitoneum. We then performed laparoscopic full mobilization of the splenic flexure using the LigaSure device. The omentum was retracted cephalad above the transverse colon and the transverse colon was identified. The attachments of the omentum to the transverse colon were then taken with the LigaSure device to enter into the lesser sac the budget director ior wall of the stomach was identified. The remaining attachments of the omentum to the transverse colon as the colon extended distally towards the spleen were then transected. This allowed us to take the superior lateral and posterior attachments of the splenic flexure to elevate the colon and itsmesocolon off of Gerota's fascia. The remaining attachments overlying the tail of the pancreas wereincised with great care to avoid injury to the pancreas. We connected our lateral dissection to where we had previously dissected the lateral attachments of the descending colon. This allowed us to elevate the transverse and descending colon to identify the cut edge of the mesentery from our previous dissection. This allowed us to continue to incise the mesentery. Once we had completed our splenic flexure mobilization we assessed our reach down into the pelvis and this was more than adequate. The patient was then again placed in Trendelenburg position. We utilized the robotic camera as a laparoscope. The proximal bowel of the descending colon was identified and the anvil was identified. Prior to creating our anastomosis, we assessed perfusion to our proximal colonic conduit with intraoperative fluorescence angiography. Four mL of dilute indocyanine green was injected intravenously by the anesthesia team. We utilized the Firefly technology on the robotic laparoscope to identify bloodflow. We identified excellent perfusion of the bowel to the entire conduit. Next the small bowel was swept up out of the pelvis. I then went to the perineal field. I placed sizers via the anus to the top of the rectal stump. The EEA stapler was then placed via the anus to the top of the rectal stump. Stapler was flush with the bowel wall here and the spike was deployed through the bowel wall just adjacent to the staple line in its midportion. Utilizing laparoscopic instruments the anvil was to the stapler, stapler was closed and fired after ensuring that the proximal bowel was in proper orientation by inspecting the cut edge of the mesentery to its origin. The stapler was easily retrieved. The anastomotic rings were inspected and found to be intact. The pelvis was filled with saline for a pneumatic leak test. I performed a rigid proctoscopy and a pneumatic leak test was negative. We then irrigated out the left abdominal wall abscess with saline and any residual purulent fluid within the cavity. We then placed a 19 Lithuanian Stan channel drain through the left most lateral robotic ports and placed this down into the pelvis. This was sutured to the skin with a 2-0 nylon drain stitch. We closed the right lower quadrant 12 mm trocar site with a Taye-Britni device utilizing 0 Vicryl tie. At this point pneumoperitoneum was evacuated. The Grant wound retractor was removed and theperitoneum was reapproximated with a running suture of 2-0 Vicryl. The fascia was then reapproximated at the site with 2 running sutures of looped 0 PDS. Pneumoperitoneum was reestablished. All skin wounds closed with 4-0 Monocryl in a subcuticular fashion after irrigation. Dermabond was placed as a dressing. The patient was placed in supine position, drapes were taken down, he was awakened extubated and transferred to the PACU in stable condition. Lap, sponge, and needle counts correct at the end of the case x2. Bilateral ureteral catheters were removed at the conclusion of the case and werenoted to be intact. Specimens: Sigmoid colon, staple line distal Ileum Radha Arndt MD * Pharmacy-Admission Medication History - Priya Chavira [facility] - 08/06/2022 2:05 PM CDT Medication reconciliation interview completed by pre-admitting nurse, reviewed by pharmacy. No further clarifications needed. Prior to Admission medications Medication Sig Last Dose Taking? Auth Provider Half-Way End Date ALPRAZolam (XANAX) 0.5 MG tablet Take 0.5 mg by mouth as needed Yes Reported, Patient ciprofloxacin (CIPRO) 500 MG tablet Take 500 mg by mouth 2 times daily Yes Reported, Patient indapamide (LOZOL) 1.25 MG tablet Take 1.25 mg by mouth daily Yes Reported, Patient Yes lisinopril (ZESTRIL) 20 MG tablet Take 40 mg by mouth daily Yes Reported, Patient Yes metoprolol succinate ER (TOPROL XL) 50 MG 24 hr tablet Take 50 mg by mouth daily Yes Reported, Patient Yes testosterone cypionate (DEPOTESTOSTERONE) 200 MG/ML injection Inject 200 mg into the muscle once a week Yes Reported, Patient Yes ibuprofen (ADVIL/MOTRIN) 200 MG tablet Take 200-400 mg by mouth as needed Reported, Patient documented in this encounter Plan of Treatment Not on file documented as of this encounter Procedures Procedure Name Priority Date/Time Associated Diagnosis Comments EXTRA GREEN TOP TUBE (LAB USE ONLY) Routine 08/12/2022 7:12 AM CDT PLATELET COUNT Routine 08/12/2022 7:[address] CYSTOGRAM WO & W CONTRAST Routine 08/11/2022 5:10 PM CDT GLUCOSE BY METER Routine 08/11/2022 6:10 AM CDT GLUCOSE BY METER Routine 08/11/2022 2:49 AM CDT GLUCOSE BY METER Routine 08/10/2022 10:2 7 PM CDT CREATININE Routine 08/10/2022 7:45 AM CDT INSERT STENT URETER Routine 08/09/2022 7 :48 AM CDT Colovesical fistula PHOSPHORUS Routine 08/09/2022 6:37 AM CDT MAGNESIUM Routine 08/09/2022 6:37 AM CDT BASIC METABOLIC PANEL Routine 08/09/2022 6:37 AM CDT CBC WITH PLATELETS Routine 08/09/2022 6: 37 AM CDT GLUCOSE BY METER Routine 08/09/2022 1:54 AM CDT CREATININE Routine 08/08/2022 10:46 PM CDT SURGICAL PATHOLOGY EXAM Routine 08/08/2022 6:16 PM CDT COLECTOMY, ROBOT-ASSISTED, USING DA BELEN XI 08/08/2022 12:43 PM CDT Colovesical fistula GLUCOSE BY METER Routine 08/08/2022 10:3 4 AM CDT documented in this encounter Results * Extra Green Top Tube (LAB USE ONLY) (08/12/2022 7:12 AM CDT) Hold Specimen JIC 08/12/2022 8:46 AM CDT [facility] Blood STRUCTURE OF RIGHT HAND / Unknown Venipuncture / Unknown 08/12/2022 7:12 AM CDT 08/12/2022 7:32 AM CDT Kylah Arndt MD LAB - BLOOD ORDER BR[facility]ON [facility] [address] (1st floor, no room number) [place] [address], [facility] [phone] * Platelet count (08/12/2022 7:12 AM CDT) Platelet Count 284 150 - 450 10e3/uL 08/12/2022 7:35 AM CDT LABORATORY Blood STRUCTURE OF RIGHT HAND / Unknown Venipuncture / Unknown 08/12/2022 7:12 AM CDT 08/12/2022 7:32 AM CDT Kylah Arndt MD LAB - BLOOD ORDER BRANDON [facility] [address] (1st floor, no room number) [place] [address], [facility] [phone] * CT Cystogram wo & w Contrast (08/11/2022 5:10 PM CDT) Anatomical Region Laterality Modality Abdomen/Pelvis, SUBRAD CT JEFF DY, UMP CT ABDOMEN PELVIS, RAD CT Computed Tomography 08/11/2022 5:10 PM CDT Impressions 08/11/2022 6:27 PM CDT IMPRESSION: 1. ??Mild residual bladder wall thickening. No extravasation of contrast and no localized perivesicular collection. 2. ??Mild amount of ecchymoses/Postoperative hemorrhage within space of Retzius. 3. ??Back Seam Stitcher film demonstrates numerous loops of air distended proximal small bowel with only one loop included on the axial images but this is concerning for mid small bowel obstruction. Consider follow-up CT based on patient's symptoms. Narrative 08/11/2022 6:27 PM CDT EXAM: CT CYSTOGRAM WO and W CONTRAST LOCATION: [facility] DATE: 08/11/2022 INDICATION: colovesical fistula, sigmoid diverticulitis.. Postop day #3 COMPARISON: 06/25/2022 TECHNIQUE: CT pelvis without IV contrast using cystogram technique. Images without, and with filling of the bladder with 200 mL of dilute contrast. Post drain images were obtained. Multiplanar reformats were obtained. Dose reduction techniques were used. CONTRAST: 25mL Isovue 370 FINDINGS: BLADDER: Allan catheter present. Mild bladder wall thickening, especially along superior left side of bladder were previous intramural abscess is present. No obvious residual intramural abscess seen on this noncontrast study. There is no extravasation of contrast. Long surgical drain courses along the superior margin of the bladder, no localized extravesicular collection. Scattered retroperitoneal air bubbles are present. Modest amount of mildly high density soft tissue stranding within space of Retzius consistent with mild postoperative ecchymoses. Subcutaneous and intramuscular air along abdominal wall related to recent surgery. Normal-appearing low sigmoid anastomotic site. However, there is an additional anastomotic site left lower quadrant at the superior aspect of this exam which may represent a small bowel anastomosis and appears to be near site of change in caliber of small bowel. ADDITIONAL FINDINGS: The acquisition marketing manager film demonstrates multiple loops of air distended proximal small bowel which are not included on the axial images. Findings concerning for mid small bowel obstruction. As indicated consider follow-up full abdominal CT. Procedure Note Gerald Becerra MD - 08/11/2022 EXAM: CT CYSTOGRAM WO and W CONTRAST LOCATION: [facility] DATE: 08/11/2022 INDICATION: colovesical fistula, sigmoid diverticulitis.. Postop day #3 COMPARISON: 06/25/2022 TECHNIQUE: CT pelvis without IV contrast using cystogram technique. Imageswithout, and with filling of the bladder with 200 mL of dilute contrast.Post drain images were obtained. Multiplanar reformats were obtained. Dosereduction techniques were used. CONTRAST: 25mL Isovue 370 FINDINGS: BLADDER: Allan catheter present. Mild bladder wall thickening, especiallyalong superior left side of bladder were previous intramural abscess ispresent. No obvious residual intramural abscess seen on this noncontraststudy. There is no extravasation of contrast. Long surgical drain courses along the superior margin of the bladder, nolocalized extravesicular collection. Scattered retroperitoneal air bubblesare present. Modest amount of mildly high density soft tissue strandingwithin space of Retzius consistent with mild postoperative ecchymoses. Subcutaneous and intramuscular airalong abdominal wall related to recent surgery. Normal-appearing low sigmoid anastomotic site. However, there is anadditional anastomotic site left lower quadrant at the superior aspect ofthis exam which may represent a small bowel anastomosis and appears to benear site of change in caliber of small bowel. ADDITIONAL FINDINGS: The acquisition marketing manager film demonstrates multiple loops of airdistended proximal small bowel which are not included on the axial images.Findings concerning for mid small bowel obstruction. As indicated considerfollow-up full abdominal CT. IMPRESSION: 1. Mild residual bladder wall thickening. No extravasation of contrastand no localized perivesicular collection. 2. Mild amount of ecchymoses/Postoperative hemorrhage within space ofRetzius. 3. Back Seam Stitcher film demonstrates numerous loops of air distended proximal smallbowel with only one loop included on the axial images but this isconcerning for mid small bowel obstruction. Consider follow-up CT based onpatient's symptoms. Berenice Odom MD IMG CT ORDERABLES * (ABNORMAL) Glucose by meter (08/11/2022 6:10 AM CDT) GLUCOSE BY METER POCT 113(H) 70 - 99 mg/dL 08/11/2022 6:17 AM CDT [facility] POC Blood, Capillary BLOOD SPECIMEN / Unknown 08/11/2022 6:10 AM CDT 08/11/2022 6:17 AM CDT Kylah DOS SANTOS - ZENOBIA POCT Performing Organization Address City/[facility]/ZIP Co de Phone Number LABORATORY [facility] Lab [address] Lab (1st floor, no room number) [place] [address], [facility] [phone] * (ABNORMAL) Glucose by meter (08/11/2022 2:49 AM CDT) GLUCOSE BY METER POCT 108(H) 70 - 99 mg/dL 08/11/2022 2:56 AM CDT LABORATORY POC Blood, Capillary BLOOD SPECIMEN / Unknown 08/11/2022 2:49 AM CDT 08/11/2022 2:56 AM CDT Kylah DOS SANTOS - ZENOBIA POCT Performing Organization Address [facility] Co de Phone Number [facility] [address] Lab (1st floor, no room number) [place] [address], [place] [phone] * (ABNORMAL) Glucose by meter (08/10/2022 10:27 PM CDT) GLUCOSE BY METER POCT 115(H) 70 - 99 mg/dL 08/10/2022 10:34 PM CDT LABORATORY POC Blood, Capillary BLOOD SPECIMEN / Unknown 08/10/2022 10:27 PM CDT 08/10/2022 10:34 PM CDT Kylah FREGOSO POCT LABORATORY POC [facility] Lab [address] Lab (1st floor, no room number) [place] [address], [facility] [phone] * Creatinine (08/10/2022 7:45 AM CDT) Creatinine 1.14 0.67 - 1.17 mg/dL 08/10/2022 8:20 AM CDT [facility] GFR Estimate 82 >60 mL/min/1.73 m2 08/10/2022 8:20 AM CDT [facility] Blood STRUCTURE OF RIGHT UPPER LIMB / Unknown Venipuncture / Unknown 08/10/2022 7:45 AM CDT 08/10/2022 7:55 AM CDT Nini Walden MD LAB - BLOOD ORDE MARTHA [facility] [address] Lab (1st floor, no room number) [place] [address], [facility] [phone] * Phosphorus (08/09/2022 6:37 AM CDT) Phosphorus 3.7 2.5 - 4.5 mg/dL 08/09/2022 7:33 AM CDT [facility] Blood STRUCTURE OF RIGHT HAND / Unknown Venipuncture / Unknown 08/09/2022 6:37 AM CDT 08/09/2022 7:10 AM CDT Kylah Arndt MD LAB - BLOOD ORDER BRANDON [facility] [address] Lab (1st floor, no room number) [place] [address], [facility] [phone] * Magnesium (08/09/2022 6:37 AM CDT) Magnesium 1.7 1.7 - 2.3 mg/dL 08/09/2022 7:33 AM CDT [facility] Blood STRUCTURE OF RIGHT HAND / Unknown Venipuncture / Unknown 08/09/2022 6:37 AM CDT 08/09/2022 7:10 AM CDT Kylah Arndt MD LAB - BLOOD ORDER BRANDON [facility] Lab [address] Lab (1st floor, no room number) [place] [address], [facility] [phone] * (ABNORMAL) CBC with platelets (08/09/2022 6:37 AM CDT) WBC Count 14.0(H) 4.0 - 11.0 10e3/uL 08/09/2022 7:14 AM CDT [facility] RBC Count 4.71 4.40 - 5.90 10e6/uL 08/09/2022 7:14 AM CDT [facility] Hemoglobin 14.6 13.3 - 17.7 g/dL 08/09/2022 7:14 AM CDT [facility] LABORATORY Hematocrit 42.5 40.0 - 53.0 % 08/09/2022 7:14 AM CDT [facility] LABORATORY MCV 90 78 - 100 fL 08/09/2022 7:14 AM CDT [facility] LABORATORY MCH 31.0 26.5 - 33.0 pg 08/09/2022 7:14 AM CDT [facility] LABORATORY MCHC 34.4 31.5 - 36.5 g/dL 08/09/2022 7:14 AM CDT [facility] LABORATORY RDW 13.5 10.0 - 15.0 % 08/09/2022 7:14 AM CDT [facility] LABORATORY Platelet Count 328 150 - 450 10e3/uL 08/09/2022 7:14 AM CDT [facility] LABORATORY Blood STRUCTURE OF RIGHT HAND / Unknown Venipuncture / Unknown 08/09/2022 6:37 AM CDT 08/09/2022 7:09 AM CDT Kylah Arndt MD LAB - BLOOD ORDER BRANDON [facility] LABORATORY [facility] Lab [address] Lab (1st floor, no room number) [place] [address], [facility] [phone] * (ABNORMAL) Basic metabolic panel (08/09/2022 6:37 AM CDT) Pathologist [facility] Sodium 133(L) 136 - 145 mmol/L 08/09/2022 7:33 AM CDT LABORATORY Potassium 3.6 3.4 - 5.3 mmol/L 08/09/2022 7:33 AM CDT LABORATORY Chloride 98 98 - 107 mmol/L 08/09/2022 7:33 AM CDT LABORATORY Carbon Dioxide (CO2) 21(L) 22 - 29 mmol/L 08/09/2022 7:33 AM CDT LABORATORY Anion Gap 14 7 - 15 mmol/L 08/09/2022 7:33 AM CDT LABORATORY Urea Nitrogen 14.6 6.0 - 20.0 mg/dL 08/09/2022 7:33 AM CDT LABORATORY Creatinine 1.00 0.67 - 1.17 mg/dL 08/09/2022 7:33 AM CDT LABORATORY Calcium 8.3(L) 8.6 - 10.0 mg/dL 08/09/2022 7:33 AM CDT LABORATORY Glucose 127(H) 70 - 99 mg/dL 08/09/2022 7:33 AM CDT LABORATORY GFR Estimate >90 >60 mL/min/1.7 3m2 08/09/2022 7:33 AM CDT LABORATORY Blood STRUCTURE OF RIGHT HAND / Unknown Venipuncture / Unknown 08/09/2022 6:37 AM CDT 08/09/2022 7:10 AM CDT Kylah Arndt MD LAB - BLOOD ORDER BRANDON LABORATORY [facility] Lab [address] Lab (1st floor, no room number) [place] [address], [facility] [phone] * (ABNORMAL) Glucose by meter (08/09/2022 1:54 AM CDT) GLUCOSE BY METER POCT 157(H) 70 - 99 mg/dL 08/09/2022 2:00 AM CDT [facility] LABORATORY POC Blood, Capillary BLOOD SPECIMEN / Unknown 08/09/2022 1:54 AM CDT 08/09/2022 2:00 AM CDT Kylah Arndt MD LAB - BEAKER POCT Performing Organization Address [facility]/ZIP Co de Phone Number [facility] LABORATORY POC [facility] Lab [address] Lab (1st floor, no room number) [place] [phone], [facility] [phone] * (ABNORMAL) Creatinine (08/08/2022 10:46 PM CDT) Creatinine 1.28(H) 0.67 - 1.17 mg/dL 08/08/2022 11:14 PM CDT [facility] LABORATORY GFR Estimate 72 >60 mL/min/1.7 3m2 08/08/2022 11:14 PM CDT [facility] LABORATORY Blood STRUCTURE OF LEFT UPPER LIMB / Unknown Venipuncture / Unknown 08/08/2022 10:46 PM CDT 08/08/2022 10:52 PM CDT Kylah Arndt MD LAB - BLOOD ORDER BRANDON Performing Organization Address [facility]/ZIP Co de Phone Number LABORATORY [facility] Lab [address] Lab (1st floor, no room number) [place] [id number], [facility] [phone] * Surgical Pathology Exam (08/08/2022 6:16 PM CDT) Case Report Surgical Pathology Report ? Case: [id number] ? Authorizing Provider: ??Kylah Arndt MD ?? Collected: ? 08/08/2022 06:16 PM ? Ordering Location: ? [facility] ?? Received: ?08/08/2022 08:35 PM ? Main OR ? Pathologist: ? Ira Dowling, ? MD ? Specimens: ?? A) - Large Intestine, Colon, Sigmoid, SIGMOID COLON - staple line is distal ? B) - Small Intestine, Ileum, ILEUM ? 08/10/2022 3:04 PM CDT LABORATORY Final Diagnosis A: Large intestine, sigmoid, sigmoidectomy: -Viable specimen margins, 1 with diverticulum -Interval sections with diverticulosis with focal diverticulitis B: Small intestine, ileum, resection: -Viable margins of excision -Serosa with vascular congestion and fibrous adhesions 08/10/2022 3:04 PM CDT [facility] LABORATORY Clinical Information Procedure: Xi Robotic Assisted Sigmoid Colectomy, take down of colovesical fistula, mobilization of splenetic flexure, small bowel resection, drainage of abdominal wall abscess Cystoscopy, insertion of bilateral ureteral stents Pre-op Diagnosis: Colovesical fistula [N32.1] Post-op Diagnosis: N32.1 - Colovesical fistula [ICD-10-CM] 08/10/2022 3:04 PM CDT LABORATORY Gross Description A(1). Large Intestine, Colon, Sigmoid, SIGMOID COLON - staple line is distal: The specimen is received in formalin labeled with the patient's name, medical record number and other identifying information and designated sigmoid colon-staple line is distal. It consists of a 33 cm in length by 3-4 cm in diameter tortuous portion of colon. The serosa is purple-baird and ragged with areas of munoz-baird shaggy exudate and purple-baird adhesions. The specimen is opened to reveal pink-baird velvety mucosa with normal infoldings. The colon wall is focally thickened. Sectioning reveals multiple intact diverticula. No discrete perforations nor fistula tracts are appreciated grossly. 2 areas of mucin overlying the colon wall are noted, measuring 2.0 cm and 1.8 cm in greatest dimension. No discrete lesions or masses are appreciated grossly. Pulling Machine Operator sections are submitted. Summary of sections: A1-A2-en face proximal margin, split sections A3-A4-en face distal margin, split section A5-in home sales representative area of mucin A6-in home sales representative intact diverticulum B(2). Small Intestine, Ileum, ILEUM: The specimen is received in formalin labeled with the patient's name, medical record number and other identifying information and designated ileum. It consists of an unoriented 6.5 cm in length by 1.5-2 cm in diameter portion of purple-baird small bowel. The serosa contains multiple purple-baird adhesions. The specimen is opened to reveal pink-red velvety mucosa with normal infoldings. No discrete lesions or abnormalities are appreciated grossly. Pulling Machine Operator sections are submitted. Summary of sections: B1-in home sales representative en face margins B2-in home sales representative mucosa (THELMA Mcgowan [facility]) 08/10/2022 3:04 PM CDT LABORATORY Microscopic Description A, B. A formal microscopic examination has been performed 08/10/2022 3:04 PM CDT LABORATORY Performing Labs The technical component of this testing was completed at [facility] 08/10/2022 3:04 PM CDT LABORATORY Case Images 08/10/2022 3:04 PM CDT LABORATORY Resection SIGMOID COLON PART / Unknown 08/08/2022 6:16 PM CDT 08/08/2022 8:35 PM CDT Specimen obtained by wide resection (specimen) ILEAL STRUCTURE / Unknown 08/08/2022 6:38 PM CDT 08/08/2022 8:35 PM CDT Kylah FREGOSO AP LABORATORY [facility] Lab [address] 1[address] floor, [address] [place] [address], [place] [phone] LABORATORY [facility] Lab [address] Lab (1st floor, no room number) [place] [address], [place] [phone] * (ABNORMAL) Glucose by meter (08/08/2022 10:34 AM CDT) [facility] GLUCOSE BY METER POCT 106(H) 70 - 99 mg/dL 08/08/2022 10:40 AM CDT LABORATORY POC Blood, Capillary BLOOD SPECIMEN / Unknown 08/08/2022 10:34 AM CDT 08/08/2022 10:40 AM CDT Kylah FREGOSO POCT LABORATORY POC [facility] Lab [address] Lab (1st floor, no room number) [place] [address], [place] [phone] documented in this encounter Visit Diagnoses Diagnosis Colovesical fistula- Primary Intestinovesical fistula Colovesical fistula Intestinovesical fistula Acute post-operative pain Other acute postoperative pain documented in this encounter Admitting Diagnoses Diagnosis Colovesical fistula Intestinovesical fistula documented in this encounter Administered Medications Inactive Administered Medications - up to 3 most recent administrations Medication Order MAR Action Action Date Dose Rate Site acetaminophen (TYLENOL) tablet 650 mg 650 mg, Oral, EVERY 4 HOURS PRN, other, For optimal non-opioid multimodal pain management to improve pain control., Starting on 08/11/22 at 0000, May give first dose 4 hours after last scheduled dose of acetaminophen (TYLENOL). Maximum acetaminophen dose from all sources = 75 mg/kg/day not to exceed 4 grams/day. $Given 08/12/2022 10:15 AM CDT 650 mg $Given 08/12/2022 6:19 AM CDT 650 mg acetaminophen (TYLENOL) tablet 975 mg 975 mg, Oral, EVERY 8 HOURS, First dose on Sat08/08/22 at 2200, For 3 days, Administer for multimodal surgical pain management. Maximum acetaminophen dose from all sources = 75 mg/kg/day not to exceed 4 grams/day. $Given 08/11/2022 1:41 PM CDT 97 5 mg $Given 08/11/2022 5:53 AM CDT 975 mg $Given 08/10/2022 9:54 PM CDT 975 mg ALPRAZolam (XANAX) tablet 0.5 mg 0.5 mg, Oral, 3 TIMES DAILY PRN, anxiety, Starting on Donna 08/09/22 at 0825, Avoid taking with grapefruit juice $Given 08/12/2022 6:19 AM CDT 0.5 mg $Given 08/11/2022 8:39 PM CDT 0.5 mg $Given 08/11/2022 1:05 PM CDT 0.5 mg diazepam (VALIUM) injection 2.5 mg 2.5 mg, Intravenous, Administer over 1-4 Minutes, EVERY 6 HOURS PRN, muscle spasms, Starting on Sat08/08/22 at 2231, Vesicant. This drug may cause significant respiratory depression. Monitor respiratory status and vital signs carefully for 1 hour after each dose. $Given 08/09/2022 12:21 AM CDT 2.5 mg enoxaparin ANTICOAGULANT (LOVENOX) injection 40 mg 40 mg, Subcutaneous, EVERY 24 HOURS, First dose on Donna 08/09/22 at 1400, Check to make sure start date/time is 12-24 hours post op unless documented complication, AND no sooner than 22 hours post op if spinal anesthesia used. Continue until discharge to home. HOLD if platelet count falls below 50% of baseline or less than 100,000/??L and notify provider. $Given 08/11/2022 1:41 PM CDT 40 mg $Given 08/10/2022 2:18 PM CDT 40 mg $Given 08/09/2022 1:15 PM CDT 40 mg fentaNYL (PF) (SUBLIMAZE) injection 50 mcg 50 mcg, Intravenous, EVERY 5 MIN PRN, severe pain, Give fentaNYL (SUBLIMAZE) first if HYDROmorphone (DILAUDID) also ordered., Starting on Sat08/08/22 at 2009, Administer fentaNYL (SUBLIMAZE) for acute pain control. Move to HYDROmorphone (DILAUDID): - IF patient has received up to 200 mcg of fentaNYL (SUBLIMAZE), OR - IF patient has received 2 doses of fentaNYL (SUBLIMAZE) AND continues to have severe pain (pain score greater than or equal to seven (7) or is unable to participate in post op recovery due to pain. Wait 5 minutes AFTER last fentaNYL (SUBLIMAZE) dose before administering HYDROmorphone (DILADUDID). Postop Anesthesia Phase I only. Notify Provider to assess for uncontrolled pain or analgesic side effects. DO NOT revert back to fentanyl (SUBLIMAZE) after administering HYDROmorphone (DILAUDID)., PACU $Given 08/08/2022 8:22 PM CDT 50 mcg $Given 08/08/2022 8:13 PM CDT 50 mcg heparin ANTICOAGULANT injection 5,000 Units 5,000 Units, Subcutaneous, PRE-OP/PRE-PROCEDURE, Starting on Sat08/08/22 at 1037, For 1 dose, IF Nerve Block is planned, DELAY SubQ Heparin administration until AFTER Block is placed. IMPORTANT: IF Patient ONLY receiving a TAP Block, Nursing does NOT need to verify order with Anesthesia, and can proceed with medication administration. High concentration heparin. Not for line flush or cath care., Pre-procedure $Given 08/08/2022 11:19 AM CDT 5,000 Un its HYDROmorphone (DILAUDID) injection 0.2 mg 0.2 mg, Intravenous, EVERY 5 MIN PRN, moderate pain, Starting on Sat08/08/22 at 2008, Use FentaNYL (SUBLIMAZE) first if ordered. Maximum total cumulative dose NOT to exceed 2 mg. DO NOT revert back to fentanyl (SUBLIMAZE) after administering HYDROmorphone (DILAUDID). Notify Provider to assess for uncontrolled pain or analgesic side effects., PACU $Given 08/08/2022 9:31 PM CDT 0.2 mg $Given 08/08/2022 9:05 PM CDT 0.2 mg HYDROmorphone (DILAUDID) injection 0.2 mg 0.2 mg, Intravenous, EVERY 2 HOURS PRN, moderate pain, Starting on Sat08/08/22 at 2228, IF patient unable to take oral pain medication or pain not controlled with oral analgesics. Hold IV PRN opioid dose for analgesic side effects. Notify provider to assess for uncontrolled pain or analgesic side effects. $Given 08/09/2022 4:34 PM CDT 0.2 mg HYDROmorphone (DILAUDID) injection 0.4 mg 0.4 mg, Intravenous, EVERY 5 MIN PRN, severe pain, Starting on Sat08/08/22 at 2008, Use FentaNYL (SUBLIMAZE) first if ordered. Maximum total cumulative dose NOT to exceed 2 mg. DO NOT revert back to fentanyl (SUBLIMAZE) after administering HYDROmorphone (DILAUDID). Notify Provider to assess for uncontrolled pain or analgesic side effects., PACU $Given 08/08/2022 8:51 PM CDT 0.4 mg $Given 08/08/2022 8:37 PM CDT 0.4 mg HYDROmorphone (DILAUDID) injection 0.4 mg 0.4 mg, Intravenous, EVERY 2 HOURS PRN, severe pain, Starting on Sat08/08/22 at 2228, IF patient unable to take oral pain medication or pain not controlled with oral analgesics. Hold IV PRN opioid dose for analgesic side effects. Notify provider to assess for uncontrolled pain or analgesic side effects. $Given 08/11/2022 1:49 AM CDT 0.4 mg $Given 08/10/2022 6:16 AM CDT 0.4 mg $Given 08/09/2022 8:21 PM CDT 0.4 mg HYDROmorphone (DILAUDID) tablet 2-4 mg 2-4 mg, Oral, EVERY 3 HOURS PRN, severe pain, Starting on Donna 08/09/22 at 0000 $Given 08/11/2022 6:29 AM CDT 4 mg $Given 08/11/2022 3:29 AM CDT 4 mg $Given 08/11/2022 12:27 AM CDT 4 mg iopamidol (ISOVUE-370) solution 500 mL 500 mL, Urethral, ONCE, On 08/11/22 at 1700, For 1 dose $Given 08/11/2022 4:56 PM CDT 25 mLs ketorolac (TORADOL) injection 30 mg 30 mg, Intravenous, EVERY 6 HOURS, First dose (after last modification) on Donna 08/09/22 at 0830, For 3 days, Can cause pain on injection. If ordered intravenously (IV) : administer through a running maintenance fluid over 1 minute followed by a flush. If patient complains of pain on injection, may dilute 15-30 mg in 5 mL and push over 1 to 2 minutes. $Given 08/12/2022 2:01 AM CDT 30 mg $Given 08/11/2022 8:39 PM CDT 30 mg $Given 08/11/2022 3:35 PM CDT 30 mg lactated ringers infusion at 75 mL/hr, Intravenous, CONTINUOUS, Change to saline lock when well tolerated., Starting on Sat08/08/22 at 2230, Until Sat08/12/22 at 0941 $New Bag 08/10/2022 8:54 AM CDT 75 mL/hr $New Bag 08/09/2022 6:00 PM CDT 75 mL/hr $New Bag 08/09/2022 6:07 AM CDT 75 mL/hr Lidocaine (LIDOCARE) 4 % Patch 2 patch 2 patch, Transdermal, EVERY 24 HOURS 0800, Administer over 12 Hours, First dose on Donna 08/09/22 at 0800, Apply patch(s) to abdomen. To prevent lidocaine toxicity, patient should be [...] for 96 hours post injection. $Patch/Med Applied 08/12/2022 8:15 AM CDT 2 patches Other (see comments) $Patch/Med Applied 08/11/2022 8:15 AM CDT 2 patches Other (see comments) $Patch/Med Applied 08/10/2022 8:41 AM CDT 2 patches Other (see comments) lidocaine patch in PLACE First dose on Sat08/09/22 at 0800, Chart every shift, confirming that patch is still in place on patient (no barcode scan needed). See patch order for dose information. NEVER APPLY HEAT OVER PATCH which will increase absorption and may lead to risk of local anesthetic toxicity. Do not apply over area where liposomal bupivacaine injected for 96 hours. methocarbamol (ROBAXIN) tablet 500 mg 500 mg, Oral, 3 TIMES DAILY PRN, muscle spasms, other, muscle pain, Starting on Sat08/09/22 at 0003 $Given 08/09/2022 7:02 AM CDT 500 mg methocarbamol (ROBAXIN) tablet 750 mg 750 mg, Oral, 3 TIMES DAILY, First dose (after last modification) on Sat08/09/22 at 1600 $Given 08/12/2022 8:13 AM CDT 750 mg $Given 08/11/2022 9:45 PM CDT 750 mg $Given 08/11/2022 3:35 PM CDT 750 mg metoprolol succinate ER (TOPROL XL) 24 hr tablet 50 mg 50 mg, Oral, DAILY, First dose on Donna 08/09/22 at 0900, DO NOT CRUSH. Tablet may be split in half along score line. $Given 08/12/2022 8:13 AM CDT 50 mg $Given 08/11/2022 8:16 AM CDT 50 mg $Given 08/10/2022 8:42 AM CDT 50 mg metroNIDAZOLE (FLAGYL) infusion 500 mg Routine, 500 mg, Intravenous, PRE-OP/PRE-PROCEDURE, Starting on Sat08/08/22 at 1037, For 1 dose, Do not refrigerate., Indications: Perioperative Pharmacoprophylaxis, Pre-procedure $New Bag 08/08/2022 11:16 AM CDT 500 mg naloxone (NARCAN) injection 0.2 mg 0.2 mg, Intravenous, EVERY 2 MIN PRN, opioid reversal, Starting on Sat08/08/22 at 2218, Administer intravenous route when available and notify [...] 2 MIN PRN, opioid reversal, Starting on Sat08/08/22 at 8, Administer intramuscular if an intravenous route is [...] 2 MIN PRN, opioid reversal, Starting on Sat08/08/22 at 2218, Administer intravenous route when available and notify [...] 2 MIN PRN, opioid reversal, Starting on Sat08/08/22 at 2218, Administer intramuscular if an intravenous route is [...] Administer over 24 Hours, First dose on Donna 08/09/22 at 0900, Reminder: Remove previous patch before applying new patch. $Patch/Med Applied 08/12/2022 8:18 AM CDT 1 patch Left Lower Back $Patch/Med Applied 08/11/2022 8:20 AM CDT 1 patch Right Arm $Patch/Med Applied 08/10/2022 8:41 AM CDT 1 patch Left Shoulder ondansetron (ZOFRAN ODT) ODT tab 4 mg 4 mg, Oral, EVERY 6 HOURS PRN, nausea, vomiting, Starting on 08/08/22 at 2229, This is Step 1 of nausea and vomiting management. If nausea not resolved in 15 minutes, go to Step 2 prochlorperazine (COMPAZINE). Do NOT administer if patient received granisetron (KYTRIL) pre-operatively. With dry hands, peel back foil backing and gently remove tablet. Do not push oral disintegrating tablet through foil backing. Administer immediately on tongue and oral disintegrating tablet dissolves in seconds, then swallow with saliva. Liquid not required. ondansetron (ZOFRAN) injection 4 mg 4 mg, Intravenous, EVERY 6 HOURS PRN, nausea, vomiting, Administer over 2-5 Minutes, Starting on 08/08/22 at 2229, Give IF patient unable to tolerate oral medication. This is Step 1 of nausea and vomiting management. If nausea not resolved in 15 minutes, go to Step 2 prochlorperazine (COMPAZINE). Do NOT administer if patient received granisetron (KYTRIL) pre-operatively. Irritant. oxyCODONE (ROXICODONE) tablet 5 mg 5 mg, Oral, EVERY 4 HOURS PRN, moderate pain, Starting on 08/08/22 at 2110, Hold oral PRN dose for analgesic side effects. Notify provider to assess for uncontrolled pain or analgesic side effects. Hold while on IV CEILING INSTALLER or with regular IV opioid dosing. $Given 08/08/2022 9:13 PM CDT 5 mg oxyCODONE IR (ROXICODONE) tablet 10 mg 10 mg, Oral, EVERY 4 HOURS PRN, severe pain, Starting on 08/11/22 at 0849 $Given 08/12/2022 10:15 AM CDT 10 mg $Given 08/12/2022 6:15 AM CDT 10 mg $Given 08/12/2022 2:00 AM CDT 10 mg piperacillin-tazobactam (ZOSYN) intermittent infusion 3.375 g Routine, 3.375 g, Intravenous, EVERY 6 HOURS, First dose on Donna 08/09/22 at 0000, For 3 days, Indications: Intra-Abdominal Infection $New Bag 08/09/2022 6:07 AM CDT 3.375 g 100 mL/hr $New Bag 08/09/2022 12:58 AM CDT 3.375 g 100 mL/hr piperacillin-tazobactam (ZOSYN) intermittent infusion 4.5 g Routine, 4.5 g, Intravenous, EVERY 6 HOURS, First dose (after last modification) on Donna 08/09/22 at 1200, For 10 doses, Changed to Zosyn 4.5g Q6H per Automatic Dose Adjustment Policy for weight > 90kg. , Indications: Intra-Abdominal Infection $New Bag 08/11/2022 5:46 PM CDT 4.5 g 200 m L/hr $New Bag 08/11/2022 12:37 PM CDT 4.5 g 200 mL/hr $New Bag 08/11/2022 5:53 AM CDT 4.5 g 200 mL/hr sodium chloride (PF) 0.9% PF flush 3 mL 3 mL, Intracatheter, EVERY 8 HOURS, First dose on Sat08/08/22 at 2230, to lock peripheral IV dormant line $Given 08/11/2022 9:54 PM CDT 3 mLs $Given 08/11/2022 5:52 AM CDT 3 mLs $Given 08/10/2022 9:56 PM CDT 3 mLs documented in this encounter Active and Recently Administered Medications Times are shown in CDT. Scheduled Medication Order 08/10/2022 08/11/2022 08/12/2022 acetaminophen (TYLENOL) tablet 975 mg (COMPLETED) 975 mg, Oral, EVERY 8 HOURS, First dose on Sat08/08/22 at 2200, For 3 days, Administer for multimodal surgical pain management. Maximum acetaminophen dose from all sources = 75 mg/kg/day not to exceed 4 grams/day. 0595 ($Given - Provider: Nirmala Fernandez RN)1414 ($Given - Provider: Nancie Holden, ELIAN)2152 ($Given - Provider: Lidia Multani RN) 0531 ($Given - Provider: Edwar Flores RN)1341 ($Given - Provider: Nancie Holden, ELIAN) enoxaparin ANTICOAGULANT (LOVENOX) injection 40 mg 40 mg, Subcutaneous, EVERY 24 HOURS, First dose on Donna 08/09/22 at 1400, Check to make sure start date/time is 12-24 hours post op unless documented complication, AND no sooner than 22 hours post op if spinal anesthesia used. Continue until discharge to home. HOLD if platelet count falls below 50% of baseline or less than 100,000/??L and notify provider. 1418 ($Given - Provider: Nancie Holden, ELIAN) 1341 ($Given - Provider: Nancie Holden, RN) iopamidol (ISOVUE-370) solution 500 mL (COMPLETED) 500 mL, Urethral, ONCE, On 08/11/22 at 1700, For 1 dose 1656 ($Given - Provider: Ben Boggs) ketorolac (TORADOL) injection 30 mg (COMPLETED) 30 mg, Intravenous, EVERY 6 HOURS, First dose (after last modification) on Donna 08/09/22 at 0830, For 3 days, Can cause pain on injection. If ordered intravenously (IV) : administer through a running maintenance fluid over 1 minute followed by a flush. If patient complains of pain on injection, may dilute 15-30 mg in 5 mL and push over 1 to 2 minutes. 0304 ($Given - Provider: Nirmala Fernandez RN)0842 ($Given - Provider: Nancie Holden, ELIAN)1435 ($Given - Provider: Nancie Holden, ELIAN)2008 ($Given - Provider: Lidia Multani RN) 0322 ($Given - Provider: Edwar Flores, ELIAN)0933 ($Given - Provider: Nancie Holden, RN)1535 ($Given - Provider: Nancie Holden, ELIAN)2039 ($Given - Provider: Faith Taylor, ELIAN) 0201 ($Given - Provider: Faith Taylor, ELIAN) Lidocaine (LIDOCARE) 4 % Patch 2 patch 2 patch, Transdermal, EVERY 24 HOURS 0800, Administer over 12 Hours, First dose on Donna 08/09/22 at 0800, Apply patch(s) to abdomen. To prevent lidocaine toxicity, patient should be patch free for 12 hrs daily. Patches may be cut to smaller size prior to removing release liner. Reminder: Remove previous patch before applying new patch. NEVER APPLY HEAT OVER PATCH which increases absorption and may lead to local anesthetic toxicity. Do not apply over area where liposomal bupivacaine was injected for 96 hours post injection. 0841 ($Patch/Med Applied - Provider: Nancie Holden RN - Comment: abdomen)2014 (Patch/Med Removed - Provider: Lidia Multani RN) 0815 ($Patch/Med Applied - Provider: Nancie Holden RN - Comment: abdomen)2020 (Patch/Med Removed - Provider: Faith Taylor RN) 0815 ($Patch/Med Applied - Provider: Nancie Holden RN - Comment: low abdomen)1148 (Due: Patch/Med Removed - Provider: Orders Generic Provider - Comment: Time automatically adjusted from order being discontinued) lidocaine patch in PLACE First dose on Donna 08/09/22 at 0800, Chart every shift, confirming that patch is still in place on patient (no barcode scan needed). See patch order for dose information. NEVER APPLY HEAT OVER PATCH which will increase absorption and may lead to risk of local anesthetic toxicity. Do not apply over area where liposomal bupivacaine injected for 96 hours. 0539 (Patch Free Period - Provider: Nirmala Fernandez RN)1425 (Patch in Place - Provider: Nancie Holden RN)2156 (Patch Free Period - Provider: Lidia Multani RN) 0553 (Patch in Place - Provider: Edwar Flores RN)1311 (Patch in Place - Provider: Nancie Holden RN)2201 (Patch Free Period - Provider: Faith Taylor RN) 0642 (Patch Free Period - Provider: Faith Taylor RN) methocarbamol (ROBAXIN) tablet 750 mg 750 mg, Oral, 3 TIMES DAILY, First dose (after last modification) on Donna 08/09/22 at 1600 0842 ($Given - Provider: Nancie Holden RN)1559 ($Given - Provider: Nancie Holden RN)2154 ($Given - Provider: Lidia Multani RN) 0933 ($Given - Provider: Nancie Holden RN)1535 ($Given - Provider: Nancie Holden, ELIAN)2145 ($Given - Provider: Faith Taylor RN) 0813 ($Given - Provider: Nancie Holden RN) metoprolol succinate ER (TOPROL XL) 24 hr tablet 50 mg 50 mg, Oral, DAILY, First dose on Sat08/09/22 at 0900, DO NOT CRUSH. Tablet may be split in half along score line. 0842 ($Given - Provider: Nancie Holden RN) 0816 ($Given - Provider: Nancie Holden RN) 0813 ($Given - Provider: Nancie Holden RN) nicotine (NICODERM CQ) 21 MG/24HR 24 hr patch 1 patch 1 patch, Transdermal, DAILY, Administer over 24 Hours, First dose on Sat08/09/22 at 0900, Reminder: Remove previous patch before applying new patch. 0840 (Patch/Med Removed - Provider: Nancie Holden RN)0841 ($Patch/Med Applied - Provider: Nancie Holden RN) 0815 (Patch/Med Removed - Provider: Nancie Holden RN)0820 ($Patch/Med Applied - Provider: Nancie Holden RN) 0816 (Patch/Med Removed - Provider: Nancie Holden RN)0818 ($Patch/Med Applied - Provider: Nancie Holden RN)1148 (Due: Patch/Med Removed - Provider: Orders Generic Provider - Comment: Time automatically adjusted from order being discontinued) nicotine Patch in Place First dose on Sat08/09/22 at 0830, Chart every shift, confirming that patch is still in place on patient (no barcode scan needed). See patch order for dose information. 0007 (Patch Free Period - Provider: Nirmala Fernandez RN - Comment: removed per patient request)0844 (Patch in Place - Provider: Nancie Holden RN)1630 (Patch in Place - Provider: Nancie Holden RN) 0213 (Patch in Place - Provider: Edwar Flores RN)0820 (Patch in Place - Provider: Nancie Holden, ELIAN)1537 (Patch in Place - Provider: Nancie Holden RN) 0001 (Patch in Place - Provider: Faith Taylor RN)0820 (Patch in Place - Provider: Nancie Holden RN) piperacillin-tazobactam (ZOSYN) intermittent infusion 4.5 g (COMPLETED) Routine, 4.5 g, Intravenous, EVERY 6 HOURS, First dose (after last modification) on Donna 08/09/22 at 1200, For 10 doses, Changed to Zosyn 4.5g Q6H per Automatic Dose Adjustment Policy for weight > 90kg. , Indications: Intra-Abdominal Infection 0006 ($New Bag - Provider: Nirmala Fernandez RN)0539 ($New Bag - Provider: Nirmala Fernandez RN)1133 ($New Bag - Provider: Nancie Holden RN)1734 ($New Bag - Provider: Nancie Holden RN) 0046 ($New Bag - Provider: Edwar Flores RN)0553 ($New Bag - Provider: Edwar Flores, ELIAN)1237 ($New Bag - Provider: Nancie Holden RN)1746 ($New Bag - Provider: Nancie Holden RN) sodium chloride (PF) 0.9% PF flush 3 mL 3 mL, Intracatheter, EVERY 8 HOURS, First dose on Sat08/08/22 at 2230, to lock peripheral IV dormant line 0539 (Not Given - Provider: Nirmala Fernandez RN - Reason: IV Infusing)1425 (Not Given - Provider: Nancie Holden RN - Reason: IV Infusing)2156 ($Given - Provider: Lidia Multani RN) 0552 ($Given - Provider: Edwar Flores RN)1430 (Canceled Entry - Provider: Nancie Holden RN - Comment: IV Infusing)2154 ($Given - Provider: Faith Taylor RN) 0643 (Not Given - Provider: Faith Taylor RN - Reason: Loss of IV access) Continuous Medication Order 08/10/2022 08/11/2022 08/12/2022 lactated ringers infusion (CANCELED) at 75 mL/hr, Intravenous, CONTINUOUS, Change to saline lock when well tolerated., Starting on Sat08/08/22 at 2230, Until 08/12/22 at 0941 0854 ($New Bag - Provider: Nancie Holden RN) PRN Medication Order 08/10/2022 08/11/2022 08/12/2022 acetaminophen (TYLENOL) tablet 650 mg 650 mg, Oral, EVERY 4 HOURS PRN, other, For optimal non-opioid multimodal pain management to improve pain control., Starting on 08/11/22 at 0000, May give first dose 4 hours after last scheduled dose of acetaminophen (TYLENOL). Maximum acetaminophen dose from all sources = 75 mg/kg/day not to exceed 4 grams/day. 0619 ($Given - Provider: Faith Taylor RN)1015 ($Given - Provider: Nancie Holden, RN) ALPRAZolam (XANAX) tablet 0.5 mg 0.5 mg, Oral, 3 TIMES DAILY PRN, anxiety, Starting on Donna 08/09/22 at 0825, Avoid taking with grapefruit juice 1214 ($Given - Provider: Meredith Lassiter RN)1559 ($Given - Provider: Nancie Holden, ELIAN)2154 ($Given - Provider: Lidia Multani RN) 0816 ($Given - Provider: Nancie Holden, ELIAN)1305 ($Given - Provider: Meredith Lassiter RN)2039 ($Given - Provider: Faith Taylor RN) 0619 ($Given - Provider: Faith Taylor RN) HYDROmorphone (DILAUDID) injection 0.2 mg(Linked Group 1) 0.2 mg, Intravenous, EVERY 2 HOURS PRN, moderate pain, Starting on 08/08/22 at 2229, IF patient unable to take oral pain medication or pain not controlled with oral analgesics. Hold IV PRN opioid dose for analgesic side effects. Notify provider to assess for uncontrolled pain or analgesic side effects. 0616 (See Alternative - Provider: Nirmala Fernandez RN) 0149 (See Alternative - Provider: Edwar Flores RN) HYDROmorphone (DILAUDID) injection 0.4 mg(Linked Group 1) 0.4 mg, Intravenous, EVERY 2 HOURS PRN, severe pain, Starting on 08/08/22 at 2229, IF patient unable to take oral pain medication or pain not controlled with oral analgesics. Hold IV PRN opioid dose for analgesic side effects. Notify provider to assess for uncontrolled pain or analgesic side effects. 0616 ($Given - Provider: Nirmala L Wobschall, RN) 0149 ($Given - Provider: Edwar Flores RN) HYDROmorphone (DILAUDID) tablet 2-4 mg (CANCELED) 2-4 mg, Oral, EVERY 3 HOURS PRN, severe pain, Starting on Donna 08/09/22 at 0000 0203 ($Given - Provider: Nirmala Fernandez RN)0539 ($Given - Provider: Nirmala Fernandez RN)0842 ($Given - Provider: Nancie Holden RN)1133 ($Given - Provider: Nancie Holden, RN)1436 ($Given - Provider: Nancie Holden, RN)1734 ($Given - Provider: Nancie Holden, RN)2043 ($Given - Provider: Lidia Multani RN) 0027 ($Given - Provider: Faith Taylor RN)0329 ($Given - Provider: Edwar Flores, ELIAN)0629 ($Given - Provider: Edwar Flores RN) lidocaine (LMX4) cream Topical, EVERY 1 HOUR PRN, pain, with VAD insertion, Starting on Sat08/08/22 at 2229, Apply at least 30 minutes prior to VAD insertion in divided doses as needed for size of site for insertion. MAX Dose: 2.5 g (?? of 5 g tube) Do NOT give if patient has a history of allergy to any local anesthetic or any gray product. Do NOT use both lidocaine intradermal/subcutaneous injection and the lidocaine cream on the same site. lidocaine 1 % 0.1-1 mL 0.1-1 mL, Other, EVERY 1 HOUR PRN, mild pain with VAD insertion, Starting on Sat08/08/22 at 2229, MAX dose 1 mL subcutaneous OR intradermal along the side of the vein in divided doses as needed for VAD insertion. Do NOT give if patient has a history of allergy to any local anesthetic or any gray product. Do NOT use both lidocaine intradermal/subcutaneous injection and the lidocaine cream on the same site. naloxone (NARCAN) injection 0.2 mg(Linked Group 2) 0.2 mg, Intravenous, EVERY 2 MIN PRN, opioid reversal, Starting on Sat08/08/22 at 2218, Administer intravenous route when available and notify [...] doses. naloxone (NARCAN) injection 0.2 mg(Linked Group 2) 0.2 mg, Intramuscular, EVERY 2 MIN PRN, opioid reversal, Starting on Sat08/08/22 at 2218, Administer intramuscular if an intravenous route is [...] doses. naloxone (NARCAN) injection 0.4 mg(Linked Group 2) 0.4 mg, Intravenous, EVERY 2 MIN PRN, opioid reversal, Starting on Sat08/08/22 at 2218, Administer intravenous route when available and notify [...] doses. naloxone (NARCAN) injection 0.4 mg(Linked Group 2) 0.4 mg, Intramuscular, EVERY 2 MIN PRN, opioid reversal, Starting on Sat08/08/22 at 2218, Administer intramuscular if an intravenous route is [...] (ZOFRAN ODT) ODT tab 4 mg(Linked Group 3) 4 mg, Oral, EVERY 6 HOURS PRN, nausea, vomiting, Starting on Sat08/08/22 at 2229, This is Step 1 of nausea and vomiting management. If nausea not resolved in 15 minutes, go to Step 2 prochlorperazine (COMPAZINE). Do NOT administer if patient received granisetron (KYTRIL) pre-operatively. With dry hands, peel back foil backing and gently remove tablet. Do not push oral disintegrating tablet through foil backing. Administer immediately on tongue and oral disintegrating tablet dissolves in seconds, then swallow with saliva. Liquid not required. ondansetron (ZOFRAN) injection 4 mg(Linked Group 3) 4 mg, Intravenous, EVERY 6 HOURS PRN, nausea, vomiting, Administer over 2-5 Minutes, Starting on Sat08/08/22 at 2229, Give IF patient unable to tolerate oral medication. This is Step 1 of nausea and vomiting management. If nausea not resolved in 15 minutes, go to Step 2 prochlorperazine (COMPAZINE). Do NOT administer if patient received granisetron (KYTRIL) pre-operatively. Irritant. oxyCODONE IR (ROXICODONE) tablet 10 mg 10 mg, Oral, EVERY 4 HOURS PRN, severe pain, Starting on 08/11/22 at 0849 0933 ($Given - Provider: Nancie Holden RN)1341 ($Given - Provider: Nancie Holden RN)1746 ($Given - Provider: Nancie Holden RN)2145 ($Given - Provider: Faith Taylor RN) 0200 ($Given - Provider: Faith Taylor RN)0615 ($Given - Provider: Faith Taylor RN)1015 ($Given - Provider: Nancie Holden RN) sodium chloride (PF) 0.9% PF flush 3 mL 3 mL, Intracatheter, EVERY 1 MIN PRN, line flush, other, to ensure patency or to lock dormant line, Starting on Sat08/08/22 at 2229 Linked Groups Order Group 1: HYDROmorphone (DILAUDID) injection 0.2 mgJump to med 0.2 mg, Intravenous, EVERY 2 HOURS PRN, moderate pain, Starting on Sat08/08/22 at 2229, IF patient unable to take oral pain medication or pain not controlled with oral analgesics. Hold IV PRN opioid dose for analgesic side effects. Notify provider to assess for uncontrolled pain or analgesic side effects. Or HYDROmorphone (DILAUDID) injection 0.4 mgJump to med 0.4 mg, Intravenous, EVERY 2 HOURS PRN, severe pain, Starting on 08/08/22 at 2229, IF patient unable to take oral pain medication or pain not controlled with oral analgesics. Hold IV PRN opioid dose for analgesic side effects. Notify provider to assess for uncontrolled pain or analgesic side effects. Group 2: naloxone (NARCAN) injection 0.2 mgJump to med 0.2 mg, Intravenous, EVERY 2 MIN PRN, opioid reversal, Starting on Sat08/08/22 at 2218, Administer intravenous route when available and notify [...] 2 MIN PRN, opioid reversal, Starting on Sat08/08/22 at 2218, Administer intravenous route when available and notify [...] 2 MIN PRN, opioid reversal, Starting on Sat08/08/22 at 2218, Administer intramuscular if an intravenous route is [...] 2 MIN PRN, opioid reversal, Starting on Sat08/08/22 at 2217, Administer intramuscular if an intravenous route is [...] not improved after 4 naloxone doses. Group 3: ondansetron (ZOFRAN ODT) ODT tab 4 mgJump to med 4 mg, Oral, EVERY 6 HOURS PRN, nausea, vomiting, Starting on Sat08/08/22 at 2229, This is Step 1 of nausea and vomiting management. If nausea not resolved in 15 minutes, go to Step 2 prochlorperazine (COMPAZINE). Do NOT administer if patient received granisetron (KYTRIL) pre-operatively. With dry hands, peel back foil backing and gently remove tablet. Do not push oral disintegrating tablet through foil backing. Administer immediately on tongue and oral disintegrating tablet dissolves in seconds, then swallow with saliva. Liquid not required. Or ondansetron (ZOFRAN) injection 4 mgJump to med 4 mg, Intravenous, EVERY 6 HOURS PRN, nausea, vomiting, Administer over 2-5 Minutes, Starting on Sat08/08/22 at 2229, Give IF patient unable to tolerate oral medication. This is Step 1 of nausea and vomiting management. If nausea not resolved in 15 minutes, go to Step 2 prochlorperazine (COMPAZINE). Do NOT administer if patient received granisetron (KYTRIL) pre-operatively. Irritant. 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
--- OUTSIDE RECORDS SUMMARY | 2023-03-18 15:29 | XMS_ITS | Encounter Summary ---
Author Name Unknown Organization [place] Address [address] [place] [id number] Care Team Providers Care Medical Billing Instructor Name Role Phone No Ref-Primary, Physician Primary Care Provider Reason for Visit * Auth/Cert (Routine) Specialty Diagnoses / Procedures Referred By Luis Eduardo lao Referred To Contact Surgery Diagnoses Colovesical fistula Colovesical fistula [N32.1] Procedures [place] LAP,SURG,COLECTOMY, PARTIAL, W/ANAST [place] LAP,SURG,COLECTOMY,W/REMVL TERM ILEUM [place] LAP,SURG,COLECTOMY,W/END COLOST & CLOSUR [place] LAP,SURG,COLECTOMY,W/ANAST [place] LAP, SURG, COLECTOMY, W/ANAST, W/COLOSTOMY [place] LAP,SURG,COLECTOMY,TOTAL,W/O PROCTECTOMY MN LAP,SURG,COLECTOMY,TOTAL,W/MN OCTECTOMY [place] LAP,SURG,COLECT,TOT,W/PROCTEC T,W/ILEOST [place] CYSTOSCOPY,INSERT URETERAL STENT [facility] UROGRAPHY, RETROGRADE W/WO KUB Xi Robotic Assisted Sigmoid Colectomy Cystoscopy, insertion of bilateral ureteral stents Periop Services [address] [place] [address] Referral ID Status Reason Start Date Expiration Date Visits Re quested Visits Authorized [id number] 1 1 Encounter Details Date Type Department Care Team (Late st Contact Info) Description 08/08/2022 1:[address] [facility] PeriOp Services [address] [place] [address] Zane Laurent MD [facility] ANESTHESIA [id number] [place] [address] Marlys Phipps APRN CRNA [facility] ANESTHESIA [address] [place] [address] Anesthesia Record Procedure Summary Procedure Name Responsible Anesthesiologist Anesthesia Start Time Anesthesia Stop Time Xi Robotic Assisted Sigmoid Colectomy, take down of colovesical fistula, mobilization of splenetic flexure, small bowel resection, drainage of abdominal wall abscess (Abdomen) Zane Laurent MD 08/08/22 1311 08/08/222005 Events Date Time Event Comment 08/08/2022 1102 1210 METAL FENCE ERECTOR Ready for Procedure 1311 An Start 1313 An Start Data 1317 AN REASSESS I attest that I have identified and re-evaluated the patient immediately before the induction of anesthesia and I am satisfied that the anesthetic plan is suitable for the patient's condition and procedure. The first vital signs recorded are pre- induction. Marlys Patel APRN METAL FENCE ERECTOR 1319 An Induction 1321 An Intubation 1324 MD Present 1330 Anesthesia Ready for Procedu re 1422 MD Present 1506 MD Present 1547 MD Present 1616 MD Present 1708 MD Present 1752 MD Present 1806 MD Present 1922 MD Present 1954 MD Present 1958 AN Extubation All extubation criteria met prior to removal. 1957 an stop data 2005 An Stop Electronically signed by Collin Becerra APRN METAL FENCE ERECTOR on August 08, 2022 8:06 PM Meds Name Total midazolam 1 mg/mL 2 mg fentaNYL 50 mcg/mL 200 mcg HYDROmorphone 1 mg/mL 1 mg lidocaine 2% 30 mg propofol 10 mg/mL 200 mg rocuronium 10 mg/mL 170 mg ePHEDrine 5 mg/mL in NS 5 mg phenylephrine (ALLYSSA-SYNEPHRINE) injection 600 mcg dexamethasone (DECADRON) 4 mg/mL 8 mg ondansetron 2 mg/mL 4 mg glycopyrrolate 0.2 mg/mL 0.2 mg dexMEDetomidine (PRECEDEX) 4 mcg/ml in N aCl 25mL 192.07 mcg ceFAZolin Sodium (ANCEF) injection 2 g 2 g ceFAZolin Sodium (ANCEF) injection 2 g 2 g indocyanine green 25 mg 20 mg sugammadex (BRIDION) 200mg/2mL 200 mg lactated ringers infusion 3,300 mL * Agents Name NO HELIOX O2 N2O Air Exp Sevoflurane Exp Isoflurane Exp Desflurane Exp N2O Ins Sevoflurane Ins Isoflurane Ins Desflurane O2 Auxiliary * Blood No blood administrations on file. Lines, Drains, and Airways Type Details Placement Removal Incision/Surgical Site 08/08/22; 2011; Bilateral; Abdomen; 5 INCISIONS, ONE IS A MINI LAP AND PLUS A DRAIN SITE 08/08/222011 by Renetta Irwin RN Peripheral IV 08/08/22; 1116; 20 G ; Right, Dorsal; Hand; Chlorhexidine 08/08/22 1116 by Annie Millan RN 08/12/22 0630 by Faith Taylor RN ETT Placement Date: 07/13 10/03; Placement Time: 1321 (created via procedure documentation); Mask Ventilation: 1; Ease of Intubation: Easy; Technique: Direct laryngoscopy; ETT Type: Single; Tube Size: 8 mm; DL Blade Size: Butcher 2; Grade View: 1; Adjucts: Stylet; Placement Person: METAL FENCE ERECTOR; Attempts: 1; Depth: 23 cm 08/08/22 1321 by Marlys Phipps APRN METAL FENCE ERECTOR 08/08/221957 by Collin Becerra APRN METAL FENCE ERECTOR Urethral Catheter 08/08/22; 1340; No; Anesthesia, /GI/STRATEGIC ACCOUNT EXECUTIVE Pelvic Procedure; 16 fr; Nursing driven removal protocol 08/08/22 1340 by Ivone Hummel RN 08/11/221909 by Nancie Holden, ELIAN Closed/Suction Drain 08/08/22; 192; 1; Lateral, Left; LLQ; Bulb; 19 Malay 08/08/221921 by Renetta Irwin RN 08/11/221909 by Nancie Holden, ELIAN documented in this encounter Social History Tobacco Use Types Packs/Day Years [...] AM CDT documented as of this encounter OR Notes * Anesthesia Postprocedure Evaluation - Mynor Andrews MD - 08/08/2022 9:16 PM CDT Patient: Judith Guajardo Procedure: Procedure(s): Xi Robotic Assisted Sigmoid Colectomy, take down of colovesical fistula, mobilization of splenetic flexure, small bowel resection, drainage of abdominal wall abscess Cystoscopy, insertion of bilateral ureteral stents Anesthesia Type: General Note: Disposition: Inpatient Postop Pain Control: Uneventful Sign Out: Well controlled pain PONV: No Neuro/Psych: Uneventful Sign Out: Acceptable/Baseline neuro status Airway/Respiratory: Uneventful Sign Out: Acceptable/Baseline resp. status CV/Hemodynamics: Uneventful Sign Out: Acceptable CV status; No obvious hypovolemia; No obvious fluid overload Other NRE: NONE DID A NON-ROUTINE EVENT OCCUR? No Last vitals: Vitals Value Taken Time BP 121/68 08/08/220 Temp 99.4 ??F (37.4 ??C) 08/08/222044 Pulse 70 08/08/222114 Resp 16 08/08/222029 SpO2 96 % 08/08/222114 Vitals shown include unvalidated device data. Electronically Signed By: Mynor Andrews MD August 08, 2022 9:16 PM * Anesthesia Procedure Notes - Marlys Patel APRN CRNA - 08/08/2022 1:32 PM CDTAssociated Order(s): Airway Airway Patient location during procedure: OR Procedure Start/Stop Times: 08/08/2022 1:21 PM Staff - METAL FENCE ERECTOR: Hegewald, Marlys, METAL TRIM ERECTOR METAL FENCE ERECTOR Performed By: METAL FENCE ERECTOR Consent for Airway Urgency: elective Indications and Patient Condition Indications for airway management: dionisio-procedural Mask difficulty assessment: 1 - vent by mask Final Airway Details Final airway type: endotracheal airway Successful airway: ETT - single Endotracheal Airway Details ETT size (mm): 8.0 Cuffed: yes Successful intubation technique: direct laryngoscopy DL Blade Type: Butcher 2 Grade View of Cords: 1 Adjucts: stylet Position: Right Measured from: gums/teeth Secured at (cm): 23 Bite block used: None Post intubation assessment Placement verified by: capnometry and equal breath sounds Number of attempts at approach: 1 Number of other approaches attempted: 0 Secured with: plastic tape Ease of procedure: easy Dentition: Unchanged Medication(s) Administered Medication Administration Time: 08/08/2022 1:21 PM * Anesthesia Preprocedure Evaluation - Zane Laurent MD - 08/08/2022 11:02 AM CDT Anesthesia Pre-Procedure Evaluation Patient: Judith Guajardo : 1980 Procedure : Procedure(s): Xi Robotic Assisted Sigmoid Colectomy Cystoscopy, insertion of bilateral ureteral stents Past Medical History: Diagnosis Date ??? 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 Hypertension Past Surgical History: Procedure Laterality Date ??? APPENDECTOMY ??? BACK SURGERY lumbar spine surgery x 2 ??? COLONOSCOPY N/A 08/07/2022 Procedure: Colonoscopy; Surgeon: Berenice Odom MD; Location: [facility] ??? TONSILLECTOMY No Known Allergies Social History Tobacco Use ??? Smoking status: Every Day Packs/day: 1.00 Types: Cigarettes ??? Smokeless tobacco: Never Substance Use Topics ??? Alcohol use: Yes Comment: 4 per night Wt Readings from Last 1 Encounters: 08/08/22 104.5 kg (230 lb 4.8 oz) Anesthesia Evaluation Pt has had prior anesthetic. Type: General. No history of anesthetic complications ROS/MED HX ENT/Pulmonary: (+) tobacco use, Current use, Neurologic: - neg neurologic ROS Cardiovascular: (+) hypertension----- METS/Exercise Tolerance: Hematologic: - neg hematologic ROS Musculoskeletal: - neg musculoskeletal ROS GI/Hepatic: - neg GI/hepatic ROS Renal/Genitourinary: - neg Renal ROS Endo: - neg endo ROS Psychiatric/Substance Use: - neg psychiatric ROS Infectious Disease: Malignancy: Other: Physical Exam Airway Mallampati: II TM distance: > 3 FB Neck ROM: full Mouth opening: > 3 cm Respiratory Devices and Support Dental (+) Minor Abnormalities - some fillings, tiny chips Cardiovascular cardiovascular exam normal Pulmonary pulmonary exam normal OUTSIDE LABS: CBC: No results found for: WBC, HGB, HCT, PLT BMP: Lab Results Component Value Date GLC 106 (H) 08/08/2022 COAGS: No results found for: PTT, INR, FIBR POC: No results found for: BGM, HCG, HCGS HEPATIC: No results found for: ALBUMIN, PROTTOTAL, ALT, AST, GGT, ALKPHOS, BILITOTAL, BILIDIRECT, MARVEL OTHER: No results found for: PH, LACT, A1C, ANTHONY, PHOS, MAG, LIPASE, AMYLASE, TSH, T4, T3, CRP, SED Anesthesia Plan ASA Status: 2 Anesthesia Type: General. - Airway: ETT Induction: Intravenous. Maintenance: Balanced. Consents Anesthesia Plan(s) and associated risks, benefits, and realistic alternatives discussed. Questions answered and patient/field sales representative(s) expressed understanding. - Discussed: - Discussed with: Patient - Extended Intubation/Ventilatory Support Discussed: No. - Patient is DNR/DNI Status: No Use of blood products discussed: No . Postoperative Care Pain management: IV analgesics, Oral pain medications, Multi-modal analgesia. PONV prophylaxis: Ondansetron (or other 5HT-3), Dexamethasone or Solumedrol Comments: Zane Laurent MD documented in this encounter Miscellaneous Notes * Anesthesia Care Transfer Note - Collin Becerra APRN METAL FENCE ERECTOR - 08/08/2022 8:06 PM CDT Patient: Judith Guajardo Procedure: Procedure(s): Xi Robotic Assisted Sigmoid Colectomy, take down of colovesical fistula, mobilization of splenetic flexure, small bowel resection, drainage of abdominal wall abscess Cystoscopy, insertion of bilateral ureteral stents Diagnosis: Colovesical fistula [N32.1] Diagnosis Additional Information: No value filed. Anesthesia Type: General Note: Oropharynx: oral gastic tube in place and oropharynx clear of all foreign objects Level of Consciousness: awake Oxygen Supplementation: face mask Level of Supplemental Oxygen (L/min / FiO2): 6 Independent Airway: airway patency satisfactory and stable Dentition: dentition unchanged Vital Signs Stable: post-procedure vital signs reviewed and stable Report to RN Given: handoff report given Patient transferred to: PACU Handoff Report: Identifed the Patient, Identified the Reponsible Provider, Reviewed the pertinent medical history, Discussed the surgical course, Reviewed Intra-OP anesthesia mangement and issues during anesthesia, Set expectations for post-procedure period and Allowed opportunity for questions andacknowledgement of understanding Vitals: Vitals Value Taken Time BP Temp Pulse 93 08/08/222003 Resp SpO2 98 % 08/08/222003 Vitals shown include unvalidated device data. Electronically Signed By: Collin Becerra APRN CRNA August 08, 2022 8:06 PM * Anesthesia Care Transfer Note - Coleman Huffman APRN CRNA - 08/08/2022 12:21 PM CDT Patient: Judith Guajardo Procedure: Procedure(s): Xi Robotic Assisted Sigmoid Colectomy Cystoscopy, insertion of bilateral ureteral stents Diagnosis: Colovesical fistula [N32.1] Diagnosis Additional Information: No value filed. Anesthesia Type: No value filed. Note: Oropharynx: oropharynx clear of all foreign objects Level of Consciousness: awake Oxygen Supplementation: face mask Level of Supplemental Oxygen (L/min / FiO2): 6 Independent Airway: airway patency satisfactory and stable Dentition: dentition unchanged Vital Signs Stable: post-procedure vital signs reviewed and stable Report to RN Given: handoff report given Patient transferred to: PACU Handoff Report: Identifed the Patient, Identified the Reponsible Provider, Reviewed the pertinent medical history, Discussed the surgical course, Reviewed Intra-OP anesthesia mangement and issues during anesthesia, Set expectations for post-procedure period and Allowed opportunity for questions andacknowledgement of understanding Vitals: Vitals Value Taken Time BP Temp Pulse Resp SpO2 Electronically Signed By: Coleman Huffman APRN CRNA August 08, 2022 12:21 PM documented in this encounter Plan of Treatment Not on file documented as of this encounter Procedures Procedure Name Priority Date/Time Associated Diagnosis Comments ANE AIRWAY ETT PERFORMABLE Routine 08/08/2022 1:21 PM CDT documented in this encounter Results * ANE AIRWAY ETT PERFORMABLE (08/08/2022 1:21 PM CDT) Narrative Marlys Patel APRN CRNA - 08/08/2022 1:21 PM CDT Marlys Patel APRN CRNA ? 08/08/2022 ??1:33 PM Airway ? Patient location during procedure: OR ? Procedure Start/Stop Times: 08/08/2022 1:21 PM Staff - ? METAL FENCE ERECTOR: Marlys Patel APRN CRNA ? Performed By: METAL FENCE ERECTOR Consent for Airway ? Urgency: elective Indications and Patient Condition ? Indications for airway management: dionisio-procedural ? Mask difficulty assessment: 1 - vent by mask Final Airway Details ? Final airway type: endotracheal airway ? Successful airway: ETT - single Endotracheal Airway Details ? ETT size (mm): 8.0 ? Cuffed: yes ? Successful intubation technique: direct laryngoscopy ? DL Blade Type: Butcher 2 ? Grade View of Cords: 1 ? Adjucts: stylet ? Position: Right ? Measured from: gums/teeth ? Secured at (cm): 23 ? Bite block used: None Post intubation assessment ? Placement verified by: capnometry and equal breath sounds ? Number of attempts at approach: 1 ? Number of other approaches attempted: 0 ? Secured with: plastic tape ? Ease of procedure: easy ? Dentition: Unchanged Medication(s) Administered Medication Administration Time: 08/08/2022 1:21 PM Zane Laurent MD [place] [facility] documented in this encounter Visit Diagnoses Not on filedocumented in this encounter Administered Medications Inactive Administered Medications - up to 3 most recent administrations Medication Order MAR Action Action Date Dose Rate Site ceFAZolin Sodium (ANCEF) injection 2 g Routine, 2 g, Intravenous, PRE-OP/PRE-PROCEDURE, Starting on Sat08/08/22 at 1037, For 1 dose, Give first dose within 1 hour PRIOR to incision. If patient weight is greater than or equal to 120 kg increase dose to 3 g., Indications: Perioperative Pharmacoprophylaxis, Pre-procedure $Given 08/08/2022 1:11 PM CDT 2 g ceFAZolin Sodium (ANCEF) injection 2 g Routine, 2 g, Intravenous, SEE ADMIN INSTRUCTIONS, Starting on Sat08/08/22 at 1037, Give every 4 hours while patient in surgery, starting 4 hours after pre-op dose. DO NOT GIVE intra-op dose if CrCl less than 10 mL/min (on dialysis). If CrCl less than 50 mL/min, double the time interval between doses, Indications: Perioperative Pharmacoprophylaxis $Given 08/08/2022 5:15 PM CDT 2 g dexamethasone (DECADRON) injection Intravenous, PRN, Administer over 1 Minutes, Starting on Sat08/08/22 at 1319, Anesthesia Intra-op $Given 08/08/2022 1:19 PM CDT 8 mg dexmedetomidine (PRECEDEX) 4 mcg/mL infusion Intravenous, CONTINUOUS PRN, Starting on Sat08/08/22 at 1320, Anesthesia Intra-op $New Bag 08/08/2022 1:20 PM CDT 0.5 mcg/kg/hr 11.388 mL/hr ePHEDrine injection Intravenous, PRN, Starting on Sat08/08/22 at 1355, Anesthesia Intra-op $Given 08/08/2022 1:55 PM CDT 5 mg fentaNYL (PF) (SUBLIMAZE) injection Intravenous, PRN, Administer over 3-5 Minutes, Starting on Sat08/08/22 at 1319, Anesthesia Intra-op $Given 08/08/2022 3:19 PM CDT 50 mcg $Given 08/08/2022 3:08 PM CDT 50 mcg $Given 08/08/2022 1:19 PM CDT 100 mcg glycopyrrolate (ROBINUL) injection Intravenous, PRN, Administer over 1-2 Minutes, Starting on Sat08/08/22 at 1319, Anesthesia Intra-op $Given 08/08/2022 1:19 PM CDT 0.2 mg HYDROmorphone (DILAUDID) injection Intravenous, PRN, Starting on Sat08/08/22 at 1331, Anesthesia Intra-op $Given 08/08/2022 1:31 PM CDT 1 mg indocyanine green (IC-GREEN) injection Intravenous, PRN, Starting on Sat08/08/22 at 1714, Anesthesia Intra-op $Given 08/08/2022 7:14 PM CDT 10 mg $Given 08/08/2022 5:14 PM CDT 10 mg lactated ringers infusion at 10 mL/hr, Intravenous, CONTINUOUS, IF patient NOT on dialysis., Starting on Sat08/08/22 at 1100, Until Sat08/08/22 at 2241 $New Bag 08/08/2022 6:47 PM CDT $New Bag 08/08/2022 3:46 PM CDT $New Bag 08/08/2022 1:11 PM CDT lidocaine 2% injection (MDV) Intravenous, PRN, Starting on Sat08/08/22 at 1319, Anesthesia Intra-op $Given 08/08/2022 1:19 PM CDT 30 mg midazolam (VERSED) injection Intravenous, Administer over 2 Minutes, PRN, Starting on Sat08/08/22 at 1311, Anesthesia Intra-op $Given 08/08/2022 1:11 PM CDT 2 mg ondansetron (ZOFRAN) injection Intravenous, PRN, Administer over 2-5 Minutes, Starting on Sat08/08/22 at 1934, Anesthesia Intra-op $Given 08/08/2022 7:34 PM CDT 4 mg phenylephrine (ALLYSSA-SYNEPHRINE) injection Intravenous, CONTINUOUS PRN, Starting on Sat08/08/22 at 1336, Anesthesia Intra-op $Bolus 08/08/2022 2:02 PM CDT 100 mcg $Bolus 08/08/2022 1:55 PM CDT 100 mcg $Bolus 08/08/2022 1:46 PM CDT 100 mcg propofol (DIPRIVAN) injection 10 mg/mL vial Intravenous, PRN, Starting on Sat08/08/22 at 1319, Anesthesia Intra-op $Given 08/08/2022 1:19 PM CDT 200 mg rocuronium injection Intravenous, PRN, Starting on Sat08/08/22 at 1319, Anesthesia Intra-op $Given 08/08/2022 7:29 PM CDT 20 mg $Given 08/08/2022 5:25 PM CDT 10 mg $Given 08/08/2022 4:15 PM CDT 10 mg sugammadex (BRIDION) injection Intravenous, PRN, Starting on Sat08/08/22 at 1944, Anesthesia Intra-op $Given 08/08/2022 7:44 PM CDT 200 mg documented in this encounter Care Teams Medical Billing Instructor Relationship Specialty Start Date End Date No Ref-Primary, Physician PCP - General 08/07/22 documented as of this encounter
--- OUTSIDE RECORDS SUMMARY | 2023-03-18 15:29 | XMS_ITS | Encounter Summary ---
Author Name Unknown Organization [place] Address [address] [place] [id number] Care Team Providers Care Postpartum Rn Name Role Phone No Ref-Primary, Physician Primary Care Provider Encounter Details Date Type Department Care Team (Latest Contact Info) Description 08/08/2022 Travel Social History Tobacco Use Types Packs/Day [...] on filedocumented in this encounter Care Teams Postpartum Rn Relationship Specialty Start Date End Date No Ref-Primary, Physician PCP - General 08/07/22 documented as of this encounter
--- OUTSIDE RECORDS SUMMARY | 2023-03-18 15:29 | XMS_ITS | Encounter Summary ---
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] Procedures NC LAP,SURG,COLECTOMY, PARTIAL, W/ANAST NC LAP,SURG,COLECTOMY,W/REMVL TERM ILEUM NC LAP,SURG,COLECTOMY,W/END COLOST & CLOSUR NC LAP,SURG,COLECTOMY,W/ANAST NC LAP, SURG, COLECTOMY, W/ANAST, W/COLOSTOMY NC LAP,SURG,COLECTOMY,TOTAL,W/O PROCTECTOMY NC LAP,SURG,COLECTOMY,TOTAL,W/NC OCTECTOMY NC LAP,SURG,COLECT,TOT,W/PROCTEC T,W/ILEOST NC CYSTOSCOPY,INSERT URETERAL STENT ZZ UROGRAPHY, RETROGRADE W/WO KUB Xi Robotic Assisted Sigmoid Colectomy Cystoscopy, insertion of bilateral ureteral stents [facility] [address] [place] [address] Referral ID Status Reason Start Date Expiration Date Visits Re quested Visits Authorized [id number] 1 1 Encounter Details Date Type Department Care Team (Late st Contact Info) Description 08/07/2022 11:55 AM CDT - 08/07/2022 12:40 PM CDT Surgery [facility] [address] [place] [phone] Berenice Odom MD COLON RECTAL SURGERY [id number] [facility] [id number] Colonoscopy Surgery Details Date/Time Status Location OR Service Patient Class Case Class Case Type Trauma Case? 08/07/22 11:55 AM Posted GI GI [facility] Outpatient Panel 1 Procedure [facility] Anes Op Region Wound Class Comments Colonoscopy N/A Moderate Sedation Rectum II-Clean C ontaminated Surgeon Surgeon Role Service Panel Berenice Odom MD Primary [facility]-Rect[facility] 1 Special Needs CRSAL documented in this encounter Social History Tobacco [...] Sign Reading Time Taken Comments Blood Pressure 110/60 08/07/2022 12:40 PM CDT Pulse 88 08/07/2022 12:40 PM CDT Temperature 36.8 ??C (98.2 ??F) 08/07/2022 11:41 AM C DT Respiratory Rate 16 08/07/2022 12:40 PM CDT Oxygen Saturation 96% 08/07/2022 12:40 PM CDT Inhaled Oxygen Concentration - - Weight 104.3 kg (230 lb) 08/07/2022 11:19 AM CDT Height 188 cm (6' 2) 08/07/2022 11:19 AM CDT Body Mass Index 29.53 08/07/2022 11:19 AM CDT documented in this encounter Medications at Time of Discharge Medication Sig Dispensed Refills Start Date End Date ALPRAZolam (XANAX) 0.5 MG tablet Take 0.5 mg by mouth 3 times daily as needed 0 lisinopril (ZESTRIL) 40 MG tablet Take 40 mg by mouth daily 0 testosterone cypionate (DEPOTESTOSTERONE) 200 MG/ML injection Inject 200 mg into the muscle once a week 0 ciprofloxacin (CIPRO) 500 MG tablet Take 500 mg by mouth 2 times daily 0 08/10/2022 ibuprofen (ADVIL/MOTRIN) 200 MG tablet Take 200-400 [...] 08/12/2022 08/18/2022 documented as of this encounter H&P Notes * Berenice Odom MD - 08/07/2022 12:19 PM CDT Pre-Endoscopy History and Physical Judith Guajardo Date of : 1980 Age: [age] year old Date of Procedure: 08/07/2022 Primary care provider: No primary care provider on file. Type of Endoscopy: colonoscopy Reason for Procedure: diverticulitis Type of Anesthesia Anticipated: Moderate Sedation HPI: Judith is a 42 year old male who will be undergoing the above procedure. A history and physical has been performed. The patient's medications and allergies have been reviewed. The risks and benefits of the procedure and the sedation options and risks were discussed with the patient. All questions were answered and informed consent was obtained. He denies a personal or family history of anesthesia complications or bleeding disorders. No Known Allergies Prior to Admission Medications Prescriptions Last Dose Informant Patient Reported? Taking? ALPRAZolam (XANAX) 0.5 MG tablet 08/07/2022 at 0730 Yes Yes Sig: Take 0.5 mg by mouth as needed ciprofloxacin (CIPRO) 500 MG tablet 08/07/2022 at 0730 Self Yes Yes Sig: Take 500 mg by mouth 2 times daily ibuprofen (ADVIL/MOTRIN) 200 MG tablet Past Week Yes Yes Sig: Take 200-400 mg by mouth as needed indapamide (LOZOL) 1.25 MG tablet 08/07/2022 at 0730 Yes Yes Sig: Take 1.25 mg by mouth daily lisinopril (ZESTRIL) 20 MG tablet 08/07/2022 at [id number] Yes Yes Sig: Take 40 mg by mouth daily metoprolol succinate ER (TOPROL XL) 50 MG 24 hr tablet 08/07/2022 at 0730 Yes Yes Sig: Take 50 mg by mouth daily testosterone cypionate (DEPOTESTOSTERONE) 200 MG/ML injection 08/05/2022 Yes Yes Sig: Inject 200 mg into the muscle once a week Facility-Administered Medications: None There is no problem list on file for this patient. Past Medical History: Diagnosis Date ??? 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 Hypertension Past Surgical History: Procedure Laterality Date ??? APPENDECTOMY ??? BACK SURGERY lumbar spine surgery x 2 ??? TONSILLECTOMY Social History Tobacco Use ??? Smoking status: Every Day Packs/day: 1.00 Types: Cigarettes ??? Smokeless tobacco: Never Substance Use Topics ??? Alcohol use: Yes Comment: 4 per night Family History Problem Relation Age of Onset ??? Colon Cancer No family hx of REVIEW OF SYSTEMS: 5 point ROS negative except as noted above in HPI, including Gen., Resp., CV, GI & system review. PHYSICAL EXAM: BP 130/78 Pulse 84 Temp 98.2 ??F (36.8 ??C) (Temporal) Resp 18 Ht 1.88 m (6' 2) Wt 104.3kg (230 lb) SpO2 97% BMI 29.53 kg/m?? Estimated body mass index is 29.53 kg/m?? as calculated from the following: Height as of this encounter: 1.88 m (6' 2). Weight as of this encounter: 104.3 kg (230 lb). GENERAL APPEARANCE: healthy and alert MENTAL STATUS: alert AIRWAY EXAM: Mallampatti Class II (visualization of the soft palate, fauces, and uvula) RESP: lungs clear to auscultation - no rales, rhonchi or wheezes CV: regular rates and rhythm DIAGNOSTICS: Not indicated IMPRESSION ASA Class 2 - Mild systemic disease PLAN: Plan for colonoscopy. We discussed the risks, benefits and alternatives and the patient wished to proceed. The above has been forwarded to the consulting provider. Signed Electronically by: Berenice Odom MD, MD August 07, 2022 documented in this encounter Plan of Treatment Not on file documented as of this encounter Procedures Procedure Name Priority Date/Time Associated Diagnosis Comments COLONOSCOPY 08/07/2022 11:36 AM CDT Screen for colon cancer Special Needs CRSAL COLONOSCOPY Routine 08/07/2022 11:35 AM CDT documented in this encounter Results * COLONOSCOPY (08/07/2022 11:35 AM CDT) COLONOSCOPY [facility] Patient Name: Judith Guajardo ? Procedure Date: 08/07/2022 11:35 AM ? Date of : 1980 ? Admit Type: Outpatient Age: 42 ? Gender: Male Attending MD: BERENICE ODOM MD, ??Total Sedation Time: _23 minutes of continuous bedside 1:1. IT: 10m, WDT: 13m Instrument Name: 225 - Adult Colonoscope Procedure: ?Colonoscopy Indications: ?Abnormal CT of the GI tract, Follow-up of ?diverticulitis, prior polyps Providers: ?BERENICE ODOM MD (Doctor) Referring MD: ? Medicines: ?Fentanyl 200 micrograms IV, Midazolam 4 mg IV, ?Glucagon 0.5 mg IV Complications: ?No immediate complications. Procedure: ?Pre-Anesthesia Assessment: ?- Prior to the procedure, a History and Physical ?was performed, and patient medications and ?allergies were reviewed. The patient is competent. ?The risks and benefits of the procedure and the ?sedation options and risks were discussed with the ?patient. All questions were answered and informed ?consent was obtained. Patient identification and ?proposed procedure were verified by the physician ?and the nurse in the endoscopy suite. Mental Status ?Examination: alert and oriented. Airway ?Examination: normal oropharyngeal airway and neck ?mobility. Respiratory Examination: clear to ?auscultation. CV Examination: normal. ASA Grade ?Assessment: II - A patient with mild systemic ?disease. After reviewing the risks and benefits, ?the patient was deemed in satisfactory condition to ?undergo the procedure. The anesthesia plan was to ?use moderate sedation / analgesia (conscious ?sedation). Immediately prior to administration of ?medications, the patient was re-assessed for ?adequacy to receive sedatives. The heart rate, ?respiratory rate, oxygen saturations, blood ?pressure, adequacy of pulmonary ventilation, and ?response to care were monitored throughout the ?procedure. The physical status of the patient was ?re-assessed after the procedure. ?After obtaining informed consent, the colonoscope ?was passed under direct vision. Throughout the ?procedure, the patient's blood pressure, pulse, and ?oxygen saturations were monitored continuously. The ?Olympus Adult Colonoscope, Model # CF-UR397Q, ?Endora # 225, SN # [id number] was introduced through ?the anus and advanced to 4 cm into the ileum. The ?terminal ileum, ileocecal valve, appendiceal ?orifice, and rectum were photographed. ? Findings: ? The perianal and digital rectal examinations were normal. Pertinent ? negatives include normal sphincter tone, no palpable rectal lesions and ? normal prostate (size, shape, and consistency). ? The terminal ileum appeared normal. ? Many small and large-mouthed diverticula were found in the sigmoid colon. ? The retroflexed view of the distal rectum and anal verge was normal and ? showed no anal or rectal abnormalities. ? Impression: ? - The examined portion of the ileum was normal. ?- Diverticulosis in the sigmoid colon. ?- The distal rectum and anal verge are normal on ?retroflexion view. ?- No specimens collected. Recommendation: ? - Repeat colonoscopy in 5 years for surveillance. ?- Plan for surgery with tomorrow to take ?down colovesical fisutla and sigmoid resection. ? Procedure Code(s): ? --- Professional --- ? 11063, Colonoscopy, flexible; diagnostic, including collection of ? specimen(s) by brushing or washing, when performed (separate procedure) Diagnosis Code(s): ? --- Professional --- ? K57.32, Diverticulitis of large intestine without perforation or abscess ? without bleeding ? K57.30, Diverticulosis of large intestine without perforation or abscess ? without bleeding ? R93.3, Abnormal findings on diagnostic imaging of other parts of ? digestive tract CPT copyright 2020 [employer]. All rights reserved. The codes documented in this report are preliminary and upon relocation manager review may be revised to meet current compliance requirements. ____ BERENICE ODOM MD 08/07/2022 12:52:38 PM I was physically present for the entire viewing portion of the exam. BERENICE ODOM MD Number of Addenda: 0 Note Initiated On: 08/07/2022 11:35 AM MRN: ?[id number] Procedure Date: ? 08/07/2022 11:35:11 AM Scope Withdrawal Time: 0 hours 13 minutes 2 seconds Total Procedure Duration: 0 hours 23 minutes 14 seconds Estimated Blood Loss: ? Scope In: 12:21:37 PM Scope Out: 12:44:51 PM RADIOLOGY RESULTS 08/07/2022 11:3 5 AM CDT Berenice Odom MD PROCEDURES RADIOLOGY RESULTS documented in this encounter Visit Diagnoses Diagnosis Screen for colon cancer Special screening for malignant neoplasms, colon documented in this encounter Administered Medications Inactive Administered Medications - up to 3 most recent administrations Medication Order MAR Action Action Date Dose Rate Site fentaNYL (PF) (SUBLIMAZE) injection 50-100 mcg 50-100 mcg, Intravenous, EVERY 5 MIN PRN, severe pain, If inadequate response may repeat every 3 min PRN severe pain; when verbally requested by provider., Starting on Sat08/07/22 at 1217, Doses can be exceeded under direct oversight of patient by physician., Intra-procedure $Given 08/07/2022 12:24 PM CDT 100 mcg $Given 08/07/2022 12:17 PM CDT 100 mcg glucagon injection 0.5 mg 0.5 mg, Intravenous, ONCE PRN, other, gi motility, Starting on Sat08/07/22 at 1217, For 1 dose, Intra-procedure $Given 08/07/2022 12:26 PM CDT 0.5 mg midazolam (VERSED) injection 0.5-2 mg 0.5-2 mg, Intravenous, EVERY 4 MIN PRN, sedation, If inadequate response may repeat every 4 minutes PRN sedation until desired response; when verbally requested by provider., Starting on Sat08/07/22 at 1217, Doses can be exceeded under direct oversight of patient by physician. This drug may cause significant respiratory depression. Monitor respiratory status and vital signs carefully for 1 hour after each dose., Intra-procedure $Given 08/07/2022 12:21 PM CDT 2 mg $Given 08/07/2022 12:17 PM CDT 2 mg naloxone (NARCAN) injection 0.2 mg 0.2 mg, Intravenous, EVERY 2 MIN PRN, opioid reversal, Starting on Sat08/07/22 at 1217, Administer intravenous route when available and notify [...] parameters have not improved after 4 naloxone doses., Intra-procedure naloxone (NARCAN) injection 0.2 mg 0.2 mg, Intramuscular, EVERY 2 MIN PRN, opioid reversal, Starting on Sat08/07/22 at 1217, Administer intramuscular if an intravenous route is [...] parameters have not improved after 4 naloxone doses., Intra-procedure naloxone (NARCAN) injection 0.4 mg 0.4 mg, Intravenous, EVERY 2 MIN PRN, opioid reversal, Starting on Sat08/07/22 at 1217, Administer intravenous route when available and notify [...] parameters have not improved after 4 naloxone doses., Intra-procedure naloxone (NARCAN) injection 0.4 mg 0.4 mg, Intramuscular, EVERY 2 MIN PRN, opioid reversal, Starting on Sat08/07/22 at 1217, Administer intramuscular if an intravenous route is [...] parameters have not improved after 4 naloxone doses., Intra-procedure ondansetron (ZOFRAN ODT) ODT tab 4 mg 4 mg, Oral, EVERY 6 HOURS PRN, nausea, vomiting, Starting on Sat08/07/22 at 1259, This is Step 1 of nausea and vomiting management. If nausea not resolved in 15 minutes, go to Step 2 prochlorperazine (COMPAZINE). Do not push through foil backing. Peel back foil and gently remove. Place on tongue immediately. Administration with liquid unnecessary With dry hands, peel back foil backing and gently remove tablet. Do not push oral disintegrating tablet through foil backing. Administer immediately on tongue and oral disintegrating tablet dissolves in seconds, then swallow with saliva. Liquid not required. ondansetron (ZOFRAN) injection 4 mg 4 mg, Intravenous, EVERY 6 HOURS PRN, nausea, vomiting, Administer over 2-5 Minutes, Starting on Sat08/07/22 at 1259, This is Step 1 of nausea and vomiting management. If nausea not resolved in 15 minutes, go to Step 2 prochlorperazine (COMPAZINE). Irritant. prochlorperazine (COMPAZINE) injection 10 mg 10 mg, Intravenous, EVERY 6 HOURS PRN, nausea, vomiting, Administer over 1-2 Minutes, Starting on Sat08/07/22 at 1259, This is Step 2 of nausea and vomiting management. If nausea not resolved in 15-30 minutes, Notify provider. prochlorperazine (COMPAZINE) tablet 10 mg 10 mg, Oral, EVERY 6 HOURS PRN, nausea, vomiting, Starting on Sat08/07/22 at 1259, This is Step 2 of nausea and vomiting management. If nausea not resolved in 15-30 minutes, Notify provider. sodium chloride (PF) 0.9% PF flush 3 mL 3 mL, Intravenous, EVERY 1 MIN PRN, line flush, Starting on Sat08/07/22 at 1217, Indications: for Peripheral IV flush post IV meds, Intra-procedure $Given 08/07/2022 12:26 PM CDT 3 mLs $Given 08/07/2022 12:24 PM CDT 3 mLs $Given 08/07/2022 12:21 PM CDT 3 mLs documented in this encounter Active and Recently Administered Medications Times are shown in CDT. Scheduled Medication Order 08/05/2022 08/06/2022 08/07/2022 sodium chloride (PF) 0.9% PF flush 3 mL 3 mL, Intracatheter, EVERY 8 HOURS, First dose on Sat08/07/22 at 1300, to lock peripheral IV dormant line, Pre-procedure 1300 (Canceled Entry - Provider: Orders Generic Provider - Comment: Automatically canceled at discontinue of medication order) PRN Medication Order 08/05/2022 08/06/2022 08/07/2022 0.9% sodium chloride BOLUS Intravenous, 500 mL, ONCE PRN, at 500 mL/hr, Administer over 1 Hours, other, hypotension, Starting on Sat08/07/22 at 1217, For 1 dose, Intra-procedure atropine injection 1 mg 1 mg, Intravenous, ONCE PRN, other, Bradycardia, Starting on Sat08/07/22 at 1217, For 1 dose, Intra-procedure benzocaine 20% (HURRICAINE/TOPEX) 20 % spray 0.5 mL 0.5 mL (1 spray), Mouth/Throat, ONCE PRN, sore throat, Starting on Sat08/07/22 at 1217, For 1 dose, Hunter throat with 1 spray 5 minutes prior to procedure., Intra-procedure diphenhydrAMINE (BENADRYL) injection 25-50 mg 25-50 mg, Intravenous, ONCE PRN, other, for sedations, dose per provider direction., Administer over 1-2 Minutes, Starting on Sat08/07/22 at 1217, For 1 dose, Intra-procedure EPINEPHrine (Anaphylaxis) (ADRENALIN) injection (vial) 0.1 mg 0.1 mg, Submucosal, ONCE PRN, bleeding, Starting on Sat08/07/22 at 1217, For 1 dose, RN to dilute 1 mL (1 mg) of EPINEPHrine with 9 mL of 0.9% sodium chloride to equal a 0.1 mg/mL concentration. Inject 1 mL (0.1 mg) into submucosa via a sclerotherapy injection needle. Not for direct undiluted intravenous injection (1mg/ml = 1:1000). Protect from light., Intra-procedure fentaNYL (PF) (SUBLIMAZE) injection 50-100 mcg 50-100 mcg, Intravenous, EVERY 5 MIN PRN, severe pain, If inadequate response may repeat every 3 min PRN severe pain; when verbally requested by provider., Starting on Sat08/07/22 at 1217, Doses can be exceeded under direct oversight of patient by physician., Intra-procedure 1217 ($Given - Provi carmine: Liz Brizuela RN)1224 ($Given - Provider: Liz Brizuela RN) flumazenil (ROMAZICON) injection 0.2 mg 0.2 mg, Intravenous, EVERY 1 MIN PRN, benzodiazepine reversal, If inadequate response after 45 seconds, may repeat 0.2 mg IV every 1 minute PRN over sedation., Administer over 1 Minutes, Starting on Sat08/07/22 at 1217, Give over 15 seconds. Maximum total dose of 1 mg. Continue monitoring until discharge criteria met for a minimum of 2 hours. Irritant. Use with caution in patients on benzodiazepine therapy., Intra-procedure flumazenil (ROMAZICON) injection 0.2 mg 0.2 mg, Intravenous, EVERY 1 MIN PRN, benzodiazepine reversal, over sedation, Administer over 1 Minutes, Starting on Sat08/07/22 at 1259, For 12 hours, Give over 15 seconds. If inadequate response after 45 seconds, may repeat up to a MAX total dose of 1 mg. Continue monitoring until discharge criteria are met for a minimum of 2 hours Irritant. Use with caution in patients on benzodiazepine therapy. glucagon injection 0.5 mg (COMPLETED) 0.5 mg, Intravenous, ONCE PRN, other, gi motility, Starting on Sat08/07/22 at 1217, For 1 dose, Intra-procedure 1226 ($Given - Provi carmine: Liz Brizuela RN - Comment: vy) lidocaine (LMX4) cream Topical, EVERY 1 HOUR PRN, pain, with VAD insertion, Starting on Sat08/07/22 at 1258, Apply at least 30 minutes prior to VAD insertion in divided doses as needed for size of site for insertion. MAX Dose: 2.5 g (?? of 5 g tube) Do NOT give if patient has a history of allergy to any local anesthetic or any gray product. Do NOT use both lidocaine intradermal/subcutaneous injection and the lidocaine cream on the same site., Pre-procedure lidocaine 1 % 0.1-1 mL 0.1-1 mL, Other, EVERY 1 HOUR PRN, mild pain with VAD insertion, Starting on Sat08/07/22 at 1258, MAX dose 1 mL subcutaneous OR intradermal along the side of the vein in divided doses as needed for VAD insertion. Do NOT give if patient has a history of allergy to any local anesthetic or any gray product. Do NOT use both lidocaine intradermal/subcutaneous injection and the lidocaine cream on the same site., Pre-procedure midazolam (VERSED) injection 0.5-2 mg 0.5-2 mg, Intravenous, EVERY 4 MIN PRN, sedation, If inadequate response may repeat every 4 minutes PRN sedation until desired response; when verbally requested by provider., Starting on Sat08/07/22 at 1217, Doses can be exceeded under direct oversight of patient by physician. This drug may cause significant respiratory depression. Monitor respiratory status and vital signs carefully for 1 hour after each dose., Intra-procedure 1217 ($Given - Provi carmine: Liz Brizuela, RN)1221 ($Given - Provider: Liz Brizuela RN) naloxone (NARCAN) injection 0.2 mg(Linked Group 1) 0.2 mg, Intravenous, EVERY 2 MIN PRN, opioid reversal, Starting on Sat08/07/22 at 1217, Administer intravenous route when available and notify [...] parameters have not improved after 4 naloxone doses., Intra-procedure naloxone (NARCAN) injection 0.2 mg(Linked Group 1) 0.2 mg, Intramuscular, EVERY 2 MIN PRN, opioid reversal, Starting on Sat08/07/22 at 1217, Administer intramuscular if an intravenous route is [...] parameters have not improved after 4 naloxone doses., Intra-procedure naloxone (NARCAN) injection 0.2 mg 0.2 mg, Intravenous, EVERY 2 MIN PRN, opioid reversal, Starting on Sat08/07/22 at 1259, Administer intravenous route when available and notify [...] 2 MIN PRN, opioid reversal, Starting on Sat08/07/22 at 1259, Administer intramuscular if an intravenous route is [...] doses. naloxone (NARCAN) injection 0.4 mg(Linked Group 1) 0.4 mg, Intravenous, EVERY 2 MIN PRN, opioid reversal, Starting on Sat08/07/22 at 1217, Administer intravenous route when available and notify [...] parameters have not improved after 4 naloxone doses., Intra-procedure naloxone (NARCAN) injection 0.4 mg(Linked Group 1) 0.4 mg, Intramuscular, EVERY 2 MIN PRN, opioid reversal, Starting on Sat08/07/22 at 1217, Administer intramuscular if an intravenous route is [...] parameters have not improved after 4 naloxone doses., Intra-procedure naloxone (NARCAN) injection 0.4 mg 0.4 mg, Intravenous, EVERY 2 MIN PRN, opioid reversal, Starting on Sat08/07/22 at 1259, Administer intravenous route when available and notify [...] 2 MIN PRN, opioid reversal, Starting on Sat08/07/22 at 1259, Administer intramuscular if an intravenous route is [...] (ZOFRAN ODT) ODT tab 4 mg(Linked Group 2) 4 mg, Oral, EVERY 6 HOURS PRN, nausea, vomiting, Starting on Sat08/07/22 at 1259, This is Step 1 of nausea and vomiting management. If nausea not resolved in 15 minutes, go to Step 2 prochlorperazine (COMPAZINE). Do not push through foil backing. Peel back foil and gently remove. Place on tongue immediately. Administration with liquid unnecessary With dry hands, peel back foil backing and gently remove tablet. Do not push oral disintegrating tablet through foil backing. Administer immediately on tongue and oral disintegrating tablet dissolves in seconds, then swallow with saliva. Liquid not required. ondansetron (ZOFRAN) injection 4 mg 4 mg, Intravenous, ONCE PRN, nausea, vomiting, Administer over 2-5 Minutes, Starting on Sat08/07/22 at 1258, For 1 dose, Give in ENDO pre procedure prep area. Irritant., Pre-procedure ondansetron (ZOFRAN) injection 4 mg(Linked Group 2) 4 mg, Intravenous, EVERY 6 HOURS PRN, nausea, vomiting, Administer over 2-5 Minutes, Starting on Sat08/07/22 at 1259, This is Step 1 of nausea and vomiting management. If nausea not resolved in 15 minutes, go to Step 2 prochlorperazine (COMPAZINE). Irritant. prochlorperazine (COMPAZINE) injection 10 mg(Linked Group 3) 10 mg, Intravenous, EVERY 6 HOURS PRN, nausea, vomiting, Administer over 1-2 Minutes, Starting on Sat08/07/22 at 1259, This is Step 2 of nausea and vomiting management. If nausea not resolved in 15-30 minutes, Notify provider. prochlorperazine (COMPAZINE) tablet 10 mg(Linked Group 3) 10 mg, Oral, EVERY 6 HOURS PRN, nausea, vomiting, Starting on Sat08/07/22 at 1259, This is Step 2 of nausea and vomiting management. If nausea not resolved in 15-30 minutes, Notify provider. simethicone (MYLICON) suspension 133 mg 133 mg, Oral, ONCE PRN, other, gas bubbles, Starting on Sat08/07/22 at 1217, For 1 dose, Give via endoscope, Intra-procedure sodium chloride (PF) 0.9% PF flush 3 mL 3 mL, Intracatheter, EVERY 1 MIN PRN, line flush, other, to ensure patency or to lock dormant line, Starting on Sat08/07/22 at 1258, Pre-procedure sodium chloride (PF) 0.9% PF flush 3 mL 3 mL, Intravenous, EVERY 1 MIN PRN, line flush, Starting on Sat08/07/22 at 1217, Indications: for Peripheral IV flush post IV meds, Intra-procedure 1218 ($Given - Provi carmine: Liz Brizuela RN)1221 ($Given - Provider: Liz Brizuela RN)1224 ($Given - Provider: Liz Brizuela, RN)1226 ($Given - Provider: Liz Brizuela RN) Linked Groups Order Group 1: naloxone (NARCAN) injection 0.2 mgJump to med 0.2 mg, Intravenous, EVERY 2 MIN PRN, opioid reversal, Starting on Sat08/07/22 at 1217, Administer intravenous route when available and notify [...] parameters have not improved after 4 naloxone doses., Intra- procedure Or naloxone (NARCAN) injection 0.4 mgJump to med 0.4 mg, Intravenous, EVERY 2 MIN PRN, opioid reversal, Starting on Sat08/07/22 at 1217, Administer intravenous route when available and notify [...] parameters have not improved after 4 naloxone doses., Intra-procedure Or naloxone (NARCAN) injection 0.2 mgJump to med 0.2 mg, Intramuscular, EVERY 2 MIN PRN, opioid reversal, Starting on Sat08/07/22 at 1217, Administer intramuscular if an intravenous route is [...] parameters have not improved after 4 naloxone doses., Intra- procedure Or naloxone (NARCAN) injection 0.4 mgJump to med 0.4 mg, Intramuscular, EVERY 2 MIN PRN, opioid reversal, Starting on Sat08/07/22 at 1217, Administer intramuscular if an intravenous route is [...] parameters have not improved after 4 naloxone doses., Intra- procedure Group 2: ondansetron (ZOFRAN ODT) ODT tab 4 mgJump to med 4 mg, Oral, EVERY 6 HOURS PRN, nausea, vomiting, Starting on Sat08/07/22 at 1259, This is Step 1 of nausea and vomiting management. If nausea not resolved in 15 minutes, go to Step 2 prochlorperazine (COMPAZINE). Do not push through foil backing. Peel back foil and gently remove. Place on tongue immediately. Administration with liquid unnecessary With dry hands, peel back foil backing and gently remove tablet. Do not push oral disintegrating tablet through foil backing. Administer immediately on tongue and oral disintegrating tablet dissolves in seconds, then swallow with saliva. Liquid not required. Or ondansetron (ZOFRAN) injection 4 mgJump to med 4 mg, Intravenous, EVERY 6 HOURS PRN, nausea, vomiting, Administer over 2-5 Minutes, Starting on Sat08/07/22 at 1259, This is Step 1 of nausea and vomiting management. If nausea not resolved in 15 minutes, go to Step 2 prochlorperazine (COMPAZINE). Irritant. Group 3: prochlorperazine (COMPAZINE) injection 10 mgJump to med 10 mg, Intravenous, EVERY 6 HOURS PRN, nausea, vomiting, Administer over 1-2 Minutes, Starting on Sat08/07/22 at 1259, This is Step 2 of nausea and vomiting management. If nausea not resolved in 15-30 minutes, Notify provider. Or prochlorperazine (COMPAZINE) tablet 10 mgJump to med 10 mg, Oral, EVERY 6 HOURS PRN, nausea, vomiting, Starting on Sat08/07/22 at 1259, This is Step 2 of nausea and vomiting management. If nausea not resolved in 15- 30 minutes, Notify provider. documented in this encounter Care Teams Cash Controller Relationship Specialty Start Date End Date No Ref-Primary, Physician PCP - General 08/07/22 documented as of this encounter
--- OUTSIDE RECORDS SUMMARY | 2023-03-18 15:29 | XMS_ITS | Encounter Summary ---
Author Name Unknown Organization [facility] Address [address] [place] [id number] Care Team Providers Care Research Geologist Name Role Phone No Ref-Primary, Physician Primary Care Provider Reason for Visit * Auth/Cert (Routine) Specialty Diagnoses / Procedures Referred By Luis Eduardo lao Referred To Contact Surgery Diagnoses Colovesical fistula Colovesical fistula [N32.1] Procedures LA LAP,SURG,COLECTOMY, PARTIAL, W/ANAST LA LAP,SURG,COLECTOMY,W/REMVL TERM ILEUM LA LAP,SURG,COLECTOMY,W/END COLOST & CLOSUR LA LAP,SURG,COLECTOMY,W/ANAST LA LAP, SURG, COLECTOMY, W/ANAST, W/COLOSTOMY LA LAP,SURG,COLECTOMY,TOTAL,W/O PROCTECTOMY LA LAP,SURG,COLECTOMY,TOTAL,W/LA OCTECTOMY LA LAP,SURG,COLECT,TOT,W/PROCTEC T,W/ILEOST LA CYSTOSCOPY,INSERT URETERAL STENT ZZ UROGRAPHY, RETROGRADE W/WO KUB Xi Robotic Assisted Sigmoid Colectomy Cystoscopy, insertion of bilateral ureteral stents Periop Services [address] [place] [address] Referral ID Status Reason Start Date Expiration Date Visits Re quested Visits Authorized [id number] 1 1 Encounter Details Date Type Department Care Team (Late st Contact Info) Description 08/08/2022 12:04 PM CDT - 08/08/2022 6:04 PM CDT Surgery [facility] PeriOp Services [address] [place] [address] Kylah Arndt MD [facility] [address] [place] [address] Xi Robotic Assisted Sigmoid Colectomy, take down of colovesical fistula, mobilization of splenetic flexure, small bowel resection, drainage of abdominal wall abscess Surgery Details Date/Time Status Location OR Service Patient Class Case Class Case Type Trauma Case? 08/08/22 12:04 PM Posted OR OR [address] [place] [address] Surgery Admit Panel 1 Procedure [facility]RB Anes Op Region Wound Class Comments Xi Robotic Assisted Sigmoid Colectomy, take down of colovesical fistula, mobilization of splenetic flexure, small bowel resection, drainage of abdominal wall abscess N/A General Abdomen II-Clean Contaminated Panel 2 Procedure LRB Anes Op Region Wound Class Comments Cystoscopy, insertion of keara ateral ureteral stents Urethra II-Clean Contaminated Surgeon Surgeon Role Service Panel Valentin Whitaker MD Primary Urology 2 Kylah Arndt MD Primary [facility] General 1 Paul Blackmon, PA-C Vocational Nurse Lvn Authori vannesa 1 documented in this encounter Social History Tobacco [...] Sign Reading Time Taken Comments Blood Pressure 130/82 08/08/2022 10:40 AM CDT Pulse 97 08/08/2022 10:40 AM CDT Temperature 37.1 ??C (98.8 ??F) 08/08/2022 1 0:40 AM CDT Respiratory Rate 18 08/08/2022 10:4 0 AM CDT Oxygen Saturation 99% 08/08/2022 10: 40 AM CDT Inhaled Oxygen Concentration - - Weight 104.5 kg (230 lb 4.8 oz) 023 10:40 AM CDT Height 188 cm (6' 2) 08/08/2022 10:40 AM CDT Body Mass Index 29.57 08/08/2022 10:40 AM CDT documented in this encounter Discharge Summaries * Susie Mascorro MD - 08/12/2022 11:02 AM CDT Images from the original note were not included. [facility] Discharge Summary Judith Guajardo Age: [age] year old Date of : 1980 Date of Admission: 08/08/2022 Date of Discharge:: 08/12/2022 Admitting Physician: Kylah Arndt MD Discharge Physician: Berenice Odom MD PCP: No Ref-Primary, Physician Disposition: Patient discharged from [facility] to Home in stable condition. Primary Diagnosis: [...] Surgery Fellow [facility] [address] [address] T: [phone] F: [phone] ADDENDUM: Length of stay: 4 days Indicate Y or N for the following: UTI No C diff No PNA No SSI No DVT No PE No CVA No AZ No Enterocutaneous fistula No Peripheral nerve injury No Abscess (not adjacent to anastomosis) No Leak No Treated with: Antibiotics N/A Drain N/A Reoperation N/A within 30 days No Reintubation No Reoperation No Procedure n/a Associated attestation - Berenice Odom MD - 08/16/2022 7:20 AM CDT Images from the original note were not included. Berenice Odom MD [facility] [address] [facility] [address], [address] [place] [address] T: [phone] F: [phone] [email or web address] documented in this encounter Medications at [...] 98 08/09/2022 Lab Results Component Value Date GALLO 8.3 08/09/2022 Lab Results Component Value Date [...] questions/paging, please contact the CRS office at [phone]. Radha Arndt MD Colorectal Surgery [facility] [address] [place] [address] T: [phone] F: [phone] * Nini Peng RN - 08/09/2022 1:54 PM CDT Notified provider about indwelling allan catheter discussed removal or continued need. Did provider choose to remove indwelling allan catheter? 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 Nini Walden MD Colorectal Surgery [facility] [address] [address] T: [phone] F: [phone] documented in this encounter Miscellaneous Notes * Plan of Care - Nancie Holden RN - 08/12/2022 11:44 AM CDT Goal Outcome [...] Goal Outcome Evaluation: Pertinent assessments: Assumed cares 9613-4020. Pt A&Ox4. C/o abdominal pain, rated 5-7/10, [...] Pertinent assessments: Assumed care of pt from 0854-8900. VSS. A&Ox4. Apical pulse regular. Lungs diminished. [...] in placewith 500 ml output. 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 A&O, calls appropriately for [...] Mascorro MD - 08/08/2022 8:09 PM CDT [facility] Brief Operative Note Pre-operative diagnosis: Colovesical fistula [...] MD [facility] [phone]. ADDENDUM: PATIENT DATA Indicate Y or N: [...] Not done No * Op Note - Julianne, Valentin Salcedo MD - 08/08/2022 1:34 PM CDT DATE [...] IV antibiotics were administered. ?? A 22 Beninese rigid cystoscope was inserted per a well-lubricated [...] surgery team. ?? Valentin Whitaker MD Urology [facility] * Op Note - Kylah Arndt [...] Radha Arndt MD Co-Surgeon: Dr. Valentin Whitaker Vocational Nurse Lvn: Paul Blackmon PA-C Second Vocational Nurse Lvn: Susie Mascorro MD (colorectal surgery fellow) Anesthesia: [...] to enter into the lesser sac the shift stacker ior wall of the stomach was identified. [...] the cavity. We then placed a 19 Beninese Stan channel drain through the left most [...] * Pharmacy-Admission Medication History - Priya Chavira [facility] - 08/06/2022 2:05 PM CDT Medication reconciliation interview completed by pre-admitting nurse, reviewed by pharmacy. No further clarifications needed. Prior to Admission medications Medication Sig Last Dose Taking? Auth Provider [facility] End Date ALPRAZolam (XANAX) 0.5 MG tablet [...] ONLY) (08/12/2022 7:12 AM CDT) Hold Specimen [facility] 08/12/2022 8:46 AM CDT LABORATORY Blood STRUCTURE OF RIGHT HAND / Unknown Venipuncture / Unknown 08/12/2022 7:12 AM CDT 08/12/2022 7:32 AM CDT Kylah Arndt MD LAB - BLOOD ORDER BR[facility]ON LABORATORY [facility] Acute Care Lab [address] Lab (1st floor, no room number) [place] [address], [facility] [phone] * Platelet count (08/12/2022 7:12 AM CDT) Platelet Count 284 150 - 450 10e3/uL 08/12/2022 7:35 AM CDT LABORATORY Blood STRUCTURE OF RIGHT HAND / Unknown Venipuncture / Unknown 08/12/2022 7:12 AM CDT 08/12/2022 7:32 AM CDT Kylah Arndt MD LAB - BLOOD ORDER [facility]ON LABORATORY [facility] Acute Care Lab [address] Lab (1st floor, no room number) [place] [address], [facility] [phone] * CT Cystogram wo & w Contrast [...] ecchymoses/Postoperative hemorrhage within space of Retzius. 3. ??Facilities Supervisor film demonstrates numerous loops of air distended proximal small bowel with only one loop included on the axial images but this is concerning for mid small bowel obstruction. Consider follow-up CT based on patient's symptoms. Narrative 08/11/2022 6:27 PM CDT EXAM: CT CYSTOGRAM WO and W CONTRAST LOCATION: [facility] DATE: 08/11/2022 INDICATION: colovesical fistula, sigmoid diverticulitis.. [...] caliber of small bowel. ADDITIONAL FINDINGS: The manager supply chain planning film demonstrates multiple loops of air distended proximal small bowel which are not included on the axial images. Findings concerning for mid small bowel obstruction. As indicated consider follow-up full abdominal CT. Procedure Note Gerald Becerra MD - 08/11/2022 EXAM: CT CYSTOGRAM WO and W CONTRAST LOCATION: [facility] DATE: 08/11/2022 INDICATION: colovesical fistula, sigmoid diverticulitis.. [...] caliber of small bowel. ADDITIONAL FINDINGS: The manager supply chain planning film demonstrates multiple loops of airdistended proximal small bowel which are not included on the axial images.Findings concerning for mid small bowel obstruction. As indicated considerfollow-up full abdominal CT. IMPRESSION: 1. Mild residual bladder wall thickening. No extravasation of contrastand no localized perivesicular collection. 2. Mild amount of ecchymoses/Postoperative hemorrhage within space ofRetzius. 3. Facilities Supervisor film demonstrates numerous loops of air distended proximal smallbowel with only one loop included on the axial images but this isconcerning for mid small bowel obstruction. Consider follow-up CT based onpatient's symptoms. Berenice Odom MD IMG CT ORDERABLES * (ABNORMAL) Glucose by meter (08/11/2022 6:10 AM CDT) GLUCOSE BY METER POCT 113(H) 70 - 99 mg/dL 08/11/2022 6:17 AM CDT LABORATORY POC Blood, Capillary BLOOD SPECIMEN / Unknown 08/11/2022 6:10 AM CDT 08/11/2022 6:17 AM CDT Kylah FREGOSO POCT Performing Organization Address City/[facility]/ZIP Co de Phone Number LABORATORY [facility] Acute Care Lab [address] Lab (1st floor, no room number) [place] [address], [facility] [phone] * (ABNORMAL) Glucose by meter (08/11/2022 2:49 AM CDT) GLUCOSE BY METER POCT 108(H) 70 - 99 mg/dL 08/11/2022 2:56 AM CDT LABORATORY POC Blood, Capillary BLOOD SPECIMEN / Unknown 08/11/2022 2:49 AM CDT 08/11/2022 2:56 AM CDT Kylah FREGOSO POCT LABORATORY [facility] Acute Care Lab [address] Lab (1st floor, no room number) [place] [address], [facility] [phone] * (ABNORMAL) Glucose by meter (08/10/2022 10:27 PM CDT) GLUCOSE BY METER POCT 115(H) 70 - 99 mg/dL 08/10/2022 10:34 PM CDT [facility] LABORATORY POC Blood, Capillary BLOOD SPECIMEN / Unknown 08/10/2022 10:27 PM CDT 08/10/2022 10:34 PM CDT Kylah Arndt MD LAB - BEAKER POCT LABORATORY [facility] Lab [address] Lab (1st floor, no room number) [place] [address], [facility] [phone] * Creatinine (08/10/2022 7:45 AM CDT) Creatinine 1.14 0.67 - 1.17 mg/dL 08/10/2022 8:20 AM CDT LABORATORY GFR Estimate 82 >60 mL/min/1.73 m2 08/10/2022 8:20 AM CDT RH LABORATORY Blood STRUCTURE OF RIGHT UPPER LIMB / Unknown Venipuncture / Unknown 08/10/2022 7:45 AM CDT 08/10/2022 7:55 AM CDT Nini Walden MD LAB - BLOOD AYANNA THOMAS LABORATORY [facility] Acute Care Lab [address] Lab (1st floor, no room number) [place] [address], [facility] [phone] * Phosphorus (08/09/2022 6:37 AM CDT) Phosphorus 3.7 2.5 - 4.5 mg/dL 08/09/2022 7:33 AM CDT RH LABORATORY Blood STRUCTURE OF RIGHT HAND / Unknown Venipuncture / Unknown 08/09/2022 6:37 AM CDT 08/09/2022 7:10 AM CDT Kylah Arndt MD LAB - BLOOD ORDER [facility] LABORATORY [facility] Acute Care Lab [address] Lab (1st floor, no room number) [place] [address], [facility] [phone] * Magnesium (08/09/2022 6:37 AM CDT) Magnesium 1.7 1.7 - 2.3 mg/dL 08/09/2022 7:33 AM CDT RH LABORATORY Blood STRUCTURE OF RIGHT HAND / Unknown Venipuncture / Unknown 08/09/2022 6:37 AM CDT 08/09/2022 7:10 AM CDT Kylah Arndt MD LAB - BLOOD ORDER BRANDON Performing Organization Address City/[facility]/ZIP Co de Phone Number LABORATORY [facility] Care Lab [address] Lab (1st floor, no room number) [place] [phone], [facility] [phone] * (ABNORMAL) CBC with platelets (08/09/2022 6:37 [...] - 33.0 pg 08/09/2022 7:14 AM CDT LABORATORY MCHC 34.4 31.5 - 36.5 g/dL 08/09/2022 7:14 AM CDT LABORATORY RDW 13.5 10.0 - 15.0 % 08/09/2022 7:14 AM CDT LABORATORY Platelet Count 328 150 - 450 10e3/uL 08/09/2022 7:14 AM CDT LABORATORY Blood STRUCTURE OF RIGHT HAND / Unknown Venipuncture / Unknown 08/09/2022 6:37 AM CDT 08/09/2022 7:09 AM CDT Kylah Arndt MD LAB - BLOOD ORDER [facility]ON LABORATORY [facility] Acute Care Lab [address] Lab (1st floor, no room number) [place] [address], [facility] [phone] * (ABNORMAL) Basic metabolic panel (08/09/2022 6:37 AM CDT) Sodium 133(L) 136 - 145 mmol/L 08/09/2022 [...] >60 mL/min/1.7 3m2 08/09/2022 7:33 AM CDT RH LABORATORY Blood STRUCTURE OF RIGHT HAND / Unknown Venipuncture / Unknown 08/09/2022 6:37 AM CDT 08/09/2022 7:10 AM CDT Kylah Arndt MD LAB - BLOOD ORDER BRANDON Performing Organization Address City/[facility]/ZIP Co de Phone Number [facility] Lab [address] Lab (1st floor, no room number) [place] [address], [place] [phone] * (ABNORMAL) Glucose by meter (08/09/2022 1:54 AM CDT) GLUCOSE BY METER POCT 157(H) 70 - 99 mg/dL 08/09/2022 2:00 AM CDT RH LABORATORY POC Blood, Capillary BLOOD SPECIMEN / Unknown 08/09/2022 1:54 AM CDT 08/09/2022 2:00 AM CDT Kylah Arndt MD LAB - BEAKER POCT Performing Organization Address [facility]/ZIP Co de Phone Number LABORATORY [facility] Lab [address] Lab (1st floor, no room number) [place] [address], [place] [phone] * (ABNORMAL) Creatinine (08/08/2022 10:46 PM CDT) Creatinine 1.28(H) 0.67 - 1.17 mg/dL 08/08/2022 11:14 PM CDT RH LABORATORY GFR Estimate 72 >60 mL/min/1.7 3m2 08/08/2022 11:14 PM CDT RH LABORATORY Blood STRUCTURE OF LEFT UPPER LIMB / Unknown Venipuncture / Unknown 08/08/2022 10:46 PM CDT 08/08/2022 10:52 PM CDT Kylah Arndt MD LAB - BLOOD ORDER BRANDON [facility] Acute Care Lab [address] [facility] Lab (1st floor, no room number) [place] [address], [facility] [phone] * Surgical Pathology Exam (08/08/2022 6:16 PM CDT) Case Report Surgical Pathology Report ? Case: [id number] ? Authorizing Provider: ??Kylah Arndt MD ?? Collected: ? 08/08/2022 06:16 PM ? Ordering Location: ? [facility] ?? Received: ?08/08/2022 08:35 PM ? Main [...] congestion and fibrous adhesions 08/10/2022 3:04 PM [facility] LABORATORY Clinical Information Procedure: Xi Robotic Assisted [...] discrete lesions or masses are appreciated grossly. Spiral Runner sections are submitted. Summary of sections: A1-A2-en face proximal margin, split sections A3-A4-en face distal margin, split section A5-sales representative groceries area of mucin A6-sales representative groceries intact diverticulum B(2). Small Intestine, Ileum, ILEUM: [...] discrete lesions or abnormalities are appreciated grossly. Spiral Runner sections are submitted. Summary of sections: B1-sales representative groceries en face margins B2-sales representative groceries mucosa (THELMA Mcgowan ASCP CM) 08/10/2022 3:04 PM CDT LABORATORY Microscopic Description A, B. A formal microscopic examination has been performed 08/10/2022 3:04 PM CDT LABORATORY Performing Labs The technical component of this testing was completed at [facility] 08/10/2022 3:04 PM CDT LABORATORY Case Images 08/10/2022 3:04 PM CDT LABORATORY Resection SIGMOID COLON PART / Unknown 08/08/2022 6:16 PM CDT 08/08/2022 8:35 PM CDT Specimen obtained by wide resection (specimen) ILEAL STRUCTURE / Unknown 08/08/2022 6:38 PM CDT 08/08/2022 8:35 PM CDT Kylah Arndt MD LAB - ZENOBIA VIVEROS LABORATORY [facility] Acute Care Lab [address] 1[address] floor, [address] [place] [address], [place] [phone] LABORATORY [facility] Acute Care [facility] [address] [facility] ([facility], no room number) [place] [address], [place] [phone] * (ABNORMAL) Glucose by meter (08/08/2022 10:34 AM CDT) GLUCOSE BY METER POCT 106(H) 70 - 99 mg/dL 08/08/2022 10:40 AM CDT LABORATORY POC Blood, Capillary BLOOD SPECIMEN / Unknown 08/08/2022 10:34 AM CDT 08/08/2022 10:40 AM CDT Kylah Arndt MD LAB - BEAKER POCT LABORATORY [facility] Acute Care Lab [address] Lab (1st floor, no room number) [place] [address], [facility] [phone] documented in this encounter Visit Diagnoses Diagnosis Colovesical fistula- Primary Intestinovesical fistula Acute post-operative pain Other acute postoperative pain Colovesical fistula Intestinovesical fistula documented in this encounter Admitting Diagnoses Diagnosis [...] $Given 08/12/2022 6:19 AM CDT 650 mg ALPRAZolam (XANAX) tablet 0.5 mg 0.5 mg, Oral, 3 TIMES DAILY PRN, anxiety, Starting on Donna 08/09/22 at 0825, Avoid taking with grapefruit juice $Given 08/12/2022 6:19 AM CDT 0.5 mg $Given 08/11/2022 8:39 PM CDT 0.5 mg $Given 08/11/2022 1:05 PM CDT 0.5 mg bupivacaine (MARCAINE) 0.5% preservative free injection PRN, Starting on 08/08/22 at 1423, Intra-procedure $Given 08/08/2022 2:23 PM CDT 30 mLs Operative Site/Surgi gallo Site enoxaparin ANTICOAGULANT (LOVENOX) injection 40 mg 40 mg, Subcutaneous, EVERY 24 HOURS, First dose on Sat08/09/22 at 1400, Check to make sure start [...] $Given 08/09/2022 1:15 PM CDT 40 mg HYDROmorphone (DILAUDID) injection 0.2 mg 0.2 [...] PRN, severe pain, Starting on Sat08/08/22 at 2229, IF patient unable to take oral pain medication or pain not controlled with oral analgesics. Hold IV PRN opioid dose for analgesic side effects. Notify provider to assess for uncontrolled pain or analgesic side effects. $Given 08/11/2022 1:49 AM CDT 0.4 mg $Given 08/10/2022 6:16 AM CDT 0.4 mg $Given 08/09/2022 8:21 PM CDT 0.4 mg Lidocaine (LIDOCARE) 4 % Patch 2 patch 2 patch, Transdermal, EVERY 24 HOURS 0800, Administer over 12 Hours, First dose on Sat08/09/22 at 0800, Apply patch(s) to abdomen. To [...] injected for 96 hours. methocarbamol (ROBAXIN) tablet 750 mg 750 mg, Oral, 3 TIMES DAILY, First dose (after last modification) on Donna 08/09/22 at 1600 $Given 08/12/2022 8:13 AM CDT [...] $Given 08/10/2022 8:42 AM CDT 50 mg naloxone (NARCAN) injection 0.2 mg 0.2 [...] $Given 08/12/2022 2:00 AM CDT 10 mg sodium chloride (PF) 0.9% PF flush 3 [...] 75 mg/kg/day not to exceed 4 grams/day. 0528 ($Given - Provider: Nirmala Fernandez RN)1419 ($Given - Provider: Nancie Holden RN)2152 ($Given - Provider: Lidia Multani RN) 0553 ($Given - Provider: Edwar Flores RN)1341 ($Given - Provider: Nancie Holden RN) enoxaparin ANTICOAGULANT (LOVENOX) injection 40 mg 40 [...] notify provider. 1418 ($Given - Provider: Nancie Holden RN) 1341 ($Given - Provider: Nancie Holden RN) iopamidol (ISOVUE-370) solution 500 mL (COMPLETED) [...] Fernandez RN)0842 ($Given - Provider: Nancie Holden RN)1435 ($Given - Provider: Nancie Holden, ELIAN)2008 ($Given - Provider: Lidia Multani RN) 0322 ($Given - Provider: Edwar Flores, ELIAN)0933 ($Given - Provider: Nancie Holden RN)1535 ($Given - Provider: Nancie Holden, ELIAN)2039 [...] Provider: Nancie Holden RN)1559 ($Given - Provider: Nacnie Holden RN)2154 ($Given - Provider: Lidia Multani RN) 0933 ($Given - Provider: Nancie Holden RN)1535 ($Given - Provider: Nancie Holden RN)2145 ($Given - Provider: Faith Taylor RN) 0813 [...] (Patch in Place - Provider: Nancie Holden RN)1537 (Patch in Place - Provider: Nancie Holden RN) 0001 (Patch in Place - Provider: Faith Tayolr RN)0820 (Patch in Place - Provider: Nancie [...] RN)0553 ($New Bag - Provider: Edwar Flores RN)1237 ($New Bag - Provider: Nancie Holden RN)1746 [...] Multani RN) 0552 ($Given - Provider: Edwar Flores, ELIAN)1430 (Canceled Entry - Provider: Nancie Holden RN - Comment: IV Infusing)2154 ($Given - Provider: Faith Taylor, ELIAN) 0643 (Not Given - Provider: Faith Taylor [...] Taylor RN)1015 ($Given - Provider: Nancie Holden, ELIAN) ALPRAZolam (XANAX) tablet 0.5 mg 0.5 mg, Oral, 3 TIMES DAILY PRN, anxiety, Starting on Donna 08/09/22 at 0825, Avoid taking with grapefruit juice 1214 ($Given - Provider: Meredith Lassiter RN)1559 ($Given - Provider: Nancie Holden, ELIAN)2154 ($Given - Provider: Lidia Multani RN) 0816 ($Given - Provider: Nancie Holden, ELIAN)1305 ($Given - Provider: Meredith Lassiter, ELIAN)2039 ($Given - Provider: Faith Taylor RN) 0619 [...] side effects. 0616 ($Given - Provider: Nirmala Fernandez, ELIAN) 0149 ($Given - Provider: Edwar Flores, ELIAN) HYDROmorphone (DILAUDID) tablet 2-4 mg (CANCELED) 2-4 mg, Oral, EVERY 3 HOURS PRN, severe pain, Starting on Donna 08/09/22 at 0000 0203 ($Given - Provider: Nirmala Fernandez RN)0539 ($Given - Provider: Nirmala Fernandez RN)0842 ($Given - Provider: Nancie Holden, ELIAN)1133 ($Given - Provider: Nancie Holden, RN)1436 ($Given - Provider: Nancie Holden RN)1734 ($Given - Provider: Nancie Holden RN)2043 ($Given - Provider: Lidia Multani RN) 0027 ($Given - Provider: Faith Taylor RN)0329 ($Given - Provider: Edwar Flores RN)0629 ($Given - Provider: Edwar Flores, ELIAN) lidocaine (LMX4) cream Topical, EVERY 1 HOUR [...] reversal, Starting on Sat08/08/22 at 8, Administer intravenous route when available and notify [...] reversal, Starting on Sat08/08/22 at 8, Administer intravenous route when available and notify [...] 4 HOURS PRN, severe pain, Starting on Sat08/11/22 at 0849 0933 ($Given - Provider: Nancie [...] PRN, severe pain, Starting on Sat08/08/22 at 2229, IF [...] Irritant. documented in this encounter Care Teams Research Geologist Relationship Specialty Start Date End Date No Ref-Primary, Physician PCP - General 08/07/22 documented as of this encounter
--- OUTSIDE RECORDS SUMMARY | 2023-03-18 15:30 | XMS_ITS | Encounter Summary ---
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] Procedures MT LAP,SURG,COLECTOMY, PARTIAL, W/ANAST MT LAP,SURG,COLECTOMY,W/REMVL TERM ILEUM MT LAP,SURG,COLECTOMY,W/END COLOST & CLOSUR MT LAP,SURG,COLECTOMY,W/ANAST MT LAP, SURG, COLECTOMY, W/ANAST, W/COLOSTOMY MT LAP,SURG,COLECTOMY,TOTAL,W/O PROCTECTOMY MT LAP,SURG,COLECTOMY,TOTAL,W/MT OCTECTOMY MT LAP,SURG,COLECT,TOT,W/PROCTEC T,W/ILEOST MT CYSTOSCOPY,INSERT URETERAL STENT ZZ UROGRAPHY, RETROGRADE W/WO KUB Xi Robotic Assisted Sigmoid Colectomy Cystoscopy, insertion of bilateral ureteral stents [facility] [address] [place] [address] Referral ID Status Reason Start Date Expiration Date Visits Re quested Visits Authorized [id number] 1 1 Encounter Details Date Type Department Care Team (Latest Contact Info) Description 08/07/2022 10:56 AM CDT - 08/07/2022 1:19 PM CDT Hospital Encounter [facility] [place] [address] [place] [address] Kylah Arndt MD COLO & RECTAL SURGERY [address] [place] [address] Discharge Disposition: Home or Self Care Social [...] Sign Reading Time Taken Comments Blood Pressure 123/82 08/07/2022 1:10 PM CDT Pulse 97 08/07/2022 1:10 PM CDT Temperature 36.8 ??C (98.2 ??F) 08/07/2022 11:41 AM C DT Respiratory Rate 16 08/07/2022 1:10 PM CDT Oxygen Saturation 98% 08/07/2022 1:10 PM CDT Inhaled Oxygen Concentration - - [...] lisinopril (ZESTRIL) 20 MG tablet 08/07/2022 at [id number] Yes Yes Sig: Take 40 mg by [...] Results * COLONOSCOPY (08/07/2022 11:35 AM CDT) [facility] Patient Name: Judith Guajardo ? [...] and ?oxygen saturations were monitored continuously. The ?[employer] Adult Colonoscope, Model # CF-LE768Y, ?Endora # 225, SN # [id number] was introduced through ?the anus and advanced [...] Procedure Code(s): ? --- Professional --- ? 88714, Colonoscopy, flexible; diagnostic, including collection of ? [...] of ? digestive tract CPT copyright 2020 [employer]. All rights reserved. The codes documented in this report are preliminary and upon mate fourth review may be revised to meet current compliance requirements. ____ BERENICE ODOM MD 08/07/2022 12:52:38 PM I was physically present for the entire viewing portion of the exam. BERENICE ODOM MD Number of Addenda: 0 Note Initiated On: 08/07/2022 11:35 AM MRN: ?[id number] Procedure Date: ? 08/07/2022 11:35:11 AM Scope Withdrawal Time: 0 hours 13 minutes 2 seconds Total Procedure Duration: 0 hours 23 minutes 14 seconds Estimated Blood Loss: ? Scope In: 12:21:37 PM Scope Out: 12:44:51 PM RADIOLOGY RESULTS 08/07/2022 11:3 5 AM CDT Berenice Odom MD PROCEDURES RADIOLOGY RESULTS documented in this encounter Visit Diagnoses Not [...] on Sat08/07/22 at 1217, For 1 dose, [place] throat with 1 spray 5 minutes prior [...] 1217 ($Given - Provi carmine: Liz Brizuela RN)1221 ($Given - Provider: Liz Brizuela RN) [...] Brizuela RN)1224 ($Given - Provider: Liz Brizuela RN)1226 ($Given - Provider: Liz Brizuela RN) [...] provider. documented in this encounter Care Teams Vp Care Management Relationship Specialty Start Date End Date No Ref-Primary, Physician PCP - General 08/07/22 documented as of this encounter
--- OUTSIDE RECORDS SUMMARY | 2023-03-18 15:30 | XMS_ITS | Clinical Summary ---
Author Name Unknown Organization [facility] Address [address] [place] [address] Care Team Providers Care Manager Of Internal Name Role Phone Unassigned, Provider Primary Care Provider Unava ilable Source Comments You are receiving this document as you are listed as the primary care provider,follow-up provider, or the patient has been referred to you for consultation.This is in compliance with the Medicare andMedicaid EHR Incentive Program,which states Providers who transition their patient to another setting of careor provider of care or refers their patient to another provider of care shouldprovide summary care record for each transition of care or referral. [facility] Allergies No known active allergies Medications Medication Sig Dispensed Refills Start Date End Date Status ALPRAZolam (XANAX) 1 MG tablet 0 04/18/2019 Active metoprolol succinate (TOPROL XL) 50 MG 24 hour release tablet TAKE 1 T PO DAILY 0 04/15/2019 Active testosterone cypionate (DEPO-TESTOSTERONE) 200 MG/ML injection 0 04/15/2019 Activ e B-D 3CC LUER-SULEMA SYR 80IR0-5/2 22G X 1-/2 3 ML UTD 0 04/15/2019 Active ibuprofen (MOTRIN) 200 MG tablet Take 200-400 mg by mouth every 4 hours as needed for Pain. 0 Active predniSONE (DELTASONE) 20 MG tablet 20 mg 2x daily x 2 days, then 10 mg 2 daily x 2 days, then 10mg daily x 2 days, then Off. FINAL refill 7 Tablet 0 04/30/2019 Active lisinopril (ZESTRIL) 20 MG tablet TK 1 T PO D 0 05/15/2019 Active oxyCODONE-acetaminophe n (PERCOCET) 5-325 MG tabletIndications:Lumb ar radiculopathy Take 1-2 Tablets by mouth every 6 hours as needed for Pain. 30 Tablet 0 06/11/2019 Active cyclobenzaprine (FLEXERIL) 10 MG tablet Take 1 Tablet by mouth three times a day as needed for Muscle Spasms. 30 Tablet 1 06/11/2019 Active Active Problems Problem Noted Date Diagnosed Date Essential (primary) hypertension 06/11/2019 Lumbar herniated disc 06/11/2019 Social History Tobacco Use Types Packs/Day Years Used Date Smoking Tobacco: Every Day Smokeless Tobacco: Never Sex and Gender Information Value Date Recorded Sex Assigned at Not on file Gender Identity Not on file Sexual Orientation Not on file Last Filed Vital Signs Vital Sign Reading Time Taken Comments Blood Pressure 164/102 04/22/2019 8:29 AM CDT Pulse - - Temperature - - Respiratory Rate - - Oxygen Saturation - - Inhaled Oxygen Concentration - - Weight 89.4 kg (197 lb) 06/17/2019 12:05 PM CDT Height 188 cm (6' 2) 06/17/2019 12:05 PM CDT Body Mass Index 25.29 06/17/2019 12:05 PM CDT Plan of Treatment Health Maintenance Due Date Last Done Comments Hep C Screening (Preventive Services) 1980 HepB (1) 1980 Pneumococcal (1 - PCV) 1986 HIV Screening (Preventive Services) 1996 Adult Preventive Visit 1998 Cholesterol 04/12/2015 COVID-19 Vaccine (3 - 2022- season) 2022 07/25/2020, 06/28/2020 Influenza (#1) 2022 12/09/2013 DTaP/Tdap/Td (5 - Tdap) 12/10/2023 12/10/19 14, 05/08/2006, 05/08/2006, Additional history exists Zoster/Shingles (1 of 2) 2030 HPV Vaccine Aged Out No longer eligi ble based on patient's age to complete this topic HepA Aged Out No longer eligi ble based on patient's age to complete this topic Hib Aged Out No longer eligi ble based on patient's age to complete this topic IPV (Polio) Aged Out No longer eligi ble based on patient's age to complete this topic MCV4 Aged Out No longer eligi ble based on patient's age to complete this topic Care Teams Manager Of Internal Relationship Specialty Start Date End Date Unassigned, Provider [address] [place] [address] PCP - General 02/16/00
--- OUTSIDE RECORDS SUMMARY | 2023-03-18 15:30 | XMS_ITS | Encounter Summary ---
Author Name Unknown Organization [place] Address [address] [place] [address] Care Team Providers Care Coil Winder Hand Name Role Phone Unavailable Primary Care Provider Unavailabl e Reason for Visit * Reason Onset Date Comments Procedure 07/10/2022 [facility]SAL Colonoscop y Scheduling Encounter Details Date Type Department Care Team (Late st Contact Info) Description 07/10/2022 Telephone [facility] [address] [address] None Procedure ([facility]SAL Colonoscopy Scheduling) Social History Tobacco Use Types Packs/Day Years Used Date Smoking Tobacco: Never Assessed Sex and Gender Information Value Date Recorded Sex Assigned at Not on file Gender Identity Not on file Sexual Orientation Not on file documented as of this encounter Miscellaneous Notes * Telephone Encounter - Ernesto Barth - 07/10/2022 4:13 PM CDT ??? Procedure Scheduled: Lower Endoscopy [Colonoscopy] ??? Procedure Date: 08/07/2022 ??? Site:[facility]; [address] [place] [address] ??? Endoscopist: Yris ??? Ordering Provider: Yris ??? Scheduled by (per the direction of): Ramiro(CRSRACHELL) ok'd per Gaby/Emely We do not accept [employer] insurance. documented in this encounter Plan of Treatment Not on file documented as of this encounter Visit Diagnoses Not on filedocumented in this encounter
--- OUTSIDE RECORDS SUMMARY | 2023-03-18 15:30 | XMS_ITS | Clinical Summary ---
Author Name Unknown Organization [facility] Address [place], [place] [address] Care Team Providers Care Research Assoc Name Role Phone Jose Almeida MD Primary Care Provider [phone] Allergies No known active allergies Medications Medication Sig Dispensed Refills Start Date End Date Status cyclobenzaprine (FLEXERIL) 10 mg tablet Take 10 mg by mouth 4 times daily if needed for Muscle Spasm. 0 Active ALPRAZolam (XANAX) 0.5 mg tablet Take 0.5 mg by mouth 3 times daily if needed. 0 Active lisinopriL (PRINIVIL; ZESTRIL) 20 mg tablet Take 20 mg by mouth once daily. 0 Active metoprolol succinate (TOPROL XL) 50 mg sustained-release tablet Take 50 mg by mouth once daily. 0 Active testosterone cypionate 200 mg/mL oil 200 mg Inject 200 mg intramuscular once weekly. 0 Active oxyCODONE (ROXICODONE) 5 mg immediate release tabletIndications: Acute post-operative pain Take 1-2 tablets by mouth every 4 hours if needed for Pain Max of 10 tablets/day. 40 tablet 0 06/25/2019 Active Immunizations Name Administration Dates Next Due Hepatitis B (Adult) 06/03/1998,04/16/1997 Tdap 05/08/2006,09/04/1996 Social History Tobacco Use Types Packs/Day Years Used Date Smoking Tobacco: Every Day Cigarettes Smokeless Tobacco: Never Tobacco Cessation:Ready to Q uit: No; Counseling Given: Yes Alcohol Use Standard Drinks/Week Comments No 0 (1 standard drink = 0.6 oz pur e alcohol) Sex and Gender Information Value Date Recorded Sex Assigned at Not on file Gender Identity Not on file Sexual Orientation Not on file Obstetrics History Last Filed Vital Signs Vital Sign Reading Time Taken Comments Blood Pressure 153/75 06/25/2019 2:45 PM CDT Pulse 94 06/25/2019 2:45 PM CDT Temperature 37.2 ??C (99 ??F) 06/25/2019 1:45 PM CDT Respiratory Rate 16 06/25/2019 2:45 PM CDT Oxygen Saturation 96% 06/25/2019 2:45 PM CDT Inhaled Oxygen Concentration - - Weight 93.2 kg (205 lb 6.4 oz) 06/25/2019 10:06 AM CDT Height 188 cm (6' 2) 06/25/2019 10:06 AM CDT Body Mass Index 26.37 06/25/2019 10:06 AM CDT Plan of Treatment Health Maintenance Due Date Last Done Comments COVID-19 vaccine series (#1) 1980 Depression screening for age 12+ 1992 HIV for age 15-65 04/12/1995 BMI (ht and wt on same day) for age 18+ 1998 Hepatitis C screening for ag e 18-79 1998 Lipids for age 35-44 04/12/2015 Tetanus booster 05/08/2016 05/08/2006, 09/04/1996 Influenza for age 9-49 10/12/2022 Tdap Completed 05/08/2006, 09/04/1996 Pneumococcal series for age 6-64 Aged Out No longer eligible b ased on patient's age to complete this topic Advance Directives Latest Code Status on File Code Status Date Activated Date Inactivated Comments Full Code 06/25/2019 10:05 AM 06/25/2019 5:18 PM Care Teams Research Assoc Relationship Specialty Start Date End Date Jose Almeida MD PCP - General Family Practice 06/18/19
--- OUTSIDE RECORDS SUMMARY | 2023-03-18 15:30 | XMS_ITS | Encounter Summary ---
Author Name Unknown Organization [place] Address [facility] [place] [address] Care Team Providers Care Furniture Sprayer Name Role Phone Unavailable Primary Care Provider Unavailabl e Reason for Referral * Consultation (Routine: Next available opening) - Pending Review Specialty Diagnoses / Procedures Referred By Luis Eduardo lao Referred To Contact Diagnoses Screen for colon cancer Kylah Arndt MD [facility] SURGERY [address] [address] Referral ID Status Reason Start Date Expiration Date V isits Requested Visits Authorized [id number] Pending Review 07/10/2022 07/10/2023 1 1 Question Answer Service: Screening Sedation Concerns: No medical conditions affecting sedation Sedation Type: Moderate/Conscious Sedation Preferred Location: [facility] Scheduling Instructions: [facility] will call you to coordinate your care as prescribed by the provider. If you don? t hear from a textiles sales representative within 2 business days, please call . Comments Please be aware that coverage of these services is subject to the terms and limitations of your health insurance plan. Call member services at your health plan with any benefit or coverage questions. [facility] will call you to coordinate your care as prescribed by the provider. If you don? t hear from a textiles sales representative within 2 business days, please call . Encounter Details Date Type Department Care Team (Latest Contact Info) Description 07/10/2022 Transcribe Orders [facility] Endoscopy [place] [address] [place] [id number] Kylah Arndt MD [facility] RECT[facility] SURGERY [address] [place] [address] Screen for colon cancer (Primary Dx) Social History Tobacco Use Types Packs/Day Years Used Date Smoking Tobacco: Never Assessed Sex and Gender Information Value Date Recorded Sex Assigned at Not on file Gender Identity Not on file Sexual Orientation Not on file documented as of this encounter Plan of Treatment Scheduled Referrals Name Type Priority Associated Diagnoses Order Schedule Colonoscopy Screening Switch Technician Referral Referral Routine: Next available opening Screen for colon cancer Expected: 07/10/2022 (Approximate), Expires: 07/11/2023 documented as of this encounter Visit Diagnoses Diagnosis Screen for colon cancer- Primary Special screening for malignant neoplasms, colon documented in this encounter
== END 2023-03-18 15:24 | disposition home or self-care (01) ==
PROVIDERS: PCP Family Medicine; Visit Provider Internal Medicine
DX: R97.20 Elevated prostate specific antigen [PSA] (principal); I10 Essential (primary) hypertension
CPT/HCPCS: 80053; 84403

== ENCOUNTER 2023-03-22 14:37 | Outpatient (CLI) | payer OTHER, SELFPAY ==
--- OUTSIDE RECORDS SUMMARY | 2023-03-22 14:43 | XMS_ITS | Continuity of Care Document ---
Author Name Unknown Organization [facility] Address [address] [place] [address] Phone Care Team Providers Care Solid Propellant Processor Name Role Phone Juan Rowell Unavailable Unavailable Procedures Procedure Date Lami/Discectomy, Lumbar HNP - [place] 2019 Lami/Discectomy, Lumbar HNP Advance Directives Directive Yes / No Effective Date File Name No Information Encounters Encounter Description Practice Location Reason(s) For Visit Diagnoses Date Provider Providers Copied on Encounter [facility], [address], [place], [place], [id number], [place] tel:[phone] [facility] No Information Hay Martinez. [facility], [address] [place] [address], [place], [place], [id number], [place]. tel:[phone] Referring Provider: RAINER Sheppard [address] [place] [address], [address]. tel:[phone] [facility], [address], [place], [place], [id number], [place] tel:[phone] [facility] No Information Marii Gutierrez. [facility] [place], [address] [place] [address], [place], [place], [id number], . tel:[phone] Referring Provider: RAINER Sheppard [address] [place] [address], [address]. tel:[phone] Family History Family Member Type Diagnosis Age At Onset No Information Payers Payer name Insurance type Covered alliance party ID Authoriza tion(s) No Information Social History [...]
--- OUTSIDE RECORDS SUMMARY | 2023-03-22 14:43 | XMS_ITS | Clinical Summary ---
Author Name Unknown Organization [place] Address [address] [place] [address] Care Team Providers Care Visual Communications Instructor Name Role Phone No Ref-Primary, Physician [...] 08/18/2022 Active amoxicillin-clavulanat e (AUGMENTIN) 875-125 MG tabletIndications:[place] vesical fistula Take 1 tablet by mouth [...] Advance Directives For more information, please contact: [phone] Latest Code Status on File Code Status [...] with patient/ legal decision maker Care Teams Visual Communications Instructor Relationship Specialty Start Date End Date No Ref-Primary, Physician PCP - General 08/07/22
--- OUTSIDE RECORDS SUMMARY | 2023-03-22 14:44 | XMS_ITS | Encounter Summary ---
Author Name Unknown Organization [place] Address [address] [place] [address] Care Team Providers Care Purler Name Role Phone No Ref-Primary, Physician Primary [...] on filedocumented in this encounter Care Teams Purler Relationship Specialty Start Date End Date No Ref-Primary, Physician PCP - General 08/07/22 documented as of this encounter
--- OUTSIDE RECORDS SUMMARY | 2023-03-22 14:44 | XMS_ITS | Encounter Summary ---
Author Name Unknown Organization [facility] Address [address] [place] [id number] Care Team Providers Care Table Hand Name Role Phone No Ref-Primary, Physician Primary [...] vomiting type 5 Medical Surgical [address] [place] [address] Referral ID Status Reason Start Date Expiration Date Visits Re quested Visits Authorized 1 1 Encounter Details Date Type Department Care Team (Late st Contact Info) Description 08/14/2022 1:27 AM CDT - 08/19/2022 11:20 AM CDT Hospital Encounter [place] [address] Medical Surgical [address] [place] [address] Mynor Bro MD [facility] [address] [place] [address] Vishal Smith MD, [address] [place], [place] [id number] Tevin Kelley MD [facility] [address] [place], [place] [address] Colovesical fistula (Primary Dx); SBO (small bowel [...] Dunne MD - 08/19/2022 11:20 AM CDT [facility] Hospitalist Discharge Summary Date of Admission: 08/14/2022 [...] minutes discharging this patient. Loy Dunne MD [address] SURGICAL [address] [facility] [address] Physical Exam Vital Signs: Temp: 98.2 ??F [...] EXAM: CT ABDOMEN PELVIS W CONTRAST LOCATION: [facility] DATE: 08/14/2022 INDICATION: Recent complicated surgery for [...] collection identified. NICOLÁS CAMPBELL MD SYSTEM ID: [id number] Discharge Medications Discharge Medication List as of [...] DAVINA Villanueva, EVELIN Clinical Dietitian 3rd floor/ICU: [phone] All other floors: [phone] Weekend/holiday: [phone] Office: [phone] * Loy Dunne MD - 08/18/2022 5:05 PM CDT [facility] Medicine Progress Note - Hospitalist Service Date [...] suction. -Replacement through IV per protocol Hypertension: AUTO CUSTOMIZE PAINTER metoprolol to be given IV until tolerating [...] fiber diet. Loy Dunne MD Hospitalist Service [facility] Securely message with [employer] (more info) Text page via [facility] Paging/Directory Interval History Feeling better. No pain. [...] Villanueva RD, LD Clinical Dietitian 3rd floor/ICU: [phone] All other floors: [phone] Weekend/holiday: [phone] Office: [phone] * Andrzej Reagan MD - 08/18/2022 10:01 [...] questions/paging, please contact the CRS office at [phone]. Andrzej Reagan MD, MPH Fellow in Colon and Rectal Surgery [facility] [address] [place] [address] T: [phone] F: [phone] * Loy Dunne MD - 08/17/2022 5:49 PM CDT [facility] Medicine Progress Note - Hospitalist Service [...] suction. -Replacement through IV per protocol Hypertension: AUTO CUSTOMIZE PAINTER metoprolol to be given IV until tolerating [...] Date: 08/19/2022 Loy Dunne MD Hospitalist Service [facility] Securely message with [employer] (more info) Text page via [facility] Paging/Directory Interval History Nursing notes reviewed; no [...] questions/paging, please contact the CRS office at [phone]. Andrzej Reagan MD, MPH Fellow in Colon and Rectal Surgery [facility] [address] [address] T: [phone] F: [phone] * Renetta Wu, RD - 08/17/2022 8:06 [...] Wu RDN, LD Clinical Dietitian 3rd floor/ICU: [phone] All other floors: [phone] Weekend/holiday: [phone] Office: [phone] * Loy Dunne MD - 08/16/2022 4:41 PM CDT [facility] Medicine Progress Note - Hospitalist Service [...] suction. -Replacement through IV per protocol Hypertension: AUTO CUSTOMIZE PAINTER metoprolol to be given IV until tolerating [...] Date: 08/19/2022 Loy Dunne MD Hospitalist Service [facility] Securely message with [employer] (more info) Text page via [facility] Paging/Directory Interval History Nursing notes reviewed; no [...] collection identified. NICOLÁS CAMPBELL MD SYSTEM ID: [id number] * Freida Bennett PA-C - 08/16/2022 1:30 [...] questions/paging, please contact the CRS office at [phone]. Freida Bennett PA-C [facility] * Erick Silva, - 08/15/2022 4:05 PM CDT [facility] Medicine Progress Note - Hospitalist Service [...] suction. -Replacement through IV per protocol Hypertension: AUTO CUSTOMIZE PAINTER metoprolol to be given IV until tolerating [...] Date: 08/17/2022 Erick Silva DO Hospitalist Service [facility] Securely message with [employer] (more info) Text page via [employer] Paging/Directory Interval History Bright red blood in [...] Smith MD, - 08/14/2022 4:23 AM CDT [facility] History and Physical - Hospitalist Service Date [...] Date: 08/16/2022 Belle Smith MD Hospitalist Service [facility] Securely message with [employer] (more info) Text page via [facility] Paging/Directory Chief Complaint N/V/fever. History is obtained [...] EXAM: CT ABDOMEN PELVIS W CONTRAST LOCATION: [facility] DATE: 08/14/2022 INDICATION: Recent complicated surgery for [...] PM CDTAssociated Order(s): Double Lumen PICC Placement [facility] Double Lumen PICC Placement Date/Time: 08/16/2022 5:26 [...] the procedure a time out was called [place] Protocol: the Joint Commission [place] Protocol was followed Preparation: Patient was prepped [...] and Red Catheter size: 5 Fr Brand: InterResolve Lot number: [id number] Placement method: MST, venipuncture, ultrasound and tip [...] Wu RDN, LD Clinical Dietitian 3rd floor/ICU: [phone] All other floors: [phone] Weekend/holiday: [phone] Office: [phone] * Susie Mascorro MD - 08/14/2022 12:04 PM CDTAssociated Order(s): COLORECTAL SURGERY IP CONSULT Images from the original note were not included. [facility] Colon and Rectal Surgery Consult Note [...] since POD#4. He presented to the ED sas architect for evaluation. IN the ED, he was [...] EXAM: CT ABDOMEN PELVIS W CONTRAST LOCATION: [facility] DATE: 08/14/2022 INDICATION: Recent complicated surgery for [...] page the colon and rectal Surgery provider supervisor pumping station if further questions. [facility] [address] [address] T: [phone] F: [phone] Associated attestation - Gustabo Short MD - 08/17/2022 2:11 PM CDT Physician Attestation I agree with the information in this note. Discussed with Dr. Mascorro. Imaging reviewed. Gustabo Short MD documented in this encounter ED Notes * Marla Florian RN - 08/14/2022 5:43 AM CDT [facility] ED Nurse Handoff Report ED Chief complaint: Post-op Problem . ED Diagnosis: Final diagnoses: SBO (small bowel obstruction) (H) Fever postop Nausea and vomiting, unspecified vomiting type Allergies: No Known Allergies Code Status: Full Code Activity level - Baseline/Home: independent. Activity Level - Current: assist of 1. Lift room needed: No. Bariatric: No Vibrator Equipment Tester Needed: No Isolation: No. Infection: Not Applicable. [...] of breath. He did take some Zofran AUTO CUSTOMIZE PAINTER which has helped his nausea. Abnormal Results: [...] of breath. He did take some Zofran AUTO CUSTOMIZE PAINTER which has helped his nausea. Independent Historian: None - Patient Only Review of External Notes: Care everywhere reviewed in [facility] updated. Operative note from 08/08 reviewed [...] Voiding adequately. Denies nausea and vomiting. NG [id number] bright green output this shift. Abd incisions [...] to restart the indapamide. Changes made to AUTO CUSTOMIZE PAINTER medication list: ??? Added: nicotine patch, Tylenol [...] Medication Sig Last Dose Taking? Auth Provider Group Home End Date acetaminophen (TYLENOL) 500 MG tablet [...] LAB - BLOOD ORDERAB LES [facility] LABORATORY [facility] Lab [address] Lab (1st floor, no room number) [place] [address], [facility] [phone] * (ABNORMAL) CBC with platelets and differential [...] Reagan MD LAB - BLOOD ORDERAB LES [facility] [address] Lab (1st floor, no room number) [place] [address], [facility] [phone] * Potassium (08/19/2022 5:34 AM CDT) Potassium 3.8 3.4 - 5.3 mmol/L 08/19/2022 6:11 AM CDT [facility] LABORATORY Blood CENTRAL VENOUS CATHETER / Unknown Venipuncture / Unknown 08/19/2022 5:34 AM CDT 08/19/2022 5:52 AM CDT Loy Dunne MD LAB - BLOOD ORDERABL ES [facility] Acute Care Lab [address] Lab (1st floor, no room number) [place] [address], [facility] [phone] * Phosphorus (08/19/2022 5:34 AM CDT) Phosphorus 3.5 2.5 - 4.5 mg/dL 08/19/2022 6:11 AM CDT [facility] LABORATORY Blood CENTRAL VENOUS CATHETER / Unknown Venipuncture / Unknown 08/19/2022 5:34 AM CDT 08/19/2022 5:52 AM CDT Susie Mascorro MD LAB - BLOOD ORDERABL ES LABORATORY [facility] Lab [address] Lab (1st floor, no room number) [place] [id number], [facility] [phone] * Magnesium (08/19/2022 5:34 AM CDT) Pathologist [facility] Magnesium 2.1 1.7 - 2.3 mg/dL 08/19/2022 6:11 AM CDT [facility] LABORATORY Blood CENTRAL VENOUS CATHETER / Unknown Venipuncture / Unknown 08/19/2022 5:34 AM CDT 08/19/2022 5:52 AM CDT Susie Mascorro MD LAB - BLOOD ORDERABL ES LABORATORY [facility] Acute [facility] Lab [email or web address] Lab (1st floor, no room number) [place] [address], [facility] [phone] * (ABNORMAL) Basic metabolic panel (08/19/2022 5:34 [...] MD LAB - BLOOD ORDERABL ES LABORATORY [facility] Care Lab [address] Lab (1st floor, no room number) [place] [address], [facility] [phone] * (ABNORMAL) Glucose by meter (08/18/2022 8:57 PM CDT) [facility] Signature GLUCOSE BY METER POCT 112(H) 70 - 99 mg/dL 08/18/2022 9:06 PM CDT [facility] LABORATORY POC Comment:Dr/RN Notified Blood, Capillary BLOOD SPECIMEN / Unknown 08/18/2022 8:57 PM CDT 08/18/2022 9:06 PM CDT Tevin Kelley MD LAB - BEAKER POCT RH LABORATORY POC [facility] Care Lab [address] Lab (1st floor, no room number) [place] [address], [place] [phone] * (ABNORMAL) Glucose by meter (08/18/2022 5:11 PM CDT) GLUCOSE BY METER POCT 103(H) 70 - 99 mg/dL 08/18/2022 5:35 PM CDT LABORATORY POC Blood, Capillary BLOOD SPECIMEN / Unknown 08/18/2022 5:11 PM CDT 08/18/2022 5:35 PM CDT Tevin Kelley MD LAB - BEAKER POCT LABORATORY [facility] Lab [address] Lab (1st floor, no room number) [place] [address], [facility] [phone] * (ABNORMAL) Glucose by meter (08/18/2022 12:12 PM CDT) GLUCOSE BY METER POCT 131(H) 70 - 99 mg/dL 08/18/2022 12:19 PM CDT LABORATORY POC Blood, Capillary BLOOD SPECIMEN / Unknown 08/18/2022 12:12 PM CDT 08/18/2022 12:19 PM CDT Tevin Kelley MD LAB - BEAKER POCT LABORATORY [facility] Lab [address] Lab (1st floor, no room number) [place] [address], [place] [phone] * (ABNORMAL) Glucose by meter (08/18/2022 8:44 AM CDT) GLUCOSE BY METER POCT 121(H) 70 - 99 mg/dL 08/18/2022 8:50 AM CDT LABORATORY POC Blood, Capillary BLOOD SPECIMEN / Unknown 08/18/2022 8:44 AM CDT 08/18/2022 8:50 AM CDT Tevin Kelley MD LAB - BEAKER POCT RH LABORATORY POC [facility] Lab [address] Lab (1st floor, no room number) [place] [address], [facility] [phone] * (ABNORMAL) CBC with platelets (08/18/2022 6:03 [...] LAB - BLOOD ORDERABL ES RH LABORATORY [facility] Lab [address] Lab (1st floor, no room number) [place] [address], [facility] [phone] * Phosphorus (08/18/2022 6:03 AM CDT) Phosphorus 2.5 2.5 - 4.5 mg/dL 08/18/2022 6:40 AM CDT RH LABORATORY Blood CENTRAL VENOUS CATHETER / Unknown Venipuncture / Unknown 08/18/2022 6:03 AM CDT 08/18/2022 6:18 AM CDT Susie Mascorro MD LAB - BLOOD ORDERABL ES LABORATORY [facility] Lab [address] Lab (1st floor, no room number) [place] [address], [place] [phone] * Magnesium (08/18/2022 6:03 AM CDT) Magnesium 2.1 1.7 - 2.3 mg/dL 08/18/2022 6:40 AM CDT RH LABORATORY Blood CENTRAL VENOUS CATHETER / Unknown Venipuncture / Unknown 08/18/2022 6:03 AM CDT 08/18/2022 6:18 AM CDT Susie Mascorro MD LAB - BLOOD ORDERABL ES LABORATORY [facility] Lab [address] Lab (1st floor, no room number) [place] [address], [place] [phone] * (ABNORMAL) Basic metabolic panel (08/18/2022 6:03 [...] Mascorro MD LAB - BLOOD ORDERABL ES [facility] Lab [address] Lab (1st floor, no room number) [place] [id number], [place] [phone] * (ABNORMAL) Glucose by meter (08/18/2022 12:41 AM CDT) GLUCOSE BY METER POCT 127(H) 70 - 99 mg/dL 08/18/2022 12:48 AM CDT LABORATORY POC Blood, Capillary BLOOD SPECIMEN / Unknown 08/18/2022 12:41 AM CDT 08/18/2022 12:48 AM CDT Tevin Kelley MD LAB - BEAKER POCT [facility] Lab [address] Lab (1st floor, no room number) [place] [address], [place] [phone] * (ABNORMAL) Glucose by meter (08/17/2022 5:22 PM CDT) GLUCOSE BY METER POCT 166(H) 70 - 99 mg/dL 08/17/2022 5:29 PM CDT RH LABORATORY POC Blood, Capillary BLOOD SPECIMEN / Unknown 08/17/2022 5:22 PM CDT 08/17/2022 5:29 PM CDT Tevin Kelley [facility] Lab [address] Lab (1st floor, no room number) [place] [address], [facility] [phone] * (ABNORMAL) Glucose by meter (08/17/2022 11:58 AM CDT) GLUCOSE BY METER POCT 103(H) 70 - 99 mg/dL 08/17/2022 12:05 PM CDT RH LABORATORY POC Blood, Capillary BLOOD SPECIMEN / Unknown 08/17/2022 11:58 AM CDT 08/17/2022 12:05 PM CDT Tevin Kelley MD [facility] POCT Performing Organization Address City/[facility]/ZIP Co de Phone Number LABORATORY [facility] Lab [address] Lab (1st floor, no room number) [place] [id number], [facility] [phone] * (ABNORMAL) CBC with platelets (08/17/2022 6:24 [...] LABORATORY [facility] Lab [address] Lab (1st floor, no room number) [place] [id number], [facility] [phone] * Bilirubin direct (08/17/2022 6:24 AM CDT) Bilirubin Direct <0.20 0.00 - 0.30 mg/dL 08/17/2022 6:58 AM CDT LABORATORY Blood BLOOD SPECIMEN / Unknown Venipuncture / Unknown 08/17/2022 6:24 AM CDT 08/17/2022 6:33 AM CDT Susie Mascorro MD LAB - BLOOD ORDERABL ES LABORATORY [facility] Lab [address] Lab (1st floor, no room number) [place] [address], [facility] [phone] * (ABNORMAL) Prealbumin (08/17/2022 6:24 AM CDT) Prealbumin 13(L) 15 - 45 mg/dL 08/17/2022 12:49 PM CDT SPECIALTY CORE/PROT/ENDO Blood BLOOD SPECIMEN / Unknown Venipuncture / Unknown 08/17/2022 6:24 AM CDT 08/17/2022 6:33 AM CDT Susie Mascorro MD LAB - BLOOD ORDERABL ES [facility] SPECIALTY CORE/PROT/ENDO [facility] Specialty Core/Prot/Endo [address] [facility] [address] [facility], Room [address] [place] [address] * (ABNORMAL) INR (08/17/2022 6:24 AM CDT) INR 1.21(H) 0.85 - 1.15 08/17/2022 6:47 AM CDT RH LABORATORY Blood BLOOD SPECIMEN / Unknown Venipuncture / Unknown 08/17/2022 6:24 AM CDT 08/17/2022 6:33 AM CDT Susie Mascorro MD LAB - BLOOD ORDERABL ES [facility] Lab [address] Lab (1st floor, no room number) [place] [address], [facility] [phone] * Phosphorus (08/17/2022 6:24 AM CDT) Phosphorus 2.6 2.5 - 4.5 mg/dL 08/17/2022 6:58 AM CDT RH LABORATORY Blood BLOOD SPECIMEN / Unknown Venipuncture / Unknown 08/17/2022 6:24 AM CDT 08/17/2022 6:33 AM CDT Susie Mascorro MD LAB - BLOOD ORDERABL ES [facility] Lab [address] Lab (1st floor, no room number) [place] [address], [facility] [phone] * Magnesium (08/17/2022 6:24 AM CDT) Magnesium 2.2 1.7 - 2.3 mg/dL 08/17/2022 6:58 AM CDT LABORATORY Blood BLOOD SPECIMEN / Unknown Venipuncture / Unknown 08/17/2022 6:24 AM CDT 08/17/2022 6:33 AM CDT Susie Mascorro MD LAB - BLOOD ORDERABL ES LABORATORY [facility] Lab [address] [facility] Lab (1st floor, no room number) [place] [address], [facility] [phone] * (ABNORMAL) Comprehensive metabolic panel (08/17/2022 6:24 [...] LAB - BLOOD ORDERABL ES RH LABORATORY [facility] Lab [address] Lab (1st floor, no room number) [place] [address], [facility] [phone] * (ABNORMAL) Glucose by meter (08/17/2022 6:22 AM CDT) [facility] GLUCOSE BY METER POCT 127(H) 70 - 99 mg/dL 08/17/2022 6:29 AM CDT RH LABORATORY POC Blood, Capillary BLOOD SPECIMEN / Unknown 08/17/2022 6:22 AM CDT 08/17/2022 6:29 AM CDT Tevin Kelley MD LAB - BEAKER POCT LABORATORY [facility] Acute Care Lab [address] Lab (1st floor, no room number) [place] [address], [facility] [phone] * (ABNORMAL) Glucose by meter (08/17/2022 1:43 AM CDT) GLUCOSE BY METER POCT 113(H) 70 - 99 mg/dL 08/17/2022 1:50 AM CDT LABORATORY POC Blood, Capillary BLOOD SPECIMEN / Unknown 08/17/2022 1:43 AM CDT 08/17/2022 1:50 AM CDT Tevin Kelley MD LAB - [facility] POCT Performing Organization Address City/[facility]/ZIP Co de Phone Number LABORATORY [facility] Acute Care Lab [address] Lab (1st floor, no room number) [place] [address], [facility] [phone] * Verification of Catheter Tip Placement (08/16/2022 5:31 PM CDT) Narrative Megan Pena RN - 08/16/2022 5:31 PM CDT Megan Pena, RN ? 08/16/2022 ??5:35 PM Susie Mascorro MD IP NURSING TREAT AND ASSESS - ONCE,INTERVALS,CONT * Double Lumen PICC Placement (08/16/2022 5:26 PM CDT) Narrative Megan Pena, RN - 08/16/2022 5:26 PM CDT Megan Pena, RN ? 08/16/2022 ??5:31 PM [facility] Double Lumen PICC Placement Date/Time: 08/16/2022 5:26 PM Performed by: Megan Pnea, RN Authorized by: Susie Mascorro MD ??Indications: [...] procedure a time out was called ?? [place] Protocol: the Joint Commission [place] Protocol was followed ?? Preparation: Patient was [...] and Red Catheter size: 5 Fr Brand: InterResolve Lot number: [id number] Placement method: MST, venipuncture, ultrasound and tip [...] collection identified. NICOLÁS CAMPBELL MD SYSTEM ID: [id number] Narrative 08/16/2022 2:[address] ABDOMEN [...] collection identified. NICOLÁS CAMPBELL MD SYSTEM ID: [id number] Freida Bennett PA-C IMG CT ORDERABLES * Triglycerides [...] LAB - BLOOD ORDERABL ES [facility] LABORATORY [facility] Lab [address] [facility], [address] [place] [address], [facility] [phone] * Phosphorus (08/16/2022 6:34 AM CDT) Phosphorus 3.1 2.5 - 4.5 mg/dL 08/16/2022 12:24 PM CDT LABORATORY Blood STRUCTURE OF LEFT UPPER LIMB / Unknown Venipuncture / Unknown 08/16/2022 6:34 AM CDT 08/16/2022 6:43 AM CDT Loy Dunne MD LAB - BLOOD ORDERABL ES LABORATORY [facility] Lab [address] Lab (1st floor, no room number) [place] [address], [facility] [phone] * Magnesium (08/16/2022 6:34 AM CDT) Magnesium 2.3 1.7 - 2.3 mg/dL 08/16/2022 11:56 AM CDT RH LABORATORY Blood STRUCTURE OF LEFT UPPER LIMB / Unknown Venipuncture / Unknown 08/16/2022 6:34 AM CDT 08/16/2022 6:43 AM CDT Loy Dunne MD LAB - BLOOD ORDERABL ES Performing Organization Address City/[facility]/ZIP Co de Phone Number LABORATORY [facility] Lab [address] Lab (1st floor, no room number) [place] [address], [facility] [phone] * (ABNORMAL) CBC with platelets (08/16/2022 6:34 [...] DO LAB - BLOOD ORDERABL ES LABORATORY [facility] Lab [address] [facility] Lab (1st floor, no room number) [place] [address], [facility] [phone] * (ABNORMAL) Basic metabolic panel (08/16/2022 6:34 [...] Silva DO LAB - BLOOD ORDERABL ES [facility] Lab [address] Lab (1st floor, no room number) [place] [address], [facility] [phone] * Potassium (08/15/2022 10:44 PM CDT) Potassium 3.5 3.4 - 5.3 mmol/L 08/15/2022 11:09 PM CDT RH LABORATORY Blood STRUCTURE OF LEFT UPPER LIMB / Unknown Venipuncture / Unknown 08/15/2022 10:44 PM CDT 08/15/2022 10:47 PM CDT Erick Silva DO LAB - BLOOD ORDERABL ES Performing Organization Address City/[facility]/ZIP Co de Phone Number [facility] Lab [address] Lab (1st floor, no room number) [place] [address], [facility] [phone] * (ABNORMAL) Hemoglobin (08/15/2022 2:13 PM CDT) Hemoglobin 8.4(L) 13.3 - 17.7 g/dL 08/15/2022 2:23 PM CDT RH LABORATORY Blood STRUCTURE OF LEFT HAND / Unknown Venipuncture / Unknown 08/15/2022 2:13 PM CDT 08/15/2022 2:20 PM CDT Erick Silva DO LAB - BLOOD ORDERABL ES [facility] Lab [address] Lab (1st floor, no room number) [place] [address], [facility] [phone] * (ABNORMAL) Potassium (08/15/2022 9:57 AM CDT) Potassium 3.2(L) 3.4 - 5.3 mmol/L 08/15/2022 10:26 AM CDT RH LABORATORY Blood STRUCTURE OF RIGHT HAND / Unknown Venipuncture / Unknown 08/15/2022 9:57 AM CDT 08/15/2022 10:02 AM CDT Erick Silva DO LAB - BLOOD ORDERABL ES LABORATORY [facility] Lab [address] Lab (1st floor, no room number) [place] [id number], [facility] [phone] * Magnesium (08/15/2022 5:58 AM CDT) Magnesium 2.1 1.7 - 2.3 mg/dL 08/15/2022 8:44 AM CDT RH LABORATORY Blood STRUCTURE OF LEFT UPPER LIMB / Unknown Venipuncture / Unknown 08/15/2022 5:58 AM CDT 08/15/2022 6:13 AM CDT Erick Silva DO LAB - BLOOD ORDERABL ES Performing Organization Address City/[facility]/ZIP Co de Phone Number [facility] Lab [address] Lab (1st floor, no room number) [place] [phone], [facility] [phone] * (ABNORMAL) CBC with platelets and differential [...] MD LAB - BLOOD ORDERA BLES LABORATORY [facility] Lab [address] Lab (1st floor, no room number) [place] [address], [facility] [phone] * (ABNORMAL) Basic metabolic panel (08/15/2022 5:58 AM CDT) [facility] Sodium 139 136 - 145 mmol/L 08/15/2022 [...] MD LAB - BLOOD ORDERA BLES LABORATORY [facility] Lab [address] Lab (1st floor, no room number) [place] [id number], [facility] [phone] * (ABNORMAL) Potassium (08/15/2022 3:49 AM CDT) Potassium 3.2(L) 3.4 - 5.3 mmol/L 08/15/2022 4:22 AM CDT RH LABORATORY Blood STRUCTURE OF LEFT UPPER LIMB / Unknown Venipuncture / Unknown 08/15/2022 3:49 AM CDT 08/15/2022 4:02 AM CDT Anatoliy Bryson DO LAB - BLOOD ORDERABL ES [facility] Lab [address] Lab (1st floor, no room number) [place] [id number], [facility] [phone] * (ABNORMAL) Hemoglobin (08/15/2022 3:49 AM CDT) Hemoglobin 8.6(L) 13.3 - 17.7 g/dL 08/15/2022 4:04 AM CDT RH LABORATORY Blood STRUCTURE OF LEFT UPPER LIMB / Unknown Venipuncture / Unknown 08/15/2022 3:49 AM CDT 08/15/2022 4:02 AM CDT Vishal Smith MD, MD LAB - BLOOD ORDERA BLES [facility] Lab [address] Lab (1st floor, no room number) [place] [address], [facility] [phone] * (ABNORMAL) Hemoglobin (08/14/2022 1:57 PM CDT) Hemoglobin 9.1(L) 13.3 - 17.7 g/dL 08/14/2022 2:12 PM CDT RH LABORATORY Blood STRUCTURE OF LEFT UPPER LIMB / Unknown Venipuncture / Unknown 08/14/2022 1:57 PM CDT 08/14/2022 2:07 PM CDT Vishal Smith MD, MD LAB - BLOOD ORDERA BLES LABORATORY [facility] [address] Lab (1st floor, no room number) [place] [address], [facility] [phone] * Asymptomatic COVID-19 Virus (Coronavirus) by PCR Nasopharyngeal (08/14/2022 1:31 PM CDT) Pathologist [facility] SARS CoV2 PCR Negative Negative 08/14/2022 2:09 PM CDT LABORATORY Comment:NEGATIVE: SARS-CoV-2 (COVID-19) RNA not detected, presumed negative. Swab NASOPHARYNGEAL STRUCTURE / Unknown Non-blood Collection / Unknown 08/14/2022 1:31 PM CDT 08/14/2022 1:47 PM CDT Narrative LABORATORY - 08/14/2022 2:09 PM CDT Testing was performed using the Xpert Xpress SARS-CoV-2 Assay on the [employer]. Additional information about this Emergency [...] COVID-19. This test was validated by the [facility]. This laboratory is certified under the Clinical Laboratory Improvement Amendments (CLIA) as qualified to perform high complexity laboratory testing. Vishal Smith MD, MD LAB - MICRO GENERA L ORDERABLES [facility] [address] [facility] Lab (1st floor, no room number) [place] [address], [facility] [phone] * Abd/pelvis CT, IV contrast only TRAUMA [...] EXAM: CT ABDOMEN PELVIS W CONTRAST LOCATION: [facility] DATE: 08/14/2022 INDICATION: Recent complicated surgery for [...] EXAM: CT ABDOMEN PELVIS W CONTRAST LOCATION: [facility] DATE: 08/14/2022 INDICATION: Recent complicated surgery for [...] - MICRO GENERAL ORDERABLES [facility] Inf. Diseases Diag. Lab [address] [facility], [address] [place] [address], [facility] [phone] * Lactic acid whole blood (08/14/2022 2:17 AM CDT) Lactic Acid 0.8 0.7 - 2.0 mmol/L 08/14/2022 2:32 AM CDT LABORATORY Blood BLOOD SPECIMEN / Unknown Venipuncture / Unknown 08/14/2022 2:17 AM CDT 08/14/2022 2:29 AM CDT Mynor Bro MD LAB - BLOOD ORDERABL ES LABORATORY [facility] [address] [facility] Lab (1st floor, no room number) [place] [address], [facility] [phone] * Blood Culture Peripheral Blood (08/14/2022 2:17 AM CDT) Culture No Growth 08/19/2022 5:16 AM CDT [facility] Blood BLOOD SPECIMEN / Unknown Venipuncture / Unknown 08/14/2022 2:17 AM CDT 08/14/2022 2:34 AM CDT Mynor Bro MD LAB - MICRO GENERAL ORDERABLES [facility] Inf. Diseases Diag. Lab [address] [facility], [address] [place] [address], [facility] [phone] * Magnesium (08/14/2022 1:35 AM CDT) Magnesium 2.0 1.7 - 2.3 mg/dL 08/14/2022 4:29 PM CDT [facility] LABORATORY Blood BLOOD SPECIMEN / Unknown Venipuncture / Unknown 08/14/2022 1:35 AM CDT 08/14/2022 1:40 AM CDT Erick Silva DO LAB - BLOOD ORDERABL ES [facility] [address] Lab (1st floor, no room number) [place] [address], [facility] [phone] * Extra Red Top Tube (08/14/2022 1:35 AM CDT) Hold Specimen JIC 08/14/2022 2:46 AM CDT [facility] LABORATORY Blood STRUCTURE OF LEFT UPPER LIMB / Unknown Venipuncture / Unknown 08/14/2022 1:35 AM CDT 08/14/2022 1:40 AM CDT Mynor Bro MD LAB - BLOOD ORDERABL ES [facility] [address] Lab (1st floor, no room number) [place] [address], [facility] [phone] * Extra Blue Top Tube (08/14/2022 1:35 AM CDT) Hold Specimen JIC 08/14/2022 2:46 AM CDT [facility] LABORATORY Blood STRUCTURE OF LEFT UPPER LIMB / Unknown Venipuncture / Unknown 08/14/2022 1:35 AM CDT 08/14/2022 1:39 AM CDT Mynor Bro MD LAB - BLOOD ORDERABL ES LABORATORY [facility] [address] Lab (1st floor, no room number) [place] [address], [facility] [phone] * (ABNORMAL) CBC with platelets and differential (08/14/2022 1:35 AM CDT) [facility] Signature WBC Count 19.6(H) 4.0 - 11.0 [...] LAB - BLOOD ORDERABL ES RH LABORATORY [facility] [address] Lab (1st floor, no room number) [place] [address], [facility] [phone] * (ABNORMAL) Comprehensive metabolic panel (08/14/2022 1:35 [...] MD LAB - BLOOD ORDERABL ES LABORATORY [facility] [address] [facility] Lab (1st floor, no room number) [place] [address], [facility] [phone] documented in this encounter Visit Diagnoses Diagnosis [...] 50 mL 50 mL, Oral, ONCE, On [facility] 08/16/22 at 1200, For 1 dose $Given 08/16/2022 12:00 PM CDT 50 mLs iopamidol (ISOVUE-370) solution 500 mL 500 mL, Intravenous, ONCE, On Sat08/14/22 at 0310, For 1 dose $Given 08/14/2022 3:07 AM CDT 99 mLs iopamidol (ISOVUE-370) solution 500 mL 500 mL, Intravenous, ONCE, On [facility] 08/16/22 at 1200, For 1 dose $Given [...] 0527 ($New Bag - Provider: Jeanne Hall, EILAN)1147 ($New Bag - Provider: Ana Tony RN)1817 [...] 0625 (Canceled Entry - Provider: Mason Gatica [facility] - Comment: Automatically canceled at discontinue of [...] (ZOFRAN). documented in this encounter Care Teams Table Hand Relationship Specialty Start Date End Date No Ref-Primary, Physician PCP - General 08/07/22 documented as of this encounter
--- OUTSIDE RECORDS SUMMARY | 2023-03-22 14:44 | XMS_ITS | Referral Summary ---
Author Name Unknown Organization [place] Address [address] [place] [address] Care Team Providers Care Social Media Strategist Name Role Phone No Ref-Primary, Physician Primary [...] 08/18/2022 Active amoxicillin-clavulanat e (AUGMENTIN) 875-125 MG tabletIndications:[place] vesical fistula Take 1 tablet by mouth [...] Advance Directives For more information, please contact: [phone] Latest Code Status on File Code Status [...] with patient/ legal decision maker Care Teams Social Media Strategist Relationship Specialty Start Date End Date No Ref-Primary, Physician PCP - General 08/07/22
--- OUTSIDE RECORDS SUMMARY | 2023-03-22 14:45 | XMS_ITS | Encounter Summary ---
Author Name Unknown Organization [place] Address [address] [place] [address] Care Team Providers Care Global Program Director Name Role Phone No Ref-Primary, Physician Primary [...] on filedocumented in this encounter Care Teams Global Program Director Relationship Specialty Start Date End Date No Ref-Primary, Physician PCP - General 08/07/22 documented as of this encounter
--- OUTSIDE RECORDS SUMMARY | 2023-03-22 14:45 | XMS_ITS | Encounter Summary ---
Author Name Unknown Organization [place] Address [address] [place] [address] Care Team Providers Care Solution Architect Name Role Phone No Ref-Primary, Physician Primary Care Provider Reason for Visit * Auth/Cert (Routine) Specialty Diagnoses / Procedures Referred By Luis Eduardo lao Referred To Contact Surgery Diagnoses Colovesical fistula Colovesical fistula [N32.1] Procedures AK LAP,SURG,COLECTOMY, PARTIAL, W/ANAST AK LAP,SURG,COLECTOMY,W/REMVL TERM ILEUM AK LAP,SURG,COLECTOMY,W/END COLOST & CLOSUR AK LAP,SURG,COLECTOMY,W/ANAST AK LAP, SURG, COLECTOMY, W/ANAST, W/COLOSTOMY AK LAP,SURG,COLECTOMY,TOTAL,W/O PROCTECTOMY AK LAP,SURG,COLECTOMY,TOTAL,W/AK OCTECTOMY AK LAP,SURG,COLECT,TOT,W/PROCTEC T,W/ILEOST AK CYSTOSCOPY,INSERT URETERAL STENT ZZ UROGRAPHY, RETROGRADE W/WO KUB Xi Robotic Assisted Sigmoid Colectomy Cystoscopy, insertion of bilateral ureteral stents [facility] [address] [place] [address] Referral ID Status Reason Start Date Expiration Date Visits Re quested Visits Authorized [id number] 1 1 Encounter Details Date Type Department Care Team (Latest Contact Info) Description 08/07/2022 10:56 AM CDT - 08/07/2022 1:19 PM CDT Hospital Encounter [facility] [place] [address] [place] [address] Kylah Arndt MD COLO & RECTAL SURGERY [address] [place] [address] Discharge Disposition: Home or Self Care Social [...] lisinopril (ZESTRIL) 20 MG tablet 08/07/2022 at [id number] Yes Yes Sig: Take 40 mg by [...] Results * COLONOSCOPY (08/07/2022 11:35 AM CDT) [facility] Patient Name: Judith Guajardo ? Procedure Date: [...] and ?oxygen saturations were monitored continuously. The ?Auth0 Adult Colonoscope, Model # CF-ZG759X, ?Endora # 225, SN # [id number] was introduced through ?the anus and advanced [...] Procedure Code(s): ? --- Professional --- ? 25975, Colonoscopy, flexible; diagnostic, including collection of ? [...] of ? digestive tract CPT copyright 2020 [employer]. All rights reserved. The codes documented in this report are preliminary and upon v belt skiver review may be revised to meet current compliance requirements. ____ BERENICE ODOM MD 08/07/2022 12:52:38 PM I was physically present for the entire viewing portion of the exam. BERENICE ODOM MD Number of Addenda: 0 Note Initiated On: 08/07/2022 11:35 AM MRN: [id number] Procedure Date: ? 08/07/2022 11:35:11 AM Scope [...] on Sat08/07/22 at 1217, For 1 dose, [place] throat with 1 spray 5 minutes prior [...] provider. documented in this encounter Care Teams Solution Architect Relationship Specialty Start Date End Date No Ref-Primary, Physician PCP - General 08/07/22 documented as of this encounter
--- OUTSIDE RECORDS SUMMARY | 2023-03-22 14:45 | XMS_ITS | Encounter Summary ---
Author Name Unknown Organization [place] Address [address] [place] [address] Care Team Providers Care Valve Setter Name Role Phone No Ref-Primary, Physician Primary Care Provider Reason for Visit * Auth/Cert (Routine) Specialty Diagnoses / Procedures Referred By Luis Eduardo lao Referred To Contact Surgery Diagnoses Colovesical fistula Colovesical fistula [N32.1] Procedures OR LAP,SURG,COLECTOMY, PARTIAL, W/ANAST OR LAP,SURG,COLECTOMY,W/REMVL TERM ILEUM OR LAP,SURG,COLECTOMY,W/END COLOST & CLOSUR OR LAP,SURG,COLECTOMY,W/ANAST OR LAP, SURG, COLECTOMY, W/ANAST, W/COLOSTOMY OR LAP,SURG,COLECTOMY,TOTAL,W/O PROCTECTOMY OR LAP,SURG,COLECTOMY,TOTAL,W/OR OCTECTOMY OR LAP,SURG,COLECT,TOT,W/PROCTEC T,W/ILEOST OR CYSTOSCOPY,INSERT URETERAL STENT ZZ UROGRAPHY, RETROGRADE W/WO KUB Xi Robotic Assisted Sigmoid Colectomy Cystoscopy, insertion of bilateral ureteral stents [facility] [address] [place] [address] Referral ID Status Reason Start Date Expiration Date Visits Re quested Visits Authorized [id number] 1 1 Encounter Details Date Type Department Care Team (Late st Contact Info) Description 08/07/2022 11:55 AM CDT - 08/07/2022 12:40 PM CDT Surgery [facility] [place] [address] [place] [phone] Berenice Odom MD COLON RECTAL SURGERY [address] [place] [facility] [address] Colonoscopy Surgery Details Date/Time Status Location OR Service Patient Class Case Class Case Type Trauma Case? 08/07/22 11:55 AM Posted GI GI B [facility]-Rectal Outpatient Panel 1 Procedure [facility] Anes Op Region Wound Class Comments Colonoscopy N/A Moderate Sedation Rectum II-Clean C ontaminated Surgeon Surgeon Role Service Panel Berenice Odom MD Primary Walsh-Rectal 1 Special Needs CRSAL documented in this [...] lisinopril (ZESTRIL) 20 MG tablet 08/07/2022 at [id number] Yes Yes Sig: Take 40 mg by [...] * COLONOSCOPY (08/07/2022 11:35 AM CDT) COLONOSCOPY [facility] Patient Name: Judith Guajardo ? [...] continuously. The ?[employer]us Adult Colonoscope, Model # CF-[id number], ?Endora # 225, SN # [id number] was introduced through ?the anus and advanced [...] Procedure Code(s): ? --- Professional --- ? 43415, Colonoscopy, flexible; diagnostic, including collection of ? [...] of ? digestive tract CPT copyright 2020 [employer]. All rights reserved. The codes documented in this report are preliminary and upon php lamp developer review may be revised to meet current compliance requirements. ____ BERENICE ODOM MD 08/07/2022 12:52:38 PM I was physically present for the entire viewing portion of the exam. BERENICE ODOM MD Number of Addenda: 0 Note Initiated On: 08/07/2022 11:35 AM MRN: ?[id number] Procedure Date: ? 08/07/2022 11:35:11 AM Scope Withdrawal Time: 0 hours 13 minutes 2 seconds Total Procedure Duration: 0 hours 23 minutes 14 seconds Estimated Blood Loss: ? Scope In: 12:21:37 PM Scope Out: 12:44:51 PM RADIOLOGY RESULTS 08/07/2022 11:3 5 AM CDT Berenice Odmo MD PROCEDURES RADIOLOGY RESULTS documented in this [...] on Sat08/07/22 at 1217, For 1 dose, [place] throat with 1 spray 5 minutes prior [...] provider. documented in this encounter Care Teams Valve Setter Relationship Specialty Start Date End Date No Ref-Primary, Physician PCP - General 08/07/22 documented as of this encounter
--- OUTSIDE RECORDS SUMMARY | 2023-03-22 14:45 | XMS_ITS | Encounter Summary ---
Author Name Unknown Organization [place] Address [address] [place] [address] Care Team Providers Care Display Director Name Role Phone No Ref-Primary, Physician [...] on filedocumented in this encounter Care Teams Display Director Relationship Specialty Start Date End Date No Ref-Primary, Physician PCP - General 08/07/22 documented as of this encounter
--- OUTSIDE RECORDS SUMMARY | 2023-03-22 14:45 | XMS_ITS | Encounter Summary ---
Author Name Unknown Organization [facility] Address [address] [place] [address] Care Team Providers Care Secretary Specialist Name Role Phone No Ref-Primary, Physician Primary Care Provider Reason for Visit * Auth/Cert (Routine) Specialty Diagnoses / Procedures Referred By Luis Eduardo lao Referred To Contact Surgery Diagnoses Colovesical fistula Colovesical fistula [N32.1] Procedures AZ LAP,SURG,COLECTOMY, PARTIAL, W/ANAST AZ LAP,SURG,COLECTOMY,W/REMVL TERM ILEUM AZ LAP,SURG,COLECTOMY,W/END COLOST & CLOSUR AZ LAP,SURG,COLECTOMY,W/ANAST AZ LAP, SURG, COLECTOMY, W/ANAST, W/COLOSTOMY AZ LAP,SURG,COLECTOMY,TOTAL,W/O PROCTECTOMY AZ LAP,SURG,COLECTOMY,TOTAL,W/AZ OCTECTOMY AZ LAP,SURG,COLECT,TOT,W/PROCTEC T,W/ILEOST AZ CYSTOSCOPY,INSERT URETERAL STENT ZZ UROGRAPHY, RETROGRADE W/WO KUB Xi Robotic Assisted Sigmoid Colectomy Cystoscopy, insertion of bilateral ureteral stents Periop Services [address] [place] [address] Referral ID Status Reason Start Date Expiration Date Visits Re quested Visits Authorized [id number] 1 1 Encounter Details Date Type Department Care Team (Late st Contact Info) Description 08/08/2022 12:04 PM CDT - 08/08/2022 6:04 PM CDT Surgery [facility] PeriOp Services [address] [place] [address] Kylah Arndt MD [facility] [address] [place] [address] Xi Robotic Assisted Sigmoid Colectomy, take down of colovesical fistula, mobilization of splenetic flexure, small bowel resection, drainage of abdominal wall abscess Surgery Details Date/Time Status Location OR Service Patient Class Case Class Case Type Trauma Case? 08/08/22 12:04 PM Posted OR OR [address] [place] [address] Surgery Admit Panel 1 Procedure LRB Anes [...] Primary Urology 2 Kylah Arndt MD Primary [facility] General 1 Paul Blackmon, PA-C Content Producer Authori [email or web address] 1 documented in this encounter [...] from the original note were not included. [facility] Discharge Summary Judith Guajardo Age: [age] year old Date of : 1980 Date of Admission: 08/08/2022 Date of Discharge:: 08/12/2022 Admitting Physician: Kylah Arndt MD Discharge Physician: Berenice Odom MD PCP: No Ref-Primary, Physician Disposition: Patient discharged from [facility] to Home in stable condition. Primary Diagnosis: [...] on POD#3, which was negative and his alaln and surgical drain were removed. He was [...] Surgery Fellow [facility] [address] [address] T: [phone] F: [phone] ADDENDUM: Length of stay: 4 days Indicate Y or N for the following: UTI No C diff No PNA No SSI No DVT No PE No CVA No TX No Enterocutaneous fistula No Peripheral nerve injury No Abscess (not adjacent to anastomosis) No Leak No Treated with: Antibiotics N/A Drain N/A Reoperation N/A within 30 days No Reintubation No Reoperation No Procedure n/a Associated attestation - Berenice Odom MD - 08/16/2022 7:20 AM CDT Images from the original note were not included. Berenice Odom MD [facility] [address] [facility], [address] [place] [address] T: [phone] F: [phone] [email or web address] documented in this encounter Medications at [...] questions/paging, please contact the CRS office at [phone]. Radha Arndt MD Colorectal Surgery [facility] [address] [place] [address] T: [phone] F: [phone] * Nini Peng RN - 08/09/2022 1:54 PM CDT Notified provider about indwelling allan catheter discussed removal or continued need. Did provider choose to remove indwelling allan catheter? NO- order to remove POD #3 (Saturday) Provider's allan indication for keeping indwelling allan catheter: Indication for continued use: /GI/TEST ENGINEERING MANAGER Pelvic Procedure Is there an order for [...] questions/paging, please contact the CRS office at [phone]. Nini Walden MD Colorectal Surgery [facility] [address] [address] T: [phone] F: [phone] documented in this encounter Miscellaneous Notes * [...] Goal Outcome Evaluation: Pertinent assessments: Assumed cares [id number]. Pt A&Ox4. C/o abdominal pain, rated 5-7/10, [...] Pertinent assessments: Assumed care of pt from 9615-3579. VSS. A&Ox4. Apical pulse regular. Lungs diminished. [...] in placewith 500 ml output. Abdominal incisions PSYCHIATRY RESIDENT, no drainage noted. A&O, calls appropriately for [...] Mascorro MD - 08/08/2022 8:09 PM CDT [facility] Brief Operative Note Pre-operative diagnosis: Colovesical [...] MD [facility] [phone]. ADDENDUM: PATIENT DATA Indicate Y or N: [...] IV antibiotics were administered. ?? A 22 Malagasy rigid cystoscope was inserted per a well-lubricated [...] surgery team. ?? Valentin Whitaker MD Urology [facility] Phys[facility] * Op Note - Kylah Arndt [...] Radha Arndt MD Co-Surgeon: Dr. Valentin Whitaker Content Producer: Paul Blackmon PA-C Second Content Producer: Susie Mascorro MD (colorectal surgery fellow) Anesthesia: [...] to enter into the lesser sac the host coordinator ior wall of the stomach was identified. [...] the cavity. We then placed a 19 Malagasy Stan channel drain through the left most [...] * Pharmacy-Admission Medication History - Priya Chavira [facility] - 08/06/2022 2:05 PM CDT Medication reconciliation interview completed by pre-admitting nurse, reviewed by pharmacy. No further clarifications needed. Prior to Admission medications Medication Sig Last Dose Taking? Auth Provider Mcfp End Date ALPRAZolam (XANAX) 0.5 MG tablet [...] (08/12/2022 7:12 AM CDT) Hold Specimen [facility] 08/12/2022 8:46 AM CDT LABORATORY Blood STRUCTURE OF RIGHT HAND / Unknown Venipuncture / Unknown 08/12/2022 7:12 AM CDT 08/12/2022 7:32 AM CDT Kylah Arndt MD LAB - BLOOD ORDER [facility] LABORATORY [facility] Acute Care Lab [address] Lab (1st floor, no room number) [place] [address], [facility] [phone] * Platelet count (08/12/2022 7:12 AM CDT) Platelet Count 284 150 - 450 10e3/uL 08/12/2022 7:35 AM CDT LABORATORY Blood STRUCTURE OF RIGHT HAND / Unknown Venipuncture / Unknown 08/12/2022 7:12 AM CDT 08/12/2022 7:32 AM CDT Kylah Arndt MD LAB - BLOOD ORDER [facility] LABORATORY [facility] Acute Care Lab [address] Lab (1st floor, no room number) [place] [address], [facility] [phone] * CT Cystogram wo & w Contrast [...] ecchymoses/Postoperative hemorrhage within space of Retzius. 3. ??Hospital Manager film demonstrates numerous loops of air distended proximal small bowel with only one loop included on the axial images but this is concerning for mid small bowel obstruction. Consider follow-up CT based on patient's symptoms. Narrative 08/11/2022 6:27 PM CDT EXAM: CT CYSTOGRAM WO and W CONTRAST LOCATION: [facility] DATE: 08/11/2022 INDICATION: colovesical fistula, sigmoid diverticulitis.. [...] caliber of small bowel. ADDITIONAL FINDINGS: The liquefaction supervisor film demonstrates multiple loops of air distended proximal small bowel which are not included on the axial images. Findings concerning for mid small bowel obstruction. As indicated consider follow-up full abdominal CT. Procedure Note Gerald Becerra MD - 08/11/2022 EXAM: CT CYSTOGRAM WO and W CONTRAST LOCATION: [facility] DATE: 08/11/2022 INDICATION: colovesical fistula, sigmoid diverticulitis.. [...] caliber of small bowel. ADDITIONAL FINDINGS: The liquefaction supervisor film demonstrates multiple loops of airdistended proximal small bowel which are not included on the axial images.Findings concerning for mid small bowel obstruction. As indicated considerfollow-up full abdominal CT. IMPRESSION: 1. Mild residual bladder wall thickening. No extravasation of contrastand no localized perivesicular collection. 2. Mild amount of ecchymoses/Postoperative hemorrhage within space ofRetzius. 3. Hospital Manager film demonstrates numerous loops of air distended [...] CDT Kylah FREGOSO POCT Performing Organization Address City/[facility]/ZIP Co de Phone Number LABORATORY [facility] Acute Care Lab [address] Lab (1st floor, no room number) [place] [address], [facility] [phone] * (ABNORMAL) Glucose by meter (08/11/2022 2:49 AM CDT) GLUCOSE BY METER POCT 108(H) 70 - 99 mg/dL 08/11/2022 2:56 AM CDT LABORATORY POC Blood, Capillary BLOOD SPECIMEN / Unknown 08/11/2022 2:49 AM CDT 08/11/2022 2:56 AM CDT Kylah FREGOSO POCT LABORATORY [facility] Acute Care Lab [address] Lab (1st floor, no room number) [place] [address], [facility] [phone] * (ABNORMAL) Glucose by meter (08/10/2022 10:27 PM CDT) GLUCOSE BY METER POCT 115(H) 70 - 99 mg/dL 08/10/2022 10:34 PM CDT [facility] LABORATORY POC Blood, Capillary BLOOD SPECIMEN / Unknown 08/10/2022 10:27 PM CDT 08/10/2022 10:34 PM CDT Kylah Arndt MD LAB - BEAKER POCT LABORATORY [facility] Care Lab [address] Lab (1st floor, no room number) [place] [address], [facility] [phone] * Creatinine (08/10/2022 7:45 AM CDT) Creatinine 1.14 0.67 - 1.17 mg/dL 08/10/2022 8:20 AM CDT LABORATORY GFR Estimate 82 >60 mL/min/1.73 m2 08/10/2022 8:20 AM CDT RH LABORATORY Blood STRUCTURE OF RIGHT UPPER LIMB / Unknown Venipuncture / Unknown 08/10/2022 7:45 AM CDT 08/10/2022 7:55 AM CDT Nini Walden MD LAB - BLOOD AYANNA THOMAS LABORATORY [facility] Acute Care Lab [address] Lab (1st floor, no room number) [place] [address], [facility] [phone] * Phosphorus (08/09/2022 6:37 AM CDT) Phosphorus 3.7 2.5 - 4.5 mg/dL 08/09/2022 7:33 AM CDT RH LABORATORY Blood STRUCTURE OF RIGHT HAND / Unknown Venipuncture / Unknown 08/09/2022 6:37 AM CDT 08/09/2022 7:10 AM CDT Kylah Arndt MD LAB - BLOOD ORDER [facility]ON LABORATORY [facility] Acute Care Lab [address] Lab (1st floor, no room number) [place] [address], [facility] [phone] * Magnesium (08/09/2022 6:37 AM CDT) Magnesium 1.7 1.7 - 2.3 mg/dL 08/09/2022 7:33 AM CDT RH LABORATORY Blood STRUCTURE OF RIGHT HAND / Unknown Venipuncture / Unknown 08/09/2022 6:37 AM CDT 08/09/2022 7:10 AM CDT Kylah Arndt MD LAB - BLOOD ORDER BRANDON Performing Organization Address City/[facility]/ZIP Co de Phone Number LABORATORY [facility] Care Lab [address] Lab (1st floor, no room number) [place] [id number], [facility] [phone] * (ABNORMAL) CBC with platelets (08/09/2022 6:37 [...] MD LAB - BLOOD ORDER [facility]ON LABORATORY [facility] Acute Care Lab [address] Lab (1st floor, no room number) [place] [address], [facility] [phone] * (ABNORMAL) Basic metabolic panel (08/09/2022 6:37 [...] - BLOOD ORDER BRANDON Performing Organization Address City/[facility]/ZIP Co de Phone Number [facility] Lab [address] Lab (1st floor, no room number) [place] [address], [place] [phone] * (ABNORMAL) Glucose by meter (08/09/2022 1:54 AM CDT) GLUCOSE BY METER POCT 157(H) 70 - 99 mg/dL 08/09/2022 2:00 AM CDT RH LABORATORY POC Blood, Capillary BLOOD SPECIMEN / Unknown 08/09/2022 1:54 AM CDT 08/09/2022 2:00 AM CDT Kylah Arndt MD LAB - BEAKER POCT Performing Organization Address [facility]/ZIP Co de Phone Number LABORATORY [facility] Lab [address] Lab (1st floor, no room number) [place] [address], [place] [phone] * (ABNORMAL) Creatinine (08/08/2022 10:46 PM CDT) Creatinine 1.28(H) 0.67 - 1.17 mg/dL 08/08/2022 11:14 PM CDT RH LABORATORY GFR Estimate 72 >60 mL/min/1.7 3m2 08/08/2022 11:14 PM CDT RH LABORATORY Blood STRUCTURE OF LEFT UPPER LIMB / Unknown Venipuncture / Unknown 08/08/2022 10:46 PM CDT 08/08/2022 10:52 PM CDT Kylah Arndt MD LAB - BLOOD ORDER BRANDON [facility] Acute Care Lab [address] [facility] Lab (1st floor, no room number) [place] [address], [facility] [phone] * Surgical Pathology Exam (08/08/2022 6:16 PM CDT) Case Report Surgical Pathology Report ? Case: [id number] ? Authorizing Provider: ??Kylah Arndt MD ?? Collected: ? 08/08/2022 06:16 PM ? Ordering Location: ? [facility] ?? Received: ?08/08/2022 08:35 PM ? Main [...] congestion and fibrous adhesions 08/10/2022 3:04 PM [facility] LABORATORY Clinical Information Procedure: Xi Robotic Assisted [...] discrete lesions or masses are appreciated grossly. Auto Transport Driver sections are submitted. Summary of sections: A1-A2-en face proximal margin, split sections A3-A4-en face distal margin, split section A5-loss prevention representative area of mucin A6-loss prevention representative intact diverticulum B(2). Small Intestine, Ileum, [...] discrete lesions or abnormalities are appreciated grossly. Auto Transport Driver sections are submitted. Summary of sections: B1-loss prevention representative en face margins B2-loss prevention representative mucosa (THELMA Mcgowan ASCP CM) 08/10/2022 3:04 PM CDT LABORATORY Microscopic Description A, B. A formal microscopic examination has been performed 08/10/2022 3:04 PM CDT LABORATORY Performing Labs The technical component of this testing was completed at [facility] Laboratory 08/10/2022 3:04 PM CDT LABORATORY Case Images 08/10/2022 3:04 PM CDT LABORATORY Resection SIGMOID COLON PART / Unknown 08/08/2022 6:16 PM CDT 08/08/2022 8:35 PM CDT Specimen obtained by wide resection (specimen) ILEAL STRUCTURE / Unknown 08/08/2022 6:38 PM CDT 08/08/2022 8:35 PM CDT Kylah Arndt MD LAB - ZENOBIA VIVEROS LABORATORY [facility] Acute Care Lab [address] 1[address] floor, [address] [place] [address], [place] [phone] LABORATORY [facility] [address] [facility] ([facility] floor, no room number) [place] [address], [place] [phone] * (ABNORMAL) Glucose by meter (08/08/2022 10:34 AM CDT) GLUCOSE BY METER POCT 106(H) 70 - 99 mg/dL 08/08/2022 10:40 AM CDT LABORATORY POC Blood, Capillary BLOOD SPECIMEN / Unknown 08/08/2022 10:34 AM CDT 08/08/2022 10:40 AM CDT Kylah Arndt MD LAB - BEAKER POCT LABORATORY [facility] Acute Care Lab [address] Lab (1st floor, no room number) [place] [address], [facility] [phone] documented in this encounter Visit Diagnoses Diagnosis [...] 75 mg/kg/day not to exceed 4 grams/day. 05 ($Given - Provider: Nirmala Fernandez RN)1419 ($Given - Provider: Nancie Holden RN)2159 ($Given - Provider: Lidia Multani RN) 0553 [...] Irritant. documented in this encounter Care Teams Secretary Specialist Relationship Specialty Start Date End Date No Ref-Primary, Physician PCP - General 08/07/22 documented as of this encounter
--- OUTSIDE RECORDS SUMMARY | 2023-03-22 14:45 | XMS_ITS | Encounter Summary ---
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] Procedures RI LAP,SURG,COLECTOMY, PARTIAL, W/ANAST RI LAP,SURG,COLECTOMY,W/REMVL TERM ILEUM RI LAP,SURG,COLECTOMY,W/END COLOST & CLOSUR RI LAP,SURG,COLECTOMY,W/ANAST RI LAP, SURG, COLECTOMY, W/ANAST, W/COLOSTOMY RI LAP,SURG,COLECTOMY,TOTAL,W/O PROCTECTOMY RI LAP,SURG,COLECTOMY,TOTAL,W/RI OCTECTOMY RI LAP,SURG,COLECT,TOT,W/PROCTEC T,W/ILEOST RI CYSTOSCOPY,[facility], RETROGRADE W/WO KUB Xi Robotic Assisted Sigmoid Colectomy Cystoscopy, insertion of bilateral ureteral stents Periop Services [address] [place] [address] Referral ID Status Reason Start Date Expiration Date Visits Re quested Visits Authorized [id number] 1 1 Encounter Details Date Type Department Care Team (Late st Contact Info) Description 08/08/2022 1:11 PM CDT Anesthesia [facility] PeriOp Services [address] [place] [address] Zane Laurent MD [facility] ANESTHESIA [address] [place] [address] Marlys Phipps APRN CRNA [facility] ANESTHESIA [address] [place] [address] Anesthesia Record Procedure Summary Procedure Name Responsible Anesthesiologist Anesthesia Start Time Anesthesia Stop Time Xi Robotic Assisted Sigmoid Colectomy, take down of colovesical fistula, mobilization of splenetic flexure, small bowel resection, drainage of abdominal wall abscess (Abdomen) Zane Laurent MD 08/08/22 1311 08/08/222005 Events Date Time Event Comment 08/08/2022 1102 1210 PLASTIC EXTRUDING MACHINE OPERATOR Ready for Procedure 1311 An Start 1313 An Start Data 1317 AN REASSESS I attest that I have identified and re-evaluated the patient immediately before the induction of anesthesia and I am satisfied that the anesthetic plan is suitable for the patient's condition and procedure. The first vital signs recorded are pre- induction. Marlys Patel APRN PLASTIC EXTRUDING MACHINE OPERATOR 1319 An Induction 1321 An Intubation 1324 [...] Stop Electronically signed by Collin Becerra APRN PLASTIC EXTRUDING MACHINE OPERATOR on August 08, 2022 8:06 PM Meds [...] Grade View: 1; Adjucts: Stylet; Placement Person: PLASTIC EXTRUDING MACHINE OPERATOR; Attempts: 1; Depth: 23 cm 08/08/22 1321 by Marlys Phipps APRN PLASTIC EXTRUDING MACHINE OPERATOR 08/08/221957 by Collin Becerra APRN PLASTIC EXTRUDING MACHINE OPERATOR Urethral Catheter 08/08/22; 1340; No; Anesthesia, /GI/MANUFACTURING PLANT CONTROLLER Pelvic Procedure; 16 fr; Nursing driven removal protocol 08/08/22 1340 by Ivone Hummel RN 08/11/221909 by Nancie Holden, ELIAN Closed/Suction Drain 08/08/22; 192; 1; Lateral, Left; LLQ; Bulb; 19 Pashto 08/08/221921 by Renetta Irwin RN 08/11/221909 by [...] Start/Stop Times: 08/08/2022 1:21 PM Staff - PLASTIC EXTRUDING MACHINE OPERATOR: Hegewald, Marlys, RENEWALS SPECIALIST PLASTIC EXTRUDING MACHINE OPERATOR Performed By: PLASTIC EXTRUDING MACHINE OPERATOR Consent for Airway Urgency: elective Indications and [...] and realistic alternatives discussed. Questions answered and patient/automotive leasing sales representative(s) expressed understanding. - Discussed: - [...] Care Transfer Note - Collin Becerra APRN PLASTIC EXTRUDING MACHINE OPERATOR - 08/08/2022 8:06 PM CDT Patient: Judith [...] Times: 08/08/2022 1:21 PM Staff - ? PLASTIC EXTRUDING MACHINE OPERATOR: Marlys Patel APRN CRNA ? Performed By: PLASTIC EXTRUDING MACHINE OPERATOR Consent for Airway ? Urgency: elective Indications [...] Time: 08/08/2022 1:21 PM Zane Laurent MD [place] ANESTHESIA documented in this encounter Visit Diagnoses [...] mg documented in this encounter Care Teams Cone Sewer Relationship Specialty Start Date End Date No Ref-Primary, Physician PCP - General 08/07/22 documented as of this encounter
--- OUTSIDE RECORDS SUMMARY | 2023-03-22 14:45 | XMS_ITS | Clinical Summary ---
Author Name Unknown Organization [facility] Address [place], [place] [address] Care Team Providers Care Ux Engineer Name Role Phone Jose Almeida MD Primary Care Provider [phone] Allergies No known active allergies Medications Medication [...] 10:05 AM 06/25/2019 5:18 PM Care Teams Ux Engineer Relationship Specialty Start Date End Date Jose Almeida MD PCP - General Family Practice 06/18/19
--- OUTSIDE RECORDS SUMMARY | 2023-03-22 14:45 | XMS_ITS | Encounter Summary ---
Author Name Unknown Organization [facility] Address [address] [place] [address] Care Team Providers Care Grape Grower Name Role Phone Unavailable Primary Care Provider Unavailabl e Reason for Visit * Reason Onset Date Comments Procedure 07/10/2022 [facility] Colonoscop y Scheduling Encounter Details Date Type Department Care Team (Late st Contact Info) Description 07/10/2022 Telephone [facility] [address] [address] None Procedure ([facility]AL Colonoscopy Scheduling) [...] Endoscopy [Colonoscopy] ??? Procedure Date: 08/07/2022 ??? Site:[facility]; [address] [place] [address] ??? Endoscopist: Yris ??? Ordering Provider: Yris ??? Scheduled by (per the direction of): Ramiro(CRSRACHELL) ok'd per Gaby/Emely We do not accept [employer] insurance. documented in this encounter Plan of Treatment Not on file documented as of this encounter Visit Diagnoses Not on filedocumented in this encounter
--- OUTSIDE RECORDS SUMMARY | 2023-03-22 14:45 | XMS_ITS | Encounter Summary ---
Author Name Unknown Organization [facility] Address [facility] [place] [address] Care Team Providers Care Aircraft Structural Design Engineer Name Role Phone Unavailable Primary Care Provider Unavailabl e Reason for Referral * Consultation (Routine: Next available opening) - Pending Review Specialty Diagnoses / Procedures Referred By Luis Eduardo lao Referred To Contact Diagnoses Screen for colon cancer Kylah Arndt MD [facility] [address] [address] Referral ID Status Reason Start Date Expiration Date V isits Requested Visits Authorized [id number] Pending Review 07/10/2022 07/10/2023 1 1 Question Answer Service: Screening Sedation Concerns: No medical conditions affecting sedation Sedation Type: Moderate/Conscious Sedation Preferred Location: [facility] Scheduling Instructions: [facility] will call you to coordinate your care as prescribed by the provider. If you don? t hear from a pharmaceutical sales representative within 2 business days, please call . Comments Please be aware that coverage of these services is subject to the terms and limitations of your health insurance plan. Call member services at your health plan with any benefit or coverage questions. [facility] will call you to coordinate your care as prescribed by the provider. If you don? t hear from a pharmaceutical sales representative within 2 business days, please call . Encounter Details Date Type Department Care Team (Latest Contact Info) Description 07/10/2022 Transcribe Orders [facility] Endoscopy [place] [address] [place] [address] Kylah Arndt MD [facility] SURGERY [address] [place] [address] Screen for colon cancer (Primary Dx) Social History Tobacco Use Types Packs/Day Years Used Date Smoking Tobacco: Never Assessed Sex and Gender Information Value Date Recorded Sex Assigned at Not on file Gender Identity Not on file Sexual Orientation Not on file documented as of this encounter Plan of Treatment Scheduled Referrals Name Type Priority Associated Diagnoses Order Schedule Colonoscopy Screening Med Surg Rn Referral Referral Routine: Next available opening Screen for colon cancer Expected: 07/10/2022 (Approximate), Expires: 07/11/2023 documented as of this encounter Visit Diagnoses Diagnosis Screen for colon cancer- Primary Special screening for malignant neoplasms, colon documented in this encounter
--- OUTSIDE RECORDS SUMMARY | 2023-03-22 14:45 | XMS_ITS | Encounter Summary ---
Author Name Unknown Organization [facility] Address [address] [place] [address] Care Team Providers Care Medicine Assistant Name Role Phone No Ref-Primary, Physician Primary Care Provider Reason for Visit * Auth/Cert (Routine) Specialty Diagnoses / Procedures Referred By Luis Eduardo lao Referred To Contact Surgery Diagnoses Colovesical fistula Colovesical fistula [N32.1] Procedures IA LAP,SURG,COLECTOMY, PARTIAL, W/ANAST IA LAP,SURG,COLECTOMY,W/REMVL TERM ILEUM IA LAP,SURG,COLECTOMY,W/END COLOST & CLOSUR IA LAP,SURG,COLECTOMY,W/ANAST IA LAP, SURG, COLECTOMY, W/ANAST, W/COLOSTOMY IA LAP,SURG,COLECTOMY,TOTAL,W/O PROCTECTOMY IA LAP,SURG,COLECTOMY,TOTAL,W/IA OCTECTOMY IA LAP,SURG,COLECT,TOT,W/PROCTEC T,W/ILEOST IA CYSTOSCOPY,INSERT URETERAL STENT ZZ UROGRAPHY, RETROGRADE W/WO KUB Xi Robotic Assisted Sigmoid Colectomy Cystoscopy, insertion of bilateral ureteral stents [facility] [address] [place] [address] Referral ID Status Reason Start Date Expiration Date Visits Re quested Visits Authorized [id number] 1 1 Encounter Details Date Type Department Care Team (Latest Contact Info) Description 08/08/2022 10:25 AM CDT - 08/12/2022 11:48 AM CDT Hospital Encounter [place] [address] [facility] [address] [place] [address] Kylah Arndt MD [facility] [address] [place] [address] Acute post-operative pain (Primary Dx); Colovesical fistula [...] from the original note were not included. [facility] Discharge Summary Judith Guajardo Age: [age] year old Date of : 1980 Date of Admission: 08/08/2022 Date of Discharge:: 08/12/2022 Admitting Physician: Kylah Arndt MD Discharge Physician: Berenice Odom MD PCP: No Ref-Primary, Physician Disposition: Patient discharged from [facility] to Home in stable condition. Primary Diagnosis: [...] Surgery Fellow [facility] [address] [address] T: F: [phone] ADDENDUM: Length of stay: 4 days Indicate Y or N for the following: UTI No C diff No PNA No SSI No DVT No PE No CVA No [place] No Enterocutaneous fistula No Peripheral nerve injury No Abscess (not adjacent to anastomosis) No Leak No Treated with: Antibiotics N/A Drain N/A Reoperation N/A within 30 days No Reintubation No Reoperation No Procedure n/a Associated attestation - Berenice Odom MD - 08/16/2022 7:20 AM CDT Images from the original note were not included. Berenice Odom MD [facility] [address] [facility], [address] [place] [address] T: [phone] F: [phone] [email or web address] documented in this encounter Medications at [...] questions/paging, please contact the CRS office at [phone]. Radha Arndt MD Colorectal Surgery [facility] [address] [address] T: [phone] F: [phone] * Nini Peng RN - 08/09/2022 1:54 PM CDT Notified provider about indwelling allan catheter discussed removal or continued need. Did provider choose to remove indwelling allan catheter? NO- order to remove POD #3 (Saturday) Provider's allan indication for keeping indwelling allan catheter: Indication for continued use: /GI/ANESTHESIOLOGISTS' ASSISTANT Pelvic Procedure Is there an order for [...] questions/paging, please contact the CRS office at [phone]. Nini Walden MD Colorectal Surgery [facility] [address] [address] T: [phone] F: [phone] documented in this encounter Miscellaneous Notes * [...] Goal Outcome Evaluation: Pertinent assessments: Assumed cares [id number]. Pt A&Ox4. C/o abdominal pain, rated 5-7/10, [...] Pertinent assessments: Assumed care of pt from 9839-6471. VSS. A&Ox4. Apical pulse regular. Lungs diminished. [...] in placewith 500 ml output. Abdominal incisions INFORMATICIST, no drainage noted. A&O, calls appropriately for [...] Mascorro MD - 08/08/2022 8:09 PM CDT [facility] Brief Operative Note Pre-operative diagnosis: Colovesical fistula [...] MD [facility] [phone]. ADDENDUM: PATIENT DATA Indicate Y or N: [...] IV antibiotics were administered. ?? A 22 Upper Sorbian rigid cystoscope was inserted per a well-lubricated [...] team. ?? Valentin Whitaker MD Urology [facility] * Op Note - Kylah Arndt [...] Radha Arndt MD Co-Surgeon: Dr. Valentin Whitaker Heel Breaster: Paul Blackmon PA-C Second Heel Breaster: Susie Mascorro MD (colorectal surgery fellow) Anesthesia: [...] to enter into the lesser sac the rn acute ior wall of the stomach was identified. [...] the cavity. We then placed a 19 Upper Sorbian Stan channel drain through the left most [...] * Pharmacy-Admission Medication History - Priya Chavira [facility] - 08/06/2022 2:05 PM CDT Medication reconciliation interview completed by pre-admitting nurse, reviewed by pharmacy. No further clarifications needed. Prior to Admission medications Medication Sig Last Dose Taking? Auth Provider Fdc End Date ALPRAZolam (XANAX) 0.5 MG tablet [...] AM CDT 08/12/2022 7:32 AM CDT Kylah Arntd MD LAB - BLOOD ORDER [facility] [address] [facility] Lab (1st floor, no room number) [place] [address], [facility] [phone] * Platelet count (08/12/2022 7:12 AM CDT) Platelet Count 284 150 - 450 10e3/uL 08/12/2022 7:35 AM CDT LABORATORY Blood STRUCTURE OF RIGHT HAND / Unknown Venipuncture / Unknown 08/12/2022 7:12 AM CDT 08/12/2022 7:32 AM CDT Kylah Arndt MD LAB - BLOOD ORDER BR[facility] Acute [facility] Lab [address] [facility] Lab (1st floor, no room number) [place] [address], [facility] [phone] * CT Cystogram wo & w Contrast [...] ecchymoses/Postoperative hemorrhage within space of Retzius. 3. ??Hydrogen Plant Operations Manager film demonstrates numerous loops of air distended proximal small bowel with only one loop included on the axial images but this is concerning for mid small bowel obstruction. Consider follow-up CT based on patient's symptoms. Narrative 08/11/2022 6:27 PM CDT EXAM: CT CYSTOGRAM WO and W CONTRAST LOCATION: [facility] DATE: 08/11/2022 INDICATION: colovesical fistula, [...] caliber of small bowel. ADDITIONAL FINDINGS: The guest services representative film demonstrates multiple loops of air distended proximal small bowel which are not included on the axial images. Findings concerning for mid small bowel obstruction. As indicated consider follow-up full abdominal CT. Procedure Note Gerald Becerra MD - 08/11/2022 EXAM: CT CYSTOGRAM WO and W CONTRAST LOCATION: [facility] DATE: 08/11/2022 INDICATION: colovesical fistula, [...] caliber of small bowel. ADDITIONAL FINDINGS: The guest services representative film demonstrates multiple loops of airdistended proximal small bowel which are not included on the axial images.Findings concerning for mid small bowel obstruction. As indicated considerfollow-up full abdominal CT. IMPRESSION: 1. Mild residual bladder wall thickening. No extravasation of contrastand no localized perivesicular collection. 2. Mild amount of ecchymoses/Postoperative hemorrhage within space ofRetzius. 3. Hydrogen Plant Operations Manager film demonstrates numerous loops of air [...] SANTOS - ZENOBIA POCT Performing Organization Address City/[facility]/ZIP Co de Phone Number LABORATORY [facility] Lab [address] Lab (1st floor, no room number) [place] [address], [facility] [phone] * (ABNORMAL) Glucose by meter (08/11/2022 2:49 AM CDT) GLUCOSE BY METER POCT 108(H) 70 - 99 mg/dL 08/11/2022 2:56 AM CDT LABORATORY POC Blood, Capillary BLOOD SPECIMEN / Unknown 08/11/2022 2:49 AM CDT 08/11/2022 2:56 AM CDT Kylah DOS SANTOS - ZENOBIA POCT Performing Organization Address [facility] Co de Phone Number [facility] Lab [address] Lab (1st floor, no room number) [place] [address], [place] [phone] * (ABNORMAL) Glucose by meter (08/10/2022 10:27 PM CDT) GLUCOSE BY METER POCT 115(H) 70 - 99 mg/dL 08/10/2022 10:34 PM CDT LABORATORY POC Blood, Capillary BLOOD SPECIMEN / Unknown 08/10/2022 10:27 PM CDT 08/10/2022 10:34 PM CDT Kylah FREGOSO POCT LABORATORY POC [facility] Acute Care Lab [address] Lab (1st floor, no room number) [place] [address], [facility] [phone] * Creatinine (08/10/2022 7:45 AM CDT) Creatinine 1.14 0.67 - 1.17 mg/dL 08/10/2022 8:20 AM CDT [facility] LABORATORY GFR Estimate 82 >60 mL/min/1.73 m2 08/10/2022 8:20 AM CDT [facility] LABORATORY Blood STRUCTURE OF RIGHT UPPER LIMB / Unknown Venipuncture / Unknown 08/10/2022 7:45 AM CDT 08/10/2022 7:55 AM CDT Nini Walden MD LAB - BLOOD ORDE MARTH[facility] [address] Lab (1st floor, no room number) [place] [address], [facility] [phone] * Phosphorus (08/09/2022 6:37 AM CDT) Phosphorus 3.7 2.5 - 4.5 mg/dL 08/09/2022 7:33 AM CDT [facility] LABORATORY Blood STRUCTURE OF RIGHT HAND / Unknown Venipuncture / Unknown 08/09/2022 6:37 AM CDT 08/09/2022 7:10 AM CDT Kylah Arndt MD LAB - BLOOD ORDER [facility] [address] Lab (1st floor, no room number) [place] [address], [facility] [phone] * Magnesium (08/09/2022 6:37 AM CDT) Magnesium 1.7 1.7 - 2.3 mg/dL 08/09/2022 7:33 AM CDT [facility] LABORATORY Blood STRUCTURE OF RIGHT HAND / Unknown Venipuncture / Unknown 08/09/2022 6:37 AM CDT 08/09/2022 7:10 AM CDT Kylah Arndt MD LAB - BLOOD ORDER [facility] LABORATORY [facility] Lab [address] Lab (1st floor, no room number) [place] [address], [facility] [phone] * (ABNORMAL) CBC with platelets (08/09/2022 6:37 [...] LAB - BLOOD ORDER [facility] LABORATORY [facility] Lab [address] Lab (1st floor, no room number) [place] [address], [facility] [phone] * (ABNORMAL) Basic metabolic panel (08/09/2022 6:37 AM CDT) Pathologist [facility] Sodium 133(L) 136 - 145 mmol/L 08/09/2022 [...] MD LAB - BLOOD ORDER [facility] LABORATORY [facility] Lab [address] Lab (1st floor, no room number) [place] [address], [facility] [phone] * (ABNORMAL) Glucose by meter (08/09/2022 1:54 AM CDT) GLUCOSE BY METER POCT 157(H) 70 - 99 mg/dL 08/09/2022 2:00 AM CDT [facility] LABORATORY POC Blood, Capillary BLOOD SPECIMEN / Unknown 08/09/2022 1:54 AM CDT 08/09/2022 2:00 AM CDT Kylah Arndt MD LAB - BEAKER POCT Performing Organization Address [facility]/ZIP Co de Phone Number [facility] LABORATORY POC [facility] Lab [address] Lab (1st floor, no room number) [place] [address], [facility] [phone] * (ABNORMAL) Creatinine (08/08/2022 10:46 PM CDT) Creatinine 1.28(H) 0.67 - 1.17 mg/dL 08/08/2022 11:14 PM CDT [facility] LABORATORY GFR Estimate 72 >60 mL/min/1.7 3m2 08/08/2022 11:14 PM CDT [facility] LABORATORY Blood STRUCTURE OF LEFT UPPER LIMB / Unknown Venipuncture / Unknown 08/08/2022 10:46 PM CDT 08/08/2022 10:52 PM CDT Kylah Arndt MD LAB - BLOOD ORDER BR[facility] Performing Organization Address [facility]/ZIP Co de Phone Number LABORATORY [facility] Lab [address] Lab (1st floor, no room number) [place] [address], [facility] [phone] * Surgical Pathology Exam (08/08/2022 6:16 PM CDT) Case Report Surgical Pathology Report ? Case: [id number] ? Authorizing Provider: ??Kylah Arndt MD ?? Collected: ? 08/08/2022 06:16 PM ? Ordering Location: ? [facility] ?? Received: ?08/08/2022 08:35 PM ? [...] discrete lesions or masses are appreciated grossly. Textile Conservator sections are submitted. Summary of sections: A1-A2-en face proximal margin, split sections A3-A4-en face distal margin, split section A5-guest services representative area of mucin A6-guest services representative intact diverticulum B(2). Small Intestine, Ileum, [...] discrete lesions or abnormalities are appreciated grossly. Textile Conservator sections are submitted. Summary of sections: B1-guest services representative en face margins B2-guest services representative mucosa ([facility]) 08/10/2022 3:04 PM CDT LABORATORY Microscopic Description A, B. A formal microscopic examination has been performed 08/10/2022 3:04 PM CDT LABORATORY Performing Labs The technical component of this testing was completed at [facility] 08/10/2022 3:04 PM CDT LABORATORY Case Images 08/10/2022 3:04 PM CDT LABORATORY Resection SIGMOID COLON PART / Unknown 08/08/2022 6:16 PM CDT 08/08/2022 8:35 PM CDT Specimen obtained by wide resection (specimen) ILEAL STRUCTURE / Unknown 08/08/2022 6:38 PM CDT 08/08/2022 8:35 PM CDT Kylah FREGOSO AP LABORATORY [facility] Acute Care Lab [address] floor, [address] [place] [address], [place] [phone] LABORATORY [facility] Lab [address] Lab (1st floor, no room number) [place] [address], [place] [phone] * (ABNORMAL) Glucose by meter (08/08/2022 10:34 AM CDT) [facility] GLUCOSE BY METER POCT 106(H) 70 - 99 mg/dL 08/08/2022 10:40 AM CDT LABORATORY POC Blood, Capillary BLOOD SPECIMEN / Unknown 08/08/2022 10:34 AM CDT 08/08/2022 10:40 AM CDT Kylah FREGOSO POCT LABORATORY POC [facility] Lab [address] Lab (1st floor, no room number) [place] [address], [place] [phone] documented in this encounter Visit Diagnoses Diagnosis [...] analgesic side effects. Hold while on IV HEAD OF DRAMA or with regular IV opioid dosing. $Given [...] 75 mg/kg/day not to exceed 4 grams/day. 0577 ($Given - Provider: Nirmala Fernandez RN)1416 ($Given - Provider: Nancie Holden, ELIAN)2151 ($Given - Provider: Lidia Multani RN) 0503 ($Given - Provider: Edwar Flores RN)1341 ($Given [...] Nirmala Fernandez RN)1133 ($New Bag - Provider: Nnacie Holden RN)1734 ($New Bag - Provider: Nancie [...] Irritant. documented in this encounter Care Teams Medicine Assistant Relationship Specialty Start Date End Date No Ref-Primary, Physician PCP - General 08/07/22 documented as of this encounter
--- OUTSIDE RECORDS SUMMARY | 2023-03-22 14:45 | XMS_ITS | Clinical Summary ---
Author Name Unknown Organization [facility] Address [address] [place] [address] Care Team Providers Care Ski Patrol Director Name Role Phone Unassigned, Provider Primary Care [...] for each transition of care or referral. [facility] Allergies No known active allergies Medications Medication Sig Dispensed Refills Start Date End Date Status ALPRAZolam (XANAX) 1 MG tablet 0 04/18/2019 Active metoprolol succinate (TOPROL XL) 50 MG 24 hour release tablet TAKE 1 T PO DAILY 0 04/15/2019 Active testosterone cypionate (DEPO-TESTOSTERONE) 200 MG/ML injection 0 04/15/2019 Activ e B-D 3CC LUER-SULEMA SYR 64PR9-8/2 22G X 1-/2 3 ML UTD 0 [...] age to complete this topic Care Teams Ski Patrol Director Relationship Specialty Start Date End Date Unassigned, Provider [address] [place] [address] PCP - General 02/16/00
== END 2023-03-22 14:38 | disposition home or self-care (01) ==
PROVIDERS: PCP Internal Medicine; Visit Provider Internal Medicine
DX: D75.1 Secondary polycythemia (principal)
CPT/HCPCS: 36415; 99195

== ENCOUNTER 2023-03-25 14:26 | Outpatient (CLI) | payer OTHER, SELFPAY ==
--- OUTSIDE RECORDS SUMMARY | 2023-03-25 14:29 | XMS_ITS | Referral Summary ---
Author Name Unknown Organization [facility] Address [address] [place] [address] Care Team Providers Care Newspaper Carrier Name Role Phone No Ref-Primary, Physician Primary [...] 08/18/2022 Active amoxicillin-clavulanat e (AUGMENTIN) 875-125 MG tabletIndications:[place] vesical fistula Take 1 tablet by mouth [...] Advance Directives For more information, please contact: [phone] Latest Code Status on File Code Status [...] with patient/ legal decision maker Care Teams Newspaper Carrier Relationship Specialty Start Date End Date No Ref-Primary, Physician PCP - General 08/07/22
--- OUTSIDE RECORDS SUMMARY | 2023-03-25 14:29 | XMS_ITS | Continuity of Care Document ---
Author Name Unknown Organization [facility] Address [address] [place] [address] Phone Care Team Providers Care Data Lead Name Role Phone Juan Rowell Unavailable Unavailable Procedures Procedure Date Lami/Discectomy, Lumbar HNP - [place] 2019 Lami/Discectomy, Lumbar HNP Advance Directives Directive Yes / No Effective Date File Name No Information Encounters Encounter Description Practice Location Reason(s) For Visit Diagnoses Date Provider Providers Copied on Encounter [facility], [address], [place], [place], [id number], [place] tel:[phone] [facility] No Information Hay Martinez. [facility], [address] [place] [address], [place], [place], [id number], [place]. tel:[phone] Referring Provider: RAINER Sheppard [address] [place] [address], [address]. tel:[phone] [facility], [address], [place], [place], [id number], [place] tel:[phone] [facility] No Information Marii Gutierrez. [facility], [address] [place] [address], [place], [place], [id number], . tel:[phone] Referring Provider: RAINER Sheppard [address] [place] [address], [address]. tel:[phone] Family History Family Member Type Diagnosis Age At Onset No Information Payers Payer name Insurance type Covered republican ID Authoriza tion(s) No Information Social History [...]
--- OUTSIDE RECORDS SUMMARY | 2023-03-25 14:29 | XMS_ITS | Clinical Summary ---
Author Name Unknown Organization [facility] Address [address] [place] [address] Care Team Providers Care Wheel Buffer Name Role Phone No Ref-Primary, Physician Primary [...] 08/18/2022 Active amoxicillin-clavulanat e (AUGMENTIN) 875-125 MG tabletIndications:[place] vesical fistula Take 1 tablet by mouth [...] Advance Directives For more information, please contact: [phone] Latest Code Status on File Code Status [...] with patient/ legal decision maker Care Teams Wheel Buffer Relationship Specialty Start Date End Date No Ref-Primary, Physician PCP - General 08/07/22
--- OUTSIDE RECORDS SUMMARY | 2023-03-25 14:30 | XMS_ITS | Encounter Summary ---
Author Name Unknown Organization [place] Address [address] [place] [address] Care Team Providers Care Databases Software Consultant Name Role Phone No Ref-Primary, Physician Primary Care Provider Reason for Visit * Auth/Cert (Routine) Specialty Diagnoses / Procedures Referred By Luis Eduardo lao Referred To Contact Surgery Diagnoses Colovesical fistula Colovesical fistula [N32.1] Procedures WA LAP,SURG,COLECTOMY, PARTIAL, W/ANAST WA LAP,SURG,COLECTOMY,W/REMVL TERM ILEUM WA LAP,SURG,COLECTOMY,W/END COLOST & CLOSUR WA LAP,SURG,COLECTOMY,W/ANAST WA LAP, SURG, COLECTOMY, W/ANAST, W/COLOSTOMY WA LAP,SURG,COLECTOMY,TOTAL,W/O PROCTECTOMY WA LAP,SURG,COLECTOMY,TOTAL,W/WA OCTECTOMY WA LAP,SURG,COLECT,TOT,W/PROCTEC T,W/ILEOST WA CYSTOSCOPY,INSERT URETERAL STENT ZZ UROGRAPHY, RETROGRADE W/WO KUB Xi Robotic Assisted Sigmoid Colectomy Cystoscopy, insertion of bilateral ureteral stents [facility] [address] [place] [address] Referral ID Status Reason Start Date Expiration Date Visits Re quested Visits Authorized [id number] 1 1 Encounter Details Date Type Department Care Team (Latest Contact Info) Description 08/08/2022 10:25 AM CDT - 08/12/2022 11:48 AM CDT Hospital Encounter [place] [address] [facility] [address] [place] [address] Kylah Arndt MD [facility] [address] [place] [address] Acute post-operative pain (Primary Dx); Colovesical fistula [...] from the original note were not included. [facility] Discharge Summary Judith Guajardo Age: [age] year old Date of : 1980 Date of Admission: 08/08/2022 Date of Discharge:: 08/12/2022 Admitting Physician: Kylah Arndt MD Discharge Physician: Berenice Odom MD PCP: No Ref-Primary, Physician Disposition: Patient discharged from [facility] to Home in stable condition. Primary Diagnosis: [...] Surgery Fellow [facility] [address] [address] T: F: [phone] ADDENDUM: Length of stay: 4 days Indicate Y or N for the following: UTI No C diff No PNA No SSI No DVT No PE No CVA No OR No Enterocutaneous fistula No Peripheral nerve injury No Abscess (not adjacent to anastomosis) No Leak No Treated with: Antibiotics N/A Drain N/A Reoperation N/A within 30 days No Reintubation No Reoperation No Procedure n/a Associated attestation - Berenice Odom MD - 08/16/2022 7:20 AM CDT Images from the original note were not included. Berenice Odom MD [facility] [address] [facility], [address] [place] [address] T: [phone] F: [phone] [email or web address] documented in this encounter Medications at Time of Discharge Medication Sig Dispensed Refills Start Date End Date ALPRAZolam (XANAX) 0.5 MG tablet Take 0.5 mg by mouth 3 times daily as needed 0 lisinopril (ZESTRIL) 40 MG tablet Take 40 mg by mouth daily 0 testosterone cypionate (DEPOTESTOSTERONE) 200 MG/ML injection Inject 200 mg into the muscle once a week 0 indapamide (LOZOL) 1.25 MG tablet Take 1.25 [...] for pain 35 tablet 0 08/12/2022 08/18/2022 ibuprofen (ADVIL/MOTRIN) 200 MG tablet Take 200-400 mg by mouth as needed 0 08/14/2022 documented as of this encounter Progress Notes [...] ml GEN: alert ABD: Soft, incision CDI, JUNA with serosang Data: Lab Results Component Value [...] questions/paging, please contact the CRS office at [phone]. Radha Arndt MD Colorectal Surgery [facility] [address] [address] T: [phone] F: [phone] * Nini Peng RN - 08/09/2022 1:54 PM CDT Notified provider about indwelling allan catheter discussed removal or continued need. Did provider choose to remove indwelling allan catheter? NO- order to remove POD #3 (Saturday) Provider's allan indication for keeping indwelling allan catheter: Indication for continued use: /GI/LAUNDRY MACHINE TENDER Pelvic Procedure Is there an order for [...] questions/paging, please contact the CRS office at [phone]. Nini Walden MD Colorectal Surgery [facility] [address] [address] T: [phone] F: [phone] documented in this encounter Miscellaneous Notes * [...] Goal Outcome Evaluation: Pertinent assessments: Assumed cares [id number]. Pt A&Ox4. C/o abdominal pain, rated 5-7/10, [...] Pertinent assessments: Assumed care of pt from [id number]. VSS. A&Ox4. Apical pulse regular. Lungs diminished. [...] in placewith 500 ml output. Abdominal incisions FRANCIS, no drainage noted. A&O, calls appropriately for [...] Mascorro MD - 08/08/2022 8:09 PM CDT [facility] Brief Operative Note Pre-operative diagnosis: [...] MD [facility] [phone]. ADDENDUM: PATIENT DATA Indicate Y or N: [...] IV antibiotics were administered. ?? A 22 Tajik rigid cystoscope was inserted per a well-lubricated [...] surgery team. ?? Valentin Whitaker MD Urology [facility] * Op Note - [...] Radha Arndt MD Co-Surgeon: Dr. Valentin Whitaker Remote Coders: Paul Blackmon PA-C Second Remote Coders: Susie Mascorro MD (colorectal surgery fellow) Anesthesia: [...] to enter into the lesser sac the chairman & co founder ior wall of the stomach was identified. [...] the cavity. We then placed a 19 Tajik Stan channel drain through the left most [...] Medication History - Priya Chavira [facility] - 08/06/2022 2:05 PM CDT Medication reconciliation interview completed by pre-admitting nurse, reviewed by pharmacy. No further clarifications needed. Prior to Admission medications Medication Sig Last Dose Taking? Auth Provider Halfway End Date ALPRAZolam (XANAX) 0.5 MG tablet [...] Arndt MD LAB - BLOOD ORDER BRANDON [facility] [address] (1st floor, no room number) [place] [address], [facility] [phone] * Platelet count (08/12/2022 7:12 AM CDT) Platelet Count 284 150 - 450 10e3/uL 08/12/2022 7:35 AM CDT LABORATORY Blood STRUCTURE OF RIGHT HAND / Unknown Venipuncture / Unknown 08/12/2022 7:12 AM CDT 08/12/2022 7:32 AM CDT Kylah Arndt MD LAB - BLOOD ORDER BRANDON [facility] [address] (1st floor, no room number) [place] [address], [facility] [phone] * CT Cystogram wo & w Contrast [...] ecchymoses/Postoperative hemorrhage within space of Retzius. 3. ??Solidworks Designer film demonstrates numerous loops of air distended proximal small bowel with only one loop included on the axial images but this is concerning for mid small bowel obstruction. Consider follow-up CT based on patient's symptoms. Narrative 08/11/2022 6:27 PM CDT EXAM: CT CYSTOGRAM WO and W CONTRAST LOCATION: [facility] DATE: 08/11/2022 INDICATION: colovesical fistula, sigmoid diverticulitis.. [...] caliber of small bowel. ADDITIONAL FINDINGS: The professional volleyball player film demonstrates multiple loops of air distended proximal small bowel which are not included on the axial images. Findings concerning for mid small bowel obstruction. As indicated consider follow-up full abdominal CT. Procedure Note Gerald Becerra MD - 08/11/2022 EXAM: CT CYSTOGRAM WO and W CONTRAST LOCATION: [facility] DATE: 08/11/2022 INDICATION: colovesical fistula, sigmoid diverticulitis.. [...] caliber of small bowel. ADDITIONAL FINDINGS: The professional volleyball player film demonstrates multiple loops of airdistended proximal small bowel which are not included on the axial images.Findings concerning for mid small bowel obstruction. As indicated considerfollow-up full abdominal CT. IMPRESSION: 1. Mild residual bladder wall thickening. No extravasation of contrastand no localized perivesicular collection. 2. Mild amount of ecchymoses/Postoperative hemorrhage within space ofRetzius. 3. Solidworks Designer film demonstrates numerous loops of air distended [...] SANTOS - ZENOBIA POCT Performing Organization Address City/[facility]/ZIP Co de Phone Number LABORATORY [facility] [address] Lab (1st floor, no room number) [place] [address], [facility] [phone] * (ABNORMAL) Glucose by meter (08/11/2022 2:49 AM CDT) GLUCOSE BY METER POCT 108(H) 70 - 99 mg/dL 08/11/2022 2:56 AM CDT LABORATORY POC Blood, Capillary BLOOD SPECIMEN / Unknown 08/11/2022 2:49 AM CDT 08/11/2022 2:56 AM CDT Kylah DOS SANTOS - ZENOBIA POCT Performing Organization Address [facility] Co de Phone Number [facility] [address] Lab (1st floor, no room number) [place] [address], [place] [phone] * (ABNORMAL) Glucose by meter (08/10/2022 10:27 PM CDT) GLUCOSE BY METER POCT 115(H) 70 - 99 mg/dL 08/10/2022 10:34 PM CDT LABORATORY POC Blood, Capillary BLOOD SPECIMEN / Unknown 08/10/2022 10:27 PM CDT 08/10/2022 10:34 PM CDT Kylah FREGOSO POCT LABORATORY POC [facility] Lab [address] Lab (1st floor, no room number) [place] [address], [facility] [phone] * Creatinine (08/10/2022 7:45 AM CDT) Creatinine 1.14 0.67 - 1.17 mg/dL 08/10/2022 8:20 AM CDT [facility] LABORATORY GFR Estimate 82 >60 mL/min/1.73 m2 08/10/2022 8:20 AM CDT [facility] LABORATORY Blood STRUCTURE OF RIGHT UPPER LIMB / Unknown Venipuncture / Unknown 08/10/2022 7:45 AM CDT 08/10/2022 7:55 AM CDT Nini Walden MD LAB - BLOOD ORDE MARTHA [facility] [address] Lab (1st floor, no room number) [place] [address], [facility] [phone] * Phosphorus (08/09/2022 6:37 AM CDT) Phosphorus 3.7 2.5 - 4.5 mg/dL 08/09/2022 7:33 AM CDT [facility] LABORATORY Blood STRUCTURE OF RIGHT HAND / Unknown Venipuncture / Unknown 08/09/2022 6:37 AM CDT 08/09/2022 7:10 AM CDT Kylah Arndt MD LAB - BLOOD ORDER BRANDON [facility] [address] Lab (1st floor, no room number) [place] [address], [facility] [phone] * Magnesium (08/09/2022 6:37 AM CDT) Magnesium 1.7 1.7 - 2.3 mg/dL 08/09/2022 7:33 AM CDT [facility] LABORATORY Blood STRUCTURE OF RIGHT HAND / Unknown Venipuncture / Unknown 08/09/2022 6:37 AM CDT 08/09/2022 7:10 AM CDT Kylah Arndt MD LAB - BLOOD ORDER BRANDON [facility] LABORATORY [facility] [address] Lab (1st floor, no room number) [place] [address], [facility] [phone] * (ABNORMAL) CBC with platelets (08/09/2022 6:37 [...] LAB - BLOOD ORDER BRANDON [facility] LABORATORY [facility] [address] Lab (1st floor, no room number) [place] [address], [facility] [phone] * (ABNORMAL) Basic metabolic panel (08/09/2022 6:37 AM CDT) Pathologist [facility] Sodium 133(L) 136 - 145 mmol/L [...] MD LAB - BLOOD ORDER BRANDON LABORATORY [facility] [address] Lab (1st floor, no room number) [place] [address], [facility] [phone] * (ABNORMAL) Glucose by meter (08/09/2022 1:54 AM CDT) GLUCOSE BY METER POCT 157(H) 70 - 99 mg/dL 08/09/2022 2:00 AM CDT [facility] LABORATORY POC Blood, Capillary BLOOD SPECIMEN / Unknown 08/09/2022 1:54 AM CDT 08/09/2022 2:00 AM CDT Kylah Arndt MD LAB - BEAKER POCT Performing Organization Address [facility]/ZIP Co de Phone Number [facility] LABORATORY POC [facility] [address] Lab (1st floor, no room number) [place] [phone], [facility] [phone] * (ABNORMAL) Creatinine (08/08/2022 10:46 PM CDT) Creatinine 1.28(H) 0.67 - 1.17 mg/dL 08/08/2022 11:14 PM CDT [facility] LABORATORY GFR Estimate 72 >60 mL/min/1.7 3m2 08/08/2022 11:14 PM CDT [facility] LABORATORY Blood STRUCTURE OF LEFT UPPER LIMB / Unknown Venipuncture / Unknown 08/08/2022 10:46 PM CDT 08/08/2022 10:52 PM CDT Kylah Arndt MD LAB - BLOOD ORDER BRANDON Performing Organization Address [facility]/ZIP Co de Phone Number LABORATORY [facility] [address] Lab (1st floor, no room number) [place] [address], [facility] [phone] * Surgical Pathology Exam (08/08/2022 6:16 PM CDT) Case Report Surgical Pathology Report ? Case: [id number] ? Authorizing Provider: ??Kylah Arndt MD ?? Collected: ? 08/08/2022 06:16 PM ? Ordering Location: ? [facility] ?? Received: ?08/08/2022 08:35 PM ? [...] discrete lesions or masses are appreciated grossly. Board Design Engineer sections are submitted. Summary of sections: A1-A2-en face proximal margin, split sections A3-A4-en face distal margin, split section A5-livestock sales representative area of mucin A6-livestock sales representative intact diverticulum B(2). Small Intestine, [...] discrete lesions or abnormalities are appreciated grossly. Board Design Engineer sections are submitted. Summary of sections: B1-livestock sales representative en face margins B2-livestock sales representative mucosa (THELMA Mcgowan [facility]) 08/10/2022 3:04 PM CDT LABORATORY Microscopic Description A, B. A formal microscopic examination has been performed 08/10/2022 3:04 PM CDT LABORATORY Performing Labs The technical component of this testing was completed at [facility] 08/10/2022 3:04 PM CDT LABORATORY Case Images 08/10/2022 3:04 PM CDT LABORATORY Resection SIGMOID COLON PART / Unknown 08/08/2022 6:16 PM CDT 08/08/2022 8:35 PM CDT Specimen obtained by wide resection (specimen) ILEAL STRUCTURE / Unknown 08/08/2022 6:38 PM CDT 08/08/2022 8:35 PM CDT Kylah FREGOSO AP LABORATORY [facility] Lab [address], [address] [place] [address], [place] [phone] LABORATORY [facility] [address] Lab (1st floor, no room number) [place] [address], [place] [phone] * (ABNORMAL) Glucose by meter (08/08/2022 10:34 AM CDT) [facility] GLUCOSE BY METER POCT 106(H) 70 - 99 mg/dL 08/08/2022 10:40 AM CDT LABORATORY POC Blood, Capillary BLOOD SPECIMEN / Unknown 08/08/2022 10:34 AM CDT 08/08/2022 10:40 AM CDT Kylah FREGOSO POCT LABORATORY POC [facility] [address] Lab (1st floor, no room number) [place] [address], [place] [phone] documented in this encounter Visit Diagnoses Diagnosis [...] analgesic side effects. Hold while on IV DIRECTOR ENVIRONMENTAL or with regular IV opioid dosing. $Given [...] 75 mg/kg/day not to exceed 4 grams/day. 0561 ($Given - Provider: Nirmala Fernandez RN)1419 ($Given - Provider: Nancie Holden, ELIAN)2153 ($Given - Provider: Lidia Multani RN) 0527 ($Given - Provider: Edwar Flores RN)1341 ($Given [...] Irritant. documented in this encounter Care Teams Databases Software Consultant Relationship Specialty Start Date End Date No Ref-Primary, Physician PCP - General 08/07/22 documented as of this encounter
--- OUTSIDE RECORDS SUMMARY | 2023-03-25 14:30 | XMS_ITS | Encounter Summary ---
Author Name Unknown Organization [place] Address [address] [place] [address] Care Team Providers Care Statistical Analyst Name Role Phone No Ref-Primary, Physician Primary [...] RI LAP,SURG,COLECT,TOT,W/PROCTEC T,W/ILEOST RI CYSTOSCOPY,INSERT URETERAL STENT ZZ UROGRAPHY, RETROGRADE W/WO KUB Xi Robotic Assisted Sigmoid Colectomy Cystoscopy, insertion of bilateral ureteral stents Periop Services [address] [place] [address] Referral ID Status Reason Start Date Expiration Date Visits Re quested Visits Authorized [id number] 1 1 Encounter Details Date Type Department Care Team (Late st Contact Info) Description 08/08/2022 12:04 PM CDT - 08/08/2022 6:04 PM CDT Surgery [facility] PeriOp Services [address] [place] [address] Kylah Arndt MD COLO & RECTAL SURGERY [address] [place] [address] Xi Robotic Assisted Sigmoid Colectomy, take down of colovesical fistula, mobilization of splenetic flexure, small bowel resection, drainage of abdominal wall abscess Surgery Details Date/Time Status Location OR Service Patient Class Case Class Case Type Trauma Case? 08/08/22 12:04 PM Posted OR OR [address] [place] [address] Surgery Admit Panel 1 Procedure LRB Anes [...] Primary Urology 2 Kylah Arndt MD Primary [facility] General 1 Paul Blackmon, PA-C Marketing Sales Consultant Authori [email or web address] 1 documented in this encounter [...] from the original note were not included. [facility] Discharge Summary Judith Guajardo Age: [age] year old Date of : 1980 Date of Admission: 08/08/2022 Date of Discharge:: 08/12/2022 Admitting Physician: Kylah Arndt MD Discharge Physician: Berenice Odom MD PCP: No Ref-Primary, Physician Disposition: Patient discharged from [facility] to Home in stable condition. Primary Diagnosis: [...] Surgery Fellow [facility] [address] [address] T: [phone] F: [phone] ADDENDUM: Length of stay: 4 days Indicate Y or N for the following: UTI No C diff No PNA No SSI No DVT No PE No CVA No OK No Enterocutaneous fistula No Peripheral nerve injury No Abscess (not adjacent to anastomosis) No Leak No Treated with: Antibiotics N/A Drain N/A Reoperation N/A within 30 days No Reintubation No Reoperation No Procedure n/a Associated attestation - Berenice Odom MD - 08/16/2022 7:20 AM CDT Images from the original note were not included. Berenice Odom MD [facility] [address] [facility], [address] [place] [address] T: [phone] F: [phone] [email or web address] documented in this encounter Medications at [...] questions/paging, please contact the CRS office at [phone]. Radha Arndt MD Colorectal Surgery [facility] [address] [place] [address] T: [phone] F: [phone] * Nini Peng RN - 08/09/2022 1:54 PM CDT Notified provider about indwelling allan catheter discussed removal or continued need. Did provider choose to remove indwelling allan catheter? 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 Nini Walden MD Colorectal Surgery [facility] [address] [address] T: [phone] F: [phone] documented in this encounter Miscellaneous Notes * [...] Goal Outcome Evaluation: Pertinent assessments: Assumed cares [id number]. Pt A&Ox4. C/o abdominal pain, rated 5-7/10, [...] Pertinent assessments: Assumed care of pt from [id number]. VSS. A&Ox4. Apical pulse regular. Lungs diminished. [...] in placewith 500 ml output. Abdominal incisions CLAIM SPECIALIST, no drainage noted. A&O, calls appropriately for [...] Mascorro MD - 08/08/2022 8:09 PM CDT [facility] Brief Operative Note Pre-operative diagnosis: Colovesical [...] MD [facility] [phone]. ADDENDUM: PATIENT DATA Indicate Y or N: [...] IV antibiotics were administered. ?? A 22 Tristanian rigid cystoscope was inserted per a well-lubricated [...] surgery team. ?? Valentin Whitaker MD Urology [facility] * Op Note - Kylah [...] Radha Arndt MD Co-Surgeon: Dr. Valentin Whitaker Marketing Sales Consultant: Paul Blackmon PA-C Second Marketing Sales Consultant: Susie Mascorro MD (colorectal surgery fellow) Anesthesia: [...] to enter into the lesser sac the professor of special education ior wall of the stomach was identified. [...] the cavity. We then placed a 19 Tristanian Stan channel drain through the left most [...] * Pharmacy-Admission Medication History - Priya Chavira [facility] - 08/06/2022 2:05 PM CDT Medication reconciliation interview completed by pre-admitting nurse, reviewed by pharmacy. No further clarifications needed. Prior to Admission medications Medication Sig Last Dose Taking? Auth Provider Bindery Assistant End Date ALPRAZolam (XANAX) 0.5 MG tablet [...] ONLY) (08/12/2022 7:12 AM CDT) Hold Specimen [facility] 08/12/2022 8:46 AM CDT LABORATORY Blood STRUCTURE OF RIGHT HAND / Unknown Venipuncture / Unknown 08/12/2022 7:12 AM CDT 08/12/2022 7:32 AM CDT Kylah Arndt MD LAB - BLOOD ORDER [facility] LABORATORY [facility] Acute Care Lab [address] Lab (1st floor, no room number) [place] [address], [facility] [phone] * Platelet count (08/12/2022 7:12 AM CDT) Platelet Count 284 150 - 450 10e3/uL 08/12/2022 7:35 AM CDT LABORATORY Blood STRUCTURE OF RIGHT HAND / Unknown Venipuncture / Unknown 08/12/2022 7:12 AM CDT 08/12/2022 7:32 AM CDT Kylah Arndt MD LAB - BLOOD ORDER [facility] LABORATORY [facility] Acute Care Lab [address] Lab (1st floor, no room number) [place] [address], [facility] [phone] * CT Cystogram wo & w Contrast [...] ecchymoses/Postoperative hemorrhage within space of Retzius. 3. ??Poured Pipe Maker film demonstrates numerous loops of air distended proximal small bowel with only one loop included on the axial images but this is concerning for mid small bowel obstruction. Consider follow-up CT based on patient's symptoms. Narrative 08/11/2022 6:27 PM CDT EXAM: CT CYSTOGRAM WO and W CONTRAST LOCATION: [facility] DATE: 08/11/2022 INDICATION: colovesical fistula, sigmoid diverticulitis.. [...] caliber of small bowel. ADDITIONAL FINDINGS: The ship scaler film demonstrates multiple loops of air distended proximal small bowel which are not included on the axial images. Findings concerning for mid small bowel obstruction. As indicated consider follow-up full abdominal CT. Procedure Note Gerald Becerra MD - 08/11/2022 EXAM: CT CYSTOGRAM WO and W CONTRAST LOCATION: [facility] DATE: 08/11/2022 INDICATION: colovesical fistula, sigmoid diverticulitis.. [...] caliber of small bowel. ADDITIONAL FINDINGS: The ship scaler film demonstrates multiple loops of airdistended proximal small bowel which are not included on the axial images.Findings concerning for mid small bowel obstruction. As indicated considerfollow-up full abdominal CT. IMPRESSION: 1. Mild residual bladder wall thickening. No extravasation of contrastand no localized perivesicular collection. 2. Mild amount of ecchymoses/Postoperative hemorrhage within space ofRetzius. 3. Poured Pipe Maker film demonstrates numerous loops of air distended [...] CDT Kylah FREGOSO POCT Performing Organization Address City/[facility]/ZIP Co de Phone Number LABORATORY [facility] Acute Care Lab [address] Lab (1st floor, no room number) [place] [address], [facility] [phone] * (ABNORMAL) Glucose by meter (08/11/2022 2:49 AM CDT) GLUCOSE BY METER POCT 108(H) 70 - 99 mg/dL 08/11/2022 2:56 AM CDT LABORATORY POC Blood, Capillary BLOOD SPECIMEN / Unknown 08/11/2022 2:49 AM CDT 08/11/2022 2:56 AM CDT Kylah FREGOSO POCT LABORATORY [facility] Acute Care Lab [address] Lab (1st floor, no room number) [place] [address], [facility] [phone] * (ABNORMAL) Glucose by meter (08/10/2022 10:27 PM CDT) GLUCOSE BY METER POCT 115(H) 70 - 99 mg/dL 08/10/2022 10:34 PM CDT [facility] LABORATORY POC Blood, Capillary BLOOD SPECIMEN / Unknown 08/10/2022 10:27 PM CDT 08/10/2022 10:34 PM CDT Kylah Arndt MD LAB - BEAKER POCT LABORATORY [facility] Care Lab [address] Lab (1st floor, no room number) [place] [address], [facility] [phone] * Creatinine (08/10/2022 7:45 AM CDT) Creatinine 1.14 0.67 - 1.17 mg/dL 08/10/2022 8:20 AM CDT LABORATORY GFR Estimate 82 >60 mL/min/1.73 m2 08/10/2022 8:20 AM CDT RH LABORATORY Blood STRUCTURE OF RIGHT UPPER LIMB / Unknown Venipuncture / Unknown 08/10/2022 7:45 AM CDT 08/10/2022 7:55 AM CDT Nini Walden MD LAB - BLOOD AYANNA THOMSA LABORATORY [facility] Acute Care Lab [address] Lab (1st floor, no room number) [place] [address], [facility] [phone] * Phosphorus (08/09/2022 6:37 AM CDT) Phosphorus 3.7 2.5 - 4.5 mg/dL 08/09/2022 7:33 AM CDT RH LABORATORY Blood STRUCTURE OF RIGHT HAND / Unknown Venipuncture / Unknown 08/09/2022 6:37 AM CDT 08/09/2022 7:10 AM CDT Kylah Arndt MD LAB - BLOOD ORDER BR[facility]ON LABORATORY [facility] Acute Care Lab [address] Lab (1st floor, no room number) [place] [address], [facility] [phone] * Magnesium (08/09/2022 6:37 AM CDT) Magnesium 1.7 1.7 - 2.3 mg/dL 08/09/2022 7:33 AM CDT RH LABORATORY Blood STRUCTURE OF RIGHT HAND / Unknown Venipuncture / Unknown 08/09/2022 6:37 AM CDT 08/09/2022 7:10 AM CDT Kylah Arndt MD LAB - BLOOD ORDER BRANDON Performing Organization Address City/[facility]/ZIP Co de Phone Number LABORATORY [facility] Care Lab [address] Lab (1st floor, no room number) [place] [id number], [facility] [phone] * (ABNORMAL) CBC with platelets (08/09/2022 6:37 [...] MD LAB - BLOOD ORDER BR[facility]ON LABORATORY [facility] Acute Care Lab [address] Lab (1st floor, no room number) [place] [address], [facility] [phone] * (ABNORMAL) Basic metabolic panel (08/09/2022 6:37 [...] - BLOOD ORDER BRANDON Performing Organization Address City/[facility]/ZIP Co de Phone Number [facility] Lab [address] Lab (1st floor, no room number) [place] [address], [place] [phone] * (ABNORMAL) Glucose by meter (08/09/2022 1:54 AM CDT) GLUCOSE BY METER POCT 157(H) 70 - 99 mg/dL 08/09/2022 2:00 AM CDT RH LABORATORY POC Blood, Capillary BLOOD SPECIMEN / Unknown 08/09/2022 1:54 AM CDT 08/09/2022 2:00 AM CDT Kylah Arndt MD LAB - BEAKER POCT Performing Organization Address [facility]/ZIP Co de Phone Number LABORATORY [facility] Lab [address] Lab (1st floor, no room number) [place] [address], [place] [phone] * (ABNORMAL) Creatinine (08/08/2022 10:46 PM CDT) Creatinine 1.28(H) 0.67 - 1.17 mg/dL 08/08/2022 11:14 PM CDT RH LABORATORY GFR Estimate 72 >60 mL/min/1.7 3m2 08/08/2022 11:14 PM CDT RH LABORATORY Blood STRUCTURE OF LEFT UPPER LIMB / Unknown Venipuncture / Unknown 08/08/2022 10:46 PM CDT 08/08/2022 10:52 PM CDT Kylah Arndt MD LAB - BLOOD ORDER BRANDON [facility] Acute Care Lab [address] [facility] Lab (1st floor, no room number) [place] [address], [facility] [phone] * Surgical Pathology Exam (08/08/2022 6:16 PM CDT) Case Report Surgical Pathology Report ? Case: [id number] ? Authorizing Provider: ??Kylah Arndt MD ?? Collected: ? 08/08/2022 06:16 PM ? Ordering Location: ? [facility] ?? Received: ?08/08/2022 08:35 PM ? Main [...] congestion and fibrous adhesions 08/10/2022 3:04 PM [facility] LABORATORY Clinical Information Procedure: Xi Robotic [...] discrete lesions or masses are appreciated grossly. Data Management Associate sections are submitted. Summary of sections: A1-A2-en face proximal margin, split sections A3-A4-en face distal margin, split section A5-retail representative area of mucin A6-retail representative intact diverticulum B(2). Small Intestine, Ileum, [...] discrete lesions or abnormalities are appreciated grossly. Data Management Associate sections are submitted. Summary of sections: B1-retail representative en face margins B2-retail representative mucosa (THELMA Mcgowan ASCP CM) 08/10/2022 3:04 PM CDT LABORATORY Microscopic Description A, B. A formal microscopic examination has been performed 08/10/2022 3:04 PM CDT LABORATORY Performing Labs The technical component of this testing was completed at [facility] 08/10/2022 3:04 PM CDT LABORATORY Case Images 08/10/2022 3:04 PM CDT LABORATORY Resection SIGMOID COLON PART / Unknown 08/08/2022 6:16 PM CDT 08/08/2022 8:35 PM CDT Specimen obtained by wide resection (specimen) ILEAL STRUCTURE / Unknown 08/08/2022 6:38 PM CDT 08/08/2022 8:35 PM CDT Kylah Arndt MD LAB - ZENOBIA VIVEROS LABORATORY [facility] Acute Care Lab [address] 1[address] floor, [address] [place] [address], [place] [phone] LABORATORY [facility] [address] [facility] ([facility] floor, no room number) [place] [address], [place] [phone] * (ABNORMAL) Glucose by meter (08/08/2022 10:34 AM CDT) GLUCOSE BY METER POCT 106(H) 70 - 99 mg/dL 08/08/2022 10:40 AM CDT LABORATORY POC Blood, Capillary BLOOD SPECIMEN / Unknown 08/08/2022 10:34 AM CDT 08/08/2022 10:40 AM CDT Kylah Arndt MD LAB - BEAKER POCT LABORATORY [facility] Acute Care Lab [address] Lab (1st floor, no room number) [place] [address], [facility] [phone] documented in this encounter Visit Diagnoses Diagnosis [...] 75 mg/kg/day not to exceed 4 grams/day. 0526 ($Given - Provider: Nirmala Fernandez RN)1410 ($Given - Provider: Nancie Holden RN)2151 ($Given - Provider: Lidia Multani RN) 0553 [...] Nancie Holden RN)1535 ($Given - Provider: Nancie Hloden, ELIAN)2039 ($Given - Provider: Faith Taylor, ELIAN) [...] analgesic side effects. 0616 ($Given - Provider: Nimrala Fernandez, ELIAN) 0149 ($Given - Provider: Edwar [...] Irritant. documented in this encounter Care Teams Statistical Analyst Relationship Specialty Start Date End Date No Ref-Primary, Physician PCP - General 08/07/22 documented as of this encounter
--- OUTSIDE RECORDS SUMMARY | 2023-03-25 14:30 | XMS_ITS | Encounter Summary ---
Author Name Unknown Organization [place] Address [address] [place] [address] Care Team Providers Care Kieselguhr Regenerator Operator Name Role Phone No Ref-Primary, Physician [...] on filedocumented in this encounter Care Teams Kieselguhr Regenerator Operator Relationship Specialty Start Date End Date No Ref-Primary, Physician PCP - General 08/07/22 documented as of this encounter
--- OUTSIDE RECORDS SUMMARY | 2023-03-25 14:30 | XMS_ITS | Encounter Summary ---
Author Name Unknown Organization [place] Address [address] [place] [address] Care Team Providers Care Golf Club Head Inspector Name Role Phone No Ref-Primary, Physician Primary Care Provider Reason for Visit * Auth/Cert (Routine) Specialty Diagnoses / Procedures Referred By Luis Eduardo lao Referred To Contact Surgery Diagnoses Colovesical fistula Colovesical fistula [N32.1] Procedures DC LAP,SURG,COLECTOMY, PARTIAL, W/ANAST DC LAP,SURG,COLECTOMY,W/REMVL TERM ILEUM DC LAP,SURG,COLECTOMY,W/END COLOST & CLOSUR DC LAP,SURG,COLECTOMY,W/ANAST DC LAP, SURG, COLECTOMY, W/ANAST, W/COLOSTOMY DC LAP,SURG,COLECTOMY,TOTAL,W/O PROCTECTOMY DC LAP,SURG,COLECTOMY,TOTAL,W/DC OCTECTOMY DC LAP,SURG,COLECT,TOT,W/PROCTEC T,W/ILEOST DC CYSTOSCOPY,[facility], RETROGRADE W/WO KUB Xi Robotic Assisted Sigmoid Colectomy Cystoscopy, insertion of bilateral ureteral stents Periop Services [address] [place] [address] Referral ID Status Reason Start Date Expiration Date Visits Re quested Visits Authorized [id number] 1 1 Encounter Details Date Type Department Care Team (Late st Contact Info) Description 08/08/2022 1:11 PM CDT Anesthesia [facility] PeriOp Services [address] [place] [address] Zane Laurent MD [facility] ANESTHESIA [address] [place] [address] Marlys Phipps APRN CRNA [facility] ANESTHESIA [address] [place] [address] Anesthesia Record Procedure Summary Procedure Name Responsible Anesthesiologist Anesthesia Start Time Anesthesia Stop Time Xi Robotic Assisted Sigmoid Colectomy, take down of colovesical fistula, mobilization of splenetic flexure, small bowel resection, drainage of abdominal wall abscess (Abdomen) Zane Laurent MD 08/08/22 1311 08/08/222005 Events Date Time Event Comment 08/08/2022 1102 1210 STATISTICAL TYPIST Ready for Procedure 1311 An Start 1313 An Start Data 1317 AN REASSESS I attest that I have identified and re-evaluated the patient immediately before the induction of anesthesia and I am satisfied that the anesthetic plan is suitable for the patient's condition and procedure. The first vital signs recorded are pre- induction. Marlys Patel APRN STATISTICAL TYPIST 1319 An Induction 1321 An Intubation 1324 [...] Stop Electronically signed by Collin Becerra APRN STATISTICAL TYPIST on August 08, 2022 8:06 PM Meds [...] Grade View: 1; Adjucts: Stylet; Placement Person: STATISTICAL TYPIST; Attempts: 1; Depth: 23 cm 08/08/22 1321 by Marlys Phipps APRN STATISTICAL TYPIST 08/08/221957 by Collin Becerra APRN STATISTICAL TYPIST Urethral Catheter 08/08/22; 1340; No; Anesthesia, /GI/COMMUNITY DEVELOPMENT OFFICER Pelvic Procedure; 16 fr; Nursing driven removal protocol 08/08/22 1340 by Ivone Hummel RN 08/11/221909 by Nancie Holden, ELIAN Closed/Suction Drain 08/08/22; 192; 1; Lateral, Left; LLQ; Bulb; 19 Upper Sorbian 08/08/221921 by Renetta Irwin RN 08/11/221909 by [...] Start/Stop Times: 08/08/2022 1:21 PM Staff - STATISTICAL TYPIST: Hegewald, Marlys, MICROSOFT APPLICATION DEVELOPER STATISTICAL TYPIST Performed By: STATISTICAL TYPIST Consent for Airway Urgency: elective Indications and [...] and realistic alternatives discussed. Questions answered and patient/telemarketing representative(s) expressed understanding. - Discussed: - Discussed [...] Care Transfer Note - Collin Becerra APRN STATISTICAL TYPIST - 08/08/2022 8:06 PM CDT Patient: Judith [...] Times: 08/08/2022 1:21 PM Staff - ? STATISTICAL TYPIST: Marlys Patel APRN CRNA ? Performed By: STATISTICAL TYPIST Consent for Airway ? Urgency: elective Indications [...] Time: 08/08/2022 1:21 PM Zane Laurent MD DC ANESTHESIA documented in this encounter Visit Diagnoses [...] mg documented in this encounter Care Teams Golf Club Head Inspector Relationship Specialty Start Date End Date No Ref-Primary, Physician PCP - General 08/07/22 documented as of this encounter
--- OUTSIDE RECORDS SUMMARY | 2023-03-25 14:30 | XMS_ITS | Encounter Summary ---
Author Name Unknown Organization [facility] Address [address] [place] [address] Care Team Providers Care Sponge Clipper Name Role Phone No Ref-Primary, Physician Primary [...] vomiting type 5 Medical Surgical [address] [place] [address] Referral ID Status Reason Start Date Expiration Date Visits Re quested Visits Authorized 1 1 Encounter Details Date Type Department Care Team (Late st Contact Info) Description 08/14/2022 1:27 AM CDT - 08/19/2022 11:20 AM CDT Hospital Encounter [place] [address] Medical Surgical [address] [place] [address] Mynor Bro MD [facility] [address] [place] [address] Vishal Smith MD, [address] [place], [place] [id number] Tevin Kelley MD [facility] [address] [place], [place] [id number] Colovesical fistula (Primary Dx); SBO (small bowel [...] MD - 08/19/2022 11:20 AM CDT [facility] Hospitalist Discharge Summary Date of [...] minutes discharging this patient. Loy Dunne MD [address] SURGICAL [address] [facility] [address] Physical Exam Vital Signs: Temp: 98.2 ??F [...] EXAM: CT ABDOMEN PELVIS W CONTRAST LOCATION: [facility] DATE: 08/14/2022 INDICATION: Recent complicated surgery [...] collection identified. NICOLÁS CAMPBELL MD SYSTEM ID: [id number] Discharge Medications Discharge Medication List as of [...] DAVINA Villanueva, EVELIN Clinical Dietitian 3rd floor/ICU: [phone] All other floors: [phone] Weekend/holiday: [phone] Office: [phone] * Loy Dunne MD - 08/18/2022 5:05 PM CDT [facility] Medicine Progress Note - Hospitalist [...] suction. -Replacement through IV per protocol Hypertension: DIGITAL MARKETING APPRENTICE metoprolol to be given IV until tolerating [...] diet. Loy Dunne MD Hospitalist Service [facility] Securely message with [employer] (more info) Text page via [facility] Paging/Directory Interval History Feeling better. No [...] 24 hrs, discontinue lipids given diet advancement Jesscia Villanueva RD, LD Clinical Dietitian 3rd floor/ICU: [phone] All other floors: [phone] Weekend/holiday: [phone] Office: [phone] * Andrzej Reagan MD - 08/18/2022 10:01 [...] questions/paging, please contact the CRS office at [phone]. Andrzej Reagan MD, MPH Fellow in Colon and Rectal Surgery [facility] [address] [place] [address] T: [phone] F: [phone] * Loy Dunne MD - 08/17/2022 5:49 PM CDT [facility] Medicine Progress Note - Hospitalist Service [...] suction. -Replacement through IV per protocol Hypertension: DIGITAL MARKETING APPRENTICE metoprolol to be given IV until tolerating [...] 08/19/2022 Loy Dunne MD Hospitalist Service [facility] Securely message with [employer] (more info) Text page via [facility] Paging/Directory Interval History Nursing notes reviewed; [...] questions/paging, please contact the CRS office at [phone]. Andrzej Reagan MD, MPH Fellow in Colon and Rectal Surgery [facility] [address] [address] T: [phone] F: [phone] * Renetta Wu, RD - 08/17/2022 8:06 [...] Wu RDN, LD Clinical Dietitian 3rd floor/ICU: [phone] All other floors: [phone] Weekend/holiday: [phone] Office: [phone] * Loy Dunne MD - 08/16/2022 4:41 PM CDT [facility] Medicine Progress Note - Hospitalist Service [...] suction. -Replacement through IV per protocol Hypertension: DIGITAL MARKETING APPRENTICE metoprolol to be given IV until tolerating [...] 08/19/2022 Loy Dunne MD Hospitalist Service [facility] Securely message with [employer] (more info) Text page via [facility] Paging/Directory Interval History Nursing notes reviewed; [...] collection identified. NICOLÁS CAMPBELL MD SYSTEM ID: [id number] * Freida Bennett PA-C - 08/16/2022 1:30 [...] questions/paging, please contact the CRS office at [phone]. Freida Bennett PA-C [facility] * Erick Silva, - 08/15/2022 4:05 PM CDT [facility] Medicine Progress Note - Hospitalist Service [...] suction. -Replacement through IV per protocol Hypertension: DIGITAL MARKETING APPRENTICE metoprolol to be given IV until tolerating [...] 08/17/2022 Erick Silva DO Hospitalist Service [facility] Securely message with [employer] (more info) Text page via [facility] Paging/Directory Interval History Bright red blood in [...] -If any decompensation, CRS should be contacted RIOT -Continue zosyn -I have ordered lidocaine and throat spray for hopeful better tolerance of NG -PPI for GI protection & hiccups Erick Silva DO documented in this encounter H&P Notes * Vishal Smith MD, - 08/14/2022 4:23 AM CDT [facility] History and Physical - Hospitalist [...] 08/16/2022 Belle Smith MD Hospitalist Service [facility] Securely message with [employer] (more info) Text page via [facility] Paging/Directory Chief Complaint N/V/fever. History is [...] EXAM: CT ABDOMEN PELVIS W CONTRAST LOCATION: [facility] DATE: 08/14/2022 INDICATION: Recent complicated surgery [...] CDTAssociated Order(s): Double Lumen PICC Placement [facility] Double Lumen PICC Placement Date/Time: [...] the procedure a time out was called [place] Protocol: the Joint Commission [place] Protocol was followed Preparation: Patient was prepped [...] and Red Catheter size: 5 Fr Brand: Shicon Lot number: [id number] Placement method: MST, venipuncture, ultrasound and tip [...] Wu RDN, LD Clinical Dietitian 3rd floor/ICU: [phone] All other floors: [phone] Weekend/holiday: [phone] Office: [phone] * Susie Mascorro MD - 08/14/2022 12:04 PM CDTAssociated Order(s): COLORECTAL SURGERY IP CONSULT Images from the original note were not included. [facility] Colon and Rectal Surgery Consult Note [...] since POD#4. 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 IN the ED, he was [...] EXAM: CT ABDOMEN PELVIS W CONTRAST LOCATION: [facility] DATE: 08/14/2022 INDICATION: Recent complicated surgery [...] page the colon and rectal Surgery provider flat ironer if further questions. [facility] [address] [address] T: [phone] F: [phone] Associated attestation - Gustabo Short MD - 08/17/2022 2:11 PM CDT Physician Attestation I agree with the information in this note. Discussed with Dr. Mascorro. Imaging reviewed. Gustabo Short MD documented in this encounter ED Notes * Marla Florian RN - 08/14/2022 5:43 AM CDT [facility] ED Nurse Handoff Report ED Chief complaint: Post-op Problem . ED Diagnosis: Final diagnoses: SBO (small bowel obstruction) (H) Fever postop Nausea and vomiting, unspecified vomiting type Allergies: No Known Allergies Code Status: Full Code Activity level - Baseline/Home: independent. Activity Level - Current: assist of 1. Lift room needed: No. Bariatric: No Metal Fitters And Machinists Needed: No Isolation: No. Infection: Not Applicable. [...] of breath. He did take some Zofran DIGITAL MARKETING APPRENTICE which has helped his nausea. Abnormal Results: [...] of breath. He did take some Zofran DIGITAL MARKETING APPRENTICE which has helped his nausea. Independent Historian: [...] Voiding adequately. Denies nausea and vomiting. NG [id number] bright green output this shift. Abd incisions open to air. clean dry and intact Major Shift Events: K replaced per protocol, lab result for K has improved to 3.5 Treatment Plan: Mari aGsyluther, IVF, pain control Bedside Nurse: Jackelyn Leos [...] bright green output this shift. Abd incisions MARKETING COMMUNICATIONS COORDINATOR. Major Shift Events: K replaced per protocol, [...] to restart the indapamide. Changes made to DIGITAL MARKETING APPRENTICE medication list: ??? Added: nicotine patch, Tylenol [...] Medication Sig Last Dose Taking? Auth Provider Detention End Date acetaminophen (TYLENOL) 500 MG tablet [...] LAB - BLOOD ORDERAB LES [facility] LABORATORY [facility] Acute Care Lab [address] Lab (1st floor, no room number) [place] [address], [facility] [phone] * (ABNORMAL) CBC with platelets and differential [...] Reagan MD LAB - BLOOD ORDERAB LES [facility] Care Lab [address] Lab (1st floor, no room number) [place] [address], [facility] [phone] * Potassium (08/19/2022 5:34 AM CDT) Potassium 3.8 3.4 - 5.3 mmol/L 08/19/2022 6:11 AM CDT [facility] LABORATORY Blood CENTRAL VENOUS CATHETER / Unknown Venipuncture / Unknown 08/19/2022 5:34 AM CDT 08/19/2022 5:52 AM CDT Loy Dunne MD LAB - BLOOD ORDERABL ES [facility] Acute Care Lab [address] Lab (1st floor, no room number) [place] [address], [facility] [phone] * Phosphorus (08/19/2022 5:34 AM CDT) Phosphorus 3.5 2.5 - 4.5 mg/dL 08/19/2022 6:11 AM CDT [facility] LABORATORY Blood CENTRAL VENOUS CATHETER / Unknown Venipuncture / Unknown 08/19/2022 5:34 AM CDT 08/19/2022 5:52 AM CDT Susie Mascorro MD LAB - BLOOD ORDERABL ES LABORATORY [facility] Lab [address] Lab (1st floor, no room number) [place] [phone], [facility] [phone] * Magnesium (08/19/2022 5:34 AM CDT) Pathologist [facility] Magnesium 2.1 1.7 - 2.3 mg/dL 08/19/2022 6:11 AM CDT [facility] LABORATORY Blood CENTRAL VENOUS CATHETER / Unknown Venipuncture / Unknown 08/19/2022 5:34 AM CDT 08/19/2022 5:52 AM CDT Susie Mascorro MD LAB - BLOOD ORDERABL ES LABORATORY [facility] Acute Care Lab [address] Lab (1st floor, no room number) [place] [address], [facility] [phone] * (ABNORMAL) Basic metabolic panel (08/19/2022 5:34 [...] LAB - BLOOD ORDERABL ES LABORATORY [facility] Care Lab [address] Lab (1st floor, no room number) [place] [address], [facility] [phone] * (ABNORMAL) Glucose by meter (08/18/2022 8:57 PM CDT) [facility] Signature GLUCOSE BY METER POCT 112(H) 70 - 99 mg/dL 08/18/2022 9:06 PM CDT [facility] LABORATORY POC Comment:Dr/RN Notified Blood, Capillary BLOOD SPECIMEN / Unknown 08/18/2022 8:57 PM CDT 08/18/2022 9:06 PM CDT Tevin Kelley MD LAB - BEAKER POCT RH LABORATORY POC [facility] Care Lab [address] Lab (1st floor, no room number) [place] [address], [place] [phone] * (ABNORMAL) Glucose by meter (08/18/2022 5:11 PM CDT) GLUCOSE BY METER POCT 103(H) 70 - 99 mg/dL 08/18/2022 5:35 PM CDT LABORATORY POC Blood, Capillary BLOOD SPECIMEN / Unknown 08/18/2022 5:11 PM CDT 08/18/2022 5:35 PM CDT Tevin Kelley MD LAB - BEAKER POCT LABORATORY [facility] Lab [address] Lab (1st floor, no room number) [place] [address], [facility] [phone] * (ABNORMAL) Glucose by meter (08/18/2022 12:12 PM CDT) GLUCOSE BY METER POCT 131(H) 70 - 99 mg/dL 08/18/2022 12:19 PM CDT LABORATORY POC Blood, Capillary BLOOD SPECIMEN / Unknown 08/18/2022 12:12 PM CDT 08/18/2022 12:19 PM CDT Tevin Kelley MD LAB - BEAKER POCT LABORATORY [facility] Lab [address] Lab (1st floor, no room number) [place] [address], [place] [phone] * (ABNORMAL) Glucose by meter (08/18/2022 8:44 AM CDT) GLUCOSE BY METER POCT 121(H) 70 - 99 mg/dL 08/18/2022 8:50 AM CDT LABORATORY POC Blood, Capillary BLOOD SPECIMEN / Unknown 08/18/2022 8:44 AM CDT 08/18/2022 8:50 AM CDT Tevin Kelley MD LAB - BEAKER POCT RH LABORATORY POC [facility] Acute Care Lab [address] Lab (1st floor, no room number) [place] [address], [facility] [phone] * (ABNORMAL) CBC with platelets (08/18/2022 6:03 [...] LAB - BLOOD ORDERABL ES RH LABORATORY [facility] Acute Care Lab [address] Lab (1st floor, no room number) [place] [address], [facility] [phone] * Phosphorus (08/18/2022 6:03 AM CDT) Phosphorus 2.5 2.5 - 4.5 mg/dL 08/18/2022 6:40 AM CDT RH LABORATORY Blood CENTRAL VENOUS CATHETER / Unknown Venipuncture / Unknown 08/18/2022 6:03 AM CDT 08/18/2022 6:18 AM CDT Susie Mascorro MD LAB - BLOOD ORDERABL ES LABORATORY [facility] Acute Care Lab [address] Lab (1st floor, no room number) [place] [address], [place] [phone] * Magnesium (08/18/2022 6:03 AM CDT) Magnesium 2.1 1.7 - 2.3 mg/dL 08/18/2022 6:40 AM CDT [facility] LABORATORY Blood CENTRAL VENOUS CATHETER / Unknown Venipuncture / Unknown 08/18/2022 6:03 AM CDT 08/18/2022 6:18 AM CDT Susie Mascorro MD LAB - BLOOD ORDERABL ES LABORATORY [facility] Acute Care Lab [address] Lab (1st floor, no room number) [place] [address], [place] [phone] * (ABNORMAL) Basic metabolic panel (08/18/2022 6:03 [...] Mascorro MD LAB - BLOOD ORDERABL ES [facility] Lab [address] Lab (1st floor, no room number) [place] [id number], [place] [phone] * (ABNORMAL) Glucose by meter (08/18/2022 12:41 AM CDT) GLUCOSE BY METER POCT 127(H) 70 - 99 mg/dL 08/18/2022 12:48 AM CDT LABORATORY POC Blood, Capillary BLOOD SPECIMEN / Unknown 08/18/2022 12:41 AM CDT 08/18/2022 12:48 AM CDT Tevin Kelley MD LAB - BEAKER POCT [facility] Lab [address] Lab (1st floor, no room number) [place] [address], [place] [phone] * (ABNORMAL) Glucose by meter (08/17/2022 5:22 PM CDT) GLUCOSE BY METER POCT 166(H) 70 - 99 mg/dL 08/17/2022 5:29 PM CDT RH LABORATORY POC Blood, Capillary BLOOD SPECIMEN / Unknown 08/17/2022 5:22 PM CDT 08/17/2022 5:29 PM CDT Tevin Kelley [facility] RH LAB[facility] Lab [address] Lab (1st floor, no room number) [place] [address], [facility] [phone] * (ABNORMAL) Glucose by meter (08/17/2022 11:58 AM CDT) GLUCOSE BY METER POCT 103(H) 70 - 99 mg/dL 08/17/2022 12:05 PM CDT RH LABORATORY POC Blood, Capillary BLOOD SPECIMEN / Unknown 08/17/2022 11:58 AM CDT 08/17/2022 12:05 PM CDT Tevin Kelley [facility] POCT Performing Organization Address City/[facility]/ZIP Co de Phone Number LABORATORY [facility] Lab [address] Lab (1st floor, no room number) [place] [phone], [facility] [phone] * (ABNORMAL) CBC with platelets (08/17/2022 6:24 [...] MD LAB - BLOOD ORDER BRANDON LABORATORY [facility] Lab [address] Lab (1st floor, no room number) [place] [phone], [facility] [phone] * Bilirubin direct (08/17/2022 6:24 AM CDT) Bilirubin Direct <0.20 0.00 - 0.30 mg/dL 08/17/2022 6:58 AM CDT LABORATORY Blood BLOOD SPECIMEN / Unknown Venipuncture / Unknown 08/17/2022 6:24 AM CDT 08/17/2022 6:33 AM CDT Susie Mascorro MD LAB - BLOOD ORDERABL ES LABORATORY [facility] Lab [address] Lab (1st floor, no room number) [place] [address], [facility] [phone] * (ABNORMAL) Prealbumin (08/17/2022 6:24 AM CDT) Prealbumin 13(L) 15 - 45 mg/dL 08/17/2022 12:49 PM CDT SPECIALTY CORE/PROT/ENDO Blood BLOOD SPECIMEN / Unknown Venipuncture / Unknown 08/17/2022 6:24 AM CDT 08/17/2022 6:33 AM CDT Susie Mascorro MD LAB - BLOOD ORDERABL ES [facility] SPECIALTY CORE/PROT/ENDO [facility] Specialty Core/Prot/Endo [address] [facility] [address] [facility], [address] [place] [address] * (ABNORMAL) INR (08/17/2022 6:24 AM CDT) INR 1.21(H) 0.85 - 1.15 08/17/2022 6:47 AM CDT RH LABORATORY Blood BLOOD SPECIMEN / Unknown Venipuncture / Unknown 08/17/2022 6:24 AM CDT 08/17/2022 6:33 AM CDT Susie Mascorro MD LAB - BLOOD ORDERABL ES [facility] Lab [address] Lab (1st floor, no room number) [place] [address], [facility] [phone] * Phosphorus (08/17/2022 6:24 AM CDT) Phosphorus 2.6 2.5 - 4.5 mg/dL 08/17/2022 6:58 AM CDT RH LABORATORY Blood BLOOD SPECIMEN / Unknown Venipuncture / Unknown 08/17/2022 6:24 AM CDT 08/17/2022 6:33 AM CDT Susie Mascorro MD LAB - BLOOD ORDERABL ES [facility] Care Lab [address] Lab (1st floor, no room number) [place] [address], [facility] [phone] * Magnesium (08/17/2022 6:24 AM CDT) Magnesium 2.2 1.7 - 2.3 mg/dL 08/17/2022 6:58 AM CDT LABORATORY Blood BLOOD SPECIMEN / Unknown Venipuncture / Unknown 08/17/2022 6:24 AM CDT 08/17/2022 6:33 AM CDT Susie Mascorro MD LAB - BLOOD ORDERABL ES LABORATORY [facility] Acute Care Lab [address] [facility] Lab (1st floor, no room number) [place] [address], [facility] [phone] * (ABNORMAL) Comprehensive metabolic panel (08/17/2022 6:24 [...] LAB - BLOOD ORDERABL ES RH LABORATORY [facility] Acute Care Lab [address] Lab (1st floor, no room number) [place] [address], [facility] [phone] * (ABNORMAL) Glucose by meter (08/17/2022 6:22 AM CDT) [facility] GLUCOSE BY METER POCT 127(H) 70 - 99 mg/dL 08/17/2022 6:29 AM CDT RH LABORATORY POC Blood, Capillary BLOOD SPECIMEN / Unknown 08/17/2022 6:22 AM CDT 08/17/2022 6:29 AM CDT Tevin Kelley MD LAB - BEAKER POCT LABORATORY [facility] Acute Care Lab [address] Lab (1st floor, no room number) [place] [address], [facility] [phone] * (ABNORMAL) Glucose by meter (08/17/2022 1:43 AM CDT) GLUCOSE BY METER POCT 113(H) 70 - 99 mg/dL 08/17/2022 1:50 AM CDT LABORATORY POC Blood, Capillary BLOOD SPECIMEN / Unknown 08/17/2022 1:43 AM CDT 08/17/2022 1:50 AM CDT Tevin Kelley MD LAB - [facility] POCT Performing Organization Address City/[facility]/ZIP Co de Phone Number LABORATORY [facility] Acute Care Lab [address] Lab (1st floor, no room number) [place] [address], [facility] [phone] * Verification of Catheter Tip Placement (08/16/2022 5:31 PM CDT) Narrative Megan Pena RN - 08/16/2022 5:31 PM CDT Megan Pena, RN ? 08/16/2022 ??5:35 PM Susie Mascorro MD IP NURSING TREAT AND ASSESS - ONCE,INTERVALS,CONT * Double Lumen PICC Placement (08/16/2022 5:26 PM CDT) Narrative Megan Pena, RN - 08/16/2022 5:26 PM CDT Megan Pena, RN ? 08/16/2022 ??5:31 PM [facility] Double Lumen PICC Placement Date/Time: [...] procedure a time out was called ?? [place] Protocol: the Joint Commission [place] Protocol was followed ?? Preparation: Patient was [...] and Red Catheter size: 5 Fr Brand: Shicon Lot number: [id number] Placement method: MST, venipuncture, ultrasound and tip [...] collection identified. NICOLÁS CAMPBELL MD SYSTEM ID: [id number] Narrative 08/16/2022 2:[address] ABDOMEN [...] collection identified. NICOLÁS CAMPBELL MD SYSTEM ID: [id number] Freida Bennett PA-C IMG CT ORDERABLES * [...] LAB - BLOOD ORDERABL ES [facility] LABORATORY [facility] [place] Core Lab [address] [facility], Room [address] [place] [address], [facility] [phone] * Phosphorus (08/16/2022 6:34 AM CDT) Phosphorus 3.1 2.5 - 4.5 mg/dL 08/16/2022 12:24 PM CDT LABORATORY Blood STRUCTURE OF LEFT UPPER LIMB / Unknown Venipuncture / Unknown 08/16/2022 6:34 AM CDT 08/16/2022 6:43 AM CDT Loy Dunne MD LAB - BLOOD ORDERABL ES LABORATORY [facility] Acute Care Lab [address] Lab (1st floor, no room number) [place] [address], [facility] [phone] * Magnesium (08/16/2022 6:34 AM CDT) Magnesium 2.3 1.7 - 2.3 mg/dL 08/16/2022 11:56 AM CDT RH LABORATORY Blood STRUCTURE OF LEFT UPPER LIMB / Unknown Venipuncture / Unknown 08/16/2022 6:34 AM CDT 08/16/2022 6:43 AM CDT Loy Dunne MD LAB - BLOOD ORDERABL ES Performing Organization Address City/[facility]/ZIP Co de Phone Number LABORATORY [facility] Care Lab [address] Lab (1st floor, no room number) [place] [address], [facility] [phone] * (ABNORMAL) CBC with platelets (08/16/2022 6:34 [...] DO LAB - BLOOD ORDERABL ES LABORATORY [facility] Acute Care Lab [address] [facility] Lab (1st floor, no room number) [place] [address], [facility] [phone] * (ABNORMAL) Basic metabolic panel (08/16/2022 6:34 [...] Silva DO LAB - BLOOD ORDERABL ES [facility] Lab [address] Lab (1st floor, no room number) [place] [address], [facility] [phone] * Potassium (08/15/2022 10:44 PM CDT) Potassium 3.5 3.4 - 5.3 mmol/L 08/15/2022 11:09 PM CDT RH LABORATORY Blood STRUCTURE OF LEFT UPPER LIMB / Unknown Venipuncture / Unknown 08/15/2022 10:44 PM CDT 08/15/2022 10:47 PM CDT Erick Silva DO LAB - BLOOD ORDERABL ES Performing Organization Address City/[facility]/ZIP Co de Phone Number [facility] Lab [address] Lab (1st floor, no room number) [place] [address], [facility] [phone] * (ABNORMAL) Hemoglobin (08/15/2022 2:13 PM CDT) Hemoglobin 8.4(L) 13.3 - 17.7 g/dL 08/15/2022 2:23 PM CDT RH LABORATORY Blood STRUCTURE OF LEFT HAND / Unknown Venipuncture / Unknown 08/15/2022 2:13 PM CDT 08/15/2022 2:20 PM CDT Erick Silva DO LAB - BLOOD ORDERABL ES [facility] Lab [address] Lab (1st floor, no room number) [place] [address], [facility] [phone] * (ABNORMAL) Potassium (08/15/2022 9:57 AM CDT) Potassium 3.2(L) 3.4 - 5.3 mmol/L 08/15/2022 10:26 AM CDT RH LABORATORY Blood STRUCTURE OF RIGHT HAND / Unknown Venipuncture / Unknown 08/15/2022 9:57 AM CDT 08/15/2022 10:02 AM CDT Erick Silva DO LAB - BLOOD ORDERABL ES LABORATORY [facility] Care Lab [address] Lab (1st floor, no room number) [place] [phone], [facility] [phone] * Magnesium (08/15/2022 5:58 AM CDT) Magnesium 2.1 1.7 - 2.3 mg/dL 08/15/2022 8:44 AM CDT RH LABORATORY Blood STRUCTURE OF LEFT UPPER LIMB / Unknown Venipuncture / Unknown 08/15/2022 5:58 AM CDT 08/15/2022 6:13 AM CDT Erick Silva DO LAB - BLOOD ORDERABL ES Performing Organization Address City/[facility]/ZIP Co de Phone Number [facility] Lab [address] Lab (1st floor, no room number) [place] [phone], [facility] [phone] * (ABNORMAL) CBC with platelets and differential [...] MD LAB - BLOOD ORDERA BLES LABORATORY [facility] Acute Care Lab [address] Lab (1st floor, no room number) [place] [address], [facility] [phone] * (ABNORMAL) Basic metabolic panel (08/15/2022 5:58 AM CDT) [facility] Sodium 139 136 - 145 mmol/L [...] MD LAB - BLOOD ORDERA BLES LABORATORY [facility] Acute Care Lab [address] Lab (1st floor, no room number) [place] [phone], [facility] [phone] * (ABNORMAL) Potassium (08/15/2022 3:49 AM CDT) Potassium 3.2(L) 3.4 - 5.3 mmol/L 08/15/2022 4:22 AM CDT RH LABORATORY Blood STRUCTURE OF LEFT UPPER LIMB / Unknown Venipuncture / Unknown 08/15/2022 3:49 AM CDT 08/15/2022 4:02 AM CDT Anatoliy Bryson DO LAB - BLOOD ORDERABL ES [facility] Lab [address] Lab (1st floor, no room number) [place] [phone], [facility] [phone] * (ABNORMAL) Hemoglobin (08/15/2022 3:49 AM CDT) Hemoglobin 8.6(L) 13.3 - 17.7 g/dL 08/15/2022 4:04 AM CDT RH LABORATORY Blood STRUCTURE OF LEFT UPPER LIMB / Unknown Venipuncture / Unknown 08/15/2022 3:49 AM CDT 08/15/2022 4:02 AM CDT Vishal Smith MD, MD LAB - BLOOD ORDERA BLES [facility] Care Lab [address] Lab (1st floor, no room number) [place] [address], [facility] [phone] * (ABNORMAL) Hemoglobin (08/14/2022 1:57 PM CDT) Hemoglobin 9.1(L) 13.3 - 17.7 g/dL 08/14/2022 2:12 PM CDT [facility] LABORATORY Blood STRUCTURE OF LEFT UPPER LIMB / Unknown Venipuncture / Unknown 08/14/2022 1:57 PM CDT 08/14/2022 2:07 PM CDT Vishal Smith MD, MD LAB - BLOOD ORDERA BLES LABORATORY [facility] Acute Care Lab [address] Lab (1st floor, no room number) [place] [address], [facility] [phone] * Asymptomatic COVID-19 Virus (Coronavirus) by PCR Nasopharyngeal (08/14/2022 1:31 PM CDT) Pathologist [facility] SARS CoV2 PCR Negative Negative 08/14/2022 2:09 PM CDT LABORATORY Comment:NEGATIVE: SARS-CoV-2 (COVID-19) RNA not detected, presumed negative. Swab NASOPHARYNGEAL STRUCTURE / Unknown Non-blood Collection / Unknown 08/14/2022 1:31 PM CDT 08/14/2022 1:47 PM CDT Narrative LABORATORY - 08/14/2022 2:09 PM CDT Testing was performed using the Xpert Xpress SARS-CoV-2 Assay on the [employer]. Additional information about this Emergency [...] COVID-19. This test was validated by the [facility]. This laboratory is certified under the Clinical Laboratory Improvement Amendments (CLIA) as qualified to perform high complexity laboratory testing. Vishal Smith MD, MD LAB - MICRO GENERA L ORDERABLES [facility] Acute Care Lab [address] [facility] Lab (1st floor, no room number) [place] [address], [facility] [phone] * Abd/pelvis CT, IV contrast only TRAUMA [...] EXAM: CT ABDOMEN PELVIS W CONTRAST LOCATION: [facility] DATE: 08/14/2022 INDICATION: Recent complicated surgery [...] EXAM: CT ABDOMEN PELVIS W CONTRAST LOCATION: [facility] DATE: 08/14/2022 INDICATION: Recent complicated surgery [...] spine and joints of the pelvis. Mynor Bor MD IMG CT ORDERABLES * Blood Culture Arm, Left (08/14/2022 2:49 AM CDT) Culture No Growth 08/19/2022 5:16 AM CDT [facility] Blood STRUCTURE OF LEFT UPPER LIMB / Unknown Venipuncture / Unknown 08/14/2022 2:49 AM CDT 08/14/2022 2:53 AM CDT Mynor Bro MD LAB - MICRO GENERAL ORDERABLES [facility] Inf. Diseases Diag. Lab [address] [facility] [place] [address], [facility] [phone] * Lactic acid whole blood (08/14/2022 2:17 AM CDT) Lactic Acid 0.8 0.7 - 2.0 mmol/L 08/14/2022 2:32 AM CDT LABORATORY Blood BLOOD SPECIMEN / Unknown Venipuncture / Unknown 08/14/2022 2:17 AM CDT 08/14/2022 2:29 AM CDT Mynor Bro MD LAB - BLOOD ORDERABL ES LABORATORY [facility] Acute Care Lab [address] [facility] Lab (1st floor, no room number) [place] [address], [facility] [phone] * Blood Culture Peripheral Blood (08/14/2022 2:17 AM CDT) Culture No Growth 08/19/2022 5:16 AM CDT [facility] Blood BLOOD SPECIMEN / Unknown Venipuncture / Unknown 08/14/2022 2:17 AM CDT 08/14/2022 2:34 AM CDT Mynor Bro MD LAB - MICRO GENERAL ORDERABLES [facility] Inf. Diseases Diag. Lab [address] [facility], [address] [place] [address], [facility] [phone] * Magnesium (08/14/2022 1:35 AM CDT) Magnesium 2.0 1.7 - 2.3 mg/dL 08/14/2022 4:29 PM CDT [facility] LABORATORY Blood BLOOD SPECIMEN / Unknown Venipuncture / Unknown 08/14/2022 1:35 AM CDT 08/14/2022 1:40 AM CDT Erick Silva DO LAB - BLOOD ORDERABL ES [facility] Acute Care Lab [address] Lab (1st floor, no room number) [place] [address], [facility] [phone] * Extra Red Top Tube (08/14/2022 1:35 AM CDT) Hold Specimen JIC 08/14/2022 2:46 AM CDT [facility] Blood STRUCTURE OF LEFT UPPER LIMB / Unknown Venipuncture / Unknown 08/14/2022 1:35 AM CDT 08/14/2022 1:40 AM CDT Mynor Bro MD LAB - BLOOD ORDERABL ES [facility] Acute Care Lab [address] Lab (1st floor, no room number) [place] [address], [facility] [phone] * Extra Blue Top Tube (08/14/2022 1:35 AM CDT) Hold Specimen JIC 08/14/2022 2:46 AM CDT [facility] Blood STRUCTURE OF LEFT UPPER LIMB / Unknown Venipuncture / Unknown 08/14/2022 1:35 AM CDT 08/14/2022 1:39 AM CDT Mynor Bro MD LAB - BLOOD ORDERABL ES LABORATORY [facility] Acute Care Lab [address] Lab (1st floor, no room number) [place] [address], [facility] [phone] * (ABNORMAL) CBC with platelets and differential (08/14/2022 1:35 AM CDT) [facility] Signature WBC Count 19.6(H) 4.0 - [...] LAB - BLOOD ORDERABL ES RH LABORATORY [facility] Acute Care Lab [address] Lab (1st floor, no room number) [place] [address], [facility] [phone] * (ABNORMAL) Comprehensive metabolic panel (08/14/2022 1:35 [...] MD LAB - BLOOD ORDERABL ES LABORATORY [facility] Acute [facility] Lab [address] [facility] Lab (1st floor, no room number) [place] [address], [facility] [phone] documented in this encounter Visit Diagnoses Diagnosis [...] 50 mL 50 mL, Oral, ONCE, On [facility] 08/16/22 at 1200, For 1 dose $Given 08/16/2022 12:00 PM CDT 50 mLs iopamidol (ISOVUE-370) solution 500 mL 500 mL, Intravenous, ONCE, On Sat08/14/22 at 0310, For 1 dose $Given 08/14/2022 3:07 AM CDT 99 mLs iopamidol (ISOVUE-370) solution 500 mL 500 mL, Intravenous, ONCE, On [facility] 08/16/22 at 1200, For 1 dose $Given [...] 0625 (Canceled Entry - Provider: Mason Gatica [facility] - Comment: Automatically canceled at discontinue of [...] (ZOFRAN). documented in this encounter Care Teams Sponge Clipper Relationship Specialty Start Date End Date No Ref-Primary, Physician PCP - General 08/07/22 documented as of this encounter
--- OUTSIDE RECORDS SUMMARY | 2023-03-25 14:30 | XMS_ITS | Encounter Summary ---
Author Name Unknown Organization [facility] Address [address] [place] [address] Care Team Providers Care Sales Service Professional Name Role Phone No Ref-Primary, Physician Primary [...] on filedocumented in this encounter Care Teams Sales Service Professional Relationship Specialty Start Date End Date No Ref-Primary, Physician PCP - General 08/07/22 documented as of this encounter
--- OUTSIDE RECORDS SUMMARY | 2023-03-25 14:31 | XMS_ITS | Encounter Summary ---
Author Name Unknown Organization [facility] Address [address] [place] [address] Care Team Providers Care Capacity Analyst Name Role Phone No Ref-Primary, Physician [...] on filedocumented in this encounter Care Teams Capacity Analyst Relationship Specialty Start Date End Date No Ref-Primary, Physician PCP - General 08/07/22 documented as of this encounter
--- OUTSIDE RECORDS SUMMARY | 2023-03-25 14:31 | XMS_ITS | Encounter Summary ---
Author Name Unknown Organization [facility] Address [address] [place] [address] Care Team Providers Care Distribution Center Supervisor Name Role Phone No Ref-Primary, Physician Primary Care Provider Reason for Visit * Auth/Cert (Routine) Specialty Diagnoses / Procedures Referred By Luis Eduardo lao Referred To Contact Surgery Diagnoses Colovesical fistula Colovesical fistula [N32.1] Procedures [place] LAP,SURG,COLECTOMY, PARTIAL, W/ANAST [place] LAP,SURG,COLECTOMY,W/REMVL TERM ILEUM [place] LAP,SURG,COLECTOMY,W/END COLOST & CLOSUR [place] LAP,SURG,COLECTOMY,W/ANAST [place] LAP, SURG, COLECTOMY, W/ANAST, W/COLOSTOMY [place] LAP,SURG,COLECTOMY,TOTAL,W/O PROCTECTOMY [place] LAP,SURG,COLECTOMY,TOTAL,W/UT OCTECTOMY [place] LAP,SURG,COLECT,TOT,W/PROCTEC T,W/ILEOST [place] CYSTOSCOPY,INSERT URETERAL STENT ZZ UROGRAPHY, RETROGRADE W/WO KUB Xi Robotic Assisted Sigmoid Colectomy Cystoscopy, insertion of bilateral ureteral stents [facility] [address] [place] [address] Referral ID Status Reason Start Date Expiration Date Visits Re quested Visits Authorized [id number] 1 1 Encounter Details Date Type Department Care Team (Late st Contact Info) Description 08/07/2022 11:55 AM CDT - 08/07/2022 12:40 PM CDT Surgery [facility] Endoscopy [place] [address] [place] [phone] Berenice Odom MD COLON RECTAL SURGERY [address] [place] [facility] [address] Colonoscopy Surgery Details Date/Time Status Location OR Service Patient Class Case Class Case Type Trauma Case? 08/07/22 11:55 AM Posted GI GI B [place]-[facility] Outpatient Panel 1 Procedure LRB Anes Op Region Wound Class Comments Colonoscopy N/A Moderate Sedation Rectum II-Clean C ontaminated Surgeon Surgeon Role Service Panel Berenice Odom MD Primary [place] 1 Special Needs CRSAL documented in this [...] 1.25 mg by mouth daily 0 08/18/2022 metoprolol succinate ER (TOPROL XL) 50 MG 24 hr tablet Take 50 mg by mouth daily 0 08/18/2022 methocarbamol (ROBAXIN) 750 MG tabletIndications:Acute post-operative pain Take 1 tablet (750 mg) by mouth 3 times daily for 5 days 15 tablet 0 08/12/2022 08/18/2022 oxyCODONE (ROXICODONE) 5 MG tabletIndications:Acute post-operative [...] lisinopril (ZESTRIL) 20 MG tablet 08/07/2022 at [id number] Yes Yes Sig: Take 40 mg by [...] * COLONOSCOPY (08/07/2022 11:35 AM CDT) COLONOSCOPY [facility] Patient Name: Judith Guajardo ? [...] continuously. The ?Olympus Adult Colonoscope, Model # CF-VC773H, ?Endora # 225, SN # [id number] was introduced through ?the anus and advanced [...] Procedure Code(s): ? --- Professional --- ? 21068, Colonoscopy, flexible; diagnostic, including collection of ? [...] of ? digestive tract CPT copyright 2020 [employer]. All rights reserved. The codes documented in this report are preliminary and upon medical collections specialist review may be revised to meet current compliance requirements. ____ BERENICE ODOM MD 08/07/2022 12:52:38 PM I was physically present for the entire viewing portion of the exam. BERENICE ODOM MD Number of Addenda: 0 Note Initiated On: 08/07/2022 11:35 AM MRN: ?[id number] Procedure Date: ? 08/07/2022 11:35:11 AM Scope [...] on Sat08/07/22 at 1217, For 1 dose, [place] throat with 1 spray 5 minutes prior [...] provider. documented in this encounter Care Teams Distribution Center Supervisor Relationship Specialty Start Date End Date No Ref-Primary, Physician PCP - General 08/07/22 documented as of this encounter
--- OUTSIDE RECORDS SUMMARY | 2023-03-25 14:31 | XMS_ITS | Encounter Summary ---
Author Name Unknown Organization [facility] Address [address] [place] [address] Care Team Providers Care Inspector And Tester Name Role Phone No Ref-Primary, Physician Primary Care Provider Reason for Visit * Auth/Cert (Routine) Specialty Diagnoses / Procedures Referred By Luis Eduardo lao Referred To Contact Surgery Diagnoses Colovesical fistula Colovesical fistula [N32.1] Procedures [place] LAP,SURG,COLECTOMY, PARTIAL, W/ANAST [place] LAP,SURG,COLECTOMY,W/REMVL TERM ILEUM [place] LAP,SURG,COLECTOMY,W/END COLOST & CLOSUR [place] LAP,SURG,COLECTOMY,W/ANAST [place] LAP, SURG, COLECTOMY, W/ANAST, W/COLOSTOMY [place] LAP,SURG,COLECTOMY,TOTAL,W/O PROCTECTOMY [place] LAP,SURG,COLECTOMY,TOTAL,W/[place] OCTECTOMY [place] LAP,SURG,COLECT,TOT,W/PROCTEC T,W/ILEOST [place] CYSTOSCOPY,INSERT URETERAL STENT ZZ UROGRAPHY, RETROGRADE W/WO KUB Xi Robotic Assisted Sigmoid Colectomy Cystoscopy, insertion of bilateral ureteral stents [facility] [address] [place] [address] Referral ID Status Reason Start Date Expiration Date Visits Re quested Visits Authorized [id number] 1 1 Encounter Details Date Type Department Care Team (Latest Contact Info) Description 08/07/2022 10:56 AM CDT - 08/07/2022 1:19 PM CDT Hospital Encounter [facility] Endoscopy [place] [address] [place] [address] Kylah Arndt MD COLO & RECTAL SURGERY [address] [place] [address] Discharge Disposition: Home or Self Care Social [...] lisinopril (ZESTRIL) 20 MG tablet 08/07/2022 at [id number] Yes Yes Sig: Take 40 mg by [...] Results * COLONOSCOPY (08/07/2022 11:35 AM CDT) [facility] Patient Name: Judith Guajardo ? Procedure [...] and ?oxygen saturations were monitored continuously. The ?Flint Adult Colonoscope, Model # CF-[id number], ?Endora # 225, SN # [id number] was introduced through ?the anus and advanced [...] Procedure Code(s): ? --- Professional --- ? 96631, Colonoscopy, flexible; diagnostic, including collection of ? [...] of ? digestive tract CPT copyright 2020 [employer]. All rights reserved. The codes documented in this report are preliminary and upon director strategic account management review may be revised to meet current compliance requirements. ____ BERENICE ODOM MD 08/07/2022 12:52:38 PM I was physically present for the entire viewing portion of the exam. BERENICE ODOM MD Number of Addenda: 0 Note Initiated On: 08/07/2022 11:35 AM MRN: ?[id number] Procedure Date: ? 08/07/2022 11:35:11 AM Scope [...] on Sat08/07/22 at 1217, For 1 dose, [place] throat with 1 spray 5 minutes prior [...] provider. documented in this encounter Care Teams Inspector And Tester Relationship Specialty Start Date End Date No Ref-Primary, Physician PCP - General 08/07/22 documented as of this encounter
--- OUTSIDE RECORDS SUMMARY | 2023-03-25 14:31 | XMS_ITS | Clinical Summary ---
Author Name Unknown Organization [facility] Address [place], [place] [address] Care Team Providers Care Party Plan Sales Director Name Role Phone Jose Almeida MD Primary Care Provider [phone] Allergies No known active allergies Medications Medication [...] 10:05 AM 06/25/2019 5:18 PM Care Teams Party Plan Sales Director Relationship Specialty Start Date End Date Jose Almeida MD PCP - General Family Practice 06/18/19
--- OUTSIDE RECORDS SUMMARY | 2023-03-25 14:31 | XMS_ITS | Encounter Summary ---
Author Name Unknown Organization [facility] Address [address] [place] [address] Care Team Providers Care Vp Analytics Name Role Phone Unavailable Primary Care Provider Unavailabl e Reason for Visit * Reason Onset Date Comments Procedure 07/10/2022 CRSAL Colonoscop y Scheduling Encounter Details Date Type Department Care Team (Late st Contact Info) Description 07/10/2022 Telephone [facility] [address] [address] None Procedure (CRSAL Colonoscopy Scheduling) [...] Endoscopy [Colonoscopy] ??? Procedure Date: 08/07/2022 ??? Site:[facility]; [address] [place] [address] ??? Endoscopist: Yris ??? Ordering Provider: Yris ??? Scheduled by (per the direction of): Ramiro(CRSRACHELL) ok'd per Gaby/Emely We do not accept [employer] insurance. documented in this encounter Plan of Treatment Not on file documented as of this encounter Visit Diagnoses Not on filedocumented in this encounter
--- OUTSIDE RECORDS SUMMARY | 2023-03-25 14:31 | XMS_ITS | Encounter Summary ---
Author Name Unknown Organization [place] Address [facility] [place] [address] Care Team Providers Care Low Voltage Technician Name Role Phone Unavailable Primary Care Provider Unavailabl e Reason for Referral * Consultation (Routine: Next available opening) - Pending Review Specialty Diagnoses / Procedures Referred By Luis Eduardo lao Referred To Contact Diagnoses Screen for colon cancer Kylah Arndt MD COLO & RECTAL SURGERY [address] [address] Referral ID Status Reason Start Date Expiration Date V isits Requested Visits Authorized [id number] Pending Review 07/10/2022 07/10/2023 1 1 Question Answer Service: Screening Sedation Concerns: No medical conditions affecting sedation Sedation Type: Moderate/Conscious Sedation Preferred Location: [facility] Scheduling Instructions: [facility] will call you to coordinate your care as prescribed by the provider. If you don? t hear from a electroplating sales representative within 2 business days, please call . Comments Please be aware that coverage of these services is subject to the terms and limitations of your health insurance plan. Call member services at your health plan with any benefit or coverage questions. [facility] will call you to coordinate your care as prescribed by the provider. If you don? t hear from a electroplating sales representative within 2 business days, please call . Encounter Details Date Type Department Care Team (Latest Contact Info) Description 07/10/2022 Transcribe Orders [facility] Endoscopy [place] [address] [place] [phone] Kylah Arndt MD COLO & RECTAL SURGERY [address] [place] [id number] Screen for colon cancer (Primary Dx) Social History Tobacco Use Types Packs/Day Years Used Date Smoking Tobacco: Never Assessed Sex and Gender Information Value Date Recorded Sex Assigned at Not on file Gender Identity Not on file Sexual Orientation Not on file documented as of this encounter Plan of Treatment Scheduled Referrals Name Type Priority Associated Diagnoses Order Schedule Colonoscopy Screening Underwriter Referral Referral Routine: Next available opening Screen for colon cancer Expected: 07/10/2022 (Approximate), Expires: 07/11/2023 documented as of this encounter Visit Diagnoses Diagnosis Screen for colon cancer- Primary Special screening for malignant neoplasms, colon documented in this encounter
--- OUTSIDE RECORDS SUMMARY | 2023-03-25 14:31 | XMS_ITS | Clinical Summary ---
Author Name Unknown Organization [facility] Address [address] [place] [address] Care Team Providers Care Brewery Representative Name Role Phone Unassigned, Provider Primary Care [...] for each transition of care or referral. [facility] Allergies No known active allergies Medications Medication Sig Dispensed Refills Start Date End Date Status ALPRAZolam (XANAX) 1 MG tablet 0 04/18/2019 Active metoprolol succinate (TOPROL XL) 50 MG 24 hour release tablet TAKE 1 T PO DAILY 0 04/15/2019 Active testosterone cypionate (DEPO-TESTOSTERONE) 200 MG/ML injection 0 04/15/2019 Activ e B-D 3CC LUER-SULEMA SYR 71RB8-6/2 22G X 1-/2 3 ML UTD 0 [...] age to complete this topic Care Teams Brewery Representative Relationship Specialty Start Date End Date Unassigned, Provider [address] [place] [address] PCP - General 02/16/00
--- NOTE | 2023-03-25 15:00 | CT_ITS ---
INDICATION: ABDOMINAL PAIN. COMPARISON: 08/16/2022 TECHNIQUE: POSTCONTRAST CT ABDOMEN AND PELVIS. 136 ML ISOVUE 370 INTRAVENOUS CONTRAST. FINDINGS: THE LUNG BASES ARE CLEAR. NO PLEURAL EFFUSION. MILD HEPATIC STEATOSIS IS SUSPECTED. THE SPLEEN IS NOT ENLARGED. NO HIATAL HERNIA. POSTOPERATIVE CHANGES OF PARTIAL BOWEL RESECTION INCLUDING A DISTAL COLONIC ANASTOMOSIS. INFLAMMATORY CHANGES ARE PRESENT ADJACENT TO THE ANASTOMOSIS POSTERIORLY ALTHOUGH THIS HAS DECREASED SIGNIFICANTLY IN THE INTERIM. MILD RESIDUAL PHLEGMONOUS CHANGES PRESENT IN THE PRESACRAL SPACE MEASURING 3.1 CM. ADDITIONALLY, THERE IS AN UNUSUAL TUBULAR LIKE STRUCTURE IN THE MIDLINE OF THE ANTERIOR PELVIS CONTAINING AIR ALONG WITH SURROUNDING INFLAMMATORY CHANGES. 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 THE GALLBLADDER IS INCOMPLETELY DISTENDED. NO CALCIFIED GALLSTONES OR BILIARY OBSTRUCTION. THERE IS NO HYDRONEPHROSIS. THE PANCREAS IS WITHIN NORMAL LIMITS. NORMAL SPLEEN. ATHEROSCLEROTIC CHANGES ARE PRESENT. NO ANEURYSM. NO ABDOMINAL WALL HERNIA. THERE IS NO FRACTURE. IMPRESSION: DECREASED INFLAMMATORY CHANGES WITHIN THE PELVIS WITH A RESIDUAL PHLEGMONOUS COLLECTION IN THE PRESACRAL SPACE IN THE UPPER PELVIS MEASURING 3.1 CM. ADDITIONAL RESIDUAL FISTULOUS TRACK IS PRESENT IN THE ANTERIOR MIDLINE OF THE PELVIS. NO MECHANICAL BOWEL OBSTRUCTION. NO FREE INTRAPERITONEAL AIR. SURGICAL FOLLOW-UP IS RECOMMENDED.
== END 2023-03-25 14:27 | disposition home or self-care (01) ==
PROVIDERS: PCP Internal Medicine; Visit Provider Internal Medicine
DX: R10.9 Unspecified abdominal pain (principal)
CPT/HCPCS: 74177; Q9967

== ENCOUNTER 2023-04-09 14:16 | Outpatient (CLI) | payer OTHER, SELFPAY | END 2023-04-09 14:17 | disposition home or self-care (01) | LOC: NFLDREF 14:18 | PROVIDERS: PCP Internal Medicine; Visit Provider Internal Medicine | DX: D75.1 Secondary polycythemia (principal); E29.1 Testicular hypofunction | CPT/HCPCS: 84403 ==

== ENCOUNTER 2023-04-15 14:31 | Outpatient (CLI) | payer OTHER, SELFPAY ==
--- NOTE | 2023-04-15 15:00 | CT_ITS ---
Final Report Patient: FRANC AHUJA III Facility:?[facility] Patient ID:?[id number] Site Patient ID:?[id number]. Site :?1980 Study:?CT Abdomen/Pelvis 133CC ISOVUE 370 AND 250CC RECTAL -04/15/2023 3:48:55 PM Ordering Physician:?DR. KYLE Final Report: Indication: Follow-up perforated diverticulitis Technique: CT Abdomen/Pelvis 133CC ISOVUE 370 AND 250CC RECTAL Please note that all CT scans at this facility use dose modulation, iterative reconstruction, and/or weight-based dosing when appropriate to reduce radiation dose to as low as reasonably achievable. Comparison: 03/25/2023, 08/16/2022 Findings: Positive rectal contrast noted which extends to the splenic flexure. The colonic anastomosis within the left paramidline of the posterior pelvis is intact with intact suture material. Contrast does not extend beyond the margins of the colon. Residual phlegmonous tissue in the presacral space is similar containing small bubbles of air measuring 3 cm. 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 No mechanical bowel obstruction. No evidence of fistula to the bladder. The prostate is normal. Mild reactive lymph nodes noted. No disseminated free air. No pleural effusion. Gynecomastia noted at the right breast. Fatty liver. Gallbladder normal. Normal pancreas and spleen. Adrenal glands and kidneys normal. Normal ureters. Mild discogenic spurring L5-S1. Impression: Persistent flag vomitus collection in the presacral space containing small bubbles of air measuring 3 cm with chronic fistula track extending to the anterior abdominal wall. However, no contrast extends into this collection with rectal contrast. No bowel obstruction. Please note that all CT scans at this facility use dose modulation, iterative reconstruction, and/or weight-based dosing when appropriate to reduce radiation dose to as low as reasonably achievable. Dictated by Osmar Mustafa MD @ 04/16/2023 11:28:21 AM (Electronic Signature)
== END 2023-04-15 14:32 | disposition home or self-care (01) ==
PROVIDERS: PCP Internal Medicine; Visit Provider Student in an Organized Health Care Education/Training Program
DX: K57.92 Diverticulitis of intestine, part unspecified, without perforation or abscess without bleeding (principal)
CPT/HCPCS: 74177; Q9963; Q9967

== ENCOUNTER 2023-07-09 11:17 | Emergency (ER) | payer OTHER, SELFPAY ==
[2023-07-09] VITALS (17 sets, daily range): BP systolic 141–175; BP diastolic 83–105; PULSE 71–83; RESP 18; TEMP 37; O2SAT 92–98; BMI 35.3
--- NOTE | 2023-07-09 11:34 | ED_ITS ---
HPI - Chest Pain General Time Seen by Provider: 11:35 Date Seen: 07/09/23 Chief Complaint: Chest Pain Stated Complaint: chest pains Time Seen by Provider: 07/09/23 11:34 Source: patient and RN notes reviewed Mode of arrival: ambulatory Limitations: no limitations History of Present Illness HPI narrative: This 43-year-old male is coming in for left substernal chest pain that has been present for about the last week. Sometimes it seems like it is worse than others, he just can feel it. It feels like it is below the left lower chest wall, deeper than he can touch. He has an underlying smoker's cough, does use nicotine but has not felt sick with any cough or cold symptoms. There has been no fevers or chills. He does have underlying hypertension, at the office he states his blood pressure is always controlled. He does note he started to worry about the chest pain, feels his blood pressure is up because of that. Normally his blood pressure is controlled. He states his cholesterol has always been good despite being a smoker and drinking too much alcohol. Most days he maybe will have 2-3 beers but on weekends he certainly can drink more than that. He is not short of breath with this. He does have underlying occasional reflux or heartburn that will resolve with Tums. He has had none of those symptoms, this does not feel like that. No abdominal pain. 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 He also had what sounds to be an abscess that was quiescent in his abdomen from this. He has completely resolved from that. 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 He sees Dr. Ibarra for his primary, states he is never had cardiac stress testing. There is no family history of heart disease that he is aware of. His grandparents lived into their early 100s. MD complaint: chest pain and chest discomfort Risk Factors Coronary artery disease risk factors: smoking history and hypertension Related Data Previous Rx's ?Medication ?Instructions ?Recorded ondansetron 4 mg disintegrating 4 mg PO Q6H PRN nausea and 07/18/22 tablet vomiting #12 tabs syringe with needle, safety 3 mL #50 ea 12/25/22 22 gauge x 1 1/2 amoxicillin 875 mg-potassium 1 tab PO BID #20 tabs 04/09/23 clavulanate 125 mg tablet alprazolam 0.5 mg tablet 0.5 mg PO BID PRN anxiety #60 tabs 05/15/23 testosterone cypionate 200 mg/mL 200 mg IM QWEEK #10 mL 06/03/23 intramuscular oil (Depo-Testosterone) metoprolol succinate 50 mg 50 mg PO DAILY #90 tabs 06/14/23 tablet,extended release 24 hr lorazepam 1 mg tablet 1 mg PO QHS PRN anxiety #20 tabs 06/17/23 lisinopril 40 mg tablet 40 mg PO QDAY #90 tabs 06/19/23 Allergies Allergy/AdvReac Type Severity Reaction Status Date / Time No Known Drug Allergies Allergy Verified 07/09/23 11:28 Review of Systems Status of ROS Reports: 6 or more systems reviewed and unremarkable except as noted in History and below [facility] Medical History Polycythemia ?D75.1 - Secondary polycythemia (ICD-10) Otitis media ?H66.90 - Otitis media, unspecified, unspecified ear (ICD-10) Abdominal pain ?R10.9 - Unspecified abdominal pain (ICD-10) Surgical History S/P lumbar discectomy ?Z98.890 - Other specified postprocedural states (ICD-10) Status post tonsillectomy and adenoidectomy (08/18/12) ?Z90.89 - Acquired absence of other organs (ICD-10) Status post appendectomy (08/18/12) ?Z90.49 - Acquired absence of other specified parts of digestive tract (ICD- 10) Social History What is your current living situation?: I presently have a place to live Problems where you live: no known problems In the past 12 months, utilities in danger of being shut off: no In past 12 months, lack of transportation kept you from medical appts, meetings, work, or getting things needed for daily living: no In the past 12 mos, have been you worried that your food would run out before you had money to buy more?: never true In the past 12 mos, the food you bought just didn't last and you didn't have money to buy more?: never true Smoking Status: Heavy tobacco smoker What tobacco products do you use: cigarettes Do you use any of these nicotine containing products: None Second hand tobacco smoke exposure: No How often do you have a drink containing alcohol: 4 or more times a week How many standard drinks containing alcohol do you have on a typical day: 3 or 4 How often do you have six or more drinks on one occasion: Less than monthly AUDIT-C Alcohol total score: 6 Non-prescribed substance use: denies use How often does anyone, including family, friends and others, physically hurt you : never How often does anyone, including family, friends and others, insult or talk down to you: never How often does anyone, including family, friends and others, threaten you with harm: never How often does anyone, including family, friends and others, scream or curse at you: never Little interest or pleasure in doing things: not at all Feeling down, depressed, or hopeless: not at all Exam Const Vital Signs, click to edit/add: Vital Signs - 24 hr 07/09/23 11:23 07/09/23 11:43 07/09/23 11:45 Temperature 98.6 F Pulse Rate 82 81 Pulse Rate [Right Pulse Oximeter] 83 Respiratory Rate 18 Blood Pressure Blood Pressure [Right Upper Arm] 175/105 H Pulse Oximetry 98 97 92 Oxygen Delivery Method Room Air 07/09/23 12:00 07/09/23 12:01 07/09/23 12:15 Temperature Pulse Rate 76 77 Pulse Rate [Right Pulse Oximeter] Respiratory Rate Blood Pressure Blood Pressure [Right Upper Arm] Pulse Oximetry 96 96 93 Oxygen Delivery Method 07/09/23 12:30 07/09/23 12:45 07/09/23 12:49 Temperature Pulse Rate 72 71 76 Pulse Rate [Right Pulse Oximeter] Respiratory Rate Blood Pressure 146/94 H Blood Pressure [Right Upper Arm] Pulse Oximetry 97 92 95 Oxygen Delivery Method This is a very pleasant 43-year-old male that is alert, interactive, no apparent distress. Sclera clear, conjugate gaze. It will speak in complete sentences. Neck thicker, do not appreciate any jugular venous distension. Certainly no cervical adenopathy no thyromegaly masses or nodules. Sits up easily, lungs are clear, good air entry, no wheezing or crackles, no significant prolongation of his expiratory phase. CV regular rate and rhythm, no murmur, normal S1-S2, no S3-S4. Abdomen is mildly obese but soft, nontender, nondistended, no organomegaly noted. He has about 1+ pitting edema anterior pretibial areas bilaterally, no overlying skin changes noted. No calf tenderness. Documenting provider has reviewed patient's vital signs: yes Course Course ED Course: Patient states he is here to make sure he is not having heart attack or heart problems. Reviewed with him that we will certainly evaluate that. He will be on cardiac monitoring, pulse oximetry. Will consider ischemic heart disease, arrhythmia, complications of polycythemia, possible thromboembolic disease with pulmonary emboli. Will start with a portable chest x-ray, appropriate labs, cardiac monitoring pulse oximetry. He currently is quite stable but mild hypertensive change noted on his blood pressure. Will give patient aspirin, trial sublingual nitroglycerin and see if it improves his symptoms. Will get baseline EKG. If everything is stable here, this patient may need to monitor his blood pressure in follow-up with his primary care provider, consider cardiac stress testing. Have reviewed with him if his D-dimer is elevated he will be proceeding with chest CT PE protocol. Reevaluation(s) Time of Reevaluation #1: 14:04 Reevaluation #1: Reviewed with patient that he has a hemoglobin of 18.4. He will be getting phlebotomy, 500 mL. He is aware that the JAK2 test will be pending, will get the report with Dr. Ibarra. This led to discussion of normal cardiac enzymes. I do think that this patient should have cardiac stress testing at some point but would not recommend that we do this now. His doctor does agree, will help him navigate through this. We will put him on an 81 mg aspirin daily until further notice. Will give a dose here today. He states his chest pain is gone now but he notes his blood pressures down, systolic is in the 140s, he is less anxious that he is here. Consultations Consultation #1: Did speak with his primary care provider Dr. Ibarra. We reviewed his hemoglobin is at 18.4. Reviewed his chart, prior hemoglobins were in the 17 range. He did have phlebotomy earlier in March. Discussed the Osei to testing, we will add that on. He recommends that we do 500 mL phlebotomy which I have ordered. Patient may need to come off his testosterone. Discussed my concern of stress testing with the current situation of the polycythemia. He would like to see the patient back next week, see how he does after the phlebotomy and work on getting his hemoglobin down. He will order appropriate cardiac tests or stress testing as he feels clinically indicated. He agrees on not doing stress testing at this point. Time: 13:22 Vital Signs Vital signs: Initial Vital Signs Temperature 98.6 F 07/09/23 11:23 Temperature Source Temporal Artery Scan 07/09/23 11:23 Pulse Rate 83 07/09/23 11:23 Pulse Rhythm Regular 07/09/23 11:23 Respiratory Rate 18 07/09/23 11:23 Blood Pressure 175/105 H 07/09/23 11:23 Blood Pressure Mean 128 H 07/09/23 11:23 Blood Pressure Position Sitting 07/09/23 11:23 Pulse Oximetry 98 07/09/23 11:23 Oxygen Delivery Method Room Air 07/09/23 11:23 Vital Signs Temperature 98.6 F 07/09/23 11:23 Pulse Rate 83 07/09/23 11:23 Respiratory Rate 18 07/09/23 11:23 Blood Pressure 175/105 H 07/09/23 11:23 Pulse Oximetry 98 07/09/23 11:23 Oxygen Delivery Method Room Air 07/09/23 11:23 Temperature 98.6 F 07/09/23 11:23 Pulse Rate 76 07/09/23 12:49 Respiratory Rate 18 07/09/23 11:23 Blood Pressure 146/94 H 07/09/23 12:49 Pulse Oximetry 95 07/09/23 12:49 Oxygen Delivery Method Room Air 07/09/23 11:23 MDM - Chest Pain Lab Data Attestation: I reviewed the patient's lab results. Labs: Lab Results 07/09/23 07/09/23 07/09/23 Range/Units 11:44 13:22 13:23 WBC 8.02 (4.50-11.00) K/uL RBC 5.85 (4.30-5.90) m/uL Hgb 18.4 H (13.5-17.5) gm/dL Hct 54.7 H (37.0-53.0) % MCV 94 (80-100) fL MCH 32 (26-34) pg MCHC 34 (32-36) gm/dL RDW Coeff of Smith 12.8 (11.5-15.5) % Plt Count 219 (140-440) K/uL Neut % (Auto) 58.9 (42.0-72.0) % Lymph % (Auto) 28.1 (20-44) % Rosebud % (Auto) 9.7 (0.0-11.0) % Eos % (Auto) 2.0 (0.0-7.0) % Baso % (Auto) 0.6 (0.0-3.0) % Neut # (Auto) 4.72 (1.7-7.0) K/uL Lymph # (Auto) 2.25 (0.90-2.90) K/uL Rosebud # (Auto) 0.80 (0.00-0.90) K/UL Eos # (Auto) 0.16 (0.00-0.50) K/uL Baso # (Auto) 0.05 (0.00-0.30) K/uL Abs Immat Gran (auto) 0.06 (0.00-0.30) K/uL Imm/Tot Granulo (auto) 0.7 % D-Dimer Quant (PE/DVT) 0.28 (0.00-0.50) ug/ml Sodium 138 (135-149) mmol/L Potassium 4.1 (3.6-5.1) mmol/L Chloride 108 (96-114) mmol/L Carbon Dioxide 24 (20-32) mmol/L Anion Gap 6 L (7-15) mEq/L BUN 15 (5-24) mg/dL Creatinine 0.9 (0.5-1.5) mg/dL Estimated Creat Clear 123.05 Estimated GFR 109 ml/min Glucose 100 (60-115) mg/dL Calcium 8.8 (8.4-10.6) mg/dL Magnesium 2.0 (1.5-2.6) mg/dL Total Bilirubin 0.6 (0.1-1.5) mg/dL AST 33 (12-35) U/L ALT 40 (4-50) U/L Alkaline Phosphatase 63 (40-150) U/L Troponin I < 0.01 L (0.01-0.04) ng/mL C-Reactive Protein < 0.5 L (0.5-1.0) mg/dL NT-Pro-B Natriuret Pep < 20 pg/mL Total Protein 7.3 (6.0-8.3) g/dL Albumin 4.2 (3.3-5.0) g/dL Lipase 111 (23-300) U/L POC Troponin I 0.00 L (0.01-0.04) ng/ml Therapeutic Phlebotomy 500 ccs Removed Imaging Data Chest x-ray: Attestation: I have reviewed the pertinent imaging results. My impression: I see no acute pathology on my preliminary review of this portable chest x-ray. Radiologist's impression: Patient: JAMES AHUJA Facility:?[facility] Patient ID:?[id number] Site Patient ID:?[id number]. Site :?[id number] Study:?XRay-Chest -07/09/2023 12:23:56 PM Ordering Physician:Mer Higgins Final Report: INDICATION: Chest pain. TECHNIQUE: Chest 1 portable view. COMPARISON: None. FINDINGS: No pneumothorax or pleural effusion. Lungs are clear. Cardiac and mediastinal contours are within normal limits. Upper abdomen and osseous structures as imaged show no acute abnormality. IMPRESSION: No evidence of acute cardiopulmonary disease. Dictated by Silvio Solares MD @ 07/09/2023 12:36:18 PM (Electronic Signature) ECG Data Attestation: I personally reviewed and interpreted this ECG as follows: (Sinus rhythm, 79 beats per minute. Poor R-wave progression anterior precordial leads but no change in ST or T-wave segments outside of flipped T-waves V1 without any ST segment change. Flipped T-wave lead [address] segment change. Left anterior fascicular block. QT corrected 419 millisec) ECG interpretation date: 07/09/23 ECG interpretation time: 11:52 Prior ECG tracings: not available for review Discharge Plan Discharge Clinical Impression: Polycythemia Chest pain Qualifiers: Chest pain type: unspecified Qualified Code(s): R07.9 - Chest pain, unspecified Patient Disposition: Home, Self-Care Condition: Stable Instructions: Chest Pain (ED), Therapeutic Phlebotomy (DC) Additional Instructions: Need to take an 81 mg aspirin daily, was given here it today. Talk to your primary care provider further about this at follow-up. You will see Dr. Ibarra on July 16Saturday at 4pm in clinic. In the meantime, if you have increasing chest pain, any sense of irregular heart rhythm, difficulty breathing/shortness of breath, further concerns, return to the ER for further evaluation. Activity Level: Activity as Tolerated Prescriptions: No Action amoxicillin-pot clavulanate 875-125 mg tablet 1 tab PO BID Qty: 20 0RF ondansetron 4 mg tablet,disintegrating 4 mg PO Q6H PRN (Reason: nausea and vomiting) Qty: 12 2RF (DME) BD Eclipse Luer-Thaddeus 3 mL 22 gauge x 1 1/2 syringe See Rx Instructions .Route Qty: 50 1RF Rx Instructions: As directed alprazolam 0.5 mg tablet 0.5 mg PO BID PRN (Reason: anxiety) Qty: 60 1RF testosterone cypionate [Depo-Testosterone] 200 mg/mL oil 200 mg IM QWEEK Qty: 10 1RF metoprolol succinate 50 mg tablet extended release 24 hr 50 mg PO DAILY Qty: 90 0RF lorazepam 1 mg tablet 1 mg PO QHS PRN (Reason: anxiety) Qty: 20 0RF lisinopril 40 mg tablet 40 mg PO QDAY Qty: 90 0RF Follow Up/Referrals: Bipin Ibarra MD [Primary Care Provider] - Stand Alone Forms: [employer] Info Instructions
--- NOTE | 2023-07-09 11:43 | CRLHL7_ITS ---
For Patients: As a result of the Cures Act, medical imaging exams and procedure reports are released immediately into your electronic medical record. You may view this report before your referring provider. If you have questions, please contact your health care provider. INDICATION: Chest pain. TECHNIQUE: Chest 1 portable view. COMPARISON: None. FINDINGS: No pneumothorax or pleural effusion. Lungs are clear. Cardiac and mediastinal contours are within normal limits. Upper abdomen and osseous structures as imaged show no acute abnormality. IMPRESSION: No evidence of acute cardiopulmonary disease. Dictated by Silvio Solares MD @ 07/09/2023 12:36:18 PM (Electronically Signed)
--- OUTSIDE RECORDS SUMMARY | 2023-07-09 11:50 | XMS_ITS | Clinical Summary ---
Author Organization [facility] Address [address] [place] [address] Care Team Providers Care Director Of Advertising Sales Name Role Phone No Ref-Primary, Physician Primary Care Provider Allergies No known active allergies Medications Medication Sig Dispensed Refills Start Date End Date Status lisinopril (ZESTRIL) 40 MG tablet Take 40 mg by mouth daily Active ALPRAZolam (XANAX) 0.5 MG tablet Take 0.5 mg by mouth 3 times daily as needed Active testosterone cypionate (DEPOTESTOSTERONE) 200 MG/ML injection Inject 200 mg into the muscle once a week Active acetaminophen (TYLENOL) 500 MG tablet Take 1,000 mg by mouth every 6 hours as needed for mild pain Active ibuprofen (ADVIL/MOTRIN) 200 MG tablet Take 400 mg by mouth every 6 hours as needed for pain Active nicotine (NICODERM CQ) 21 MG/24HR [address] 1 patch onto the skin every 24 hours Active metoprolol succinate ER (TOPROL XL) 25 MG 24 hr tabletIndications:Be nign essential hypertension Take 1 tablet (25 mg) by mouth daily 30 tablet 08/18/2022 Active Additional Information Patient taking differently: 50 mgOral DAILY, Informant: Self, Reported on 04/19/2023 amoxicillin-clavulan ate (AUGMENTIN) 875-125 MG tabletIndications:Co lovesical fistula Take 1 tablet by mouth 2 times daily 20 tablet 08/18/2022 Active Active Problems Problem Noted Date Diagnosed Date SBO (small bowel obstruction) 08/14/2022 Fever postop 08/14/2022 Nausea and vomiting, unspecified vomiting type 0 08/14/2022 Colovesical fistula 08/08/2022 Encounters Date Type Department Care Team Description 04/23/2023 8:50 AM CDT - 04/23/2023 9:35 AM CDT Surgery [facility] [place] [address] [place] [address] Eva Kyle MD Colonoscopy with polypectomies by cold and hot snare and biopsies. placed 1 clip 04/23/2023 8:08 AM CDT - 04/23/2023 10:18 AM CDT Hospital Encounter [facility] [place] [address] [place] [address] Eva Kyle MD Benign essential hypertension Discharge Disposition: Home or Self Care 04/23/2023 Travel 04/19/2023 MyC Medical Advice [facility] Insurance Verification Aura Danielson 04/19/2023 Telephone [facility] [address] [place] [address] None Procedure (CRSAL COLON) 04/19/2023 Transcribe Orders [facility] [place] [address] [place] [address] Eva Kyle MD Change in bowel habits (Primary Dx) from Last 3 Months Family History Medical History Relation Comments Colon [...] Sign Reading Time Taken Comments Blood Pressure 168/100 04/23/2023 10:10 AM CDT Pulse 76 04/23/2023 10:10 AM CDT Temperature 36.8 ??C (98.2 ??F) 08/19/2022 7:32 AM CD T Respiratory Rate 16 04/23/2023 10:10 AM CDT Oxygen Saturation 95% 04/23/2023 10:10 AM CDT Inhaled Oxygen Concentration - - Weight 122.9 kg (271 lb) 04/23/2023 8:26 AM CDT Height 188 cm (6' 2) 04/23/2023 8:26 AM CDT Body Mass Index 34.79 04/23/2023 8:26 AM CDT Plan of Treatment Health Maintenance [...] HEPATITIS C SCREENING 1998 HEPATITIS B IMMUNIZATION (3 of 3 - 3-dose series) 07/29/1998 06/03/1998, 04/16/1997 LIPID 2020 COVID-19 Vaccine ( - season) 2022 07/25/2020, 06/28/2020 PHQ-2 (once per calendar year) 2023 INFLUENZA VACCINE (Season Ended) 2023 12/09/2013, 12/09/2013 DTAP/TDAP/TD IMMUNIZATION (5 - Td or Tdap) 12/10/2023 12/09/2013, 05/08/2006, 05/08/2006, Additional history exists GLUCOSE 08/19/2025 08/19/2022, 07/0 09/2022, 08/18/2022, Additional history exists COLONOSCOPY 04/22/2026 04/23/2023, 04/11, 04/23/2023, Additional history exists COLORECTAL CANCER SCREENING 04/22/2026 HPV IMMUNIZATION Aged Out No longer e [...] on patient's age to complete this topic Procedures Procedure Name Priority Date/Time Associated Diagnosis Comments SURGICAL PATHOLOGY EXAM Routine 04/23/2023 9:24 AM CDT COLONOSCOPY Routine 04/23/2023 9:07 AM CDT COLONOSCOPY, WITH HEMORRHAGE CONTROL 04/23/2023 9:07 AM CDT Change in bowel habits COLONOSCOPY, WITH POLYPECTOMY AND BIOPSY 04/23/2023 9:07 AM CDT Change in bowel habits COLONOSCOPY, FLEXIBLE, WITH LESION REMOVAL USING SNARE 04/23/2023 9:07 AM CDT Change in bowel habits BASIC METABOLIC PANEL Routine 08/19/2022 5:34 AM CDT from Last 3 Months or Most Recently Relevant to Health Maintenance Results * Surgical Pathology Exam (04/23/2023 9:24 AM CDT) Case Report Surgical Pathology Report ? Case: [id number] ? Authorizing Provider: ??Eva Kyle MD ?? Collected: ? 04/23/2023 09:24 AM ? Ordering Location: ? [facility] ?Received: ?04/23/2023 10:02 AM ? [facility] [place] ? Pathologist: ? Julio Cesar, Tom Giles, ? MD ? Specimens: ?? A) - Small Intestine, Terminal Ileum, for mild inflamation ? B) - Large Intestine, Colon, Ascending, Ascending colon polyps x 2 ? C) - Large Intestine, Colon, Hepatic Flexure ? D) - Large Intestine, Colon, Descending ? E) - Large Intestine, Colon, Sigmoid ? 04/24/2023 10:03 AM CDT LABORATORY Final Diagnosis A: Small intestine, terminal ileum, biopsy: - Terminal ileum mucosa without diagnostic abnormality. - Negative for dysplasia and malignancy. B: Large intestine, ascending, polyps x2, biopsy/polypect john: - Sessile serrated adenomas negative for cytological dysplasia and malignancy. C: Large intestine, hepatic flexure, polyp, biopsy/polypect john: - Sessile serrated adenoma negative for cytological dysplasia and malignancy. D: Large intestine, descending, polyp, biopsy/polypect john: - Sessile serrated adenoma negative for cytological dysplasia and malignancy. E: Large intestine, sigmoid, polyp, biopsy/polypect john: - Hyperplastic polyp negative for dysplasia and malignancy. 04/24/2023 10:03 AM [facility] Clinical Information Clinical information pertinent to this case is available in the electronic medical record and/or specimen requisition and was reviewed by the signing pathologist. 04/24/2023 10:03 AM [facility] Gross Description A(1). Small Intestine, Terminal Ileum, for mild inflamation: The specimen is received in formalin, labeled with the patient's name, medical record number and other identifying information and designated ? terminal ileum for mild inflammation? . It consists of 3 baird soft tissue fragments ranging from 0.3-0.4 cm. Entirely submitted in one cassette. B(2). Large Intestine, Colon, Ascending, Ascending colon polyps x 2: The specimen is received in formalin, labeled with the patient's name, medical record number and other identifying information and designated ? descending colon polyp x 2? . It consists of multiple baird soft tissue fragments ranging from 0.1-0.6 cm. Entirely submitted in one cassette. C(3). Large Intestine, Colon, Hepatic Flexure, : The specimen is received in formalin, labeled with the patient's name, medical record number and other identifying information and designated ? hepatic flexure polyp? . It consists of 6 baird soft tissue fragments ranging from 0.1-0.8 cm. Entirely submitted in one cassette. D(4). Large Intestine, Colon, Descending, : The specimen is received in formalin, labeled with the patient's name, medical record number and other identifying information and designated ? descending colon polyp? . It consists of a single baird soft tissue fragment measuring 0.7 cm. The resection margin is inked blue and the specimen is serially sectioned. Entirely submitted in one cassette. E(5). Large Intestine, Colon, Sigmoid, : The specimen is received in formalin, labeled with the patient's name, medical record number and other identifying information and designated ? sigmoid colon polyp? . It consists of 2 baird soft tissue fragments ranging from 0.3-0.5 cm. The resection margin of the largest fragment is inked blue and the fragment is bisected. Entirely submitted in one cassette. [[facility] 04/24/2023 10:03 AM CDT LABORATORY Microscopic Description A microscopic examination is performed. 04/24/2023 10:03 AM CDT LABORATORY Performing Labs The technical component of this testing was completed at [facility] 04/24/2023 10:03 AM CDT LABORATORY Case Images 04/24/2023 10:03 AM CDT LABORATORY Biopsy STRUCTURE OF DISTAL PORTION OF ILEUM / Unknown 04/23/2023 9:24 AM CDT 04/23/2023 10:02 AM CDT Polyp (morphologic abnormality) ASCENDING COLON STRUCTURE / Unknown 04/23/2023 9:27 AM CDT 04/23/2023 10:02 AM CDT Polyp (morphologic abnormality) STRUCTURE OF RIGHT COLIC FLEXURE / Unknown 04/23/2023 9:37 AM CDT 04/23/2023 10:02 AM CDT Polyp (morphologic abnormality) DESCENDING COLON STRUCTURE / Unknown 04/23/2023 9:40 AM CDT 04/23/2023 10:02 AM CDT Polyp (morphologic abnormality) SIGMOID COLON PART / Unknown 04/23/2023 9:44 AM CDT 04/23/2023 10:02 AM CDT Eva Kyle MD LAB - [facility] [address] 1[address] floor, [address] [place] [address], [place] LABORATORY [facility] [address] (1st floor, no room number) [place] [address], [facility] * COLONOSCOPY (04/23/2023 9:07 AM CDT) COLONOSCOPY [facility] Patient Name: Judith Guajardo ? Procedure Date: 04/23/2023 9:07 AM ? Date of : 1980 ? Admit Type: Outpatient Age: 43 ? Gender: Male Attending MD: EVA KYLE MD, ??Total Sedation Time: 33 min continuous bedside 1:1 monitoring, IT 5 min, WT 24 min. Instrument Name: 226 - Adult Colonoscope Procedure: ?Colonoscopy Indications: ?Change in bowel habits Providers: ?EVA KYLE MD (Doctor) Referring MD: ? Medicines: ?Midazolam 5 mg IV, Fentanyl 100 micrograms IV, ?Glucagon 0.5 mg IV Complications: ?No immediate complications. Procedure: ?Pre-Anesthesia Assessment: ?- Prior to the procedure, a History and Physical ?was performed, and patient medications and ?allergies were reviewed. The patient's tolerance of ?previous anesthesia was also reviewed. The risks ?and benefits of the procedure and the sedation ?options and risks were discussed with the patient. ?All questions were answered, and informed consent ?was obtained. Prior Anticoagulants: The patient has ?taken no anticoagulant or antiplatelet agents. ASA ?Grade Assessment: II - A patient with mild systemic ?disease. After reviewing the risks and benefits, ?the patient was deemed in satisfactory condition to ?undergo the procedure. ?- Prior to the procedure, a History and Physical ?was performed, and patient medications, allergies ?and sensitivities were reviewed. The patient's ?tolerance of previous anesthesia was reviewed. ?- The risks and benefits of the procedure and the ?sedation options and risks were discussed with the ?patient. All questions were answered and informed ?consent was obtained. ?- Patient identification and proposed procedure ?were verified prior to the procedure by the ?physician. The procedure was verified in the ?endoscopy suite. ?- Pre-procedure physical examination revealed no ?contraindication s to sedation. ?- The heart rate, respiratory rate, oxygen ?saturations, blood pressure, adequacy of pulmonary ?ventilation, and response to care were monitored ?throughout the procedure. ?- The physical status of the patient was ?re-assessed after the procedure. ?After obtaining informed consent, the colonoscope ?was passed under direct vision. Throughout the ?procedure, the patient's blood pressure, pulse, and ?oxygen saturations were monitored continuously. The ?Olympus Adult Colonoscope, Model # [id number], ?Censitrac # [id number] was introduced through the ?anus and advanced to the terminal ileum. The ?colonoscopy was performed without difficulty. The ?patient tolerated the procedure well. The quality ?of the bowel preparation was adequate. ? Findings: ? The perianal and digital rectal examinations were normal. Pertinent ? negatives include normal sphincter tone, no palpable rectal lesions and ? normal prostate (size, shape, and consistency). ? Diffuse mild inflammation characterized by congestion (edema) and ? erythema was found in the terminal ileum. Biopsies were taken with a ? cold forceps for histology. Estimated blood loss was minimal. ? Two sessile polyps were found in the ascending colon. The polyps were 5 ? to 7 mm in size. These polyps were removed with a cold snare. Resection ? and retrieval were complete. Estimated blood loss was minimal. ? An 8 mm polyp was found in the hepatic flexure. The polyp was sessile. ? The polyp was removed with a hot snare. Resection and retrieval were ? complete. To prevent bleeding after the polypectomy, one hemostatic clip ? was successfully placed. There was no bleeding at the end of the ? procedure. ? A 5 mm polyp was found in the descending colon. The polyp was sessile. ? The polyp was removed with a cold snare. Resection and retrieval were ? complete. Estimated blood loss was minimal. ? A 5 mm polyp was found in the sigmoid colon. The polyp was sessile. The ? polyp was removed with a cold snare. Resection and retrieval were ? complete. Estimated blood loss was minimal. ? Scattered small-mouthed diverticula were found in the descending colon ? and ascending colon. ? There was evidence of a prior end-to-end colo-rectal anastomosis in the ? proximal rectum. This was patent and was characterized by healthy ? appearing mucosa and an intact staple line. The anastomosis was ? traversed. ? Non-bleeding internal hemorrhoids were found during retroflexion. ? Impression: ? - Mild inflammation was found in the ileum ?secondary to ileitis. Biopsied. ?- Two 5 to 7 mm polyps in the ascending colon, ?removed with a cold snare. Resected and retrieved. ?- One 8 mm polyp at the hepatic flexure, removed ?with a hot snare. Resected and retrieved. Clip was ?placed. ?- One 5 mm polyp in the descending colon, removed ?with a cold snare. Resected and retrieved. ?- One 5 mm polyp in the sigmoid colon, removed with ?a cold snare. Resected and retrieved. ?- Diverticulosis in the descending colon and in the ?ascending colon. ?- Patent end-to-end colo-rectal anastomosis, ?characterized by healthy appearing mucosa and an ?intact staple line. ?- Non-bleeding internal hemorrhoids. Recommendation: ? - Discharge patient to home. ?- Resume previous diet. ?- No aspirin, ibuprofen, naproxen, or other ?non-steroidal anti-inflammatory drugs for 5 days ?after polyp removal. ?- Miralax 1 capful (17 grams) in 8 ounces of water ?PO BID indefinitely. ?- Await pathology results. ?- Repeat colonoscopy in 3 years for surveillance ?based on pathology results. ? Procedure Code(s): ? --- Professional --- ? 31736, Colonoscopy, flexible; with removal of tumor(s), polyp(s), or ? other lesion(s) by snare technique ? 55121, 59, Colonoscopy, flexible; with biopsy, single or multiple CPT copyright 2021 [employer]. All rights reserved. The codes documented in this report are preliminary and upon central sterile technician review may be revised to meet current compliance requirements. EVA KYLE MD 04/23/2023 10:06:23 AM I was physically present for the entire viewing portion of the exam. EVA KYLE MD Number of Addenda: 0 Note Initiated On: 04/23/2023 9:07 AM MRN: ?[id number] Procedure Date: ? 04/23/2023 9:07:09 AM Scope Withdrawal Time: 0 hours 23 minutes 31 seconds Total Procedure Duration: 0 hours 29 minutes 27 seconds Estimated Blood Loss: ? Scope In: 9:16:03 AM Scope Out: 9:45:30 AM RADIOLOGY RESULTS 04/23/2023 9:07 AM CDT Eva Kyle MD PROCEDURES RADIOLOGY RESULTS * (ABNORMAL) Basic metabolic panel (08/19/2022 5:34 AM CDT) Sodium 137 136 - 145 mmol/L 08/19/2022 6:11 AM CDT [facility] Potassium 3.8 3.4 - 5.3 mmol/L 08/19/2022 6:11 AM CDT [facility] Chloride 105 98 - 107 mmol/L 08/19/2022 6:11 AM CDT [facility] Carbon Dioxide (CO2) 22 22 - 29 mmol/L 08/19/2022 6:11 AM CDT LABORATORY Anion Gap 10 7 [...] LAB - BLOOD ORDERABL ES [facility] [address] Lab (1st floor, no room number) [place] [address], [facility] [phone] from Last 3 Months or Most Recently Relevant to Health Maintenance Advance Directives For more information, please contact: [phone] * Full Code (Latest Code Status on File) Date Activated Date Inactivated Comments 08/14/2022 6:20 AM 08/19/2022 1:23 PM All basic and advanced life-sustaining interventions are performed as appropriate Question Answer Comments Code status determined by: Discussion with mai nt/ legal decision maker * Full Code Date Activated Date Inactivated Comments 08/08/2022 10:29 PM 08/12/2022 1:54 PM All basic an d advanced life-sustaining interventions are performed as appropriate Question Answer Comments Code status determined by: Discussion with mai nt/ legal decision maker Care Teams Director Of Advertising Sales Relationship Specialty Start Date End Date No Ref-Primary, Physician PCP - General 08/07/22
--- OUTSIDE RECORDS SUMMARY | 2023-07-09 11:50 | XMS_ITS | Continuity of Care Document ---
Author Organization [facility] Address [address] [place] [address] Phone Care Team Providers Care Wind Turbine Performance Engineer Name Role Phone Juan Rowell Unavailable Unavailable Procedures Procedure Date Lami/Discectomy, Lumbar HNP - PA 2019 Lami/Discectomy, Lumbar HNP Advance Directives Directive Yes / No Effective Date File Name No Information Encounters Encounter Description Practice Location Reason(s) For Visit Diagnoses Date Provider Providers Copied on Encounter [facility], [address], [place], [place], [id number], [place] tel:[phone] [facility] No Information Hay Martinez. [facility], [address] [place] [address], [place], [place], [id number], [place]. tel:[phone] Referring Provider: RAINER Sheppard [address] [place] [address], [address]. tel:[phone] [facility], [address], [place], [place], [id number], [place] tel:[phone] [facility] No Information Marii Gutierrez. [facility], [address] [place] [address], [place], [place], [id number], . tel:[phone] Referring Provider: RAINER Sheppard [address] [place] [address], [address]. tel:[phone] Family History Family Member Type Diagnosis Age At Onset No Information Payers Payer name Insurance type Covered alliance party ID Authoriza tichristopher(s) No Information Social History Type Description Quantity [...]
--- OUTSIDE RECORDS SUMMARY | 2023-07-09 11:50 | XMS_ITS | Clinical Summary ---
[facility] [address] [place] [address] Care Team Providers Care Gwot Ia/Ilo Intelligence Support Name Role Phone Unassigned, Provider Primary Care [...] for each transition of care or referral. [facility] No known active allergies Medications Medication Sig Dispensed Refills Start Date End Date Status ALPRAZolam (XANAX) 1 MG tablet 04/18/2019 Active metoprolol succinate (TOPROL XL) 50 MG 24 hour release tablet TAKE 1 T PO DAILY 04/15/2019 Active testosterone cypionate (DEPO-TESTOSTERONE) 200 MG/ML injection 04/15/2019 Activ e B-D 3CC LUER-SULEMA SYR 07RC6-7/2 22G X 1-1/2 3 ML UTD 04/15/2019 Active ibuprofen (MOTRIN) 200 MG tablet Take 200-400 mg by mouth every 4 hours as needed for Pain. Active predniSONE (DELTASONE) 20 MG tablet 20 mg 2x daily x 2 days, then 10 mg 2 daily x 2 days, then 10mg daily x 2 days, then Off. FINAL refill 7 Tablet 04/30/2019 Active lisinopril (ZESTRIL) 20 MG tablet TK 1 T PO D 05/15/2019 Active oxyCODONE-acetaminophe n (PERCOCET) 5-325 MG tabletIndications:Lumb ar radiculopathy Take 1-2 Tablets by mouth every 6 hours as needed for Pain. 30 Tablet 06/11/2019 Active cyclobenzaprine (FLEXERIL) 10 MG tablet [...] Comments Hep C Screening (Preventive Services) 1980 Pneumococcal (1 - PCV) 1986 HIV Screening (Preventive Services) 1996 Adult Preventive Visit 1998 HepB (1) 04/12/1999 Cholesterol 04/12/2015 COVID-19 Vaccine (3 season) 2022 07/25/2020, 06/28/2020 Influenza (Season Ended) 2023 12/09/2013 DTaP/Tdap/Td (5 - Tdap) 12/10/2023 12/10/19 [...] age to complete this topic Care Teams Gwot Ia/Ilo Intelligence Support Relationship Specialty Start Date End Date Unassigned, Provider [address] [place] [address] PCP - General 02/16/00
--- OUTSIDE RECORDS SUMMARY | 2023-07-09 11:50 | XMS_ITS | Encounter Summary ---
Author Organization [place] Address [address] [facility] [place] [address] Care Team Providers Care Business Operations Manager Name Role Phone No Ref-Primary, Physician Primary Care Provider Reason for Referral * Consultation (Routine: Next available opening) - Pending Review Specialty Diagnoses / Procedures Referred By Luis Eduardo lao Referred To Contact Gastroenterology Diagnoses Change in bowel habits Kylah Arndt MD [facility] [address] [address] Referral ID Status Reason Start Date Expiration Date V isits Requested Visits Authorized [id number] Pending Review 04/19/2023 04/18/2024 1 1 Question Answer Service: Lower Endoscopy Lower Endoscopy Type: Colonoscopy Reason for Colonoscopy: Diagnostic Sedation Concerns: No medical conditions affecting sedation Sedation Type: Moderate/Conscious Sedation Preferred Location: [facility] Scheduling Instructions: [facility] will call you to coordinate your care as prescribed by the provider. If you don? t hear from a senior sales representative within 2 business days, please call . Comments Please be aware that coverage of these services is subject to the terms and limitations of your health insurance plan. Call member services at your health plan with any benefit or coverage questions. [facility] will call you to coordinate your care as prescribed by the provider. If you don? t hear from a senior sales representative within 2 business days, please call . ETIC DIRECTOR Encounter Details Date Type Department Care Team (Latest Contact Info) Description 04/19/2023 Transcribe Orders [facility] [place] [address] [place] [address] Kylah Arndt MD [facility]O [facility] RECTAL SURGERY [address] [id number] Change in bowel habits (Primary Dx) Social History Tobacco Use Types Packs/Day Years Used Date Smoking Tobacco: Every Day Cigarettes Smokeless Tobacco: Never Alcohol Use Standard Drinks/Week [...] Scheduled Referrals Name Type Priority Associated Diagnoses Orde r Schedule Adult GI Preforming Machine Operator Referral - Procedure Only Referral Routine: Next available opening Change in bowel habits Expected: 04/19/2023 (Approximate), Expires: 04/18/2024 documented as of this encounter Visit Diagnoses Diagnosis Change in bowel habits- Primary Other symptoms involving digestive system documented in this encounter Care Teams Business Operations Manager Relationship Specialty Start Date End Date No Ref-Primary, Physician PCP - General 08/07/22 documented as of this encounter
--- OUTSIDE RECORDS SUMMARY | 2023-07-09 11:50 | XMS_ITS | Encounter Summary ---
Author Organization [facility] Address [address] [place] [address]. [place] [address] Care Team Providers Care Nurses Assistant Name Role Phone No Ref-Primary, Physician Primary Care Provider Reason for Visit * Auth/Cert (Routine) Specialty Diagnoses / Procedures Referred By Luis Eduardo t Referred To Contact Gastroenterology Diagnoses Change in bowel habits Change in bowel habits [R19.4] Procedures HI COLONOSCOPY W/WO BRUSH/WASH Colonoscopy Endoscopy [address] [place] [address] Referral ID Status Reason Start Date Expiration Date Visits Re quested Visits Authorized [id number] 1 1 Encounter Details Date Type Department Care Team (Late st Contact Info) Description 04/23/2023 8:50 AM CDT - 04/23/2023 9:35 AM CDT Surgery [facility] Endoscopy [place] [address] [place] [phone] Eva Kyle MD COLO & RECTAL SURGERY [address] [id number] Colonoscopy with polypectomies by cold and hot snare and biopsies. placed 1 clip Surgery Details Date/Time Status Location OR Service Patient Class Case Cl ass Case Type Trauma Case? 04/23/23 8:50 AM Posted GI GI B [place] Outpatient Elective Panel 1 Procedure LRB Anes Op Region Wound Class Comments Colonoscopy with polypectomies by cold and hot snare and biopsies. placed 1 clip N/A Moderate Sedation Rectum II-Clean Con taminated COLONOSCOPY, WITH BIOPSY N/A Rectum II-Clean Contaminated COLONOSCOPY, WITH HEMORRHAGE CONTROL N/A Rectum II-Clean Contaminated Surgeon Surgeon Role Service Panel Eva Kyle MD Primary [place] 1 documented in this encounter Social History [...] on file documented as of this encounter Last Filed Vital Signs Vital Sign Reading Time Taken Comments Blood Pressure 156/87 04/23/2023 9:35 AM CDT Pulse 81 04/23/2023 9:35 AM CDT Temperature - - Respiratory Rate 28 04/23/2023 9:35 AM CDT Oxygen Saturation 97% 04/23/2023 9:35 AM CDT Inhaled Oxygen Concentration - - Weight 122.9 kg (271 lb) 04/23/2023 8:26 AM CDT Height 188 cm (6' 2) 04/23/2023 8:26 AM CDT Body Mass Index 34.79 04/23/2023 8:26 AM CDT documented in this encounter Discharge Instructions * Discharge Instructions* Sybil Brooks RN - 04/23/2023 9:57 AM CDT Clip Placement This Patient has received a temporary endoscopic clip which can be safely used in a MRI with a static magnetic field of 1/5-Anahy and 3-Anahy ONLY. Retention times for this clip vary so if you have an MRI within the next year make sure to mention you had a clip placed on this day to the MRI staff. If you were given the informational card, keep that in in your wallet or purse for 1 year. Non-clinical testing demonstrated that the clip is MR Conditional according to ASTM T3732-20. A patient with this device can be scanned safely in an MR system under the following conditions. Static magnetic field of 1.5-Anahy and 3-Telsa, only. Maximum spatial gradient magnetic field of 2,000-gauss/cm (20-T/m) Maximum MR system reported, whole body averaged specific absorption rate (RICKY) of 2-W/kg for 15 minutes of scanning (i.e., per pulse sequence) in the Normal Operating Mode. Under the scan conditions defined, the clip is expected to produce a maximum temperature rise of 1.9 degrees C after 15 minutes of continuous scanning (i.e., per pulse sequence). In Non-clinical testing, the image artifact caused by the clip extends approximately 30-mm from this implant when imagedusing a gradient echo pulse sequence and a 3-Anahy RM system. The patient has received a copy of the Provation report the doctor has written and discharge instructions have been discussed with the patient and responsible adult. All questions were addressed and answered prior to patient discharge. * Attachments The following attachments cannot be sent through Care Everywhere. * Colon Polyps (Palestinian) * Diverticulosis and Diverticulitis: General Info (Palestinian) * High-Fiber Diet (Palestinian) documented in this encounter Medications at Time of Discharge Medication Sig Dispensed Refills Start Date End Date acetaminophen (TYLENOL) 500 MG tablet Take 1,000 mg by mouth every 6 hours as needed for mild pain ALPRAZolam (XANAX) 0.5 MG tablet Take 0.5 mg by mouth 3 times daily as needed amoxicillin-clavulanate (AUGMENTIN) 875-125 MG tabletIndications:Colovesi gallo fistula Take 1 tablet by mouth 2 times daily 20 tablet 08/18/2022 ibuprofen (ADVIL/MOTRIN) 200 MG tablet Take 400 mg by mouth every 6 hours as needed for pain lisinopril (ZESTRIL) 40 MG tablet Take 40 mg by mouth daily metoprolol succinate ER (TOPROL XL) 25 MG 24 hr tabletIndications:Benign essential hypertension Take 1 tablet (25 mg) by mouth daily 30 tablet 08/18/2022 nicotine (NICODERM CQ) 21 MG/24HR [address] 1 patch onto the skin every 24 hours testosterone cypionate (DEPOTESTOSTERONE) 200 MG/ML injection Inject 200 mg into the muscle once a week documented as of this encounter H&P Notes * Eva Kyle MD - 04/23/2023 9:05 AM CDT Pre-Endoscopy History and Physical Judith Guajardo Date of : 1980 Age: [age] year old Date of Procedure: 04/23/2023 Primary care provider: No Ref-Primary, Physician Type of Endoscopy: Colonoscopy Reason for Procedure: Change in bowel habits Type of Anesthesia Anticipated: Moderate Sedation HPI: Judith is a 43 year old male who will be undergoing [...] complications or bleeding disorders. No Known Allergies No current facility-administered medications on file prior to encounter. lisinopril (ZESTRIL) 40 MG tablet, Take 40 mg by mouth daily metoprolol succinate ER (TOPROL XL) 25 MG 24 hr tablet, Take 1 tablet (25 mg) by mouth daily (Patient taking differently: Take 50 mg by mouth daily) acetaminophen (TYLENOL) 500 MG tablet, Take 1,000 mg by mouth every 6 hours as needed for mild pain ALPRAZolam (XANAX) 0.5 MG tablet, Take 0.5 mg by mouth 3 times daily as needed amoxicillin-clavulanate (AUGMENTIN) 875-125 MG tablet, Take 1 tablet by mouth 2 times daily ibuprofen (ADVIL/MOTRIN) 200 MG tablet, Take 400 mg by mouth every 6 hours as needed for pain nicotine (NICODERM CQ) 21 MG/24HR 24 hr patch, Place 1 patch onto the skin every 24 hours testosterone cypionate (DEPOTESTOSTERONE) 200 MG/ML injection, Inject 200 mg into the muscle once aweek Patient Active Problem List Diagnosis Colovesical fistula SBO (small bowel obstruction) (H) Fever postop Nausea and vomiting, unspecified vomiting type Past Medical History: Diagnosis Date Anxiety Colovesical fistula Depressive disorder Diverticulitis of colon 07/2022 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 Hypertension PTSD (post-traumatic stress disorder) Past Surgical History: Procedure Laterality Date APPENDECTOMY COLONOSCOPY N/A 08/07/2022 Procedure: Colonoscopy; Surgeon: Berenice Odom MD; Location: GI [facility] COLECTOMY N/A 08/08/2022 Procedure: Xi Robotic Assisted Sigmoid Colectomy, take down of colovesical fistula, mobilization ofsplenetic flexure, small bowel resection, drainage of abdominal wall abscess; Surgeon: Eva Kyle MD; Location: [facility] OR INSERT STENT URETER 08/08/2022 Procedure: Cystoscopy, insertion of bilateral ureteral stents; Surgeon: Valentin Whitaker MD; Location: [facility] OR Lumbar spine surgery x 2 TONSILLECTOMY VASECTOMY Social History Tobacco Use Smoking status: Every Day Packs/day: 1 Types: Cigarettes Smokeless tobacco: Never Substance Use Topics Alcohol use: Yes Comment: 4 per night Family History Problem Relation Age of Onset Colon Cancer No family hx of REVIEW OF SYSTEMS: 5 point ROS negative except as noted above in HPI, including Gen., Resp., CV, GI & system review. PHYSICAL EXAM: Ht 1.88 m (6' 2) Wt 122.9 kg (271 lb) BMI 34.79 kg/m?? Estimated body mass index is 34.79 kg/m?? as calculated from the following: Height as of this encounter: 1.88 m (6' 2). Weight as of this encounter: 122.9 kg (271 lb). GENERAL APPEARANCE: healthy and alert MENTAL STATUS: alert AIRWAY EXAM: Mallampatti Class I (visualization of the soft palate, fauces, uvula, anterior and posterior pillars) RESP: lungs clear to auscultation - no rales, rhonchi or wheezes CV: regular rates and rhythm IMPRESSION ASA Class 2 - Mild systemic disease PLAN: Plan for colonoscopy. We discussed the risks, benefits and alternatives and the patient wished to proceed. The above has been forwarded to the consulting provider. Radha Kyle MD [facility] April 23, 2023 documented in this encounter Plan of Treatment [...] 9:07 AM CDT Change in bowel habits documented in this encounter Results * Surgical Pathology Exam (04/23/2023 9:24 AM CDT) Case Report Surgical Pathology Report ? Case: [id number] ? Authorizing Provider: ??Eva Kyle MD ?? Collected: ? 04/23/2023 09:24 AM ? Ordering Location: ? [facility] ?Received: ?04/23/2023 10:02 AM ? Endoscopy [place] ? Pathologist: ? Tom Harrell, ? MD ? Specimens: ?? A) - [...] for dysplasia and malignancy. 04/24/2023 10:03 AM [facility] Clinical Information Clinical information pertinent to this case is available in the electronic medical record and/or specimen requisition and was reviewed by the signing pathologist. 04/24/2023 10:03 AM [facility] Gross Description A(1). Small Intestine, Terminal [...] bisected. Entirely submitted in one cassette. [THELMA Byers(ASCP)] 04/24/2023 10:03 AM CDT LABORATORY Microscopic Description A microscopic examination is performed. 04/24/2023 10:03 AM CDT LABORATORY Performing Labs The technical component of this testing was completed at [facility] 04/24/2023 10:03 AM CDT LABORATORY Case [...] AM CDT 04/23/2023 10:02 AM CDT [facility] [address], [address] [place] [address], [facility] [address] [facility] (1st floor, no room number) [place] [address] [place] * COLONOSCOPY (04/23/2023 9:07 AM CDT) COLONOSCOPY [facility] Patient Name: Judith Guajardo ? Procedure [...] continuously. The ?Olympus Adult Colonoscope, Model # CF-EV806J, ?Censitrac # [id number] was introduced through the ?anus and advanced [...] Procedure Code(s): ? --- Professional --- ? 56947, Colonoscopy, flexible; with removal of tumor(s), polyp(s), or ? other lesion(s) by snare technique ? 63744, 59, Colonoscopy, flexible; with biopsy, single or multiple CPT copyright 2021 [employer]. All rights reserved. The codes documented in this report are preliminary and upon ferris wheel operator review may be revised to meet current compliance requirements. EVA KYLE MD 04/23/2023 10:06:23 AM I was physically present for the entire viewing portion of the exam. EVA KYLE MD Number of Addenda: 0 Note Initiated On: 04/23/2023 9:07 AM MRN: ?[id number] Procedure Date: ? 04/23/2023 9:07:09 AM Scope Withdrawal Time: 0 hours 23 minutes 31 seconds Total Procedure Duration: 0 hours 29 minutes 27 seconds Estimated Blood Loss: ? Scope In: 9:16:03 AM Scope Out: 9:45:30 AM RADIOLOGY RESULTS 04/23/2023 9:07 AM CDT Eva Kyle MD PROCEDURES RADIOLOGY RESULTS documented in this encounter Visit Diagnoses Diagnosis Benign essential hypertension Essential hypertension, benign Change in bowel habits Other symptoms involving digestive system documented in this encounter Administered Medications Inactive Administered Medications - up to 3 most recent administrations Medication Order MAR Action Action Date Dose Rate Site atropine injection 1 mg 1 mg, Intravenous, ONCE PRN, other, Bradycardia, Starting on Sat04/23/23 at 09, For 1 dose, Intra-procedure benzocaine 20% (HURRICAINE/TOPEX) 20 % spray 0.5 mL 0.5 mL (1 spray), Mouth/Throat, ONCE PRN, sore throat, Starting on Sat04/23/23 at 0905, For 1 dose, [place] throat with 1 spray 5 minutes prior to procedure., Intra-procedure diphenhydrAMINE (BENADRYL) injection 25-50 mg 25-50 mg, Intravenous, ONCE PRN, other, for sedations, dose per provider direction., Administer over 1-2 Minutes, Starting on Sat04/23/23 at 09, For 1 dose, Protect from light., Intra-procedure EPINEPHrine (Anaphylaxis) (ADRENALIN) injection (vial) 0.1 mg 0.1 mg, Submucosal, ONCE PRN, bleeding, Starting on Sat04/23/23 at 09, For 1 dose, RN to dilute 1 [...] when verbally requested by provider., Starting on Sat04/23/23 at 09, Doses can be exceeded under direct oversight of patient by physician., Intra-procedure $Given 04/23/2023 9:12 AM CDT 100 mcg flumazenil (ROMAZICON) injection 0.2 mg 0.2 mg, Intravenous, EVERY 1 MIN PRN, benzodiazepine reversal, If inadequate response after 45 seconds, may repeat 0.2 mg IV every 1 minute PRN over sedation., Administer over 1 Minutes, Starting on Sat04/23/23 at 0905, Give over 15 seconds. Maximum total dose of 1 mg. Continue monitoring until discharge criteria met for a minimum of 2 hours. Irritant. Use with caution in patients on benzodiazepine therapy., Intra-procedure glucagon injection 0.5 mg 0.5 mg, Intravenous, ONCE PRN, other, gi motility, Starting on Sat04/23/23 at 0905, For 1 dose, Intra-procedure $Given 04/23/2023 9:32 AM CDT 0.5 mg lidocaine (LMX4) cream Topical, EVERY 1 HOUR PRN, pain, with VAD insertion, Starting on Sat04/23/23 at 0908, Apply at least 30 minutes prior to [...] mild pain with VAD insertion, Starting on Sat04/23/23 at 0908, MAX dose 1 mL subcutaneous OR intradermal [...] when verbally requested by provider., Starting on Sat04/23/23 at 0905, Doses can be exceeded under direct oversight of patient by physician. This drug may cause significant respiratory depression. Monitor respiratory status and vital signs carefully for 1 hour after each dose., Intra-procedure $Given 04/23/2023 9:34 AM CDT 1 mg $Given 04/23/2023 9:16 AM CDT 2 mg $Given 04/23/2023 9:12 AM CDT 2 mg naloxone (NARCAN) injection 0.2 mg 0.2 mg, Intravenous, EVERY 2 MIN PRN, opioid reversal, Starting on Sat04/23/23 at 0905, Administer intravenous route when available and notify [...] 2 MIN PRN, opioid reversal, Starting on Sat04/23/23 at 0905, Administer intramuscular if an intravenous route is [...] 2 MIN PRN, opioid reversal, Starting on Sat04/23/23 at 0905, Administer intravenous route when available and notify [...] 2 MIN PRN, opioid reversal, Starting on Sat04/23/23 at 0905, Administer intramuscular if an intravenous route is [...] 6 HOURS PRN, nausea, vomiting, Starting on Sat04/23/23 at 0957, This is Step 1 of nausea and [...] vomiting, Administer over 2-5 Minutes, Starting on Sat04/23/23 at 0908, For 1 dose, Give in ENDO pre procedure prep area. Irritant., Pre-procedure ondansetron (ZOFRAN) injection 4 mg 4 mg, Intravenous, EVERY 6 HOURS PRN, nausea, vomiting, Administer over 2-5 Minutes, Starting on Sat04/23/23 at 0957, This is Step 1 of nausea and vomiting management. If nausea not resolved in 15 minutes, go to Step 2 prochlorperazine (COMPAZINE). Irritant. prochlorperazine (COMPAZINE) injection 10 mg 10 mg, Intravenous, EVERY 6 HOURS PRN, nausea, vomiting, Administer over 1-2 Minutes, Starting on Sat04/23/23 at 0957, This is Step 2 of nausea and vomiting management. If nausea not resolved in 15-30 minutes, Notify provider. prochlorperazine (COMPAZINE) tablet 10 mg 10 mg, Oral, EVERY 6 HOURS PRN, nausea, vomiting, Starting on Sat04/23/23 at 0957, This is Step 2 of nausea and vomiting management. If nausea not resolved in 15-30 minutes, Notify provider. simethicone (MYLICON) suspension 133 mg 133 mg, Oral, ONCE PRN, other, gas bubbles, Starting on Sat04/23/23 at 0905, For 1 dose, Give via endoscope, Intra-procedure sodium chloride (PF) 0.9% PF flush 3 mL 3 mL, Intracatheter, EVERY 8 HOURS, First dose on Sat04/23/23 at 0930, to lock peripheral IV dormant line, Pre-procedure sodium chloride (PF) 0.9% PF flush 3 mL 3 mL, Intracatheter, EVERY 1 MIN PRN, line flush, other, to ensure patency or to lock dormant line, Starting on Sat04/23/23 at 0908, Pre-procedure sodium chloride (PF) 0.9% PF flush 3 mL 3 mL, Intravenous, EVERY 1 MIN PRN, line flush, Starting on Sat04/23/23 at 0905, Indications: for Peripheral IV flush post IV meds, Intra-procedure $Given 04/23/2023 9:17 AM CDT 3 mLs $Given 04/23/2023 9:14 AM CDT 3 mLs sodium chloride 0.9% BOLUS 500 mL Intravenous, 500 mL, ONCE PRN, at 500 mL/hr, Administer over 1 Hours, other, hypotension, Starting on Sat04/23/23 at 0905, For 1 dose, Intra-procedure documented in this encounter Active and Recently Administered Medications Due to Daylight Saving Time, this section may contain times in both PIPE COVERER and CDT. Scheduled Medication Order 04/21/2023 04/22/2023 04/23/2023 sodium chloride (PF) 0.9% PF flush 3 mL 3 mL, Intracatheter, EVERY 8 HOURS, First dose on Sat04/23/23 at 0930, to lock peripheral IV dormant line, Pre-procedure 0930 (Canceled Entry - Provider: Orders Generic Provider - Comment: Automatically canceled at discontinue of medication order) PRN Medication Order 04/21/2023 04/22/2023 04/23/2023 atropine injection 1 mg 1 mg, Intravenous, ONCE PRN, other, Bradycardia, Starting on Sat04/23/23 at 0905, For 1 dose, Intra-procedure benzocaine 20% (HURRICAINE/TOPEX) 20 % spray 0.5 mL 0.5 mL (1 spray), Mouth/Throat, ONCE PRN, sore throat, Starting on Sat04/23/23 at 0905, For 1 dose, [place] throat with 1 spray 5 minutes prior to procedure., Intra-procedure diphenhydrAMINE (BENADRYL) injection 25-50 mg 25-50 mg, Intravenous, ONCE PRN, other, for sedations, dose per provider direction., Administer over 1-2 Minutes, Starting on Sat04/23/23 at 0905, For 1 dose, Protect from light., Intra-procedure EPINEPHrine (Anaphylaxis) (ADRENALIN) injection (vial) 0.1 mg 0.1 mg, Submucosal, ONCE PRN, bleeding, Starting on Sat04/23/23 at 0905, For 1 dose, RN to dilute 1 [...] when verbally requested by provider., Starting on Sat04/23/23 at 0905, Doses can be exceeded under direct oversight of patient by physician., Intra-procedure 911 ($Given - Provi carmine: Trudy Collins, RN) flumazenil (ROMAZICON) injection 0.2 mg 0.2 mg, Intravenous, EVERY 1 MIN PRN, benzodiazepine reversal, If inadequate response after 45 seconds, may repeat 0.2 mg IV every 1 minute PRN over sedation., Administer over 1 Minutes, Starting on Sat04/23/23 at 0905, Give over 15 seconds. Maximum total dose of 1 mg. Continue monitoring until discharge criteria met for a minimum of 2 hours. Irritant. Use with caution in patients on benzodiazepine therapy., Intra-procedure flumazenil (ROMAZICON) injection 0.2 mg 0.2 mg, Intravenous, EVERY 1 MIN PRN, benzodiazepine reversal, over sedation, Administer over 1 Minutes, Starting on Sat04/23/23 at 0957, For 12 hours, Give over 15 seconds. If inadequate response after 45 seconds, may repeat up to a MAX total dose of 1 mg. Continue monitoring until discharge criteria are met for a minimum of 2 hours Irritant. Use with caution in patients on benzodiazepine therapy. glucagon injection 0.5 mg (COMPLETED) 0.5 mg, Intravenous, ONCE PRN, other, gi motility, Starting on Sat04/23/23 at 0905, For 1 dose, Intra-procedure 0932 ($Given - Provi carmine: Trudy Collins RN) lidocaine (LMX4) cream Topical, EVERY 1 HOUR PRN, pain, with VAD insertion, Starting on Sat04/23/23 at 0908, Apply at least 30 minutes prior to [...] mild pain with VAD insertion, Starting on Sat04/23/23 at 0908, MAX dose 1 mL subcutaneous OR intradermal [...] when verbally requested by provider., Starting on Sat04/23/23 at 0905, Doses can be exceeded under direct oversight of patient by physician. This drug may cause significant respiratory depression. Monitor respiratory status and vital signs carefully for 1 hour after each dose., Intra-procedure 0912 ($Given - Provi carmine: Trudy Collins, ELIAN)0916 ($Given - Provider: Trudy Collins, ELIAN)0934 ($Given - Provider: Trudy Collins, ELIAN) naloxone (NARCAN) injection 0.2 mg(Linked Group 1) 0.2 mg, Intravenous, EVERY 2 MIN PRN, opioid reversal, Starting on Sat04/23/23 at 0905, Administer intravenous route when available and notify [...] 2 MIN PRN, opioid reversal, Starting on Sat04/23/23 at 0905, Administer intramuscular if an intravenous route is [...] 2 MIN PRN, opioid reversal, Starting on Sat04/23/23 at 0905, Administer intravenous route when available and notify [...] 2 MIN PRN, opioid reversal, Starting on Sat04/23/23 at 0905, Administer intramuscular if an intravenous route is [...] Intra-procedure ondansetron (ZOFRAN ODT) ODT tab 4 mg(Linked Group 2) 4 mg, Oral, EVERY 6 HOURS PRN, nausea, vomiting, Starting on Sat04/23/23 at 0957, This is Step 1 of nausea and [...] vomiting, Administer over 2-5 Minutes, Starting on Sat04/23/23 at 0908, For 1 dose, Give in ENDO pre procedure prep area. Irritant., Pre-procedure ondansetron (ZOFRAN) injection 4 mg(Linked Group 2) 4 mg, Intravenous, EVERY 6 HOURS PRN, nausea, vomiting, Administer over 2-5 Minutes, Starting on Sat04/23/23 at 0957, This is Step 1 of nausea and vomiting management. If nausea not resolved in 15 minutes, go to Step 2 prochlorperazine (COMPAZINE). Irritant. prochlorperazine (COMPAZINE) injection 10 mg(Linked Group 3) 10 mg, Intravenous, EVERY 6 HOURS PRN, nausea, vomiting, Administer over 1-2 Minutes, Starting on Sat04/23/23 at 0957, This is Step 2 of nausea and vomiting management. If nausea not resolved in 15-30 minutes, Notify provider. prochlorperazine (COMPAZINE) tablet 10 mg(Linked Group 3) 10 mg, Oral, EVERY 6 HOURS PRN, nausea, vomiting, Starting on Sat04/23/23 at 0957, This is Step 2 of nausea and vomiting management. If nausea not resolved in 15-30 minutes, Notify provider. simethicone (MYLICON) suspension 133 mg 133 mg, Oral, ONCE PRN, other, gas bubbles, Starting on Sat04/23/23 at 0905, For 1 dose, Give via endoscope, Intra-procedure sodium chloride (PF) 0.9% PF flush 3 mL 3 mL, Intracatheter, EVERY 1 MIN PRN, line flush, other, to ensure patency or to lock dormant line, Starting on Sat04/23/23 at 0908, Pre-procedure sodium chloride (PF) 0.9% PF flush 3 mL 3 mL, Intravenous, EVERY 1 MIN PRN, line flush, Starting on Sat04/23/23 at 0905, Indications: for Peripheral IV flush post IV meds, Intra-procedure 09 ($Given - Provi carmine: Trudy Collins, ELIAN)0917 ($Given - Provider: Trudy Collins RN) sodium chloride 0.9% BOLUS 500 mL Intravenous, 500 mL, ONCE PRN, at 500 mL/hr, Administer over 1 Hours, other, hypotension, Starting on Sat04/23/23 at 09, For 1 dose, Intra-procedure Linked Groups Order Group 1: naloxone (NARCAN) injection 0.2 mgJump to med 0.2 mg, Intravenous, EVERY 2 MIN PRN, opioid reversal, Starting on Sat04/23/23 at 0905, Administer intravenous route when available and notify [...] 2 MIN PRN, opioid reversal, Starting on Sat04/23/23 at 0905, Administer intravenous route when available and notify [...] 2 MIN PRN, opioid reversal, Starting on Sat04/23/23 at 0905, Administer intramuscular if an intravenous route is [...] 2 MIN PRN, opioid reversal, Starting on Sat04/23/23 at 0905, Administer intramuscular if an intravenous route is [...] 6 HOURS PRN, nausea, vomiting, Starting on Sat04/23/23 at 0957, This is Step 1 of nausea and [...] vomiting, Administer over 2-5 Minutes, Starting on 04/23/23 at 0957, This is Step 1 of nausea and vomiting management. If nausea not resolved in 15 minutes, go to Step 2 prochlorperazine (COMPAZINE). Irritant. Group 3: prochlorperazine (COMPAZINE) injection 10 mgJump to med 10 mg, Intravenous, EVERY 6 HOURS PRN, nausea, vomiting, Administer over 1-2 Minutes, Starting on 04/23/23 at 0957, This is Step 2 of nausea and vomiting management. If nausea not resolved in 15-30 minutes, Notify provider. Or prochlorperazine (COMPAZINE) tablet 10 mgJump to med 10 mg, Oral, EVERY 6 HOURS PRN, nausea, vomiting, Starting on 04/23/23 at 0957, This is Step 2 of nausea and vomiting management. If nausea not resolved in 15- 30 minutes, Notify provider. documented in this encounter Care Teams Nurses Assistant Relationship Specialty Start Date End Date No Ref-Primary, Physician PCP - General 08/07/22 documented as of this encounter
--- OUTSIDE RECORDS SUMMARY | 2023-07-09 11:50 | XMS_ITS | Encounter Summary ---
Author Organization [place] Address [address] [place] [address] Care Team Providers Care Marine Equipment Design Engineer Name Role Phone No Ref-Primary, Physician Primary Care Provider Encounter Details Date Type Department Care Team (Latest Contact Info) Description 04/23/2023 Travel Social History Tobacco Use Types Packs/Day [...] on filedocumented in this encounter Care Teams Marine Equipment Design Engineer Relationship Specialty Start Date End Date No Ref-Primary, Physician PCP - General 08/07/22 documented as of this encounter
--- OUTSIDE RECORDS SUMMARY | 2023-07-09 11:50 | XMS_ITS | Encounter Summary ---
Author Organization [place] Address [address] [facility] [place] [address] Care Team Providers Care Hairspring Ii Inspector Name Role Phone No Ref-Primary, Physician Primary Care Provider Reason for Visit * Auth/Cert (Routine) Specialty Diagnoses / Procedures Referred By Luis Eduardo lao Referred To Contact Gastroenterology Diagnoses Change in bowel habits Change in bowel habits [R19.4] Procedures MO COLONOSCOPY W/WO BRUSH/WASH Colonoscopy [facility] Endoscopy [address] [place] [address] Referral ID Status Reason Start Date Expiration Date Visits Re quested Visits Authorized [id number] 1 1 Encounter Details Date Type Department Care Team (Latest Contact Info) Description 04/23/2023 8:08 AM CDT - 04/23/2023 10:18 AM CDT Hospital Encounter [facility] [place] [address] [place] [phone] Eva Kyle MD COLO & RECTAL SURGERY [address] [id number] Benign essential hypertension Discharge Disposition: Home or [...] Pulse 76 04/23/2023 10:10 AM CDT Temperature - - Respiratory Rate 16 04/23/2023 10:10 AM CDT [...] clip is MR Conditional according to ASTM A6650-17. A patient with this device can be [...] sent through Care Everywhere. * Colon Polyps (Bulgarian) * Diverticulosis and Diverticulitis: General Info (Bulgarian) * High-Fiber Diet (Bulgarian) documented in this encounter Medications at Time [...] wall abscess; Surgeon: Eva Kyle MD; Location: OR INSERT STENT URETER 08/08/2022 Procedure: Cystoscopy, insertion of bilateral ureteral stents; Surgeon: Valentin Whitaker MD; Location: OR Lumbar spine surgery x 2 TONSILLECTOMY [...] Case Report Surgical Pathology Report ? Case: [id number] ? Authorizing Provider: ??Eva Kyle MD ?? Collected: ? 04/23/2023 09:24 AM ? Ordering Location: ? [facility] ?Received: ?04/23/2023 10:02 AM ? [facility] [place] ? Pathologist: ? Julio Cesar, Tom Giles, ? MD ? Specimens: ?? A) - Small Intestine, Terminal Ileum, for mild inflamation ? B) - Large Intestine, Colon, Ascending, Ascending colon polyps x 2 ? C) - Large Intestine, Colon, Hepatic Flexure ? D) - Large Intestine, Colon, Descending ? E) - Large Intestine, Colon, Sigmoid ? 04/24/2023 10:03 AM [facility] Final Diagnosis A: Small intestine, terminal [...] for dysplasia and malignancy. 04/24/2023 10:03 AM [facility] Clinical Information Clinical information pertinent to this case is available in the electronic medical record and/or specimen requisition and was reviewed by the signing pathologist. 04/24/2023 10:03 AM [facility] Gross Description A(1). Small Intestine, Terminal [...] one cassette. [THELMA Byers(ASCP)] 04/24/2023 10:03 AM T LABORATORY Microscopic Description A microscopic examination is performed. 04/24/2023 10:03 AM [facility] Performing Labs The technical component of this testing was completed at [facility] 04/24/2023 10:03 AM [facility] Case Images 04/24/2023 10:03 AM [facility] Biopsy STRUCTURE OF DISTAL PORTION OF [...] AM CDT Eva DOS SANTOS - [facility] Organization Address City/State/ZIP Co de Phone Number LABORATORY [facility] [address] 1st floor, [address] [place] [address] [address] [facility] Lab (1st floor, no room number) [place] [address] * COLONOSCOPY (04/23/2023 9:07 AM CDT) COLONOSCOPY [facility] Patient Name: Judith Guajardo ? Procedure Date: [...] and ?oxygen saturations were monitored continuously. The ?E-Box - Blogo.it Adult Colonoscope, Model # CF-LE087B, ?Censitrac # [id number] was introduced through the ?anus and advanced [...] Procedure Code(s): ? --- Professional --- ? 05750, Colonoscopy, flexible; with removal of tumor(s), polyp(s), or ? other lesion(s) by snare technique ? 62792, 59, Colonoscopy, flexible; with biopsy, single or multiple CPT copyright 2021 [employer]. All rights reserved. The codes documented in this report are preliminary and upon fancy stitcher review may be revised to meet current compliance requirements. EVA KYLE MD 04/23/2023 10:06:23 AM I was physically present for the entire viewing portion of the exam. EVA KYLE MD Number of Addenda: 0 Note Initiated On: 04/23/2023 9:07 AM MRN: ?[id number] Procedure Date: ? 04/23/2023 9:07:09 AM Scope Withdrawal Time: 0 hours 23 minutes 31 seconds Total Procedure Duration: 0 hours 29 minutes 27 seconds Estimated Blood Loss: ? Scope In: 9:16:03 AM Scope Out: 9:45:30 AM RADIOLOGY RESULTS 04/23/2023 9:07 AM CDT Eva Kyle MD PROCEDURES RADIOLOGY RESULTS documented in this encounter Visit Diagnoses Diagnosis Benign essential hypertension Essential hypertension, benign documented in this encounter Administered Medications Inactive [...] on Sat04/23/23 at 0905, For 1 dose, Shannon throat with 1 spray 5 minutes prior [...] requested by provider., Starting on Sat04/23/23 at 904, Doses can be exceeded under direct oversight of patient by physician., Intra-procedure $Given 04/23/2023 9:12 AM CDT 100 mcg flumazenil (ROMAZICON) injection 0.2 mg 0.2 mg, Intravenous, EVERY 1 MIN PRN, benzodiazepine reversal, If inadequate response after 45 seconds, may repeat 0.2 mg IV every 1 minute PRN over sedation., Administer over 1 Minutes, Starting on Sat04/23/23 at 09, Give over 15 seconds. Maximum total dose of 1 mg. Continue monitoring until discharge criteria met for a minimum of 2 hours. Irritant. Use with caution in patients on benzodiazepine therapy., Intra-procedure glucagon injection 0.5 mg 0.5 mg, Intravenous, ONCE PRN, other, gi motility, Starting on Sat04/23/23 at 09, For 1 dose, Intra-procedure $Given 04/23/2023 9:32 [...] this section may contain times in both SHELL PLATER and CDT. Scheduled Medication Order 04/21/2023 04/22/2023 [...] on Sat04/23/23 at 0905, For 1 dose, Shannon throat with 1 spray 5 minutes prior [...] Intra-procedure 911 ($Given - Provi carmine: Trudy Collins RN) flumazenil (ROMAZICON) injection 0.2 mg 0.2 [...] for 1 hour after each dose., Intra-procedure 911 ($Given - Provi carmine: Trudy Collins RN)0916 ($Given - Provider: Trudy Collins RN)0934 ($Given - Provider: Trudy Collins RN) naloxone (NARCAN) injection 0.2 mg(Linked Group 1) 0.2 mg, Intravenous, EVERY 2 MIN PRN, opioid reversal, Starting on Sat04/23/23 at 904, Administer intravenous route when available and notify [...] Peripheral IV flush post IV meds, Intra-procedure 0914 ($Given - Provi carmine: Trudy Collins RN)0917 ($Given - Provider: Trudy Collins RN) sodium chloride 0.9% BOLUS 500 mL Intravenous, 500 mL, ONCE PRN, at 500 mL/hr, Administer over 1 Hours, other, hypotension, Starting on Sat04/23/23 at 0905, For 1 dose, Intra-procedure Linked Groups Order [...] provider. documented in this encounter Care Teams Hairspring Ii Inspector Relationship Specialty Start Date End Date No Ref-Primary, Physician PCP - General 08/07/22 documented as of this encounter
--- OUTSIDE RECORDS SUMMARY | 2023-07-09 11:50 | XMS_ITS | Encounter Summary ---
Author Organization [place] Address [address] [place] [address] Care Team Providers Care Boxing Machine Operator Name Role Phone No Ref-Primary, Physician Primary Care Provider Reason for Visit * Reason Onset Date Comments Procedure 04/19/2023 CRSAL COLON Encounter Details Date Type Department Care Team (Late st Contact Info) Description 04/19/2023 Telephone [facility] [address] [place] [address] None Procedure (CRSAL COLON) Social History Tobacco Use Types Packs/Day Years [...] * Telephone Encounter - Ernesto Barth - 04/19/2023 7:52 AM CST REMINDER: We do not accept [employer] insurance. Procedure Scheduled: Lower Endoscopy [Colonoscopy] Procedure Date: 04/23/2023 @ 8:50AM Site:[facility]; [address] [place] [address] Endoscopist: ANABELLA Ordering Provider: ANABELLA Scheduled by (per the direction of): Fax from [facility]. ETIC FIELD CUSTODIAN documented in this encounter Plan of Treatment Not on file documented as of this encounter Visit Diagnoses Not on filedocumented in this encounter Care Teams Boxing Machine Operator Relationship Specialty Start Date End Date No Ref-Primary, Physician PCP - General 08/07/22 documented as of this encounter
--- OUTSIDE RECORDS SUMMARY | 2023-07-09 11:50 | XMS_ITS | Referral Summary ---
Author Organization [place] Address [address] [place] [address] Care Team Providers Care Head Animal Trainer Name Role Phone No Ref-Primary, Physician Primary Care Provider Encounters Date Type Department Care Team Description 04/23/2023 Travel 04/23/2023 8:50 AM CDT - 04/23/2023 9:35 AM CDT Surgery [facility] [place] [address] [place] [address] Eva Kyle MD Colonoscopy with polypectomies by cold and hot snare and biopsies. placed 1 clip 04/23/2023 8:08 AM CDT - 04/23/2023 10:18 AM CDT Hospital Encounter [facility] [place] [address] [place] [address] Eva Kyle MD Benign essential hypertension Discharge Disposition: Home or Self Care 04/19/2023 MyC Medical Advice [facility] Insurance Verification Aura Danielson 04/19/2023 Telephone [facility] [place] [phone] [facility] 4th [place] [address] None Procedure (CRSAL COLON) 04/19/2023 Transcribe Orders [facility] [place] [address] [place] [address] Eva Kyle MD Change in bowel habits (Primary Dx) from Last 3 Months Allergies No known active allergies Medications Medication [...] 04/23/2023 8:26 AM CDT Plan of Treatment Not on file Procedures Procedure Name Priority Date/Time Associated Diagnosis [...] Case Report Surgical Pathology Report ? Case: [id number] ? Authorizing Provider: ??Eva Kyle MD ?? Collected: ? 04/23/2023 09:24 AM ? Ordering Location: ? [facility] ?Received: ?04/23/2023 10:02 AM ? [facility] [place] ? Pathologist: ? Seningen, Tom Giles, ? MD ? Specimens: ?? A) - Small Intestine, Terminal Ileum, for mild inflamation ? B) - Large Intestine, Colon, Ascending, Ascending colon polyps x 2 ? C) - Large Intestine, Colon, Hepatic Flexure ? D) - Large Intestine, Colon, Descending ? E) - Large Intestine, Colon, Sigmoid ? 04/24/2023 10:03 AM [facility] Final Diagnosis A: Small intestine, terminal [...] and malignancy. 04/24/2023 10:03 AM [facility] Clinical Information Clinical information pertinent to this case is available in the electronic medical record and/or specimen requisition and was reviewed by the signing pathologist. 04/24/2023 10:03 AM [facility] Gross Description A(1). Small Intestine, Terminal [...] bisected. Entirely submitted in one cassette. [THELMA Byers([facility])] 04/24/2023 10:03 AM CDT LABORATORY Microscopic Description A microscopic examination is performed. 04/24/2023 10:03 AM CDT LABORATORY Performing Labs The technical component of this testing was completed at [facility] Laboratory 04/24/2023 10:03 AM CDT LABORATORY Case [...] AM CDT 04/23/2023 10:02 AM CDT Eva VIVEROS LAB[facility]AT[facility] Lab [address] 1st floor, [address] [place] [address], [facility] Acute [facility] Lab [address] [facility] Lab (1st floor, no room number) [place] [address], [facility] * COLONOSCOPY (04/23/2023 9:07 AM CDT) [facility] COLONOSCOPY [facility] Patient Name: Judith Guajardo ? [...] continuously. The ?Olympus Adult Colonoscope, Model # CF-GQ488A, ?Censitrac # [id number] was introduced through the ?anus and advanced [...] Procedure Code(s): ? --- Professional --- ? 30380, Colonoscopy, flexible; with removal of tumor(s), polyp(s), or ? other lesion(s) by snare technique ? 80418, 59, Colonoscopy, flexible; with biopsy, single or multiple CPT copyright 2021 [place] [employer]. All rights reserved. The codes documented in this report are preliminary and upon block trader review may be revised to meet current compliance requirements. EVA KYLE MD 04/23/2023 10:06:23 AM I was physically present for the entire viewing portion of the exam. EVA KYLE MD Number of Addenda: 0 Note Initiated On: 04/23/2023 9:07 AM MRN: ?[id number] Procedure Date: ? 04/23/2023 9:07:09 AM Scope [...] MD LAB - BLOOD ORDERABL ES LABORATORY [facility] Acute Care Lab [address] Lab (1st floor, no room number) [place] [address] [phone] from Last 3 Months or Most Recently Relevant to Health Maintenance Advance Directives For more information, please contact: [phone] * Full Code (Latest Code Status on [...] mai nt/ legal decision maker Care Teams Head Animal Trainer Relationship Specialty Start Date End Date No Ref-Primary, Physician PCP - General 08/07/22
--- OUTSIDE RECORDS SUMMARY | 2023-07-09 11:50 | XMS_ITS | Encounter Summary ---
Author Organization [place] Address [address] [place] [address] Care Team Providers Care Film Booker Name Role Phone No Ref-Primary, Physician Primary Care Provider Encounter Details Date Type Department Care Team (Late st Contact Info) Description 04/19/2023 MyC Medical Advice [facility] Insurance Verification Aura Danielson Social History Tobacco Use Types Packs/Day Years [...] on filedocumented in this encounter Care Teams Film Booker Relationship Specialty Start Date End Date No Ref-Primary, Physician PCP - General 08/07/22 documented as of this encounter
--- OUTSIDE RECORDS SUMMARY | 2023-07-09 11:51 | XMS_ITS | Clinical Summary ---
Author Organization [facility] Address [place], [place] [address] Care Team Providers Care Manager Behavioral Name Role Phone Jose Almeida MD Primary Care Provider [phone] Allergies No known active allergies Medications Medication Sig Dispensed Refills Start Date End Date Status cyclobenzaprine (FLEXERIL) 10 mg tablet Take 10 mg by mouth 4 times daily if needed for Muscle Spasm. Active ALPRAZolam (XANAX) 0.5 mg tablet Take 0.5 mg by mouth 3 times daily if needed. Active lisinopriL (PRINIVIL; ZESTRIL) 20 mg tablet Take 20 mg by mouth once daily. Active metoprolol succinate (TOPROL XL) 50 mg sustained-release tablet Take 50 mg by mouth once daily. Active testosterone cypionate 200 mg/mL oil 200 mg Inject 200 mg intramuscular once weekly. Active oxyCODONE (ROXICODONE) 5 mg immediate release tabletIndications: Acute post-operative pain Take 1-2 tablets by mouth every 4 hours if needed for Pain Max of 10 tablets/day. 40 tablet 06/25/2019 Active Immunizations Name Administration Dates Next [...] Health Maintenance Due Date Last Done Comments Depression screening for age 12+ 1992 HIV for age 15-65 04/12/1995 BMI (ht and wt on same day) for age 18+ 1998 Hepatitis C screening for ag e 18-79 1998 Lipids for age 35-44 04/12/2015 Tetanus booster 05/08/2016 05/08/2006, 09/04/1996 COVID-19 vaccine series (2022-24 season) 2022 Influenza for age 9-49 10/13/2023 Tdap Completed 05/08/2006, 09/04/1996 Pneumococcal series for age 6-64 Aged Out No longer eligible b ased on patient's age to complete this topic Advance Directives * Full Code (Latest Code Status on File) Date Activated Date Inactivated Comments 06/25/2019 10:05 AM 06/25/2019 5:18 PM Care Teams Manager Behavioral Relationship Specialty Start Date End Date Jose Almeida MD PCP - General Family Practice 06/18/19
[2023-07-09 12:07] LABS: Basophils Absolute Auto 0.05 K/uL (0.00-0.30); Basophils Percent Auto 0.6 % (0.0-3.0); Eosinophils Absolute Auto 0.16 K/uL (0.00-0.50); Hematocrit 54.7 % (37.0-53.0); Hemoglobin* 18.4 gm/dL (13.5-17.5); Immature Granulocytes Abs Auto 0.06 K/uL (0.00-0.30); Immature Granulocytes Pct Auto 0.7 %; Lymphocytes Absolute Auto 2.25 K/uL (0.90-2.90); Lymphocytes Percent Auto 28.1 % (20-44); Mean Corpuscular HGB Conc 34 gm/dL (32-36); Mean Corpuscular Hemoglobin 32 pg (26-34); Mean Corpuscular Volume 94 fL (80-100); Monocytes Percent Auto 9.7 % (0.0-11.0); Neutrophils Absolute Auto 4.72 K/uL (1.7-7.0); Neutrophils Percent Auto 58.9 % (42.0-72.0); Platelet Count* 219 K/uL (140-440); RDW Coefficient of Variation % 12.8 % (11.5-15.5); Red Blood Count 5.85 m/uL (4.30-5.90); White Blood Count* 8.02 K/uL (4.50-11.00)
[2023-07-09 12:15] LABS: Slide Review Reflex No
[2023-07-09 12:37] LABS: Albumin* 4.2 g/dL (3.3-5.0); Chloride* 108 mmol/L (96-114); Sodium* 138 mmol/L (135-149)
[2023-07-09 12:38] LABS: Potassium* 4.1 mmol/L (3.6-5.1)
[2023-07-09 12:40] LABS: Alkaline Phosphatase* 63 U/L (40-150); Anion Gap 6 mEq/L (7-15); Aspartate Amino Transferase* 33 U/L (12-35); Bilirubin Total* 0.6 mg/dL (0.1-1.5); Blood Urea Nitrogen* 15 mg/dL (5-24); Carbon Dioxide* 24 mmol/L (20-32); Creatinine* 0.9 mg/dL (0.5-1.5); Est. Creatinine Clearance* 123.05; Estimated Glomerular Filt Rate 109 ml/min; Total Protein* 7.3 g/dL (6.0-8.3)
[2023-07-09 12:41] LABS: Alanine Aminotransferase* 40 U/L (4-50); Calcium* 8.8 mg/dL (8.4-10.6); D Dimer Quantitative* 0.28 ug/ml (0.00-0.50); Glucose* 100 mg/dL (60-115); Lipase* 111 U/L (23-300)
[2023-07-09 12:54] LABS: C Reactive Protein* < 0.5 mg/dL (0.5-1.0); NT Pro B Type NatriureticPept* < 20 pg/mL; Troponin I* < 0.01 ng/mL (0.01-0.04)
[2023-07-09] MEDS: ASPIRIN 81 MG TAB.CHEW PO (14:30)
[2023-07-14 23:26] LABS: JAK2 Qual Mutation by PCR Not Detected; JAK2 Qual, Source Not Provided
== END 2023-07-09 14:35 | disposition home or self-care (01) ==
PROVIDERS: Emergency Provider Family Medicine; PCP Internal Medicine
DX: D75.1 Secondary polycythemia (principal)
CPT/HCPCS: 36415; 71045; 80053; 81270; 83690; 83735; 83880; 84484; 85025; 85379; 86140; 93005; 94761; 99195; 99284; 99285; A9270

== ENCOUNTER 2023-07-17 16:05 | Outpatient (CLI) | payer OTHER, SELFPAY ==
--- OUTSIDE RECORDS SUMMARY | 2023-07-17 16:07 | XMS_ITS | Continuity of Care Document ---
Author Organization [facility] Address [address] [place] [address] Phone Care Team Providers Care Education Coordinator Name Role Phone Juan Rowell Unavailable Unavailable Procedures Procedure Date Lami/Discectomy, Lumbar HNP - [place] 2019 Lami/Discectomy, Lumbar HNP Advance Directives Directive Yes / No Effective Date File Name No Information Encounters Encounter Description Practice Location Reason(s) For Visit Diagnoses Date Provider Providers Copied on Encounter [facility], [address], [place], [place], [id number], [place] tel:[phone] [facility] No Information Hay Martinez. [facility] [place], [address] [place] [address], [place], [place], [id number], [place]. tel:[phone] Referring Provider: RAINER Sheppard [address] [place] [address], [address]. tel:[phone] [facility], [address], [place], [place], [id number], [place] tel:[phone] [facility] No Information Marii Gutierrez. [facility], [address] [place] [address], [place], [place], [id number], . tel:[phone] Referring Provider: RAINER Sheppard [address] [place] [address], [address]. tel:[phone] Family History Family Member Type Diagnosis Age At Onset No Information Payers Payer name Insurance type Covered libertarian ID Authoriza tichristopher(s) No Information Social History [...]
== END 2023-07-17 16:06 | disposition home or self-care (01) ==
LOC: NFLDREF 16:06
PROVIDERS: PCP Internal Medicine; Visit Provider Internal Medicine
DX: D75.1 Secondary polycythemia (principal)
CPT/HCPCS: 84403

== ENCOUNTER 2023-07-23 15:12 | Outpatient (CLI) | payer OTHER, SELFPAY ==
--- OUTSIDE RECORDS SUMMARY | 2023-07-23 15:15 | XMS_ITS | Clinical Summary ---
Author Organization [facility] Address [place], [place] [address] Care Team Providers Care Belt Tender Name Role Phone Jose Almeida MD Primary Care Provider [phone] Allergies No known active allergies Medications Medication [...] 10:05 AM 06/25/2019 5:18 PM Care Teams Belt Tender Relationship Specialty Start Date End Date Jose Almeida MD PCP - General Family Practice 06/18/19
--- OUTSIDE RECORDS SUMMARY | 2023-07-23 15:15 | XMS_ITS | Referral Summary ---
Author Organization [place] Address [address] [place] [address] Care Team Providers Care Welding Setter Name Role Phone No Ref-Primary, Physician Primary Care Provider Encounters Date Type Department Care Team Description 04/23/2023 Travel 04/23/2023 8:50 AM CDT - 04/23/2023 9:35 AM CDT Surgery [facility] [place] [address] [place] [address] Eva Kyle MD Colonoscopy with polypectomies by cold and hot snare and biopsies. placed 1 clip 04/23/2023 8:08 AM CDT - 04/23/2023 10:18 AM CDT Hospital Encounter [facility] [place] [address] [place] [address] Eva Kyle MD Benign essential hypertension Discharge Disposition: Home or Self Care from Last 3 Months Allergies No known [...] Case Report Surgical Pathology Report ? Case: [id number] ? Authorizing Provider: ??Eva Kyle MD ?? Collected: ? 04/23/2023 09:24 AM ? Ordering Location: ? [facility] ?Received: ?04/23/2023 10:02 AM ? [facility] [place] ? Pathologist: ? Tom Harrell, ? MD [...] for dysplasia and malignancy. 04/24/2023 10:03 AM [facility] Clinical Information Clinical information pertinent to this case is available in the electronic medical record and/or specimen requisition and was reviewed by the signing pathologist. 04/24/2023 10:03 AM [facility] Gross Description A(1). Small [...] component of this testing was completed at [facility] 04/24/2023 10:03 AM CDT LABORATORY [...] Kyle MD LAB - Z[facility]IA [facility]IVEROS LABORAT[facility] Acute Care Lab [address] [place] 1st floor, [address] [place] [address], [facility] Lab [address] [facility] Lab (1st floor, no room number) [place] [address], [facility] * COLONOSCOPY (04/23/2023 9:07 AM CDT) COLONOSCOPY [facility] Patient Name: Judith Guajardo ? [...] continuously. The ?Olympus Adult Colonoscope, Model # CF-QW769I, ?Censitrac # [id number] was introduced through the ?anus and advanced [...] Procedure Code(s): ? --- Professional --- ? 51161, Colonoscopy, flexible; with removal of tumor(s), polyp(s), or ? other lesion(s) by snare technique ? 41914, 59, Colonoscopy, flexible; with biopsy, single or multiple CPT copyright 2021 [place] [employer]. All rights reserved. The codes documented in this report are preliminary and upon broadband installer review may be revised to meet current compliance requirements. EVA KYLE MD 04/23/2023 10:06:23 AM I was physically present for the entire viewing portion of the exam. EVA KYLE MD Number of Addenda: 0 Note Initiated On: 04/23/2023 9:07 AM MRN: ?[id number] Procedure Date: ? 04/23/2023 9:07:09 AM Scope [...] - 15 mmol/L 08/19/2022 6:11 AM CDT [facility] Urea Nitrogen 8.2 6.0 - 20.0 mg/dL 08/19/2022 6:11 AM CDT [facility] Creatinine 0.73 0.67 - 1.17 mg/dL 08/19/2022 6:11 AM CDT [facility] Calcium 8.6 8.6 - 10.0 mg/dL 08/19/2022 6:11 AM CDT LABORATORY Glucose 103(H) 70 - 99 mg/dL 08/19/2022 6:11 AM CDT LABORATORY GFR Estimate >90 >60 mL/min/1.7 3m2 08/19/2022 6:11 AM CDT [facility] Blood CENTRAL VENOUS CATHETER / Unknown Venipuncture / Unknown 08/19/2022 5:34 AM CDT 08/19/2022 5:52 AM CDT Susie Mascorro MD LAB - BLOOD ORDERABL ES [facility] Acute Care Lab [address] Lab (1st floor, no room number) [place] [address], [facility] [phone] from Last 3 Months or Most Recently Relevant to Health Maintenance Advance Directives For more information, please contact: [phone] * Full Code (Latest Code Status on File) Date Activated Date Inactivated Comments 08/14/2022 6:20 AM 08/19/2022 1:23 PM All basic and advanced life-sustaining interventions are performed as appropriate Question Answer Comments Code status determined by: Discussion with patie nt/ legal decision maker * Full Code Date Activated Date Inactivated Comments 08/08/2022 10:29 PM 08/12/2022 1:54 PM All basic an d advanced life-sustaining interventions are performed as appropriate Question Answer Comments Code status determined by: Discussion with patie nt/ legal decision maker Care Teams Welding Setter Relationship Specialty Start Date End Date No Ref-Primary, Physician PCP - General 08/07/22
--- OUTSIDE RECORDS SUMMARY | 2023-07-23 15:15 | XMS_ITS | Clinical Summary ---
Author [facility] Address [address] [place] [address] Care Team Providers Care Seafood Process Worker Name Role Phone Unassigned, Provider Primary Care [...] for each transition of care or referral. [facility] No known active allergies Medications Medication Sig Dispensed Refills Start Date End Date Status ALPRAZolam (XANAX) 1 MG tablet 04/18/2019 Active metoprolol succinate (TOPROL XL) 50 MG 24 hour release tablet TAKE 1 T PO DAILY 04/15/2019 Active testosterone cypionate (DEPO-TESTOSTERONE) 200 MG/ML injection 04/15/2019 Activ e B-D 3CC LUER-SULEMA SYR 62TF7-8/2 22G X 1-1/2 3 ML UTD 04/15/2019 [...] age to complete this topic Care Teams Seafood Process Worker Relationship Specialty Start Date End Date Unassigned, Provider [address] [place] [address] PCP - General 02/16/00
--- OUTSIDE RECORDS SUMMARY | 2023-07-23 15:15 | XMS_ITS | Encounter Summary ---
Author Organization [place] Address [address] [place] [address] Care Team Providers Care Advisory Software Engineer Name Role Phone No Ref-Primary, Physician [...] on filedocumented in this encounter Care Teams Advisory Software Engineer Relationship Specialty Start Date End Date No Ref-Primary, Physician PCP - General 08/07/22 documented as of this encounter
--- OUTSIDE RECORDS SUMMARY | 2023-07-23 15:15 | XMS_ITS | Encounter Summary ---
Author Organization [place] Address [address] [place] [address] Care Team Providers Care Orchestra Conductor Name Role Phone No Ref-Primary, Physician Primary Care Provider Encounter Details Date Type Department Care Team (Late st Contact Info) Description 04/19/[address] [facility] Insurance Verification Aura Danielson Social History Tobacco [...] on filedocumented in this encounter Care Teams Orchestra Conductor Relationship Specialty Start Date End Date No Ref-Primary, Physician PCP - General 08/07/22 documented as of this encounter
--- OUTSIDE RECORDS SUMMARY | 2023-07-23 15:15 | XMS_ITS | Encounter Summary ---
Author Organization [place] Address [address] [facility] [place] [address] Care Team Providers Care Documentation Nurse Name Role Phone No Ref-Primary, Physician Primary Care Provider Reason for Visit * Auth/Cert (Routine) Specialty Diagnoses / Procedures Referred By Luis Eduardo lao Referred To Contact Gastroenterology Diagnoses Change in bowel habits Change in bowel habits [R19.4] Procedures ND COLONOSCOPY W/WO BRUSH/WASH Colonoscopy Rh Endoscopy [address] [place] [address] Referral ID Status Reason Start Date Expiration Date Visits Re quested Visits Authorized [id number] 1 1 Encounter Details Date Type Department Care Team (Latest Contact Info) Description 04/23/2023 8:08 AM CDT - 04/23/2023 10:18 AM CDT Hospital Encounter [facility] Endoscopy [place] [address] [place] [phone] Eva Kyle MD COLO & RECTAL SURGERY [address] [address] Benign essential hypertension Discharge Disposition: Home or [...] clip is MR Conditional according to ASTM G7711-10. A patient with this device can be [...] sent through Care Everywhere. * Colon Polyps (Thai) * Diverticulosis and Diverticulitis: General Info (Thai) * High-Fiber Diet (Thai) documented in this encounter Medications at Time [...] Case Report Surgical Pathology Report ? Case: [id number] ? Authorizing Provider: ??Eva Kyle MD ?? Collected: ? 04/23/2023 09:24 AM ? Ordering Location: ? [facility] ?Received: ?04/23/2023 10:02 AM ? Endoscopy [place] ? Pathologist: ? Julio Cesar, Tom Giles, ? MD ? Specimens: ?? A) - Small Intestine, Terminal Ileum, for mild inflamation ? B) - Large Intestine, Colon, Ascending, Ascending colon polyps x 2 ? C) - Large Intestine, Colon, Hepatic Flexure ? D) - Large Intestine, Colon, Descending ? E) - Large Intestine, Colon, Sigmoid ? 04/24/2023 10:03 AM [facility] Final Diagnosis A: Small intestine, terminal [...] for dysplasia and malignancy. 04/24/2023 10:03 AM [facility] Clinical Information Clinical information pertinent to this case is available in the electronic medical record and/or specimen requisition and was reviewed by the signing pathologist. 04/24/2023 10:03 AM [facility] Gross Description A(1). Small Intestine, Terminal [...] microscopic examination is performed. 04/24/2023 10:03 AM [facility] Performing Labs The technical component of this testing was completed at [facility] 04/24/2023 10:03 AM [facility] Case Images 04/24/2023 10:03 AM [facility] Biopsy STRUCTURE OF DISTAL PORTION OF [...] AM CDT Eva DOS SANTOS - ZENOBIA [facility] Organization Address City/State/ZIP Co de Phone Number LABORATORY [facility] Lab [address] 1st floor, [address] [place] [address] Acute Care Lab [address] [facility] Lab (1st floor, no room number) [place] [address] * COLONOSCOPY (04/23/2023 9:07 AM CDT) COLONOSCOPY [facility] Patient Name: Judith Guajardo ? Procedure [...] and ?oxygen saturations were monitored continuously. The ?PayTouch Adult Colonoscope, Model # CF-KH666H, ?Censitrac # [id number] was introduced through the ?anus and advanced [...] Procedure Code(s): ? --- Professional --- ? 68879, Colonoscopy, flexible; with removal of tumor(s), polyp(s), or ? other lesion(s) by snare technique ? 67115, 59, Colonoscopy, flexible; with biopsy, single or multiple CPT copyright 2021 [place] [employer]. All rights reserved. The codes documented in this report are preliminary and upon audit senior associate review may be revised to meet current compliance requirements. EVA KYLE MD 04/23/2023 10:06:23 AM I was physically present for the entire viewing portion of the exam. EVA KYLE MD Number of Addenda: 0 Note Initiated On: 04/23/2023 9:07 AM MRN: ?[id number] Procedure Date: ? 04/23/2023 9:07:09 AM Scope [...] on Sat04/23/23 at 0905, For 1 dose, [place] throat with 1 spray 5 minutes prior [...] this section may contain times in both RECYCLING OPERATOR and CDT. Scheduled Medication Order 04/21/2023 04/22/2023 [...] on Sat04/23/23 at 0905, For 1 dose, [place] throat with 1 spray 5 minutes prior [...] provider. documented in this encounter Care Teams Documentation Nurse Relationship Specialty Start Date End Date No Ref-Primary, Physician PCP - General 08/07/22 documented as of this encounter
--- OUTSIDE RECORDS SUMMARY | 2023-07-23 15:15 | XMS_ITS | Encounter Summary ---
Author Organization [place] Address [address] [place] [address] Care Team Providers Care Service Center Technician Name Role Phone No Ref-Primary, Physician Primary Care Provider Reason for Visit * Reason Onset Date Comments Procedure 04/19/2023 CRSAL COLON Encounter Details Date Type Department Care Team (Late st Contact Info) Description 04/19/2023 Telephone [facility] [address] [place] [address] None Procedure (CRSAL COLON) Social [...] [Colonoscopy] Procedure Date: 04/23/2023 @ 8:50AM Site:[facility]; [address] [place] [address] Endoscopist: ANABELLA Ordering Provider: ANABELLA Scheduled by (per the direction of): Fax from [facility]. TERINTELLIGENCE ANALYST documented in this encounter Plan of Treatment Not on file documented as of this encounter Visit Diagnoses Not on filedocumented in this encounter Care Teams Service Center Technician Relationship Specialty Start Date End Date No Ref-Primary, Physician PCP - General 08/07/22 documented as of this encounter
--- OUTSIDE RECORDS SUMMARY | 2023-07-23 15:15 | XMS_ITS | Encounter Summary ---
Author Organization [place] Address [address] [place] [address]. [place] [address] Care Team Providers Care Scientist Immunology Name Role Phone No Ref-Primary, Physician Primary Care Provider Reason for Visit * Auth/Cert (Routine) Specialty Diagnoses / Procedures Referred By Luis Eduardo t Referred To Contact Gastroenterology Diagnoses Change in bowel habits Change in bowel habits [R19.4] Procedures MD COLONOSCOPY W/WO BRUSH/WASH Colonoscopy Endoscopy [address] [place] [address] Referral ID Status Reason Start Date Expiration Date Visits Re quested Visits Authorized [id number] 1 1 Encounter Details Date Type Department Care Team (Late st Contact Info) Description 04/23/2023 8:50 AM CDT - 04/23/2023 9:[address] [facility] Endoscopy [place] [address] [place] [phone] Eva Kyle MD COLO & RECTAL SURGERY [address] [facility] [address] [address] Colonoscopy with polypectomies by cold and hot snare and biopsies. placed 1 clip Surgery Details Date/Time Status Location OR Service Patient Class Case Cl ass Case Type Trauma Case? 04/23/23 8:50 AM Posted GI GI B [place] Outpatient Elective Panel 1 Procedure [facility] Anes Op Region Wound Class Comments Colonoscopy with polypectomies by cold and hot snare and biopsies. placed 1 clip N/A Moderate Sedation Rectum II-Clean Con taminated COLONOSCOPY, WITH BIOPSY N/A Rectum II-Clean Contaminated COLONOSCOPY, WITH HEMORRHAGE CONTROL N/A Rectum II-Clean Contaminated Surgeon Surgeon Role Service Panel Eva Kyle MD Primary [place] 1 documented in this encounter Social History [...] clip is MR Conditional according to ASTM I3287-53. A patient with this device can be [...] sent through Care Everywhere. * Colon Polyps ([place]izen [place]) * Diverticulosis and Diverticulitis: General Info ([place]) * High-Fiber Diet ([place]izen [place]) documented in this encounter Medications at Time [...] Case Report Surgical Pathology Report ? Case: [id number] ? Authorizing Provider: ??Eva Kyle MD ?? Collected: ? 04/23/2023 09:24 AM ? Ordering Location: ? [facility] ?Received: ?04/23/2023 10:02 AM ? Endoscopy [place] ? Pathologist: ? Tom Harrell, ? MD [...] for dysplasia and malignancy. 04/24/2023 10:03 AM [facility] Clinical Information Clinical information pertinent to this case is available in the electronic medical record and/or specimen requisition and was reviewed by the signing pathologist. 04/24/2023 10:03 AM [facility] Gross Description A(1). Small Intestine, Terminal [...] component of this testing was completed at [facility] 04/24/2023 10:03 AM CDT LABORATORY [...] Eva DOS SANTOS - ZENOBIA VIVEROS LABORATORY [facility] Acute Care Lab [address] 1st floor, [address] [place] [address], [facility] Acute Care Lab [address] [facility] Lab (1st floor, no room number) [place] [address] * COLONOSCOPY (04/23/2023 9:07 AM CDT) COLONOSCOPY [facility] Patient Name: Judith Guajardo ? Procedure [...] continuously. The ?Olympus Adult Colonoscope, Model # CF-SB686X, ?Censitrac # [id number] was introduced through the ?anus and advanced [...] Procedure Code(s): ? --- Professional --- ? 32661, Colonoscopy, flexible; with removal of tumor(s), polyp(s), or ? other lesion(s) by snare technique ? 84514, 59, Colonoscopy, flexible; with biopsy, single or multiple CPT copyright 2021 [employer] [place] [employer]. All rights reserved. The codes documented in this report are preliminary and upon remote inpatient coder review may be revised to meet current compliance requirements. EVA KYLE MD 04/23/2023 10:06:23 AM I was physically present for the entire viewing portion of the exam. EVA KYLE MD Number of Addenda: 0 Note Initiated On: 04/23/2023 9:07 AM MRN: ?[id number] Procedure Date: ? 04/23/2023 9:07:09 AM Scope [...] on Sat04/23/23 at 0905, For 1 dose, [place] throat with 1 spray 5 minutes prior [...] this section may contain times in both SHOP REPAIRER and CDT. Scheduled Medication Order 04/21/2023 04/22/2023 [...] on Sat04/23/23 at 0905, For 1 dose, [place] throat with 1 spray 5 minutes prior [...] provider. documented in this encounter Care Teams Scientist Immunology Relationship Specialty Start Date End Date No Ref-Primary, Physician PCP - General 08/07/22 documented as of this encounter
--- OUTSIDE RECORDS SUMMARY | 2023-07-23 15:15 | XMS_ITS | Encounter Summary ---
Author Organization [place] Address [address] [facility] [place] [address] Care Team Providers Care Apparel Patternmaker Name Role Phone No Ref-Primary, Physician Primary Care Provider Reason for Referral * Consultation (Routine: Next available opening) - Pending Review Specialty Diagnoses / Procedures Referred By Luis Eduardo lao Referred To Contact Gastroenterology Diagnoses Change in bowel habits Kylah Arndt MD COLO & RECTAL SURGERY [address] [address] Referral ID Status Reason Start Date Expiration Date V isits Requested Visits Authorized [id number] Pending Review 04/19/2023 04/18/2024 1 1 Question Answer Service: Lower Endoscopy Lower Endoscopy Type: Colonoscopy Reason for Colonoscopy: Diagnostic Sedation Concerns: No medical conditions affecting sedation Sedation Type: Moderate/Conscious Sedation Preferred Location: [facility] Scheduling Instructions: [facility] will call you to coordinate your care as prescribed by the provider. If you don? t hear from a textile designs sales representative within 2 business days, please call . Comments Please be aware that coverage of these services is subject to the terms and limitations of your health insurance plan. Call member services at your health plan with any benefit or coverage questions. [facility] will call you to coordinate your care as prescribed by the provider. If you don? t hear from a textile designs sales representative within 2 business days, please call . D HAMMER OPERATOR Encounter Details Date Type Department Care Team (Latest Contact Info) Description 04/19/2023 Transcribe Orders [facility] Endoscopy [place] [address] [place] [place] [address] Kylah Arndt MD COLO & RECTAL SURGERY [address] [id number] Change in bowel habits (Primary Dx) Social [...] Associated Diagnoses Orde r Schedule Adult GI Tick Sewer Referral - Procedure Only Referral Routine: Next available opening Change in bowel habits Expected: 04/19/2023 (Approximate), Expires: 04/18/2024 documented as of this encounter Visit Diagnoses Diagnosis Change in bowel habits- Primary Other symptoms involving digestive system documented in this encounter Care Teams Apparel Patternmaker Relationship Specialty Start Date End Date No Ref-Primary, Physician PCP - General 08/07/22 documented as of this encounter
--- OUTSIDE RECORDS SUMMARY | 2023-07-23 15:15 | XMS_ITS | Clinical Summary ---
Author Organization [place] Address [address] [place] [address] Care Team Providers Care Billing Analyst Name Role Phone No Ref-Primary, Physician [...] CDT - 04/23/2023 9:35 AM CDT Surgery [facility] End[facility] [place] [address] [place] [address] Eva Kyle MD Colonoscopy with polypectomies by cold and hot snare and biopsies. placed 1 clip 04/23/2023 8:08 AM CDT - 04/23/2023 10:18 AM CDT Hospital Encounter [facility] [place] [address] [place] [address] Eva Kyle MD Benign essential hypertension Discharge Disposition: Home or Self Care 04/23/2023 Travel from Last 3 Months Family History Medical [...] Case Report Surgical Pathology Report ? Case: [id number] ? Authorizing Provider: ??Eva Kyle MD ?? Collected: ? 04/23/2023 09:24 AM ? Ordering Location: ? [facility] ?Received: ?04/23/2023 10:02 AM ? End[facility] [place] ? Pathologist: ? Tom Harrell, ? MD ? Specimens: ?? A) - Small Intestine, Terminal Ileum, for mild inflamation ? B) - Large Intestine, Colon, Ascending, Ascending colon polyps x 2 ? C) - Large Intestine, Colon, Hepatic Flexure ? D) - Large Intestine, Colon, Descending ? E) - Large Intestine, Colon, Sigmoid ? 04/24/2023 10:03 AM [facility] Final Diagnosis A: Small intestine, terminal [...] dysplasia and malignancy. 04/24/2023 10:03 AM [facility] Clinical Information Clinical information pertinent to this case is available in the electronic medical record and/or specimen requisition and was reviewed by the signing pathologist. 04/24/2023 10:03 AM [facility] Gross Description A(1). Small Intestine, Terminal [...] one cassette. [THELMA Byers(ASCP)] 04/24/2023 10:03 AM [facility] Microscopic Description A microscopic examination is performed. 04/24/2023 10:03 AM [facility] Performing Labs The technical component of this testing was completed at [facility] 04/24/2023 10:03 AM CDT LABORATORY [...] Kyle MD LAB - ZENOBIA VIVEROS LABORATORY [facility] Acute Care Lab [address] 1st floor, Room [address] [place] [address], [facility] Acute Care Lab [address] [facility] Lab (1st floor, no room number) [place] [address], [facility] * COLONOSCOPY (04/23/2023 9:07 AM CDT) COLONOSCOPY [facility] Patient Name: Judith Guajardo ? Procedure Date: [...] continuously. The ?Olympus Adult Colonoscope, Model # CF-JB041S, ?Censitrac # [id number] was introduced through the ?anus and advanced [...] Procedure Code(s): ? --- Professional --- ? 86280, Colonoscopy, flexible; with removal of tumor(s), polyp(s), or ? other lesion(s) by snare technique ? 44977, 59, Colonoscopy, flexible; with biopsy, single or multiple CPT copyright 2021 [place] [employer]. All rights reserved. The codes documented in this report are preliminary and upon certified professional coder review may be revised to meet current compliance requirements. EVA KYLE MD 04/23/2023 10:06:23 AM I was physically present for the entire viewing portion of the exam. EVA KYLE MD Number of Addenda: 0 Note Initiated On: 04/23/2023 9:07 AM MRN: ?[id number] Procedure Date: ? 04/23/2023 9:07:09 AM Scope [...] - 99 mg/dL 08/19/2022 6:11 AM CDT [facility] LABORATORY GFR Estimate >90 >60 mL/min/1.7 3m2 08/19/2022 6:11 AM CDT LABORATORY Blood CENTRAL VENOUS CATHETER / Unknown Venipuncture / Unknown 08/19/2022 5:34 AM CDT 08/19/2022 5:52 AM CDT Susie Mascorro MD LAB - BLOOD ORDERABL ES LABORATORY [facility] Acute Care Lab [address] Lab (1st floor, no room number) [place] [address], [facility] [phone] from Last 3 Months or Most Recently Relevant to Health Maintenance Advance Directives For more information, please contact: [phone] * Full Code (Latest Code Status on [...] mai nt/ legal decision maker Care Teams Billing Analyst Relationship Specialty Start Date End Date No Ref-Primary, Physician PCP - General 08/07/22
--- OUTSIDE RECORDS SUMMARY | 2023-07-23 15:15 | XMS_ITS | Continuity of Care Document ---
Author Organization [facility] Address [address] [place] [address] Phone Care Team Providers Care Engineering Group Manager Name Role Phone Juan Rowell Unavailable Unavailable Procedures Procedure Date Lami/Discectomy, Lumbar HNP - PA 2019 Lami/Discectomy, Lumbar HNP Advance Directives Directive Yes / No Effective Date File Name No Information Encounters Encounter Description Practice Location Reason(s) For Visit Diagnoses Date Provider Providers Copied on Encounter [facility], [address], [place], [place], [id number], [place] tel:[phone] [facility] No Information Hay Martinez. [facility] [place], [address] [place] [address], [place], [place], [id number], [place]. tel:[phone] Referring Provider: RAINER Sheppard [address] [place] [address], [address]. tel:[phone] [facility], [address], [place], [place], [id number], [place] tel:[phone] [facility] No Information Marii Gutierrez. [facility], [address] [place] [address], [place], [place], [id number], . tel:[phone] Referring Provider: RAINER Sheppard [address] [place] [address], [address]. tel:[phone] Family History Family Member Type Diagnosis Age At Onset No Information Payers Payer name Insurance type Covered green party ID Authoriza tichristopher(s) No Information Social [...]
== END 2023-07-23 15:13 | disposition home or self-care (01) ==
PROVIDERS: PCP Internal Medicine; Visit Provider Internal Medicine
DX: D75.1 Secondary polycythemia (principal)
CPT/HCPCS: 36415; 99195

== ENCOUNTER 2023-09-16 15:10 | Outpatient (CLI) | payer OTHER, SELFPAY ==
--- OUTSIDE RECORDS SUMMARY | 2023-09-23 06:14 | XMS_ITS | Referral Summary ---
Author Organization [place] Address [address] [place] [address] Care Team Providers Care Art Museum Aide Name Role Phone No Ref-Primary, Physician Primary [...] Name Priority Date/Time Associated Diagnosis Comments COLONOSCOPY Routine 04/23/2023 9:07 AM CDT BASIC METABOLIC PANEL Routine 08/19/2022 5:34 AM CDT from Last 3 Months or Most Recently Relevant to Health Maintenance Results * COLONOSCOPY (04/23/2023 9:07 AM CDT) [facility] COLONOSCOPY [facility] Patient Name: Rajeevgeorgettericky McmullenHola Guajardo ? Procedure Date: 04/23/2023 9:07 AM ? Date of : 1980 ? Admit Type: Outpatient Age: 43 ? Gender: Male Attending MD: EVA KYLE MD, ??Total Sedation Time: 33 min continuous bedside 1:1 monitoring, IT 5 min, WT 24 min. Instrument Name: 226 - Adult Colonoscope Procedure: ?Colonoscopy Indications: ?Change in bowel habits Providers: ?EVA YKLE MD (Doctor) Referring MD: ? Medicines: ?Midazolam [...] continuously. The ?Olympus Adult Colonoscope, Model # CF-VR776I, ?Censitrac # [id number] was introduced through the ?anus and advanced [...] Procedure Code(s): ? --- Professional --- ? 89012, Colonoscopy, flexible; with removal of tumor(s), polyp(s), or ? other lesion(s) by snare technique ? 17617, 59, Colonoscopy, flexible; with biopsy, single or multiple CPT copyright 2021 [employer] [place] [employer]. All rights reserved. The codes documented in this report are preliminary and upon hospital coder review may be revised to meet current compliance requirements. EVA KYLE MD 04/23/2023 10:06:23 AM I was physically present for the entire viewing portion of the exam. EVA KYLE MD Number of Addenda: 0 Note Initiated On: 04/23/2023 9:07 AM MRN: ?[id number] Procedure Date: ? 04/23/2023 9:07:09 AM Scope [...] LAB - BLOOD ORDERABL ES RH LABORATORY [facility] Acute Care Lab [address] Lab (1st floor, no room number) [place] [address], [facility] [phone] from Last 3 Months or Most Recently Relevant to Health Maintenance Advance Directives For more information, please contact: [phone] * Full Code (Latest Code Status on [...] Code status determined by: Discussion with mai alcaraz/ legal decision maker Care Teams Art Museum Aide Relationship Specialty Start Date End Date No Ref-Primary, Physician PCP - General 08/07/22
--- OUTSIDE RECORDS SUMMARY | 2023-09-23 06:14 | XMS_ITS | Encounter Summary ---
Author Organization [place] Address [address] [place] [address] Care Team Providers Care Call Centre Supervisor Name Role Phone No Ref-Primary, Physician Primary Care Provider Encounter Details Date Type Department Care Team (Late st Contact Info) Description 04/19/[address] [facility] Insurance Verification Aura Danielson Social History Tobacco [...] on filedocumented in this encounter Care Teams Call Centre Supervisor Relationship Specialty Start Date End Date No Ref-Primary, Physician PCP - General 08/07/22 documented as of this encounter
--- OUTSIDE RECORDS SUMMARY | 2023-09-23 06:14 | XMS_ITS | Continuity of Care Document ---
Author Organization [facility] Address [address] [place] [address] Phone Care Team Providers Care Scuba Instructor Name Role Phone Juan Rowell Unavailable Unavailable Procedures Procedure Date Lami/Discectomy, Lumbar HNP - [place] 2019 Lami/Discectomy, Lumbar HNP Advance Directives Directive Yes / No Effective Date File Name No Information Encounters Encounter Description Practice Location Reason(s) For Visit Diagnoses Date Provider Providers Copied on Encounter [facility], [address], [place], [place], [id number], [place] tel:[phone] [facility] No Information Hay Martinez. [facility], [address], [place], [place], [id number], [place]. tel:[phone] Referring Provider: RAINER Sheppard [address] [place] [address], [facility]. tel:[phone] [facility], [address], [place], [place], [address], [place] tel:[phone] [facility] No Information Marii Gutierrez. [facility] , [address] [place] [address], [address], [place]. tel:[phone] Referring Provider: RAINER Sheppard [address] [place] [address], [address]. tel:[phone] Family History Family Member Type Diagnosis Age [...]
--- OUTSIDE RECORDS SUMMARY | 2023-09-23 06:14 | XMS_ITS | Clinical Summary ---
Author Organization [facility] Address [place], [place] [address] Care Team Providers Care General Clerk Name Role Phone Jose Almeida MD Primary Care Provider [phone] Allergies No known active allergies Medications Medication [...] 10:05 AM 06/25/2019 5:18 PM Care Teams General Clerk Relationship Specialty Start Date End Date Jose Almeida MD PCP - General Family Practice 06/18/19
--- OUTSIDE RECORDS SUMMARY | 2023-09-23 06:14 | XMS_ITS | Clinical Summary ---
Author Organization [facility] Address [address] [place] [address] Care Team Providers Care Emt/Dispatcher Name Role Phone No Ref-Primary, Physician Primary [...] 07/29/1998 06/03/1998, 04/16/1997 LIPID 2020 COVID-19 Vaccine (3 - season) 2022 07/25/2020, 06/28/2020 PHQ-2 (once per calendar year) 2023 INFLUENZA VACCINE (#1) 2023 12/09/2013, 2013 DTAP/TDAP/TD IMMUNIZATION (5 - Td or Tdap) [...] Results * COLONOSCOPY (04/23/2023 9:07 AM CDT) [facility] Patient Name: Rajeevgeorgettericky McmullenHola Guajardo ? [...] continuously. The ?Olympus Adult Colonoscope, Model # CF-[id number], ?Censitrac # [id number] was introduced through the ?anus and advanced [...] Procedure Code(s): ? --- Professional --- ? 65605, Colonoscopy, flexible; with removal of tumor(s), polyp(s), or ? other lesion(s) by snare technique ? 75474, 59, Colonoscopy, flexible; with biopsy, single or multiple CPT copyright 2021 [employer]. All rights reserved. The codes documented in this report are preliminary and upon cook supervisor review may be revised to meet current compliance requirements. EVA KYLE MD 04/23/2023 10:06:23 AM I was physically present for the entire viewing portion of the exam. EVA KYLE MD Number of Addenda: 0 Note Initiated On: 04/23/2023 9:07 AM MRN: ?[id number] Procedure Date: ? 04/23/2023 9:07:09 AM Scope [...] MD LAB - BLOOD ORDERABL ES LABORATORY [facility] Lab [address] Lab (1st floor, no room number) [place] [address], [facility] [phone] from Last 3 Months or Most Recently Relevant to Health Maintenance Advance Directives For more information, please contact: [phone] * Full Code (Latest Code Status on File) Date Activated Date Inactivated Comments 08/14/2022 6:20 AM 08/19/2022 1:23 PM All basic and advanced life-sustaining interventions are performed as appropriate Question Answer Comments Code status determined by: Discussion with cassiee nt/ legal decision maker * Full Code Date Activated Date Inactivated Comments 08/08/2022 10:29 PM 08/12/2022 1:54 PM All basic an d advanced life-sustaining interventions are performed as appropriate Question Answer Comments Code status determined by: Discussion with patie nt/ legal decision maker Care Teams Emt/Dispatcher Relationship Specialty Start Date End Date No Ref-Primary, Physician PCP - General 08/07/22
--- OUTSIDE RECORDS SUMMARY | 2023-09-23 06:14 | XMS_ITS | Clinical Summary ---
Author Organization [facility] Address [address] [place] [address] Care Team Providers Care Elevator Builder Name Role Phone Unassigned, Provider Primary Care [...] for each transition of care or referral. [facility] Allergies No known active allergies Medications Medication Sig Dispensed Refills Start Date End Date Status ALPRAZolam (XANAX) 1 MG tablet 04/18/2019 Active metoprolol succinate (TOPROL XL) 50 MG 24 hour release tablet TAKE 1 T PO DAILY 04/15/2019 Active testosterone cypionate (DEPO-TESTOSTERONE) 200 MG/ML injection 04/15/2019 Activ e B-D 3CC LUER-SULEMA SYR 66JP1-3/2 22G X 1-1/2 3 ML UTD 04/15/2019 [...] HepB (1) 04/12/1999 Cholesterol 04/12/2015 COVID-19 Vaccine ( season) 2022 07/25/2020, 06/28/2020 Influenza (#1) 2023 12/09/2013 DTaP/Tdap/Td (5 - Tdap) 12/10/2023 [...] age to complete this topic Care Teams Elevator Builder Relationship Specialty Start Date End Date Unassigned, Provider [address] [place] [address] PCP - General 02/16/00
== END 2023-09-16 15:11 | disposition home or self-care (01) ==
LOC: NFLDREF 09-23 06:12
PROVIDERS: PCP Internal Medicine; Referring Provider Internal Medicine; Visit Provider Internal Medicine
DX: E29.1 Testicular hypofunction (principal); I10 Essential (primary) hypertension
CPT/HCPCS: 84403

== ENCOUNTER 2023-11-21 15:40 | Outpatient (CLI) | payer OTHER, SELFPAY ==
--- OUTSIDE RECORDS SUMMARY | 2023-11-25 03:30 | XMS_ITS | Clinical Summary ---
Author Organization [facility] Address [address] [place] [address] Care Team Providers Care Plate Conditioner Name Role Phone No Ref-Primary, Physician Primary [...] * COLONOSCOPY (04/23/2023 9:07 AM CDT) COLONOSCOPY [facility] Patient Name: Judith Guajardo ? [...] continuously. The ?Olympus Adult Colonoscope, Model # CF-[id number], ?Censitrac # [id number] was introduced through the ?anus and advanced [...] Procedure Code(s): ? --- Professional --- ? 92357, Colonoscopy, flexible; with removal of tumor(s), polyp(s), or ? other lesion(s) by snare technique ? 21717, 59, Colonoscopy, flexible; with biopsy, single or multiple CPT copyright 2021 [employer]. All rights reserved. The codes documented in this report are preliminary and upon pattern puncher review may be revised to meet current compliance requirements. EVA KYLE MD 04/23/2023 10:06:23 AM I was physically present for the entire viewing portion of the exam. EVA KYLE MD Number of Addenda: 0 Note Initiated On: 04/23/2023 9:07 AM MRN: ?[id number] Procedure Date: ? 04/23/2023 9:07:09 AM Scope Withdrawal Time: 0 hours 23 minutes 31 seconds Total Procedure Duration: 0 hours 29 minutes 27 seconds Estimated Blood Loss: ? Scope In: 9:16:03 AM Scope Out: 9:45:30 AM RADIOLOGY RESULTS 04/23/2023 9:07 AM CDT Eva Kyel MD PROCEDURES RADIOLOGY RESULTS * (ABNORMAL) Basic [...] MD LAB - BLOOD ORDERABL ES LABORATORY [facility] Acute Care Lab [address] Lab (1st floor, no room number) [place] [address], [facility] [phone] from Last 3 Months or Most Recently Relevant to Health Maintenance Advance Directives For more information, please contact: [phone] * Full Code (Latest Code Status on [...] mai nt/ legal decision maker Care Teams Plate Conditioner Relationship Specialty Start Date End Date No Ref-Primary, Physician PCP - General 08/07/22
--- OUTSIDE RECORDS SUMMARY | 2023-11-25 03:30 | XMS_ITS | Continuity of Care Document ---
Author Organization [facility] Address [address] [place] [address] Phone Care Team Providers Care Quality Control Lab Technician Name Role Phone Juan Rowell Unavailable Unavailable Procedures Procedure Date Lami/Discectomy, Lumbar HNP - PA 2019 Lami/Discectomy, Lumbar HNP Advance Directives Directive Yes / No Effective Date File Name No Information Encounters Encounter Description Practice Location Reason(s) For Visit Diagnoses Date Provider Providers Copied on Encounter [facility], [address], [place], [place], [id number], [place] tel:[phone] [facility] No Information Hay Martinez. [facility], [address], [place], [place], [id number], [place]. tel:[phone] Referring Provider: RAINER Sheppard [address] [place] [address], [facility]. tel:[phone] [facility], [address], [place], [place], [address], [place] tel:[phone] [facility] No Information Marii Gutierrez. [facility] Orth[facility] , [address] [place] [address], [address], [place]. tel:[phone] Referring Provider: RAINER Sheppard [address] [place] [address], [address]. tel:[phone] Family History Family Member Type Diagnosis Age [...]
--- OUTSIDE RECORDS SUMMARY | 2023-11-25 03:30 | XMS_ITS | Referral Summary ---
Author Organization [facility] Address [address] [place] [address] Care Team Providers Care Textile Converter Name Role Phone No Ref-Primary, Physician Primary [...] Results * COLONOSCOPY (04/23/2023 9:07 AM CDT) [facility] COLONOSCOPY [facility] Patient Name: Rajeevgeorgettericky McmullenHola Guajardo ? [...] continuously. The ?Olympus Adult Colonoscope, Model # CF-QJ281L, ?Censitrac # [id number] was introduced through the ?anus and advanced [...] Procedure Code(s): ? --- Professional --- ? 98791, Colonoscopy, flexible; with removal of tumor(s), polyp(s), or ? other lesion(s) by snare technique ? 28475, 59, Colonoscopy, flexible; with biopsy, single or multiple CPT copyright 2021 [employer]. All rights reserved. The codes documented in this report are preliminary and upon chief of safety and protection review may be revised to meet current compliance requirements. EVA KYLE MD 04/23/2023 10:06:23 AM I was physically present for the entire viewing portion of the exam. EVA KYLE MD Number of Addenda: 0 Note Initiated On: 04/23/2023 9:07 AM MRN: ?[id number] Procedure Date: ? 04/23/2023 9:07:09 AM Scope [...] - BLOOD ORDERABL ES RH LABORATORY [facility] Acute Care Lab [address] Lab (1st floor, no room number) [place] [address], [facility] [phone] from Last 3 Months or Most Recently Relevant to Health Maintenance Advance Directives For more information, please contact: [phone] * Full Code (Latest Code Status on [...] patie nt/ legal decision maker Care Teams Textile Converter Relationship Specialty Start Date End Date No Ref-Primary, Physician PCP - General 08/07/22
--- OUTSIDE RECORDS SUMMARY | 2023-11-25 03:30 | XMS_ITS | Clinical Summary ---
Author Organization [facility] Address [address] [place] [address] Care Team Providers Care Needle Setter Name Role Phone Unassigned, Provider Primary Care [...] for each transition of care or referral. [facility] Allergies No known active allergies Medications Medication Sig Dispensed Refills Start Date End Date Status ALPRAZolam (XANAX) 1 MG tablet 04/18/2019 Active metoprolol succinate (TOPROL XL) 50 MG 24 hour release tablet TAKE 1 T PO DAILY 04/15/2019 Active testosterone cypionate (DEPO-TESTOSTERONE) 200 MG/ML injection 04/15/2019 Activ e B-D 3CC LUER-SULEMA SYR 24QW2-6/2 22G X 1-1/2 3 ML UTD 04/15/2019 [...] age to complete this topic Care Teams Needle Setter Relationship Specialty Start Date End Date Unassigned, Provider [address] [place] [address] PCP - General 02/16/00
--- OUTSIDE RECORDS SUMMARY | 2023-11-25 03:30 | XMS_ITS | Encounter Summary ---
Author Organization [facility] Address [address] [place] [address] Care Team Providers Care Christian Science Healer Name Role Phone No Ref-Primary, Physician Primary Care Provider Encounter Details Date Type Department Care Team (Late st Contact Info) Description 04/19/2023 [facility] Medical Advice [facility] Insurance Verification Aura Danielson Social [...] on filedocumented in this encounter Care Teams Christian Science Healer Relationship Specialty Start Date End Date No Ref-Primary, Physician PCP - General 08/07/22 documented as of this encounter
--- OUTSIDE RECORDS SUMMARY | 2023-11-25 03:31 | XMS_ITS | Clinical Summary ---
Author Organization [facility] [place] [address] Care Team Providers Care Brass Reclaimer Name Role Phone Jose Almeida MD Primary Care Provider [phone] Allergies No known active allergies Medications Medication [...] 10:05 AM 06/25/2019 5:18 PM Care Teams Brass Reclaimer Relationship Specialty Start Date End Date Jose Almeida MD PCP - General Family Practice 06/18/19
== END 2023-11-21 15:41 | disposition home or self-care (01) ==
LOC: NFLDREF 11-25 03:29
PROVIDERS: PCP Internal Medicine; Referring Provider Internal Medicine; Visit Provider Internal Medicine
DX: E29.1 Testicular hypofunction (principal)
CPT/HCPCS: 84403

== ENCOUNTER 2023-11-22 14:49 | Outpatient (CLI) | payer OTHER, SELFPAY ==
--- OUTSIDE RECORDS SUMMARY | 2023-11-22 14:52 | XMS_ITS | Encounter Summary ---
Author Organization [facility] Address [address] [place] [address] Care Team Providers Care Biodiesel Engine Specialist Name Role Phone No Ref-Primary, Physician [...] on filedocumented in this encounter Care Teams Biodiesel Engine Specialist Relationship Specialty Start Date End Date No Ref-Primary, Physician PCP - General 08/07/22 documented as of this encounter
--- OUTSIDE RECORDS SUMMARY | 2023-11-22 14:52 | XMS_ITS | Continuity of Care Document ---
Author Organization [facility] Address [address] [place] [address] Phone Care Team Providers Care Ergonomist Name Role Phone Juan Rowell Unavailable Unavailable Procedures Procedure Date Lami/Discectomy, Lumbar HNP - PA 2019 Lami/Discectomy, Lumbar HNP Advance Directives Directive Yes / No Effective Date File Name No Information Encounters Encounter Description Practice Location Reason(s) For Visit Diagnoses Date Provider Providers Copied on Encounter [facility], [address], [place], [place], [id number], [place] tel:[phone] [facility] No Information Hay Martinez. [facility], [address], [place], [place], [id number], [place]. tel:[phone] Referring Provider: RAINER Sheppard [address] [place] [address], [facility]. tel:[phone] [facility], [address], [place], [place], [id number], [place] tel:[phone] [facility] No Information Marii Gutierrez. [facility] Orth[facility] , [address] [place] [address], [address], [place]. tel:[phone] Referring Provider: RAINER Sheppard [address] [place] [address], [address]. tel:[phone] Family History Family Member Type Diagnosis Age At Onset No Information Payers Payer name Insurance type Covered green party ID Authoriza tion(s) No Information Social [...]
--- OUTSIDE RECORDS SUMMARY | 2023-11-22 14:52 | XMS_ITS | Clinical Summary ---
Author Organization [facility] Address [address] [place] [address] Care Team Providers Care Metal Cabinet Finisher Name Role Phone No Ref-Primary, Physician Primary [...] 3-dose series) 07/29/1998 06/03/1998, 04/16/1997 LIPID 2020 PHQ-2 (once per calendar year) 2023 BMP 08/20/2023 08/19/2022, 07/0 09/2022, 08/17/2022, Additional history exists COVID-19 Vaccine ( season) 2023 07/25/2020, 06/28/2020 INFLUENZA VACCINE (#1) 2023 12/09/2013, 2013 DTAP/TDAP/TD IMMUNIZATION (5 - Td or Tdap) 12/10/2023 12/09/2013, 05/08/2006, 05/08/2006, Additional history exists GLUCOSE 08/19/2025 08/19/2022, 070 09/2022, 08/18/2022, Additional history exists COLONOSCOPY 04/22/2026 04/23/2023, 04/11, 04/23/2023, Additional history exists COLORECTAL CANCER SCREENING 04/22/2026 RSV VACCINE (1 - 1-dose 75+ series) 04/12/2055 HPV IMMUNIZATION Aged Out No longer e [...] Results * COLONOSCOPY (04/23/2023 9:07 AM CDT) COLONOSCOPY [...] continuously. The ?Olympus Adult Colonoscope, Model # CF-AD622G, ?Censitrac # [id number] was introduced through the ?anus and advanced [...] Procedure Code(s): ? --- Professional --- ? 52549, Colonoscopy, flexible; with removal of tumor(s), polyp(s), or ? other lesion(s) by snare technique ? 53101, 59, Colonoscopy, flexible; with biopsy, single or multiple CPT copyright 2021 [employer]. All rights reserved. The codes documented in this report are preliminary and upon program facilitator review may be revised to meet current compliance requirements. EVA KYLE MD 04/23/2023 10:06:23 AM I was physically present for the entire viewing portion of the exam. EVA KYLE MD Number of Addenda: 0 Note Initiated On: 04/23/2023 9:07 AM MRN: ?[id number] Procedure Date: ? 04/23/2023 9:07:09 AM Scope [...] - 10.0 mg/dL 08/19/2022 6:11 AM CDT [facility] Glucose 103(H) 70 - 99 mg/dL 08/19/2022 6:11 AM CDT [facility] GFR Estimate >90 >60 mL/min/1.7 3m2 08/19/2022 6:11 AM CDT [facility] Blood CENTRAL VENOUS CATHETER / Unknown Venipuncture / Unknown 08/19/2022 5:34 AM CDT 08/19/2022 5:52 AM CDT Susie Mascorro MD LAB - BLOOD ORDERABL ES LABORATORY [facility] Acute Care Lab [address] Lab (1st floor, no room number) [place] [address], [facility] [phone] from Last 3 Months or Most Recently Relevant to Health Maintenance Advance Directives For more information, please contact: [phone] * Full Code (Latest Code Status on [...] mai nt/ legal decision maker Care Teams Metal Cabinet Finisher Relationship Specialty Start Date End Date No Ref-Primary, Physician PCP - General 08/07/22
--- OUTSIDE RECORDS SUMMARY | 2023-11-22 14:52 | XMS_ITS | Referral Summary ---
Author Organization [facility] Address [address] [place] [address] Care Team Providers Care Proctologist Name Role Phone No Ref-Primary, Physician Primary [...] AM CDT) [facility] COLONOSCOPY [facility] Patient Name: Rajeevgeorgettericky McmullenHola Guajardo ? Procedure [...] continuously. The ?Olympus Adult Colonoscope, Model # CF-[id number], ?Censitrac # [id number] was introduced through the ?anus and advanced [...] Procedure Code(s): ? --- Professional --- ? 78914, Colonoscopy, flexible; with removal of tumor(s), polyp(s), or ? other lesion(s) by snare technique ? 18636, 59, Colonoscopy, flexible; with biopsy, single or multiple CPT copyright 2021 [employer]. All rights reserved. The codes documented in this report are preliminary and upon invoice coder review may be revised to meet current compliance requirements. EVA KYLE MD 04/23/2023 10:06:23 AM I was physically present for the entire viewing portion of the exam. EVA KYLE MD Number of Addenda: 0 Note Initiated On: 04/23/2023 9:07 AM MRN: ?[id number] Procedure Date: ? 04/23/2023 9:07:09 AM Scope [...] LAB - BLOOD ORDERABL ES RH LABORATORY [facility] Acute Care Lab [address] Lab (1st floor, no room number) [place] [address], [facility] [phone] from Last 3 Months or Most Recently Relevant to Health Maintenance Advance Directives For more information, please contact: [phone] * Full Code (Latest Code Status on [...] patie nt/ legal decision maker Care Teams Proctologist Relationship Specialty Start Date End Date No Ref-Primary, Physician PCP - General 08/07/22
--- OUTSIDE RECORDS SUMMARY | 2023-11-22 14:52 | XMS_ITS | Clinical Summary ---
Author Organization [employer] [facility] Address [place], [place] [address] Care Team Providers Care Hand Binder Cutter Name Role Phone Jose Almeida MD Primary Care Provider [phone] Allergies No known active allergies Medications Medication [...] booster 05/08/2016 05/08/2006, 09/04/1996 COVID-19 vaccine series (2023- season) 2023 Influenza for age 9-49 10/13/2023 Tdap Completed 05/08/2006, 09/04/1996 Pneumococcal series for age 6-64 Aged Out No longer eligible b ased on patient's age to complete this topic Advance Directives * Full Code (Latest Code Status on File) Date Activated Date Inactivated Comments 06/25/2019 10:05 AM 06/25/2019 5:18 PM Care Teams Hand Binder Cutter Relationship Specialty Start Date End Date Jose Almeida MD PCP - General Family Practice 06/18/19
--- OUTSIDE RECORDS SUMMARY | 2023-11-22 14:52 | XMS_ITS | Clinical Summary ---
Author Organization [facility] Address [address] [place] [address] Care Team Providers Care Used Car Renovator Name Role Phone Unassigned, Provider Primary Care [...] for each transition of care or referral. [facility] Allergies No known active allergies Medications Medication Sig Dispensed Refills Start Date End Date Status ALPRAZolam (XANAX) 1 MG tablet 04/18/2019 Active metoprolol succinate (TOPROL XL) 50 MG 24 hour release tablet TAKE 1 T PO DAILY 04/15/2019 Active testosterone cypionate (DEPO-TESTOSTERONE) 200 MG/ML injection 04/15/2019 Activ e B-D 3CC LUER-SULEMA SYR 81FS6-0/2 22G X 1-1/2 3 ML UTD 04/15/2019 [...] 04/12/1999 Cholesterol 04/12/2015 COVID-19 Vaccine ( season) 2023 07/25/2020, 06/28/2020 Influenza (#1) 2023 12/09/2013 DTaP/Tdap/Td [...] on patient's age to complete this topic Infant RSV Aged Out No longer eligi ble based on patient's age to complete this topic MCV4 Aged Out No longer eligi ble based on patient's age to complete this topic Care Teams Used Car Renovator Relationship Specialty Start Date End Date Unassigned, Provider [address] [place] [address] PCP - General 02/16/00
== END 2023-11-22 14:50 | disposition home or self-care (01) ==
PROVIDERS: PCP Internal Medicine; Visit Provider Internal Medicine
DX: D75.1 Secondary polycythemia (principal)
CPT/HCPCS: 36415; 99195

== ENCOUNTER 2023-12-04 14:53 | Outpatient (CLI) | payer OTHER, SELFPAY ==
--- OUTSIDE RECORDS SUMMARY | 2023-12-04 14:55 | XMS_ITS | Continuity of Care Document ---
Author Organization [facility] Address [address] [place] [address] Phone Care Team Providers Care Break And Load Operator Name Role Phone Juan Rowell Unavailable Unavailable Procedures Procedure Date Lami/Discectomy, Lumbar HNP - PA 2019 Lami/Discectomy, Lumbar HNP Advance Directives Directive Yes / No Effective Date File Name No Information Encounters Encounter Description Practice Location Reason(s) For Visit Diagnoses Date Provider Providers Copied on Encounter [facility], [address], [place], [place], [id number], [place] tel:[phone] [facility] No Information Hay Martinez. [facility], [address], [place], [place], [id number], [place]. tel:[phone] Referring Provider: RAINER Sheppard [address] [place] [address], [facility]. tel:[phone] [facility], [address], [place], [place], [id number], [place] tel:[phone] [facility] No Information Marii Gutierrez. [facility] Orth[facility] , [address] [place] [address], [address], [place]. tel:[phone] Referring Provider: RAINER Sheppard [address] [place] [address], [address]. tel:[phone] Family History Family Member Type Diagnosis Age [...]
--- OUTSIDE RECORDS SUMMARY | 2023-12-04 14:55 | XMS_ITS | Clinical Summary ---
Author Organization [facility] Address [address] [place] [address] Care Team Providers Care Four Horse Hitch Driver Name Role Phone Unassigned, Provider Primary Care [...] for each transition of care or referral. [facility] Allergies No known active allergies Medications Medication Sig Dispensed Refills Start Date End Date Status ALPRAZolam (XANAX) 1 MG tablet 04/18/2019 Active metoprolol succinate (TOPROL XL) 50 MG 24 hour release tablet TAKE 1 T PO DAILY 04/15/2019 Active testosterone cypionate (DEPO-TESTOSTERONE) 200 MG/ML injection 04/15/2019 Activ e B-D 3CC LUER-SULEMA SYR 49GM1-3/2 22G X 1-1/2 3 ML UTD 04/15/2019 [...] age to complete this topic Care Teams Four Horse Hitch Driver Relationship Specialty Start Date End Date Unassigned, Provider [address] [place] [address] PCP - General 02/16/00
--- OUTSIDE RECORDS SUMMARY | 2023-12-04 14:55 | XMS_ITS | Clinical Summary ---
Author Organization [facility] Address [address] [place] [address] Care Team Providers Care Cp Bleacher Operator Name Role Phone No Ref-Primary, Physician Primary Care Provider Allergies No known active allergies Medications lisinopril (ZESTRIL) 40 MG tablet Take 40 mg by mouth daily Active ALPRAZolam (XANAX) 0.5 MG tablet Take 0.5 mg by mouth 3 times daily as needed Active testosterone cypionate (DEPOTESTOSTERON E) 200 MG/ML injection Inject 200 mg into [...] ER (TOPROL XL) 25 MG 24 hr tabletIndication s:Benign essential hypertension Take 1 tablet (25 mg) by mouth daily 30 tablet 3 Active Additional Information Patient taking differently: 50 mgOral DAILY, Informant: Self, Reported on 04/19/2023 amoxicillin-clav ulanate (AUGMENTIN) 875-125 MG tabletIndication s:Colovesical fistula Take 1 tablet by mouth 2 times daily 20 tablet 3 Active Active Problems Problem Noted Date Diagnosed [...] Recorded Sex Assigned at Not on file 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 Procedure Date: 04/23/2023 9:07 AM [...] continuously. The ?Olympus Adult Colonoscope, Model # CF-[id number], ?Censitrac # [id number] was introduced through the ?anus and advanced [...] Procedure Code(s): ? --- Professional --- ? 34121, Colonoscopy, flexible; with removal of tumor(s), polyp(s), or ? other lesion(s) by snare technique ? 14133, 59, Colonoscopy, flexible; with biopsy, single or multiple CPT copyright 2021 [employer]. All rights reserved. The codes documented in this report are preliminary and upon medical coder review may be revised to meet current compliance requirements. EVA KYLE MD 04/23/2023 10:06:23 AM I was physically present for the entire viewing portion of the exam. EVA KYLE MD Number of Addenda: 0 Note Initiated On: 04/23/2023 9:07 AM MRN: [id number] Procedure Date: ? 04/23/2023 9:07:09 AM Scope Withdrawal Time: 0 hours 23 minutes 31 seconds Total Procedure Duration: 0 hours 29 minutes 27 seconds Estimated Blood Loss: ? Scope In: 9:16:03 AM Scope Out: 9:45:30 AM RADIOLOGY RESULTS 04/23/2023 9:07 AM CDT us Eva Kyle MD PROCEDURES Final Res ult RADIOLOGY RESULTS * (ABNORMAL) Basic metabolic panel [...] 5:34 AM CDT 08/19/2022 5:52 AM CDT us Susie Mascorro MD LAB - BLOOD ORDERABLES Final Result LABORATORY [facility] Acute Care Lab [address] [facility] Lab (1st floor, no room number) [place] [address], [facility] [phone] from Last 3 Months or Most Recently Relevant to Health Maintenance Insurance [employer] Advance Directives For more information, please contact: [phone] * Full Code (Latest Code Status on [...] patie nt/ legal decision maker Care Teams Cp Bleacher Operator Relationship Specialty Start Date End Date No Ref-Primary, Physician PCP - General 08/07/22
--- OUTSIDE RECORDS SUMMARY | 2023-12-04 14:55 | XMS_ITS | Referral Summary ---
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 Procedure [...] continuously. The ?Olympus Adult Colonoscope, Model # CF-QW079Q, ?Censitrac # [id number] was introduced through the ?anus and advanced [...] Procedure Code(s): ? --- Professional --- ? 35090, Colonoscopy, flexible; with removal of tumor(s), polyp(s), or ? other lesion(s) by snare technique ? 74499, 59, Colonoscopy, flexible; with biopsy, single or multiple CPT copyright 2021 [employer]. All rights reserved. The codes documented in this report are preliminary and upon certified procedural coder review may be revised to meet current compliance requirements. EVA KYLE MD 04/23/2023 10:06:23 AM I was physically present for the entire viewing portion of the exam. EVA KYLE MD Number of Addenda: 0 Note Initiated On: 04/23/2023 9:07 AM MRN: ?[id number] Procedure Date: ? 04/23/2023 9:07:09 AM Scope [...] CDT Susie Mascorro MD LAB - BLOOD ORDERABLES Final Result LABORATORY [facility] Acute Care Lab [address] Lab (1st floor, no room number) [place] [address], [facility] [phone] from Last 3 Months or Most Recently Relevant to Health Maintenance Insurance [facility] IN[employer]UAL FAMILY [employer] [facility] [employer] Advance Directives For more information, please contact: [phone] * Full Code (Latest Code Status on [...] mai nt/ legal decision maker Care Teams Outside Cutter Relationship Specialty Start Date End Date No Ref-Primary, Physician PCP - General 08/07/22
--- OUTSIDE RECORDS SUMMARY | 2023-12-04 14:55 | XMS_ITS | Encounter Summary ---
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
== END 2023-12-04 14:54 | disposition home or self-care (01) ==
PROVIDERS: PCP Internal Medicine; Visit Provider Internal Medicine
DX: D75.1 Secondary polycythemia (principal)
CPT/HCPCS: 80053; 99195

== ENCOUNTER 2024-07-23 13:13 | Outpatient (CLI) | payer OTHER, SELFPAY | END 2024-07-23 13:14 | disposition home or self-care (01) | PROVIDERS: PCP Internal Medicine; Visit Provider Internal Medicine | DX: I10 Essential (primary) hypertension (principal); D75.1 Secondary polycythemia | CPT/HCPCS: 80053; 80061; 84270; 84402; 84403 ==

== ENCOUNTER 2024-07-28 15:11 | Outpatient (CLI) | payer OTHER, SELFPAY | END 2024-07-28 15:12 | disposition home or self-care (01) | LOC: LAB 15:19 | PROVIDERS: PCP Internal Medicine; Visit Provider Internal Medicine | DX: D75.1 Secondary polycythemia (principal) | CPT/HCPCS: 36415; 99195 ==

== ENCOUNTER 2024-11-10 15:40 | Outpatient (CLI) | payer OTHER, SELFPAY | END 2024-11-10 15:41 | disposition home or self-care (01) | LOC: LAB 15:40 | PROVIDERS: PCP Internal Medicine; Visit Provider Internal Medicine | DX: D75.1 Secondary polycythemia (principal) | CPT/HCPCS: 36415; 99195 ==

== ENCOUNTER 2024-12-06 13:32 | Emergency (ER) | payer OTHER, SELFPAY ==
--- OUTSIDE RECORDS SUMMARY | 2024-12-06 13:35 | XMS_ITS | Clinical Summary ---
Author Organization [facility] Address [address] [place] [address] Care Team Providers Care Traffic Director Name Role Phone Unassigned, Provider Primary [...] for each transition of care or referral. [facility]ies No known active allergies Medications ALPRAZolam (XANAX) 1 MG tablet 0 Active metoprolol succinate (TOPROL XL) 50 MG 24 hour release tablet TAKE 1 T PO DAILY 0 Active testosterone cypionate (DEPO-TESTOSTERONE ) 200 MG/ML injection 0 Active B-D 3CC LUER-SULEMA SYR 78CC9-3/2 22G X 1-/2 3 ML UTD 0 Active ibuprofen (MOTRIN) 200 MG tablet Take 200-400 mg by mouth every 4 hours as needed for Pain. Active predniSONE (DELTASONE) 20 MG tablet 20 mg 2x daily x 2 days, then 10 mg 2 daily x 2 days, then 10mg daily x 2 days, then Off. FINAL refill 7 Tablet 0 Active lisinopril (ZESTRIL) 20 MG tablet TK 1 T PO D 0 Active oxyCODONE-acetamin ophen (PERCOCET) 5-325 MG tabletIndications: Lumbar radiculopathy Take 1-2 Tablets by mouth every 6 hours as needed for Pain. 30 Tablet 0 Active cyclobenzaprine (FLEXERIL) 10 MG tablet Take 1 Tablet by mouth three times a day as needed for Muscle Spasms. 30 Tablet 1 0 Active Active Problems Problem Noted Date Diagnosed Date Essential (primary) hypertension 06/11/2019 Lumbar herniated disc 06/11/2019 Social History Tobacco Use Types Packs/Day Years Used Date Smoking Tobacco: Every Day Smokeless Tobacco: Never Sex and Gender Information Value Date Recorded Sex Assigned at Not on file Legal Sex Male 4:52 AM CDT Gender Identity Not on file Sexual Orientation [...] Comments Hep C Screening (Preventive Services) 1980 HIV Screening (Preventive Services) 1996 Adult Preventive Visit 1998 HepB Vaccine (1) 04/12/1999 Pneumococcal Vaccine (1 of 2 - PCV) 04/12/1999 HPV Vaccine (1 - 3-dose SCDM series) 04/12/2007 Cholesterol 04/12/2015 DTaP/Tdap/Td Vaccine (5 - Tdap) 12/10/2023 12/09/2013, 05/08/2006, 05/08/2006, Additional history exists COVID-19 Vaccine (3 - season) 2024 07/25/2020, 06/28/2020 Influenza Vaccine (#1) 2024 12/09/2013 Zoster/Shingles Vaccine (1 of 2) 2030 HepA Vaccine Aged Out No longer eligi ble based on patient's age to complete this topic Hib Vaccine Aged Out No longer eligi ble based on patient's age to complete this topic IPV (Polio) Vaccine Aged Out No longe r eligible based on patient's age to complete this topic MCV4 Vaccine Aged Out No longer eligi ble based on patient's age to complete this topic Meningococcal B Vaccine Aged Out No l onger eligible based on patient's age to complete this topic Care Teams Traffic Director Relationship Specialty Start Date End Date Unassigned, Provider [address] [place] [address] PCP - General 02/16/00
--- OUTSIDE RECORDS SUMMARY | 2024-12-06 13:35 | XMS_ITS | Encounter Summary ---
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
--- OUTSIDE RECORDS SUMMARY | 2024-12-06 13:35 | XMS_ITS | Clinical Summary ---
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 Gender Identity Not on file Sexual Orientation Not on file Last Filed Vital Signs Vital Sign Reading Time Taken Comments Blood Pressure 168/100 04/23/2023 10:10 AM CDT Pulse 76 04/23/2023 10:10 AM CDT Temperature 36.8 C (98.2 F) 08/19/2022 7:32 AM CDT Respiratory Rate 16 04/23/2023 10:10 AM CDT [...] COLONOGRAPHY 1980 FIT 1980 FLEX SIG 1980 sDNA (Cologuard) 1980 YEARLY PREVENTIVE VISIT 04/12/1983 HIV SCREENING 04/12/1995 HEPATITIS C SCREENING 1998 HEPATITIS B VACCINE (3 of 3 - 3-dose series) 07/29/1998 06/03/1998, 04/16/1997 LIPID 2020 BMP 08/20/2023 08/19/2022, 07/0 09/2022, 08/17/2022, Additional history exists DTAP/TDAP/TD VACCINE (5 - Td or Tdap) 12/10/2023 12/09/2013, 05/08/2006, 05/08/2006, Additional history exists PHQ-2 (once per calendar year) 2024 COVID-19 VACCINE ( season) 2024 07/25/2020, 06/28/2020 INFLUENZA VACCINE (#1) 2024 12/09/2013, 2013 DIABETES SCREENING 08/19/2025 08/19/2022, 0 08/18/2022, 08/18/2022, Additional history exists COLONOSCOPY 04/22/2026 04/23/2023, 04/11, 04/23/2023, Additional history exists COLORECTAL CANCER SCREENING 04/22/2026 ZOSTER VACCINE (1 of 2) 2030 HPV VACCINE (No Doses Required) Completed MENINGITIS VACCINE Aged Out No longer eligible based on patient's age to complete this topic PNEUMOCOCCAL VACCINE: PEDIATRICS (0 to 5 YEARS) AND AT-RISK PATIENTS (6 to 49 YEARS) Aged Out No longer eligible based on patient's age to complete this topic Procedures Procedure Name Priority Date/Time Associated Diagnosis Comments COLONOSCOPY Routine 04/23/2023 9:07 AM CDT BASIC METABOLIC PANEL Routine 08/19/2022 5:34 AM CDT from Last 3 Months or Most Recently Relevant to Health Maintenance Results * COLONOSCOPY (04/23/2023 9:07 AM CDT) [facility] COLONOSCOPY [facility] Patient Name: Judith Guajardo Procedure Date: 04/23/2023 9:07 AM Date of : 1980 Admit Type: Outpatient Age: 43 Gender: Male Attending MD: EVA KYLE MD, Total Sedation Time: 33 min continuous bedside 1:1 monitoring, IT 5 min, WT 24 min. Instrument Name: 226 - Adult Colonoscope Procedure: Colonoscopy Indications: Change in bowel habits Providers: EVA KYLE MD (Doctor) Referring MD: Medicines: Midazolam 5 mg IV, Fentanyl 100 micrograms IV, Glucagon 0.5 mg IV Complications: No immediate complications. Procedure: Pre-Anesthesia Assessment: - Prior to the procedure, a History and Physical was performed, and patient medications and allergies were reviewed. The patient's tolerance of previous anesthesia was also reviewed. The risks and benefits of the procedure and the sedation options and risks were discussed with the patient. All questions were answered, and informed consent was obtained. Prior Anticoagulants: The patient has taken no anticoagulant or antiplatelet agents. ASA Grade Assessment: II - A patient with mild systemic disease. After reviewing the risks and benefits, the patient was deemed in satisfactory condition to undergo the procedure. - Prior to the procedure, a History and Physical was performed, and patient medications, allergies and sensitivities were reviewed. The patient's tolerance of previous anesthesia was reviewed. - The risks and benefits of the procedure and the sedation options and risks were discussed with the patient. All questions were answered and informed consent was obtained. - Patient identification and proposed procedure were verified prior to the procedure by the physician. The procedure was verified in the endoscopy suite. - Pre-procedure physical examination revealed no contraindications to sedation. - The heart rate, respiratory rate, oxygen saturations, blood pressure, adequacy of pulmonary ventilation, and response to care were monitored throughout the procedure. - The physical status of the patient was re-assessed after the procedure. After obtaining informed consent, the colonoscope was passed under direct vision. Throughout the procedure, the patient's blood pressure, pulse, and oxygen saturations were monitored continuously. The Olympus Adult Colonoscope, Model # [id number], Censitrac # [id number] was introduced through the anus and advanced to the terminal ileum. The colonoscopy was performed without difficulty. The patient tolerated the procedure well. The quality of the bowel preparation was adequate. Findings: The perianal and digital rectal examinations were normal. Pertinent negatives include normal sphincter tone, no palpable rectal lesions and normal prostate (size, shape, and consistency). Diffuse mild inflammation characterized by congestion (edema) and erythema was found in the terminal ileum. Biopsies were taken with a cold forceps for histology. Estimated blood loss was minimal. Two sessile polyps were found in the ascending colon. The polyps were 5 to 7 mm in size. These polyps were removed with a cold snare. Resection and retrieval were complete. Estimated blood loss was minimal. An 8 mm polyp was found in the hepatic flexure. The polyp was sessile. The polyp was removed with a hot snare. Resection and retrieval were complete. To prevent bleeding after the polypectomy, one hemostatic clip was successfully placed. There was no bleeding at the end of the procedure. A 5 mm polyp was found in the descending colon. The polyp was sessile. The polyp was removed with a cold snare. Resection and retrieval were complete. Estimated blood loss was minimal. A 5 mm polyp was found in the sigmoid colon. The polyp was sessile. The polyp was removed with a cold snare. Resection and retrieval were complete. Estimated blood loss was minimal. Scattered small-mouthed diverticula were found in the descending colon and ascending colon. There was evidence of a prior end-to-end colo-rectal anastomosis in the proximal rectum. This was patent and was characterized by healthy appearing mucosa and an intact staple line. The anastomosis was traversed. Non-bleeding internal hemorrhoids were found during retroflexion. Impression: - Mild inflammation was found in the ileum secondary to ileitis. Biopsied. - Two 5 to 7 mm polyps in the ascending colon, removed with a cold snare. Resected and retrieved. - One 8 mm polyp at the hepatic flexure, removed with a hot snare. Resected and retrieved. Clip was placed. - One 5 mm polyp in the descending colon, removed with a cold snare. Resected and retrieved. - One 5 mm polyp in the sigmoid colon, removed with a cold snare. Resected and retrieved. - Diverticulosis in the descending colon and in the ascending colon. - Patent end-to-end colo-rectal anastomosis, characterized by healthy appearing mucosa and an intact staple line. - Non-bleeding internal hemorrhoids. Recommendation: - Discharge patient to home. - Resume previous diet. - No aspirin, ibuprofen, naproxen, or other non-steroidal anti-inflammatory drugs for 5 days after polyp removal. - Miralax 1 capful (17 grams) in 8 ounces of water PO BID indefinitely. - Await pathology results. - Repeat colonoscopy in 3 years for surveillance based on pathology results. Procedure Code(s): --- Professional --- 40755, Colonoscopy, flexible; with removal of tumor(s), polyp(s), or other lesion(s) by snare technique 32108, 59, Colonoscopy, flexible; with biopsy, single or multiple CPT copyright 2021 [employer]. All rights reserved. The codes documented in this report are preliminary and upon health information coder review may be revised to meet current compliance requirements. EVA KYLE MD 04/23/2023 10:06:23 AM I was physically present for the entire viewing portion of the exam. EVA KYLE MD Number of Addenda: 0 Note Initiated On: 04/23/2023 9:07 AM Procedure Date: 04/23/2023 9:07:09 AM Scope Withdrawal Time: 0 hours 23 minutes 31 seconds Total Procedure Duration: 0 hours 29 minutes 27 seconds Estimated Blood Loss: Scope In: 9:16:03 AM Scope Out: 9:45:30 [...] LAB - BLOOD ORDERABLES Final Result LABORATORY [facility] Acute Care Lab [address] Lab (1st floor, no room number) [place] [address], [facility] [phone] from Last 3 Months or Most Recently Relevant to Health Maintenance Insurance [facility] [employer] [facility] [employer] Advance Directives For more information, please contact: [phone] * Full Code (Latest Code Status on [...] patie nt/ legal decision maker Care Teams Manager Of Supply Chain Relationship Specialty Start Date End Date No Ref-Primary, Physician PCP - General 08/07/22
--- OUTSIDE RECORDS SUMMARY | 2024-12-06 13:35 | XMS_ITS | CCD ---
Author Name [facility], [address] Address [address] [place] [address] [place] [address] Reason for Visit Social History Date Name Value 10/10/2024 Sex Male
--- OUTSIDE RECORDS SUMMARY | 2024-12-06 13:35 | XMS_ITS | Clinical Summary ---
Author Organization [employer] [facility] Address [address] [place] [address] Care Team Providers Care Safety Instructor Name Role Phone Jose Almeida MD Primary Care Provider [phone] Allergies No known active allergies Medications cyclobenzaprin e (FLEXERIL) 10 mg tablet Take 10 mg by mouth 4 times daily if needed for Muscle Spasm. Active ALPRAZolam (XANAX) 0.5 mg tablet Take 0.5 mg by mouth 3 times daily if needed. Active lisinopriL (PRINIVIL; ZESTRIL) 20 mg tablet Take 20 mg by mouth once daily. Active metoprolol succinate (TOPROL XL) 50 mg sustained-rele ase tablet Take 50 mg by mouth once daily. Active testosterone cypionate 200 mg/mL oil 200 mg Inject 200 mg intramuscular once weekly. Active oxyCODONE (ROXICODONE) 5 mg immediate release tabletIndicati ons:Acute post-operative pain Take 1-2 tablets by mouth every 4 hours if needed for Pain Max of 10 tablets/day. 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 Gender Identity Not on file Sexual Orientation Not on file Obstetrics History Last Filed Vital Signs Vital Sign Reading Time Taken Comments Blood Pressure 153/75 06/25/2019 2:45 PM CDT Pulse 94 06/25/2019 2:45 PM CDT Temperature 37.2 C (99 F) 06/25/2019 1:45 PM CDT Respiratory Rate 16 [...] C screening for ag e 18-79 1998 Hepatitis B series for 19+ ( 3 of 3 - 3-dose series) 07/29/1998 06/03/1998, 04/16/1997 HPV series for age 9-45 (1 - 3-dose SCDM series) 04/12/2007 Lipids for age 35-44 04/12/2015 Tetanus booster 05/08/2016 05/08/2006, 09/04/1996 COVID-19 vaccine series ( season) 2024 Influenza Vaccine (#1) 2024 RSV vaccine for adults or (1 - 1-dose 75+ series) 04/12/2055 Pneumococcal series for age 6-49 Aged Out No longer eligible b ased on patient's age to complete this topic Insurance [facility] Advance Directives * Full Code (Latest Code Status on File) Date Activated Date Inactivated Comments 06/25/2019 10:05 AM 06/25/2019 5:18 PM Care Teams Safety Instructor Relationship Specialty Start Date End Date Jose Almeida MD PCP - General Family Practice 06/18/19
[2024-12-06 13:48] VITALS: BP 162/106; PULSE 119; RESP 18; TEMP 37.4; O2SAT 96; BMI 38.5
--- NOTE | 2024-12-06 14:09 | ED_ITS ---
HPI - General Adult General Date Seen: 12/06/24 Chief complaint: Back Injury/Pain Stated complaint: Back Pain Time Seen by Provider: 12/06/24 13:55 History of Present Illness HPI narrative: 44-year-old male with a past medical history PTSD, anxiety/depression, hyp ogonadism, tobacco abuse, polycythemia, and a history of low back problems including a lumbar 5 back surgery twice. He presents to the ER today with low back pain. It started flaring up earlier this week. He was getting into his truck on Saturday and had a significant recent pain and spasming. He has been taking Motrin. He has already made an appointment with his primary care provider, Dr. Ibarra coming up on this week. Per medical record he was seen in the urgent care 5 days ago on 12/01 for low back pain. Per that note he had been having pain for about a week and half in the context of chronic back pain with occasional flares . History of L5-S1 surgery twice. Per that note he was having back pain with occasional radiation down to his left ankle. He was given a prescription for cyclobenzaprine. Since then he has been taking Aleve and cyclobenzaprine but the really not helpful. He is having increasing pain in his low back and radiating down his left leg. In particular the pains worse when he tries to flex his left hip or straighten his left leg out. He has a lot of pain when he tries to sit on the toilet. He has had normal function of bladder and bowel. No fever or chills. No anterior abdominal pain. No pain up into his flank or kidney area. He is not having any radiating pain down his right leg. Although he is having lot of pain down his left leg is not having any numbness or weakness. He has been trying to wait for his scheduled clinic appointment with his primary care provider on but his pain was just too intense today so we could not wait. Related Data Home Medications ?Medication ?Instructions ?Recorded ?Confirmed testosterone cypionate 200 mg/mL 100 mg IM QWEEK 07/2312/06/24 intramuscular oil (Depo-Testosterone) Previous Rx's ?Medication ?Instructions ?Recorded nicotine 21 mg/24 hr daily 1 patch transdermal Q24H #2 8 ea 07/10/24 transdermal patch lorazepam 1 mg tablet 1 mg PO QHS PRN anxiety #20 tabs 11/19/24 alprazolam 0.5 mg tablet 0.5 mg PO BID PRN anxiety #6 0 tabs 11/25/24 cyclobenzaprine 5 mg tablet 5 mg PO BID PRN muscle spa sm #10 12/01/24 tabs lisinopril 40 mg tablet 40 mg PO QDAY #90 tabs 12/03 metoprolol succinate 50 mg 50 mg PO DAILY #90 tabs tablet,extended release 24 hr methylprednisolone 4 mg tablets in See Rx Instructions PO .COMPLEX 12/06/24 a dose pack (Medrol (Mike)) #21 ea oxycodone 5 mg capsule 5 - 10 mg (1 - 2 x 5 mg) PO Q4-6H 12/06/24 PRN pain #14 caps Allergies Allergy/AdvReac Type Severity Reaction Status Date / Time No Known Drug Allergies Allergy Verified 12/06/24 13:46 PFSH PFS Medical History Obesity ?E66.9 - Obesity, unspecified (ICD-10) Polycythemia ?D75.1 - Secondary polycythemia (ICD-10) Otitis media ?H66.90 - Otitis media, unspecified, unspecified ear (ICD-10) Abdominal pain ?R10.9 - Unspecified abdominal pain (ICD-10) Surgical History S/P lumbar discectomy ?Z98.890 - Other specified postprocedural states (ICD-10) Status post tonsillectomy and adenoidectomy (08/18/12) ?Z90.89 - Acquired absence of other organs (ICD-10) Status post appendectomy (08/18/12) ?Z90.49 - Acquired absence of other specified parts of digestive tract (ICD- 10) Social History What is your current living situation?: I presently have a place to live Problems where you live: no known problems In the past 12 months, utilities in danger of being shut off: no In past 12 months, lack of transportation kept you from medical appts, meetings, work, or getting things needed for daily living: no In the past 12 mos, have been you worried that your food would run out before you had money to buy more?: never true In the past 12 mos, the food you bought just didn't last and you didn't have money to buy more?: never true Smoking Status: Heavy tobacco smoker What tobacco products do you use: c igarettes Do you use any of these nicotine containing products: None Second hand tobacco smoke exposure: No How often do you have a drink containing alcohol: 4 or more times a week How many standard drinks containing alcohol do you have on a typical day: 3 or 4 How often do you have six or more drinks on one occasion: Less than monthly AUDIT-C Alcohol total score: 6 Non-prescribed substance use: denies use How often does anyone, including family, friends and others, physically hurt you : never How often does anyone, including family, friends and others, insult or talk down to you: never How often does anyone, including family, friends and others, threaten you with harm: never How often does anyone, including family, friends and others, scream or curse at you: never Exam Narrative: Exam Narrative: Constitutional: Appears well-developed and well-nourished. Alert. Conversant. Non toxic. HENT: Head: Atraumatic. Nose: Nose normal. Mouth/Throat: Oral mucosa is clear and moist. no trismus. Eyes: Conjunctivae normal. EOM normal. Pupils equal, round, and reactive to light. No scleral icterus. Neck: Normal range of motion. Neck supple. No tracheal deviation present. Cardiovascular: Normal rate, regular rhythm. . Symmetric PT artery pulses . Normal distal cap refill in his feet Pulmonary/Chest: Effort normal. No stridor. No respiratory distress Musculoskeletal: RUE: Normal range of motion. No tenderness. No deformity LUE: Normal range of motion. No tenderness. No deformity RLE: Normal range of motion. No edema. No tenderness. No deformity LLE: Normal range of motion. No edema. No tenderness. No deformity Normal inspection of his low back. He has a well-healed midline lower lumbar incision. No midline step-off. Mild tenderness on the posterior low back without any focal area. No redness. No erythema. No warmth. No rash. No bruising. Pelvis is stable. Neurological: Alert and oriented to person, place, and time. Normal strength. CN II-VII intact. No sensory deficit. GCS eye subscore is 4. GCS verbal subscore is 5. GCS motor subscore is 6. Normal coordination Sensory: Normal light touch sensation bilaterally on the anteromedial thigh (L3), medial malleolus (L4), dorsal first web space (L5), lateral malleolus (S1). Strength: 5/5 strength hip flexors (L3) on the rig ht and left 5/5 strength in the quadriceps (L4) on t he right and left 5/5 strength in the tibialis anterior 5/5 strength in the EHL (L5) on the righ t and left 5/5 strength in the gastrocnemius (S1) o n the right and left 5/5 strength in the hamstring on the rig ht and left patient endorses pain rating down to his left ankle when he would try to do a straight leg raise on the left Skin: Skin is warm and dry. No rash noted. No pallor. Normal capillary refill. Psychiatric: Normal mood. Normal affect. Polite Const: Vital Signs, click to edit/add: Vital Signs - 24 hr 12/06/24 13:48 Temperature 99.3 F Pulse Rate [Pulse Oximeter] 119 H Respiratory Rate 18 Blood Pressure [Ri ght Upper Arm] 162/106 H Pulse Oximetry 96 Oxygen Delivery Me thod Room Air Course Vital Signs Vital signs: Initial Vital Signs Temperature 99.3 F 12/06/24 13:48 Temperature Source Temporal Artery Scan 12/06/24 13:48 Pulse Rate 119 H 12/06/24 13:48 Respiratory Rate 18 12/06/24 13:48 Blood Pressure 162/106 H 12/06/24 13:48 Blood Pressure Mean 124 H 12/06/24 13:48 Blood Pressure Position Sitting 12/06/24 13:48 Pulse Oximetry 96 12/06/24 13:48 Oxygen Delivery Method Room Air 12/06/24 13:48 Vital Signs Temperature 99.3 F 12/06/24 13:48 Pulse Rate 119 H 12/06/24 13:48 Respiratory Rate 18 12/06/24 13:48 Blood Pressure 162/106 H 12/06/24 13:48 Pulse Oximetry 96 12/06/24 13:48 Oxygen Delivery Method Room Air 12/06/24 13:48 Temperature 99.3 F 12/06/24 13:48 Pulse Rate 119 H 12/06/24 13:48 Respiratory Rate 18 12/06/24 13:48 Blood Pressure 162/106 H 12/06/24 13:48 Pulse Oximetry 96 12/06/24 13:48 Oxygen Delivery Method Room Air 12/06/24 13:48 Medications Administered Medications: Discontinued Medications Generic Name Dose Route Start Last Admin Trade Name Italo PRN Reason Stop Dose Admin Oxycodone HCl 10 mg 12/06/24 14:34 12/06/24 14:41 Oxycodone 5 Mg Tablet PO 12/06/24 14:35 10 mg ONCE ONE Administration Medical Decision Making MDM Narrative Medical decision making narrative: This patient presented with back pain in the lower lumbar spine and radiating down his left posterior buttock thigh, down to his left ankle.. Broad differential considered. The patient did not sustain any trauma, therefore x- rays are not necessary due to the low likelihood of fracture or subluxation. There is no clinical evidence of cauda equina syndrome, epidural hematoma. He has not had any fever chills at home but I do know low-grade temperature of 99.1? in triage here. The neurological exam is normal and the patient's symptoms seem consistent with left lumbar radiculopathy associated with low back pain and significant muscle spasm. I do think the patient needs an MRI of his low back. Unfortunately, we do not have access to MR imaging here at the [facility] today. Although he has low-grade fever, no other red flags for infection at this time I do not think he needs an emergent transfer to another ER for MRI on a Saturday. He is agreeable to monitor closely and will return to the ER if worse. He will have outpatient follow-up to arrange an outpatient MRI, unless worsening in which case I would strongly consider lumbar MRI with and without contrast. Pain has improved with interventions in the emergency department. The patient will be discharged with pain medications (oxycodone and Flexeril) to use as directed. Opiate and sedation precautions reviewed. Ice or heat to the back and stretching exercises. No heavy lifting, bending or twisting. Return if increasing pain, numbness, weakness, or bowel or bladder dysfunction. The patient was advised to schedule follow-up with their primary doctor within 3-4 days to re-assess symptoms. Return precautions reviewed and questions answered. Initially sent prescriptions to the patient's pharmacy but he believes it is cl osed today on Saturday so I did give him prescriptions for oxycodone and Flexeril through [facility]. Discharge Plan Discharge Clinical Impression: Acute low back pain, Acute left lumbar radiculopathy Patient Disposition: Home, Self-Care Condition: Stable Instructions: Acute Low Back Pain (ED), Lumbar Radiculopathy (ED) Additional Instructions: As we discussed, we are suspicious that you probably have a pinched nerve in your low back causing her back pain and left leg pain. It is very important for you to follow-up with your regular doctor, Dr. Ibarra, this week and you will likely need an MRI of your low back. Unfortunately, I cannot get the MRI of your back today while you are here are in in the ER. Based on my suspicion that you do have a bulging disc pinching the nerve in your low back we are going to put you on a course of anti-inflammatory medications (a steroid called ?Medrol?). To manage her pain you can continue with sunj-vse-ozjrloi medications such as Tylenol or ibuprofen 1st. Use the muscle relaxer (cyclobenzaprine) if needed for muscle spasm. Use the prescription pain killer (oxycodone) if needed for pain uncontrolled by or other means. Be careful with oxycodone because it can cause dizziness, drowsiness, constipation, and can be addictive. Do not drive f or 6 hours after taking oxycodone. Please come back to the ER if you have any concerns especially worsening or uncontrollable pain, fever, dysfunction of your bladder or bowels, worsening numbness or weakness in your leg. Prescriptions: New methylprednisolone [Medrol (Mike)] 4 mg tablets,dose pack See Rx Instructions .ROUTE .COMPLEX Qty: 21 0RF Rx Instructions: for 6 days oxycodone 5 mg capsule 5 - 10 mg PO Q4-6H PRN (Reason: pain) Qty: 14 0RF No Action testosterone cypionate [Depo-Testosterone] 200 mg/mL oil 100 mg IM QWEEK cyclobenzaprine 5 mg tablet 5 mg PO BID PRN (Reason: muscle spasm) Qty: 10 0RF nicotine 21 mg/24 hr patch 24 hour 1 patch transdermal Q24H Qty: 28 0RF lorazepam 1 mg tablet 1 mg PO QHS PRN (Reason: anxiety) Qty: 20 0RF alprazolam 0.5 mg tablet 0.5 mg PO BID PRN (Reason: anxiety) Qty: 60 1RF metoprolol succinate 50 mg tablet extended release 24 hr 50 mg PO DAILY Qty: 90 0RF lisinopril 40 mg tablet 40 mg PO QDAY Qty: 90 0RF Follow Up/Referrals: Bipin Ibarra MD [Primary Care Provider, Internal Medicine] Stand Alone Forms: Work/School Release, [facility] Info Instructions
--- OUTSIDE RECORDS SUMMARY | 2024-12-06 14:45 | XMS_ITS | CCD ---
Author Name Interface, [address] Address [address] [place] [address] [place] [address] Reason for Visit Social History Date Name Value 10/10/2024 Sex Male
--- OUTSIDE RECORDS SUMMARY | 2024-12-06 14:45 | XMS_ITS | CCD ---
Author Name Interface, [address] Address [address] [place] [address] [place] [address] Reason for Visit Social History Date Name Value 10/10/2024 Sex Male
== END 2024-12-06 15:07 | disposition home or self-care (01) ==
PROVIDERS: Emergency Provider Emergency Medicine; PCP Internal Medicine
DX: M54.50 Low back pain, unspecified (principal); M54.16 Radiculopathy, lumbar region
CPT/HCPCS: 99282; 99283; 99284; A9270

== ENCOUNTER 2024-12-10 16:04 | Outpatient (CLI) | payer OTHER, SELFPAY | END 2024-12-10 16:05 | disposition home or self-care (01) | PROVIDERS: PCP Internal Medicine; Visit Provider Internal Medicine | DX: E29.1 Testicular hypofunction (principal) | CPT/HCPCS: 80053; 80061; 82670; 84270; 84402; 84403 ==

== ENCOUNTER 2024-12-18 10:00 | Outpatient (CLI) | payer MEDICAID, SELFPAY ==
--- NOTE | 2024-12-18 10:15 | CRLHL7_ITS ---
For Patients: As a result of the Century Cures Act, medical imaging exams and procedure reports are released immediately into your electronic medical record. You may view this report before your referring provider. If you have questions, please contact your health care provider. Indication: Radiculopathy. Technique: Multiplanar multisequence noncontrast MR images of the lumbar spine. Comparison: None. Findings: Straightening of the lumbar lordosis. Vertebral body heights are maintained. No acute fracture. No T1 hypointense lesions or significant marrow edema. Normal conus terminates at L1-2. T12-L1 through L2-3: No spinal canal or neural foraminal narrowing. L3-4: Shallow disc bulge. No spinal canal narrowing. Minimal left without right neural foraminal narrowing. L4-5: Moderate disc degeneration. Shallow posterior disc bulge with superimposed central disc extrusion measuring 4 mm in short axis and demonstrating caudal migration. Dorsal annular fissure. Mild spinal canal and lateral recess narrowing. Minimal neural foraminal narrowing. L5-S1: Postsurgical changes of left hemilaminectomy. Trace retrolisthesis. Moderate disc degeneration. Left eccentric disc bulging and endplate spondylitic ridging. Superimposed, caudally migrated left subarticular disc extrusion extending 10 mm posterior to the endplate margin potentially impinges traversing left S1 nerve roots. Mild facet arthropathy. Mild spinal canal narrowing. Mild left and minimal right neural foraminal narrowing. Impression: 1. At L5-S1, postsurgical changes of left hemilaminectomy. Left eccentric disc bulging with superimposed caudally migrated left subarticular disc extrusion potentially impinging traversing left S1 nerve roots. Mild narrowing of the spinal canal and left neural foramen. 2. At L4-5, shallow caudally migrated central disc extrusion mildly narrows the spinal canal and lateral recesses. Dictated by Zane Joya MD @ 12/18/2024 4:00:00 PM (Electronically Signed)
== END 2024-12-18 10:01 | disposition home or self-care (01) ==
LOC: MRI 10:01
PROVIDERS: PCP Internal Medicine; Visit Provider Internal Medicine
DX: M54.16 Radiculopathy, lumbar region (principal); M51.27 Other intervertebral disc displacement, lumbosacral region; D75.1 Secondary polycythemia
CPT/HCPCS: 36415; 72148; 99195

== ENCOUNTER 2025-02-02 09:11 | Outpatient (CLI) | payer BC, SELFPAY | END 2025-02-02 09:12 | disposition home or self-care (01) | LOC: LKVREF 09:12 | PROVIDERS: PCP Internal Medicine; Visit Provider Internal Medicine | DX: D75.1 Secondary polycythemia (principal); E29.1 Testicular hypofunction | CPT/HCPCS: 84403 ==

== ENCOUNTER 2025-02-05 14:10 | Outpatient (CLI) | payer BC, SELFPAY | END 2025-02-05 14:11 | disposition home or self-care (01) | LOC: LAB 14:10 | PROVIDERS: PCP Internal Medicine; Visit Provider Internal Medicine | DX: D75.1 Secondary polycythemia (principal) | CPT/HCPCS: 36415; 99195 ==